=== PATIENT | male | born 1955 | race Two or more races ===

== ENCOUNTER → 2020-06-10 10:43 | Outpatient (BNVA) | payer MEDICARE, MEDICAID, SELFPAY | PROVIDERS: PCP Internal Medicine; Visit Provider Physician Assistant | DX: Z13.89 Encounter for screening for other disorder (principal) | CPT/HCPCS: Q3014 ==

== ENCOUNTER 2022-08-16 13:13 | Outpatient (REF) | payer MEDICARE, SELFPAY ==
--- NOTE | ~2022-08-16 | US_ITS ---
EXAMINATION: ANKLE-BRACHIAL INDICES ARTERIAL DUPLEX BILATERAL LEGS CLINICAL INFORMATION: Cramps and claudication. COMPARISON: None TECHNIQUE: Ankle-brachial indices were obtained. Duplex Doppler of the bilateral lower extremity arterial systems was performed. FINDINGS: RIGHT: Ankle-brachial index: 0.69 Common femoral: PSV 170 cm/s. Biphasic waveform. Deep femoral: PSV 228 cm/s. Biphasic waveform. Proximal superficial femoral: PSV 84 cm/s. Monophasic waveform. Mid superficial femoral: PSV 12 cm/s. Monophasic waveform. Distal superficial femoral: PSV 39 cm/s. Monophasic waveform. Popliteal: PSV 55 cm/s. Monophasic waveform. Posterior tibial: PSV 25 cm/s. Monophasic waveform. Peroneal: PSV 22 cm/s. Monophasic waveform. LEFT: Ankle-brachial index: 0.55 Common femoral: PSV 163 cm/s. Triphasic waveform. Deep femoral: PSV 124 cm/s. Triphasic waveform. Proximal superficial femoral: PSV 103 cm/s. Triphasic waveform. Mid superficial femoral: PSV 69 cm/s. Monophasic waveform. Distal superficial femoral: PSV 62 cm/s. Monophasic waveform. Popliteal: PSV 32 cm/s. Monophasic waveform. Posterior tibial: PSV 18 cm/s. Monophasic waveform. Peroneal: PSV 14 cm/s. Monophasic waveform. US/US LARON complete IMPRESSION: Right lower extremity: Moderate peripheral arterial disease by ankle brachial index. Diffuse femoropopliteal disease. Monophasic waveforms in the SFA and below. Left lower extremity: Moderate peripheral arterial disease by ankle brachial index. Diffuse femoropopliteal disease. Severe focal stenosis popliteal artery. Monophasic waveforms in the mid SFA and below.
--- NOTE | ~2022-08-16 | US_ITS ---
EXAMINATION: ANKLE-BRACHIAL INDICES ARTERIAL DUPLEX BILATERAL LEGS CLINICAL INFORMATION: Cramps and claudication. COMPARISON: None TECHNIQUE: Ankle-brachial indices were obtained. Duplex Doppler of the bilateral lower extremity arterial systems was performed. FINDINGS: RIGHT: Ankle-brachial index: 0.69 Common femoral: PSV 170 cm/s. Biphasic waveform. Deep femoral: PSV 228 cm/s. Biphasic waveform. Proximal superficial femoral: PSV 84 cm/s. Monophasic waveform. Mid superficial femoral: PSV 12 cm/s. Monophasic waveform. Distal superficial femoral: PSV 39 cm/s. Monophasic waveform. Popliteal: PSV 55 cm/s. Monophasic waveform. Posterior tibial: PSV 25 cm/s. Monophasic waveform. Peroneal: PSV 22 cm/s. Monophasic waveform. LEFT: Ankle-brachial index: 0.55 Common femoral: PSV 163 cm/s. Triphasic waveform. Deep femoral: PSV 124 cm/s. Triphasic waveform. Proximal superficial femoral: PSV 103 cm/s. Triphasic waveform. Mid superficial femoral: PSV 69 cm/s. Monophasic waveform. Distal superficial femoral: PSV 62 cm/s. Monophasic waveform. Popliteal: PSV 32 cm/s. Monophasic waveform. Posterior tibial: PSV 18 cm/s. Monophasic waveform. Peroneal: PSV 14 cm/s. Monophasic waveform. US/US arterial duplex LE BI IMPRESSION: Right lower extremity: Moderate peripheral arterial disease by ankle brachial index. Diffuse femoropopliteal disease. Monophasic waveforms in the SFA and below. Left lower extremity: Moderate peripheral arterial disease by ankle brachial index. Diffuse femoropopliteal disease. Severe focal stenosis popliteal artery. Monophasic waveforms in the mid SFA and below.
== END 2022-08-16 13:14 | disposition home or self-care (01) ==
LOC: HO.US 13:13
PROVIDERS: PCP Family Medicine; Visit Provider Family Medicine
DX: I70.212 Atherosclerosis of native arteries of extremities with intermittent claudication, left leg (principal); R25.2 Cramp and spasm
CPT/HCPCS: 93923; 93925

== ENCOUNTER → 2022-12-01 10:18 | Outpatient (BNVA) | payer MEDICARE, SELFPAY | PROVIDERS: PCP Family Medicine; Visit Provider Surgery Vascular Surgery | DX: I73.9 Peripheral vascular disease, unspecified (principal) | CPT/HCPCS: 99212 ==

== ENCOUNTER 2022-12-07 07:23 | Day surgery (SDC) | payer OTHER, SELFPAY ==
[2022-12-07] VITALS (8 sets, daily range): BP systolic 133–163; BP diastolic 80–88; PULSE 80–85; RESP 16–17; TEMP 36.8–37.1; O2SAT 90–95; BMI 24.6
--- NOTE | ~2022-12-07 | IR_ITS ---
EXAMINATION: IR ULTRASOUND GUIDANCE VENOUS ACCESS CLINICAL INFORMATION: Peripheral vascular disease. COMPARISON: None. TECHNIQUE: Fluoroscopic guidance was provided to Dr. Pino for arterial vascular procedure. Ultrasound guidance was also performed. Ultrasound was used to document vein patency and for needle entry. See Dr. Pino's note for detailed findings. FINDINGS: Fluoroscopy Time: 16.4 minutes. DAP: 7411 cGy-cm2. Total Sedation Time: 61 minutes. IR/IR us guide venous access IMPRESSION: Fluoroscopy guidance for arterial vascular procedure.
--- NOTE | ~2022-12-07 | IR_ITS ---
EXAMINATION: IR ULTRASOUND GUIDANCE VENOUS ACCESS CLINICAL INFORMATION: Peripheral vascular disease. COMPARISON: None. TECHNIQUE: Fluoroscopic guidance was provided to Dr. Pino for arterial vascular procedure. Ultrasound guidance was also performed. Ultrasound was used to document vein patency and for needle entry. See Dr. Pino's note for detailed findings. FINDINGS: Fluoroscopy Time: 16.4 minutes. DAP: 7411 cGy-cm2. Total Sedation Time: 61 minutes. IR/IR renal social worker fem pop w arthrectomy IMPRESSION: Fluoroscopy guidance for arterial vascular procedure.
[2022-12-07 07:38] LABS: MANUAL DIFF FLAG NO
[2022-12-07 07:43] LABS: Basophils Absolute Auto 0.1 X10*3/uL (0.0-0.2); Basophils Percent Auto 0.5 % (0-2); Eosinophils Absolute Auto 0.9 X10*3/uL (0.0-0.4); Eosinophils Percent Auto 8.3 % (0-4); Hematocrit 50.2 % (42.0-52.0); Hemoglobin 15.6 g/dl (14.0-18.0); Imm Gran Abs Auto 0.05 X10*3/uL (0.00-0.03); Imm Gran Pct Auto 0.5 % (0.0-0.4); Lymphocytes Absolute Auto 1.9 X10*3/uL (1.2-4.9); Lymphocytes Percent Auto 17.3 % (20-40); Mean Corpuscular HGB Conc 31.1 g/dl (31.0-36.0); Mean Corpuscular Hemoglobin 29.8 pg (27.0-33.0); Mean Platelet Volume 8.3 fL (9.4-12.4); Monocytes Percent Auto 9.4 % (2-11); Platelet Count 272 X10*3/uL (160-400); Red Blood Count 5.23 X10*6/uL (4.60-5.80); Red Cell Distribution Width 14.2 % (11.0-16.0)
[2022-12-07 07:55] LABS: Blood Urea Nitrogen 17 mg/dL (9-16); Creatinine Clr Calc Pharmacy 47.5; Estimated Glomerular Filt Rate > 60
--- NOTE | 2022-12-07 11:03 | P.OP_ITS ---
Operative Note Operative Note Date of Service: 12/07/22 Narrative: Angiogram report from [facility] Preoperative diagnosis: Atherosclerosis of left lower extremity with activity limiting claudication Postoperative diagnosis: Same Procedure: 1. Ultrasound-guided right common femoral access 2. Aortogram with bilateral lower extremity runoff 3. Left SFA atherectomy and plasty Surgeon:Abhishek Pino M.D., FACS, RPVI Moisture Conditioner Operator:None Anesthesia: Local with moderate conscious sedation. Total intraservice moderate sedation time was 61 minutes. I monitored the patient's level of consciousness and physiologic status continuously throughout the procedure. Specimens:none Drains:none Estimated blood loss: Less than 10 ml Implant: Medtronic Impact DCB 5 x 120 Indications: 67-year-old gentleman with known SFA disease on ultrasound. He now presents for endovascular intervention The patient has signed the informed consent after reviewing risks, complications, benefits, and alternatives previously discussed with the patient. The patient was given the opportunity to ask any additional questions or voice any concerns. All questions were answered to the patient's satisfaction. Procedure in detail: Patient was brought to the angiography suite prior to whi ch a time-out was called for patient identification and site verification. Bilateral groins were prepped and draped in the standard surgical fashion. Under ultrasound guidance right common femoral was punctured with micro puncture needle and wire. Subsequently a precision 4 Greenlandic sheath was then placed. Bentson wire was advanced to the level of the aorta. 4 Greenlandic Flush catheter was brought up and parked at the level of the renal arteries. Aortogram was then undertaken. Catheter was brought down to the level of the iliac bifurcation. Iliacs were subsequently imaged. Catheter was then brought in up and over to the left side SFA. Runoff study was then undertaken. It was recognized that he had a total SFA occlusion. We were able to traverse this. We then administered of 4000 units of systemic heparin. After 5 minutes of circulation time up and over 6 Greenlandic sheath was then placed. We were able to traverse this area with a 035 glidewire Advantage in confirmed true lumen with a now be cross catheter instilled with contrast. We then brought in a 6 Greenlandic spider wire. We performed a Hawk 1 unidirectional atherectomy of the left distal SFA. Multiple unidirectional passes were undertaken. We obtained a decent result. There was still some residual stenosis. Once this was all accomplished we then plasty this area with a 5 x 100 regular balloon. Subsequent to this we brought in a 5 x 120 drug coated balloon. This was brought into position in under 3 minutes and insufflated for a total of 3 minutes in duration. Completion angiogram demonstrated good result. Catheter was brought back to the ipsilateral side which was the right side. Right lower extremity runoff study was then undertaken. Once this was complete StarClose closure device was then placed. Adequate hemostasis was achieved. Exofin was used as a sterile dressing. At the end the case sponge instrument counts were correct. Patient tolerated the procedure well. Returned to recovery with sta ble vitals. Interpretation of films: 1. Ultrasound demonstrates appropriate femoral puncture. Image of which was saved. 2. Aortogram demonstrates appropriate caliber aorta. Minimal disease. Approp riate take-off of the renals. 3. Iliac images demonstrate small caliber vessels with mild to moderate disease. No flow-limiting stenosis. 4. Left Leg Common femoral artery: No significant disease Profundus Femoris: No significant disease Superficial femoral artery: Total occlusion distal SFA at [facility] Popliteal artery (p1,p2,p3): Reconstitutes via collaterals Anterior tibial artery: Direct flow all the way down to the foot Peroneal artery: Reconstitutes by collaterals and has diminutive flow all the way to the ankle Posterior tibial artery: Reconstitutes via collaterals and flow all the way down to the ankle it is a dominant vessel Dorsalis pedis/plantar arch: Present but incomplete 5. Right Leg Common femoral artery: No significant disease Profundus Femoris: No significant disease Superficial femoral artery: Total occlusion distal SFA at proximal 1/3 Popliteal artery (p1,p2,p3): No significant disease Anterior tibial artery: Direct flow all the way down to the foot Peroneal artery: Direct flow but diminutive Posterior tibial artery: No significant disease Dorsalis pedis/plantar arch: Present but incomplete Conclusion: 1. Successful left atherectomy and plasty. Will need endovascular intervention on the right side 2. Anticoagulation status: Aspirin and Plavix for 6 months This note is constructed using voice recognition software. While every effort has been made to ensure accuracy, religion department chair errors may have been included. Thank you for allowing me to participate in the care of your patient. Yours sincerely, Abhishek Pino MD, FACS, R.P.V.I.
[2022-12-07] MEDS: Clopidogrel Bisulfate 300 MG TABLET PO (11:20)
[2022-12-07] MEDS: Albuterol Sulfate 90 MCG 8 GM INHALER 2 PUFF INHALE (12:35)
== END 2022-12-07 14:20 | disposition home or self-care (01) ==
PROVIDERS: PCP Family Medicine; Visit Provider Surgery Vascular Surgery
DX: I70.212 Atherosclerosis of native arteries of extremities with intermittent claudication, left leg (principal); F17.210 Nicotine dependence, cigarettes, uncomplicated; I10 Essential (primary) hypertension; K21.9 Gastro-esophageal reflux disease without esophagitis; E78.5 Hyperlipidemia, unspecified
CPT/HCPCS: 36415; 37225; 76937; 82565; 84520; 85025; C1714; C1725; C1760; C1769; C1884; C1887; J1643; J2250; J3010; Q9967

== ENCOUNTER → 2022-12-09 13:18 | Outpatient (REF) | payer OTHER, SELFPAY ==
--- NOTE | 2022-12-09 13:21 | CA_ITS ---
Transthoracic Echocardiogram Patient (Last, First, Middle): Yosef Soria, Gender: Male Date of : 1955 Age: 67 Procedure Date: 12/09/2022 Procedure Type: Transthoracic Echocardiogram Location: OP Height: 154.94 cm Weight: 58.97 kg BSA: 1.57 m2 Heart Rate: 82 bpm BP: 110 / 65 mmHg Display Carver: ANGEL Referring MD: Kayla Friend MD Videotape Sales Representative: Mendez Melvin MD Symptoms: PVD, HTN, GILBERT Study Quality: Adequate ECG Rhythm: Sinus Conclusions: - 1. Normal LV systolic function with impaired relaxation filling pattern 2. Normal cardiac valvular Doppler 3. Mildly dilated ascending aorta at 3.9 cm 4. No gross pericardial effusion Findings Left Ventricle Normal left ventricular size, thickness, and systolic function. The visually estimated ejection fraction is between 55-60%. Spectral Doppler is indicative of an impaired relaxation filling pattern. E/E prime ratio is between 8 and 15 consistent with indeterminate filling pressures. Right Ventricle The right ventricle was not well visualized. Normal right ventricular cavity size. There is normal right ventricular systolic function. Atria The left atrium is normal in size. Interatrial shunt cannot be excluded. The right atrium was not well visualized. Aortic Valve The aortic valve was not well visualized. There is no aortic valve stenosis. There is no aortic valve regurgitation. Mitral Valve Likely normal mitral valve structure and function. There is trace mitral valve regurgitation. There is no mitral valve stenosis. Pulmonic Valve The pulmonic valve was not well visualized. Tricuspid Valve The tricuspid valve was not well visualized. Tricuspid regurgitation envelope is inadequate for calculation of right ventricular systolic pressure. Normal right atrial pressure. Great Vessels The pulmonary artery was not well visualized. There is mild dilatation of the ascending aorta measuring 3.90 cm. Venous The inferior vena cava is normal in size and collapses greater than 50% with inspiration. Pericardium/Pleural There is no evidence of pericardial effusion. Prior Study Comparison No prior study available for comparison. Measurements 2D Linear Measurements IVSd: 0.80 0.6-0.9/0.6-1.0 cm LVIDd: 4.19 3.9-5.3/4.2-5.9 cm LVIDd Index: 2.67 2.4-3.2/2.2-3.1 cm/m2 LVIDs: 3.22 2.0-3.6 cm LVPWd: 0.92 0.7-1.1 cm LA Diam: 2.60 2.7-3.8/3.0-4.0 cm LAIDs Index: 1.66 1.5-2.3 cm/m2 LV Mass: 138.40 67-162/88-224 g LV Mass Index: 88.15 43-95/49-115 g/m2 LVOT Diam: 2.00 3.0+(-)1.3 cm 2D Systolic Function EF 4C: 58.90 >55% EF 2C: 57.10 >55% EF BiP: 57.30 >55% Mitral Valve MV Pk E: 0.62 MV PK A: 0.72 MV Decel Time: 217.00 E/A: 0.90 E'Lateral: 6.64 E'Medial: 9.25 E/E' Med: 6.70 E/E' Lat: 9.40 PHT: 63.00 MVA PHT: 3.49 Decel Holt: 2.87 Aortic Valve AoV Pk Emil: 1.28 AoV Mn Emil: 0.85 AoV VTI: 0.22 AoV Pk Grad: 7.00 Aov Mn Grad: 3.00 CARLOS Cont.VTI: 2.44 LVOT LVOT Pk Emil: 0.98 LVOT Mn Emli: 0.64 LVOT VTI: 0.17 LVOT Pk Grad: 4.00 LVOT Mn Grad: 2.00 LVOT Diam: 2.00 LVOT Area: 3.14 Diastolic Function MV Pk E: 0.62 MV Pk A: 0.72 E/A: 0.90 E'Medial: 9.25 E/E' Med: 6.70 E' Laterial: 6.64 E/E' Lat: 9.40 Right Ventricle TAPSE (mm): 18.20 TVS' Emil: 11.90 Tricuspid Valve RA Press: 3.00 Great Vessels Aorta Sinus of Valsalva: 3.50 2.0-3.5 cm Ao Asc: 3.90 2.1-3.4 cm Pulmonary Valve PV Pk Emil: 0.83 Peak PV Grad: 3.00 Updated in Other Vendor System with Status of Final Mendez Melvin MD electronically signed on 12/10/2022 1:39:22 PM with status of Final
== END ==
LOC: HO.CARD 13:18
PROVIDERS: Visit Provider Family Medicine
DX: R06.00 Dyspnea, unspecified (principal)
CPT/HCPCS: 93306

== ENCOUNTER → 2022-12-29 09:47 | Outpatient (BNVA) | payer OTHER, SELFPAY | PROVIDERS: PCP Family Medicine; Visit Provider Surgery Vascular Surgery | DX: I73.9 Peripheral vascular disease, unspecified (principal) | CPT/HCPCS: 99212 ==

== ENCOUNTER 2023-03-27 11:00 | Outpatient (REF) | payer OTHER, SELFPAY ==
--- NOTE | ~2023-03-27 | US_ITS ---
EXAMINATION: NONINVASIVE ASSESSMENT OF THE ARTERIES OF BOTH LOWER EXTREMITIES WITH PVR EXAM AND BILATERAL LOWER EXTREMITY DUPLEX Ratna Fonseca MD CLINICAL INFORMATION: Peripheral vascular disease TECHNIQUE: Ankle pulse volume recordings, ankle pressure measurements and ankle brachial indices were obtained of the lower extremity arterial system bilaterally in addition to duplex Doppler techniques with wave form analysis and measurement of velocities in the common femoral, profunda femoral, superficial femoral, popliteal and tibial arteries. The study was performed only at rest. COMPARISON: Noninvasive arterial ultrasound on 08/16/2022 FINDINGS: a) AT REST: RIGHT LE. The right ankle-brachial index is: 0.70 * >0.97-1.25 = normal - no significant arterial disease * 0.75-0.96 = mild peripheral arterial disease * 0.5-0.74 = moderate peripheral arterial disease * <0.50 = severe peripheral arterial disease 2. Right ankle pressure: abnormal. 3. Right ankle PVR waveform: abnormal. 4. Right direct duplex Doppler findings: Common femoral artery: 147 cm/s, Multiphasic Profunda femoris artery: 167 cm/s, Multiphasic Superficial femoral artery (proximal): 46 cm/s, monophasic Superficial femoral artery (mid): 30 cm/s, monophasic Superficial femoral artery (distal): 57 cm/s, monophasic Proximal Popliteal artery: 56 cm/s, monophasic Mid posterior tibial artery: 27 cm/s, monophasic LEFT LE. The left ankle-brachial index is: 0.54 * >0.97-1.25 = normal - no significant arterial disease * 0.75-0.96 = mild peripheral arterial disease * 0.5-0.74 = moderate peripheral arterial disease * <0.50 = severe peripheral arterial disease 2. Left ankle pressure: abnormal. 3. Left ankle PVR waveform: abnormal. 4. Left direct duplex Doppler findings: Common femoral artery: 75 cm/s, monophasic Profunda femoris artery: 34 cm/s, monophasic Superficial femoral artery (proximal): 54 cm/s, monophasic Superficial femoral artery (mid): 50 cm/s, monophasic Superficial femoral artery (distal): 21 cm/s, monophasic Proximal Popliteal artery: 30 cm/s, monophasic Mid posterior tibial artery: 14 cm/s, monophasic US/US arterial duplex LE BI IMPRESSION: RIGHT LEG: Moderate peripheral arterial disease. LEFT LEG: Evidence of moderate peripheral arterial disease with monophasic flow throughout the left lower extremity.
--- NOTE | ~2023-03-27 | US_ITS ---
EXAMINATION: NONINVASIVE ASSESSMENT OF THE ARTERIES OF BOTH LOWER EXTREMITIES WITH PVR EXAM AND BILATERAL LOWER EXTREMITY DUPLEX Ratna Fonseca MD CLINICAL INFORMATION: Peripheral vascular disease TECHNIQUE: Ankle pulse volume recordings, ankle pressure measurements and ankle brachial indices were obtained of the lower extremity arterial system bilaterally in addition to duplex Doppler techniques with wave form analysis and measurement of velocities in the common femoral, profunda femoral, superficial femoral, popliteal and tibial arteries. The study was performed only at rest. COMPARISON: Noninvasive arterial ultrasound on 08/16/2022 FINDINGS: a) AT REST: RIGHT LE. The right ankle-brachial index is: 0.70 * >0.97-1.25 = normal - no significant arterial disease * 0.75-0.96 = mild peripheral arterial disease * 0.5-0.74 = moderate peripheral arterial disease * <0.50 = severe peripheral arterial disease 2. Right ankle pressure: abnormal. 3. Right ankle PVR waveform: abnormal. 4. Right direct duplex Doppler findings: Common femoral artery: 147 cm/s, Multiphasic Profunda femoris artery: 167 cm/s, Multiphasic Superficial femoral artery (proximal): 46 cm/s, monophasic Superficial femoral artery (mid): 30 cm/s, monophasic Superficial femoral artery (distal): 57 cm/s, monophasic Proximal Popliteal artery: 56 cm/s, monophasic Mid posterior tibial artery: 27 cm/s, monophasic LEFT LE. The left ankle-brachial index is: 0.54 * >0.97-1.25 = normal - no significant arterial disease * 0.75-0.96 = mild peripheral arterial disease * 0.5-0.74 = moderate peripheral arterial disease * <0.50 = severe peripheral arterial disease 2. Left ankle pressure: abnormal. 3. Left ankle PVR waveform: abnormal. 4. Left direct duplex Doppler findings: Common femoral artery: 75 cm/s, monophasic Profunda femoris artery: 34 cm/s, monophasic Superficial femoral artery (proximal): 54 cm/s, monophasic Superficial femoral artery (mid): 50 cm/s, monophasic Superficial femoral artery (distal): 21 cm/s, monophasic Proximal Popliteal artery: 30 cm/s, monophasic Mid posterior tibial artery: 14 cm/s, monophasic US/US LARON complete IMPRESSION: RIGHT LEG: Moderate peripheral arterial disease. LEFT LEG: Evidence of moderate peripheral arterial disease with monophasic flow throughout the left lower extremity.
== END 2023-03-27 11:01 | disposition home or self-care (01) ==
LOC: HO.US 11:00
PROVIDERS: PCP Family Medicine; Visit Provider Surgery Vascular Surgery
DX: I73.9 Peripheral vascular disease, unspecified (principal)
CPT/HCPCS: 93923; 93925

== ENCOUNTER 2023-04-05 09:52 | Outpatient (AMB) | payer OTHER, SELFPAY ==
--- NOTE | 2023-04-05 09:53 | MHC.OFFVIS ---
Intake Vital Signs 04/05/23 09:54 Height 5 ft 1 in Weight 132 lb 4.438 oz BMI 25.0 BP 128/70 Blood Pressure Location Lt brachial Position Sitting Pulse 74 Intake Visit Reasons: NPV/Peripheral vascular disease/M. Friend Intake Note: NPV w/ EKG Cable Swager Required: Yes Cable Swager Language: Food Science Technician Name: Rao [id number] Accompanied by: Self / Same As Patient Allergies No Known Allergies Allergy (Verified 04/05/23 09:58) Medication List - Last Reconciled 04/05/23 by French Monge MD albuterol sulfate 90 mcg/actuation 0 mcg inhalation amlodipine 10 mg PO DAILY aspirin 81 mg PO QAM atorvastatin 80 mg PO DAILY carvedilol 25 mg PO clopidogrel (Plavix) 75 mg PO DAILY fluticasone propionate 220 mcg/actuation (Flovent HFA) 0 mcg inhalation loratadine 10 mg PO QAM magnesium oxide 400 mg PO QAM omeprazole 40 mg PO DAILY prednisone 50 mg PO DAILY valsartan-hydrochlorothiazide 320-25 mg 1 tab PO QAM zolpidem 10 mg PO BEDTIME PRN HPI HPI Comments History of Present Illness Details Yosef is here for consultation regarding shortness of breath. Multiple cardiovascular risk factors including hypertension, dyslipidemia, smoking. He also has lower extremity vascular disease and underwent left SFA arthrotomy/angioplasty by vascular surgery in the past. He states that whenever he is walking he can get short of breath. No clear anginal-type chest pains. No history of any coronary artery disease or myocardial infarction or cardiomyopathy. [facility] Medical History Acid reflux Dyslipidemia HTN (hypertension) Surgical History H/O wrist surgery Family History Father No problems noted. Mother No problems noted. Social History Alcohol intake: former Patient Tobacco Use Status: Current everyday Tobacco user Cigarettes Per Day: 5 Current occupational status: unemployed Review of Systems Const All systems reviewed & are unremarkable except as noted in HPI and below Reports as per HPI and Reports no additional complaints Eyes Reports as per HPI and Denies no additional complaints ENT Denies no additional complaints and Reports as per HPI Card Reports as per HPI, Reports no additional complaints, Denies acrocyanosis, Denies chest pain, Denies leg edema, Denies lightheadedness, Denies palpitations and Reports dyspnea Resp Reports as per HPI, Denies no additional complaints and Reports dyspnea GI Reports as per HPI and Denies no additional complaints Reports no additional complaints and Reports as per HPI Musc Reports no additional complaints and Reports as per HPI Skin/Breast Reports system reviewed and no additional complaints, except as documented Neuro Reports no additional complaints and Reports as per HPI Psych Reports no additional complaints and Reports as per HPI Endo Reports no additional complaints, Reports as per HPI and Denies palpitations Andre/Lymph Reports no additional complaints and Reports as per HPI Aller/Immun Reports no additional complaints and Reports as per HPI Physical Exam Vital Signs: Last Vital Signs Pulse 74 04/05/23 09:54 BP 128/70 04/05/23 09:54 BMI result Body Mass Index 25.0 Const General: comfortable and no acute distress Orientation/consciousness: patient oriented x3 HEENT Other: Unremarkable Head: Yes normal to inspection Neck Neck: Yes normal visual inspection Chest Chest palpation & inspection: normal inspection of the chest Resp Auscultation: clear to auscultation bilaterally Cardio Palpation: normal PMI Heart sounds: S1 normal heart sound present, S2 normal heart sound present, no gallops, no murmurs and no rubs GI Palpation (GI): Soft to palpation Back/Spine/Pelvis Other: unremarkable Skin General skin exam: no rashes or lesions noted Neuro General: patient oriented x3 Extrem General: Yes normal to inspection Psych Mental Status: mental status grossly normal Office Procedures EKG Details: EKG with sinus rhythm at 74/Min; no significant ST-T changes and otherwise unremarkable. [place] [id number], Complete Assessment & Plan Assessment & Plan (1) Shortness of breath: Code(s): R06.02 - Shortness of breath (2) PAD (peripheral artery disease): Comment: 12/07/2022-left SFA atherectomy and plasty Code(s): I73.9 - Peripheral vascular disease, unspecified (3) HTN (hypertension): Code(s): I10 - Essential (primary) hypertension (4) Dyslipidemia: Code(s): E78.5 - Hyperlipidemia, unspecified (5) Smoker: Code(s): F17.200 - Nicotine dependence, unspecified, uncomplicated Plan Baseline EKG unremarkable. In the echocardiogram, LVEF 55-60% with mild diastolic dysfunction. No significant valvular issues. Borderline ascending aortic size at 3.9 cm. Overall, multiple vascular risk factors and established peripheral vascular disease with shortness of breath. This could be either from smoking or underlying coronary disease. We will proceed with pharmacological stress perfusion imaging study for further evaluation. If this is unremarkable, then will need pulmonary evaluation. Follow-up after the above. Discussed with son who came for appointment. drapery rod assembler was used. Orders: Orders CA lexiscan stress w rosmery Today I20.9 - Angina pectoris, unspecified, R06.02 - Shortness of breath NM cardiolite stress test Today R06.02 - Shortness of breath Coding Level of Care Code New Pt Level 4 (42375) Diagnoses Shortness of breath R06.02 PAD (peripheral artery disease) I73.9 HTN (hypertension) I10 Dyslipidemia E78.5 Smoker F17.200 CPT Codes EKG - CPT: 47227-[id number], Complete ([id number])
[2023-04-05 09:54] VITALS: BP 128/70; PULSE 74; BMI 25.0
== END 2023-04-05 12:52 | disposition home or self-care (01) ==
PROVIDERS: PCP Family Medicine; Visit Provider Internal Medicine
DX: R06.02 Shortness of breath (principal); I73.9 Peripheral vascular disease, unspecified; I10 Essential (primary) hypertension; E78.5 Hyperlipidemia, unspecified; F17.200 Nicotine dependence, unspecified, uncomplicated
CPT/HCPCS: 93010; 99204

== ENCOUNTER → 2023-04-05 09:52 | Outpatient (BNVA) | payer OTHER, SELFPAY | PROVIDERS: PCP Family Medicine; Visit Provider Internal Medicine | DX: I73.9 Peripheral vascular disease, unspecified (principal); I10 Essential (primary) hypertension; R06.02 Shortness of breath; E78.5 Hyperlipidemia, unspecified; F17.210 Nicotine dependence, cigarettes, uncomplicated | CPT/HCPCS: 93005 ==

== ENCOUNTER 2023-05-04 09:24 | Outpatient (AMB) | payer OTHER, SELFPAY ==
--- NOTE | 2023-05-04 09:49 | MHC.OFFVIS ---
Intake Intake Visit Reasons: duplex arterial US FU Intake Note: pt here for fu arterial duplex on 03/27/23 pt states his legs feel worst and he is having lots of pain thats radiating up his leg and into hid buttocks on the left side. 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 He has had prior left lower extremity endovascular intervention. He still reports that he is having difficulty in can barely walk about 100 ft. He complains that it is more hip and thigh pain. He continues to smoke about a half a pack per day. He now presents for routine surveillance follow-up with noninvasive arterial testing. REPLACED BY [facility] Medical History Dyslipidemia Acid reflux HTN (hypertension) Surgical History H/O wrist surgery Family History Father No problems noted. Mother No problems noted. Social History Alcohol intake: former Patient Tobacco Use Status: Current everyday Tobacco user Cigarettes Per Day: 5 Current occupational status: unemployed Review of Systems Const All systems reviewed & are unremarkable except as noted in HPI and below Reports no additional complaints ENT Reports Normal hearing present Card Denies chest pain, Denies chest pain at rest, Denies chest pain with activity and Denies pedal edema Resp Denies cough GI Denies abdominal pain Musc Denies abnormal gait, Denies muscle cramps and Denies radiating pain into limb Skin/Breast Denies skin ulcer and Denies wounds Neuro Reports Normal hearing present and Denies abnormal gait Psych Reports no additional complaints Physical Exam Const General: cooperative, healthy appearing and comfortable Orientation/consciousness: oriented to person, oriented to place and oriented to time HEENT Head: Yes normal to inspection Neck Neck: Yes normal visual inspection Carotids: no bruits Chest Chest palpation & inspection: normal inspection of the chest Resp Effort & Inspection: normal respiratory effort and able to speak in complete sentences Auscultation: clear to auscultation bilaterally, no crackles, no rales, no rhonchi and no wheezes Cardio Other: Bilateral DP signals Rate: regular rate Rhythm: regular rhythm Heart sounds: S1 normal heart sound present and S2 normal heart sound present Bruits: no carotid bruits Peripheral pulses: Peripheral pulses 2+ throughout GI Inspection: Yes normal to inspection Skin Wounds: no wounds Hair: normal Neuro General: oriented to person, oriented to place and oriented to time Cranial nerves: Yes CN's II-XII intact bilaterally and Yes Normal hearing present Cognition (Neuro): normal cognition Motor exam (neuro): 5/5 motor strength present throughout Extrem Other: venous exam: No significant superficial varicosities or spider telangiectasias, minimal edema General: No clubbing, No cyanosis and No edema Psych Appearance: grossly normal Mental Status: mental status grossly normal Speech and movement: Normal speech and movement present Results Reviewed Results Reviewed: Noninvasive arterial testing dated 03/27/2023 demonstrates LARON on the right of 0.7 and on the left of 0.54 with monophasic flow all the way down. Written report and images were reviewed. Assessment & Plan Assessment & Plan (1) PAD (peripheral artery disease): Comment: 12/07/2022-left SFA atherectomy and plasty Code(s): I73.9 - Peripheral vascular disease, unspecified Plan: Unclear why he has persistent pain. He does describe claudication type symptoms. I have taken the liberty of ordering CT angiogram to better elucidate where the stenosis is. He will follow up with us after testing. Thank you for allowing us to assist in his care. If there are any questions or concerns please do not hesitate to contact us. Orders: Orders CT angio abd aorta runoff 1 Week I73.9 - Peripheral vascular disease, unspecified Blood Urea Nitrogen Today I73.9 - Peripheral vascular disease, unspecified Creatinine Today I73.9 - Peripheral vascular disease, unspecified Coding Level of Care Code Est Pt Level 4 (81672) Diagnoses PAD (peripheral artery disease) I73.9
== END 2023-05-04 10:16 | disposition home or self-care (01) ==
PROVIDERS: PCP Family Medicine; Visit Provider Surgery Vascular Surgery
DX: I73.9 Peripheral vascular disease, unspecified (principal)
CPT/HCPCS: 99213

== ENCOUNTER → 2023-05-04 09:24 | Outpatient (BNVA) | payer OTHER, SELFPAY | PROVIDERS: PCP Family Medicine; Visit Provider Surgery Vascular Surgery | DX: I73.9 Peripheral vascular disease, unspecified (principal) | CPT/HCPCS: 99212 ==

== ENCOUNTER 2023-07-28 11:40 | Outpatient (REF) | payer OTHER, SELFPAY ==
[2023-07-28 12:38] LABS: Blood Urea Nitrogen 17 mg/dL (9-16); Estimated Glomerular Filt Rate > 60
== END 2023-07-28 11:41 | disposition home or self-care (01) ==
LOC: HO.LAB 11:40
PROVIDERS: PCP Family Medicine; Visit Provider Surgery Vascular Surgery
DX: I73.9 Peripheral vascular disease, unspecified (principal)
CPT/HCPCS: 36415; 82565; 84520

== ENCOUNTER 2023-08-21 09:20 | Outpatient (REF) | payer OTHER, SELFPAY ==
--- NOTE | ~2023-08-21 | CT_ITS ---
STUDY PERFORMED: CTA ABDOMEN, PELVIS AND LOWER EXTREMITY RUNOFF WITH CONTRAST HISTORY: Reason for Exam I73.9 - Peripheral vascular disease, unspecified DESCRIPTION: Routine abdominal aorta and lower extremity runoff CTA protocol with contrast was performed. 100 mL of Omnipaque 350 was administered. 3D POSTPROCESSING: Multiple 3-D angiographic images were processed from the initial data set by the [facility] under concurrent physician supervision. DOSE LOWERING TECHNIQUES: This CT examination was performed using dose optimization techniques as appropriate, variously including the following: - Automated exposure control - Adjustment of mA and/or kV according to patient size (this includes techniques or standardized protocols for targeted exams where dose is matched to indication/reason for exam; i.e. extremities or head) - Use of iterative reconstruction technique DLP: 508 mGycm. COMPARISON: Lower extremity duplex March 27, 2023 FINDINGS: VASCULAR: ABDOMINAL AORTA: Normal in caliber. Extensive fibrofatty and calcific plaque, most pronounced in the infrarenal abdominal aorta RIGHT LOWER EXTREMITY: - Common Iliac Artery: Patent with coarse and fibrofatty plaque - Internal Iliac Artery: Patent - External Iliac Artery: Fibrofatty plaque causing mild stenosis proximally - Common Femoral Artery: Fibrofatty plaque and calcific plaque causing mild stenosis distally - Profunda Femoral Artery: patent - Superficial Femoral Artery: Short segment high-grade stenosis at the origin. 3.2 cm occlusion in the mid SFA. Extensive fibrofatty and calcific plaque throughout. - Popliteal Artery: patent - Anterior Tibial Artery: Focal stenosis at the origin, but otherwise patent -Tibioperoneal trunk: patent - Posterior Tibial Artery: patent - Peroneal Artery: patent LEFT LOWER EXTREMITY: - Common Iliac Artery: Coarse calcific plaque causing mild stenoses - Internal Iliac Artery: patent - External Iliac Artery: Occlusion of the mid to distal external iliac artery - Common Femoral Artery: patent - Profunda Femoral Artery: patent - Superficial Femoral Artery: Extensive fibrofatty plaque throughout causing multifocal mild stenoses - Popliteal Artery: Patent with high-grade stenosis at the level of the joint space - Anterior Tibial Artery: High-grade stenosis at the origin, but otherwise patent -Tibioperoneal trunk: Moderate to severe stenosis - Posterior Tibial Artery: patent - Peroneal Artery: patent CELIOMESENTERIC ARTERIES: The celiac artery, SMA, and SHANKAR are patent RENAL ARTERIES: patent single bilateral renal arteries NONVASCULAR: Lung Bases: The visualized lung bases are unremarkable. Liver and Biliary Tree: The liver is normal in size, shape, and attenuation. No focal hepatic lesion or biliary ductal dilatation is present. Gallbladder: The gallbladder is unremarkable with no evidence of radiopaque gallstones, gallbladder wall thickening, or obvious pericholecystic inflammatory changes. Pancreas: Unremarkable. Spleen: Unremarkable. Adrenal Glands: Unremarkable. Kidneys and Ureters: The kidneys are normal in size, shape, and attenuation. No hydronephrosis, hydroureter, or calculi seen. No perinephric stranding. Bladder: Unremarkable. Gastrointestinal Tract: The large and small bowel are normal in caliber. Mild colonic diverticulosis. Appendix extends into a right-sided inguinal hernia Abdominal Wall: Bilateral inguinal hernias Lymph Nodes: Normal. Pelvic Viscera: Prostatomegaly Osseous Structures: Unremarkable. CT/CT angio abd aorta runoff IMPRESSION: Vascular: Right lower extremity: Inflow: Fibrofatty plaque causes mild stenosis in the proximal external iliac artery Femoral-popliteal: There is a 3.2 cm occlusion in the mid SFA Runoff: Focal stenosis at the origin of the anterior tibial artery. Otherwise patent three-vessel runoff Left lower extremity: Inflow: Occlusion of the mid to distal external iliac artery Femoral-popliteal: Multifocal mild stenoses throughout the SFA, and high-grade stenosis in the popliteal artery at the knee joint level. Runoff: High-grade stenosis at the origin of the anterior tibial artery and moderate to severe stenosis of the tibioperoneal trunk. Nonvascular: Bilateral inguinal hernias, containing the appendix on the right. Prostatomegaly.
[2023-08-21] MEDS: iohexoL 350 MG/ML 100 ML INFUS..BTL IV (10:20)
== END 2023-08-21 09:21 | disposition home or self-care (01) ==
LOC: HO.CT 09:20
PROVIDERS: PCP Family Medicine; Visit Provider Surgery Vascular Surgery
DX: I73.9 Peripheral vascular disease, unspecified (principal)
CPT/HCPCS: 75635; Q9967

== ENCOUNTER 2023-09-26 09:34 | Outpatient (AMB) | payer OTHER, SELFPAY ==
--- NOTE | 2023-09-26 09:37 | MHC.OFFVIS ---
Intake Intake Visit Reasons: F/U CTA w/ runoff 08/21/23 Intake Note: Patient presents for follow up CTA w/runoff on 08/21/23. Patient states he feels fine and has no complaints. Allergies No Known Allergies Allergy (Verified 09/26/23 09:39) HPI F/U CTA w/ runoff 08/21/23 HPI Details Pleasant 68-year-old gentleman presents with son regarding lower extremity pain and discomfort. He has difficulty ambulating more than 100 ft. He has started aspirin. According to the son he does not do very much aside from being in the apartment going to the store. He does have occasional pain. Reports that it is left more so than right. He now presents for follow-up with CT angiogram. [facility] Medical History Dyslipidemia Acid reflux HTN (hypertension) Surgical History H/O wrist surgery Family History Father No problems noted. Mother No problems noted. Social History Alcohol intake: former Patient Tobacco Use Status: Current everyday Tobacco user Cigarettes Per Day: 5 Current occupational status: unemployed Review of Systems Const All systems reviewed & are unremarkable except as noted in HPI and below Reports no additional complaints ENT Reports Normal hearing present Card Denies chest pain, Denies chest pain at rest, Denies chest pain with activity and Denies pedal edema Resp Denies cough GI Denies abdominal pain Musc Denies abnormal gait, Denies muscle cramps and Denies radiating pain into limb Skin/Breast Denies skin ulcer and Denies wounds Neuro Reports Normal hearing present and Denies abnormal gait Psych Reports no additional complaints Physical Exam Const General: cooperative, healthy appearing and comfortable Orientation/consciousness: oriented to person, oriented to place and oriented to time HEENT Head: Yes normal to inspection Neck Neck: Yes normal visual inspection Carotids: no bruits Chest Chest palpation & inspection: normal inspection of the chest Resp Effort & Inspection: normal respiratory effort and able to speak in complete sentences Auscultation: clear to auscultation bilaterally, no crackles, no rales, no rhonchi and no wheezes Cardio Other: Bilateral DP signals Rate: regular rate Rhythm: regular rhythm Heart sounds: S1 normal heart sound present and S2 normal heart sound present Bruits: no carotid bruits GI Inspection: Yes normal to inspection Skin Wounds: no wounds Hair: normal Neuro General: oriented to person, oriented to place and oriented to time Cranial nerves: Yes CN's II-XII intact bilaterally and Yes Normal hearing present Cognition (Neuro): normal cognition Motor exam (neuro): 5/5 motor strength present throughout Extrem Other: venous exam: No significant superficial varicosities or spider telangiectasias, minimal edema General: No clubbing, No cyanosis and No edema Psych Appearance: grossly normal Mental Status: mental status grossly normal Speech and movement: Normal speech and movement present Results Reviewed Results Reviewed: CT angiogram dated 08/21/2023 demonstrates significant aortoiliac disease with occlusion of left external iliac and stenosis throughout the right external iliac along with bilateral SFA disease Assessment & Plan Assessment & Plan (1) PAD (peripheral artery disease): Comment: 12/07/2022-left SFA atherectomy and plasty Code(s): I73.9 - Peripheral vascular disease, unspecified Plan: In short patient has significant peripheral vascular disease. He may need significant surgery. At the current time he appears to be doing relatively stable with all this. Would manage this conservatively. He would like to think about whether he would move forward with surgery. He is on an aspirin. I will add Plavix to his regimen as well. He will follow up with us in approximately 3 months time for surveillance leg check. At that time we can have a better discussion as to what are potential intervention options are. Thank you for allowing us to assist in his care. If there are any questions or concerns please do not hesitate to contact us. Medications: New clopidogrel (Plavix) 75 mg PO DAILY 90 tabs 1RF Coding Level of Care Code Est Pt Level 4 (08508) Diagnoses PAD (peripheral artery disease) I73.9
== END 2023-09-26 10:06 | disposition home or self-care (01) ==
PROVIDERS: PCP Family Medicine; Visit Provider Surgery Vascular Surgery
DX: I73.9 Peripheral vascular disease, unspecified (principal)
CPT/HCPCS: 99214

== ENCOUNTER → 2023-09-26 09:34 | Outpatient (BNVA) | payer OTHER, SELFPAY | PROVIDERS: PCP Family Medicine; Visit Provider Surgery Vascular Surgery | DX: I73.9 Peripheral vascular disease, unspecified (principal) | CPT/HCPCS: 99212 ==

== ENCOUNTER 2024-01-10 11:48 | Outpatient (AMB) | payer OTHER, SELFPAY ==
--- NOTE | 2024-01-10 11:52 | A.OFFVIS_ITS ---
Intake Visit Reasons: 3 month follow up plavix/leg pain Intake Note: Patient presents for 3 month follow up. States he has bilateral leg pain that starts at his feet and runs up to his thighs. He said the pain is worse than before. He uses a cane to ambulate. Allergies No Known Allergies Allergy (Verified 01/10/24 11:53) HPI HPI 3 month follow up plavix/leg pain: Details: 68-year-old gentleman presents for follow-up regarding peripheral vascular disease. He has difficulty ambulating more than 100 ft. Had been started on aspirin and Plavix. He reports no significant improvement in reports that the left leg continues to get worse. Quite concerned about it. Of note he is a nondiabetic and continues to smoke about a half a pack per day. [facility] Medical History Dyslipidemia Acid reflux HTN (hypertension) Surgical History H/O wrist surgery Family History Father No problems noted. Mother No problems noted. Social History Alcohol intake: former Patient Tobacco Use Status: Current everyday Tobacco user Cigarettes Per Day: 5 Current occupational status: unemployed Review of Systems Const All systems reviewed & are unremarkable except as noted in HPI and below Reports no additional complaints ENT Reports Normal hearing present Card Denies chest pain, Denies chest pain at rest, Denies chest pain with activity and Denies pedal edema Resp Denies cough GI Denies abdominal pain Musc Denies abnormal gait, Denies muscle cramps and Denies radiating pain into limb Skin/Breast Denies skin ulcer and Denies wounds Neuro Reports Normal hearing present and Denies abnormal gait Psych Reports no additional complaints Physical Exam Const General: cooperative, healthy appearing and comfortable Orientation/consciousness: oriented to person, oriented to place and oriented to time HEENT Head: Yes normal to inspection Neck Neck: Yes normal visual inspection Carotids: no bruits Chest Chest palpation & inspection: normal inspection of the chest Resp Effort & Inspection: normal respiratory effort and able to speak in complete sentences Auscultation: clear to auscultation bilaterally, no crackles, no rales, no rhonchi and no wheezes Cardio Other: Bilateral DP signals Rate: regular rate Rhythm: regular rhythm Heart sounds: S1 normal heart sound present and S2 normal heart sound present Bruits: no carotid bruits Peripheral pulses: Peripheral pulses 2+ throughout GI Inspection: Yes normal to inspection Skin Wounds: no wounds Hair: normal Neuro General: oriented to person, oriented to place and oriented to time Cranial nerves: Yes CN's II-XII intact bilaterally and Yes Normal hearing present Cognition (Neuro): normal cognition Motor exam (neuro): 5/5 motor strength present throughout Extrem Other: venous exam: No significant superficial varicosities or spider telangiectasias, minimal edema General: No clubbing, No cyanosis and No edema Psych Appearance: grossly normal Mental Status: mental status grossly normal Speech and movement: Normal speech and movement present Results Reviewed Results Reviewed: CT angiogram dated 08/21/2023 demonstrates left external iliac occlusion along with SFA disease. Written report and images were reviewed. Assessment & Plan Assessment & Plan (1) PAD (peripheral artery disease): Comment: 12/07/2022-left SFA atherectomy and plasty Code(s): I73.9 - Peripheral vascular disease, unspecified Category: Medical Plan: Patient notes leg pain when walking distances. I have discussed the pathophysiology of peripheral vascular disease with the patient. I have also discussed risk factor modification. I have reviewed the patient's arterial testing which reveals on CT scan left external iliac occlusion and SFA disease. the patient would benefit from a left leg endovascular peripheral angiogram with possible angioplasty, stent, and/or atherectomy. This has been discussed in detail with the patient along with risks, benefits, and complications. This includes but is not limited to bleeding, infection, heart attack, need for emergent surgical repair, limb ischemia, blood vessel damage, bleeding, puncture, kidney injury, bruising, allergic reaction, and skin reaction. The patient demonstrates a clear understanding. We will schedule for the next appropriate time. Thank you for allowing us to assist in this patient's care. Coding Level of Care Code Est Pt Level 4 (07507) Diagnoses PAD (peripheral artery disease) I73.9
== END 2024-01-10 12:18 | disposition home or self-care (01) ==
PROVIDERS: PCP Family Medicine; Visit Provider Surgery Vascular Surgery
DX: I73.9 Peripheral vascular disease, unspecified (principal)
CPT/HCPCS: 99214

== ENCOUNTER → 2024-01-10 11:48 | Outpatient (BNVA) | payer OTHER, SELFPAY | PROVIDERS: PCP Family Medicine; Visit Provider Surgery Vascular Surgery | DX: I73.9 Peripheral vascular disease, unspecified (principal); Z79.02 Long term (current) use of antithrombotics/antiplatelets | CPT/HCPCS: 99212 ==

== ENCOUNTER 2024-01-24 05:44 | Day surgery (SDC) | payer OTHER, SELFPAY ==
[2024-01-24] VITALS (8 sets, daily range): BP systolic 129–154; BP diastolic 64–96; PULSE 74–83; RESP 16–18; TEMP 36.3–36.9; O2SAT 94–98; BMI 25.5
[2024-01-24 06:37] LABS: MANUAL DIFF FLAG NO
[2024-01-24 06:39] LABS: Basophils Absolute Auto 0.1 X10*3/uL (0.0-0.2); Basophils Percent Auto 0.6 % (0-2); Eosinophils Absolute Auto 0.3 X10*3/uL (0.0-0.4); Eosinophils Percent Auto 2.9 % (0-4); Hematocrit 44.2 % (42.0-52.0); Hemoglobin 14.9 g/dl (14.0-18.0); Imm Gran Abs Auto 0.06 X10*3/uL (0.00-0.03); Imm Gran Pct Auto 0.6 % (0.0-0.4); Lymphocytes Absolute Auto 1.9 X10*3/uL (1.2-4.9); Lymphocytes Percent Auto 18.4 % (20-40); Mean Corpuscular HGB Conc 33.7 g/dl (31.0-36.0); Mean Corpuscular Hemoglobin 30.5 pg (27.0-33.0); Mean Corpuscular Volume 90.6 fL (80.0-98.0); Mean Platelet Volume 8.4 fL (9.4-12.4); Monocytes Absolute Auto 1.1 X10*3/uL (0.1-1.2); Monocytes Percent Auto 10.6 % (2-11); Neutrophils Absolute Auto 6.8 x10*3/uL (2.0-8.3); Neutrophils Percent Auto 66.9 % (45-73); Platelet Count 281 X10*3/uL (160-400); Red Blood Count 4.88 X10*6/uL (4.60-5.80); Red Cell Distribution Width 13.3 % (11.0-16.0); White Blood Count 10.1 X10*3/uL (4.8-10.8)
[2024-01-24] MEDS: 0.9 % Sodium Chloride 1,000 ML 100 ML IVCONT (06:44)
[2024-01-24 07:01] LABS: Blood Urea Nitrogen 23 mg/dL (9-16); Creatinine Clr Calc Pharmacy 47.7; Estimated Glomerular Filt Rate > 60
--- NOTE | 2024-01-24 09:57 | P.OP_ITS ---
Operative Note Operative Note Date of Service: 01/24/24 Narrative: Angiogram report from [facility] Preoperative diagnosis: Atherosclerosis of left lower extremity with activity limiting claudication Postoperative diagnosis: Same Procedure: 1. Ultrasound-guided right common femoral access 2. Aortogram with left lower extremity runoff 3. Left external iliac plasty and stent 4. Left popliteal plasty Surgeon:Abhishek Pino M.D., FACS, RPVI Ceo [place]:None Anesthesia: Local with moderate conscious sedation. Total intraservice moderate sedation time was 88 minutes. I monitored the patient's level of consciousness and physiologic status continuously throughout the procedure. Specimens:none Drains:none Estimated blood loss: Less than 10 ml Implant: Medtronic Impact DCB 5 x 60; 6 x 60; Medtronic visi Pro 6 x 27, 6 x 37 Indications: 68-year-old gentleman well known to me for prior endovascular intervention of left lower extremity nearly 2 years prior. On surveillance follow-up noted to have decreased ABIs in concern of the external iliac and popliteal. He now presents for endovascular intervention The patient has signed the informed consent after reviewing risks, complications, benefits, and alternatives previously discussed with the patient. The patient was given the opportunity to ask any additional questions or voice any concerns. All questions were answered to the patient's satisfaction. Procedure in detail: Patient was brought to the angiography suite prior to which a time-out was called for patient identification and site verification. Bilateral groins were prepped and draped in the standard surgical fashion. Under ultrasound guidance right common femoral was punctured with micro puncture needle and wire. Subsequently a precision 5 [place] sheath was then placed. Bentson wire was advanced to the level of the aorta. 5 [place] Flush catheter was brought up and parked at the level of the renal arteries. Aortogram was then undertaken. Catheter was brought down to the level of the iliac bifurcation. Iliacs were subsequently imaged. Catheter was then brought in up and over to the left side SFA. Runoff study was then undertaken. It was recognized that he had an external iliac occlusion and left popliteal high-grade stenosis. At this time 5000 units of systemic heparin was administered up and over 5 [place] sheath was subsequently placed. We used a [place] wire Advantage to traverse the external iliac. We were subsequently able to and once passed we then advanced the wire into the SFA. We then exchanged for an up and over 7 [place] sheath. We 1st plasty this entire area with a 6 x 60 regular balloon. We then placed a Medtronic visi pro balloon expandable stent. This was placed more distally in the external iliac 1st with a 6 x 37 subsequently followed more proximally with a 6 x 27. Once this was all accomplished completion angiogram demonstrated good result. This was post plasty did with the Medtronic Impact DCB 6 x 60. This was a drug coated balloon which was brought into position in under 3 minutes and insufflated for a total of 3 minutes in duration. Once this was accomplished we then advanced the wire in through the SFA down into the popliteal. This did demonstrate high-grade greater than 50% stenosis of this entire popliteal region. Multiple orthogonal views were undertaken. With an 014 wire we were able to advanced into the anterior tibial. We plasty this area with a 4 x 60 balloon. We subsequently followed this popliteal high-grade stenosis with a 5 x 60 Medtronic Impact DCB. Once again this was brought into position in under 3 minutes and insufflated for 3 minutes in duration. Completion angiogram demonstrated good result catheter wire sheath was brought back to the ipsilateral side. Up and over 7 [place] sheath was exchanged out for short 7 [place] sheath. A CELT closure device was then placed. Adequate hemostasis was achieved. Indermil was used as sterile dressing. Patient was brought back to the recovery with stable vitals. Interpretation of films: 1. Ultrasound demonstrates appropriate femoral access site. Vessel was patent with minimal stenosis. There was posterior calcification Needle entry was visualized. Image of ultrasound was saved. 2. Aortogram demonstrates appropriate caliber aorta. Minimal disease. Appropriate take-off of the renals. 3. Iliac images demonstrate right side mild to moderate disease left side mild to moderate disease up to the external iliac total occlusion with reconstitution at the common femoral. 4. Left Leg Common femoral artery: No significant disease Profundus Femoris: No significant disease Superficial femoral artery: Mild disease throughout. Prior atherectomy and plasty site appeared to be patent. Popliteal artery (p1,p2,p3): High-grade stenosis greater than 50%. Anterior tibial artery: Dominant runoff Peroneal artery: Occlusion in the proximal 3rd Posterior tibial artery: Occluded Dorsalis pedis/plantar arch: Incomplete Conclusion: 1. Successful plasty and stent of left external iliac artery; successful plasty of popliteal artery 2. Anticoagulation status: 6 months of aspirin and Plavix This note is constructed using voice recognition software. While every effort has been made to ensure accuracy, early childhood teacher assistant errors may have been included. Thank you for allowing me to participate in the care of your patient. Yours sincerely, Abhishek Pino MD, FACS, R.P.V.I.
[2024-01-24] MEDS: Clopidogrel Bisulfate 300 MG TABLET PO (11:10)
== END 2024-01-24 11:43 | disposition home or self-care (01) ==
PROVIDERS: PCP Family Medicine; Visit Provider Surgery Vascular Surgery
DX: I70.212 Atherosclerosis of native arteries of extremities with intermittent claudication, left leg (principal); M79.662 Pain in left lower leg; M79.652 Pain in left thigh; R26.2 Difficulty in walking, not elsewhere classified; I10 Essential (primary) hypertension; E78.5 Hyperlipidemia, unspecified; Z99.89 Dependence on other enabling machines and devices; Z79.82 Long term (current) use of aspirin; Z79.02 Long term (current) use of antithrombotics/antiplatelets; F17.210 Nicotine dependence, cigarettes, uncomplicated; Z56.0 Unemployment, unspecified
CPT/HCPCS: 36415; 37221; 37224; 76937; 82565; 84520; 85025; 99152; 99153; C1725; C1760; C1769; C1876; C1887; C1894; C2623; J1644; J2250; J2310; J3010; Q9967

== ENCOUNTER → 2024-01-24 05:44 | Outpatient (BNV) | payer OTHER, SELFPAY | PROVIDERS: PCP Family Medicine; Visit Provider Surgery Vascular Surgery | DX: I70.212 Atherosclerosis of native arteries of extremities with intermittent claudication, left leg (principal) | CPT/HCPCS: 37221; 37224; 75625; 75710; 76937; 99152 ==

== ENCOUNTER 2024-02-15 09:23 | Outpatient (AMB) | payer OTHER, SELFPAY ==
--- NOTE | 2024-02-15 09:31 | A.OFFVIS_ITS ---
Intake Visit Reasons: 2 week follow up left leg angio Intake Note: Patient presents for 2 week follow up left leg angio. He states his left leg feels better. Hoping to have Dr Pino do the same on his right leg as he is experiencing pain throughtout the entire leg. Hurts more when walking. Allergies No Known Allergies Allergy (Verified 02/15/24 09:34) HPI HPI 2 week follow up left leg angio: Details: Very pleasant 68-year-old gentleman presents for follow-up status post endovascular intervention of the left lower extremity. Reports that the left leg is doing significantly better. He is able to walk a block or 2 with no significant difficulties. His biggest complaint now is his right lower extremity. He now presents for routine follow-up. Of note his previous LARON on 03/27/2023 prior to the procedure was an LARON on the right of 0.7 and on the left of 0.54. [facility], [facility] Medical History Dyslipidemia Acid reflux HTN (hypertension) Surgical History H/O wrist surgery Family History Father No problems noted. Mother No problems noted. Social History Alcohol intake: former Patient Tobacco Use Status: Current everyday Tobacco user Cigarettes Per Day: 5 Current occupational status: unemployed Review of Systems Const All systems reviewed & are unremarkable except as noted in HPI and below Reports no additional complaints ENT Reports Normal hearing present Card Denies chest pain, Denies chest pain at rest, Denies chest pain with activity and Denies pedal edema Resp Denies cough GI Denies abdominal pain Musc Denies abnormal gait, Denies muscle cramps and Denies radiating pain into limb Skin/Breast Denies skin ulcer and Denies wounds Neuro Reports Normal hearing present and Denies abnormal gait Psych Reports no additional complaints Physical Exam Const General: cooperative, healthy appearing and comfortable Orientation/consciousness: oriented to person, oriented to place and oriented to time HEENT Head: Yes normal to inspection Neck Neck: Yes normal visual inspection Carotids: no bruits Chest Chest palpation & inspection: normal inspection of the chest Resp Effort & Inspection: normal respiratory effort and able to speak in complete sentences Auscultation: clear to auscultation bilaterally, no crackles, no rales, no rhonchi and no wheezes Cardio Other: Bilateral DP signal Rate: regular rate Rhythm: regular rhythm Heart sounds: S1 normal heart sound present and S2 normal heart sound present Bruits: no carotid bruits GI Inspection: Yes normal to inspection Skin Wounds: no wounds Hair: normal Neuro General: oriented to person, oriented to place and oriented to time Cranial nerves: Yes CN's II-XII intact bilaterally and Yes Normal hearing present Cognition (Neuro): normal cognition Motor exam (neuro): 5/5 motor strength present throughout Extrem Other: venous exam: No significant superficial varicosities or spider telangiectasias, minimal edema General: No clubbing, No cyanosis and No edema Psych Appearance: grossly normal Mental Status: mental status grossly normal Speech and movement: Normal speech and movement present Assessment & Plan Assessment & Plan (1) PAD (peripheral artery disease): Comment: 12/07/2022-left SFA atherectomy and plasty 01/24/2024 left external iliac plasty with stent, left popliteal plasty Code(s): I73.9 - Peripheral vascular disease, unspecified Category: Medical Plan: In short patient has stable claudication. I did review the pathophysiology of peripheral vascular disease with the patient. In addition we did discuss routine conservative measures including a healthy diet and the importance of exercise and ambulation. We did discuss risk factor modification. The patient will continue to to follow-up with surveillance follow-up in approximately 3 months. Thank you for allowing us to participate in this patient's care. If there are any questions or concerns please do not hesitate to contact us. Please note a longitudinal relationship has been created with the patient and we have been following and surveillance this chronic condition. Orders: Orders US arterial duplex LE BI 3 Months I73.9 - Peripheral vascular disease, unspecified Coding Level of Care Code Est Pt Level 4 (56348) Complex EM visit Add On G2211 Diagnoses PAD (peripheral artery disease) I73.9
== END 2024-02-15 09:48 | disposition home or self-care (01) ==
PROVIDERS: PCP Family Medicine; Visit Provider Surgery Vascular Surgery
DX: I73.9 Peripheral vascular disease, unspecified (principal)
CPT/HCPCS: 99214; G2211

== ENCOUNTER → 2024-02-15 09:23 | Outpatient (BNVA) | payer OTHER, SELFPAY | PROVIDERS: PCP Family Medicine; Visit Provider Surgery Vascular Surgery | DX: I73.9 Peripheral vascular disease, unspecified (principal) | CPT/HCPCS: 99212 ==

== ENCOUNTER 2024-02-22 09:07 | Outpatient (REF) | payer OTHER, SELFPAY ==
[2024-02-22 11:54] LABS: Alanine Aminotransferase 15 U/L (0-40); Albumin Level 4.1 g/dL (3.5-5.0); Alkaline Phosphatase 95 U/L (39-117); Anion Gap 11 (12-20); Aspartate Amino Transferase 15 U/L (5-37); Bilirubin Total 0.4 mg/dL (0.0-1.0); Blood Urea Nitrogen 26 mg/dL (9-16); Calcium 9.7 mg/dL (8.4-10.2); Carbon Dioxide 30 mmol/L (22-29); Chloride 100 mmol/L (96-108); Cholesterol 232 mg/dL (<200); Estimated Glomerular Filt Rate 53; Glucose Random 112 mg/dL (60-115); HDL Cholesterol 31 mg/dL (>40); LDL Cholesterol Calculated 157 mg/dL (<100); Potassium 3.4 mmol/L (3.3-5.1); Sodium 138 mmol/L (135-145); Total Protein 7.4 g/dL (6.5-8.0); Triglycerides 222 mg/dL (<150)
[2024-02-22 11:57] LABS: TSH reflex Free T4 1.92 uIU/mL (0.32-4.0)
[2024-02-22 12:02] LABS: Creatinine Urine 106.57 mg/dL; Microalbum/Creatinine Ratio Ur 5.6 ug/mg cr (<30)
[2024-02-22 12:09] LABS: ~HepC Num1 0.11 S/CO (0.00-0.79); ~Hepatitis C Antibody Nonreactive (Nonreactive)
== END 2024-02-22 09:08 | disposition home or self-care (01) ==
LOC: HO.HHCL 09:07
PROVIDERS: Visit Provider Family Medicine
DX: I10 Essential (primary) hypertension (principal); Z13.30 Encounter for screening examination for mental health and behavioral disorders, unspecified
CPT/HCPCS: 36415; 80053; 80061; 82043; 82570; 84443; 86803

== ENCOUNTER 2024-05-20 09:22 | Outpatient (REF) | payer OTHER, SELFPAY ==
--- NOTE | ~2024-05-20 | US_ITS ---
EXAMINATION: US RETROPERITONEAL LIMITED (AORTA) CLINICAL INFORMATION: Peripheral vascular disease. COMPARISON: None available. TECHNIQUE: Huizar-scale, color Doppler and spectral Doppler evaluation of the abdominal aorta. FINDINGS: The aorta is normal. The measurements of the aorta in maximum AP and transverse dimensions respectively are as follows: Proximal: 2.7 cm. Mid: 1.8 cm. Distal: 1.4 cm. No aneurysm found. Right common iliac 97 cm/s. Left common iliac 150 cm/s. US/US abdominal aortic aneurysm IMPRESSION: Abdominal aorta is normal in size. No aneurysm found. Electronically signed by: Nasrin Gregorio MD 06/18/2024 06:11 AM [facility]
--- NOTE | ~2024-05-20 | US_ITS ---
EXAMINATION: Noninvasive assessment of the bilateral lower extremities with ARTERIAL DUPLEX, ANKLE BRACHIAL INDICES (ABIs), and PULSE VOLUME RECORDINGS (PVRs). CLINICAL INFORMATION: Peripheral vascular disease TECHNIQUE: Duplex Doppler techniques with waveform analysis and measurement of velocities in the bilateral common femoral, profunda femoris, superficial femoral, popliteal and tibial arteries were performed. Additionally, ankle pulse volume recordings, ankle pressure measurements and ankle brachial indices were obtained of the lower extremity arterial system bilaterally. The study was performed only at rest. COMPARISON: Arterial duplex ultrasound of the bilateral lower extremities dated 03/27/2023 FINDINGS: DIRECT DUPLEX DOPPLER FINDINGS: RIGHT LEG: Common femoral artery: Occluded Profunda femoris artery: 26 cm/s, phasicity: Monophasic Superficial femoral artery (proximal): 22 cm/s, phasicity: Monophasic Superficial femoral artery (mid): 19 cm/s, phasicity: Monophasic Short segment of occlusion from the right proximal superficial femoral artery to the mid superficial femoral artery with reconstitution of flow via a collateral vessel. Superficial femoral artery (distal): 25 cm/s, phasicity: Monophasic Popliteal artery: 18 cm/s, phasicity: Monophasic Posterior tibial artery: 11 cm/s, phasicity: Monophasic Peroneal artery: 9 cm/s, phasicity: Monophasic Anterior tibial artery: 13 cm/s, phasicity: Monophasic Dorsalis pedis artery: 10 cm/s, phasicity:Monophasic LEFT LEG: Common femoral artery: 114 cm/s, phasicity: Biphasic Profunda femoris artery: 131 cm/s, phasicity: Biphasic Superficial femoral artery (proximal): 99 cm/s, phasicity: Biphasic Superficial femoral artery (mid): 219 cm/s, phasicity: Biphasic Superficial femoral artery (distal): 55 cm/s, phasicity: Biphasic Popliteal artery: 71 cm/s, phasicity: Biphasic Posterior tibial artery: 23 cm/s, phasicity: Monophasic Peroneal artery: 9 cm/s, phasicity: Monophasic with reversal of flow Anterior tibial artery: 49 cm/s, phasicity: Monophasic Dorsalis pedis artery: 59 cm/s, phasicity: Biphasic Left external iliac artery stent [place] artery proximal to stent: 150 cm/s, phasicity: Biphasic Proximal stent: 97 cm/s, phasicity: Biphasic Mid stent: 72 cm/s, phasicity: Biphasic Distal stent: 93 cm/s, phasicity: Biphasic [place] artery distal to stent: 94 cm/s, phasicity: Biphasic BRACHIAL PRESSURES: Right: 127 Left: 150 ANKLE PRESSURES: Right: PT 76, DP could not be obtained Left: PT 99, DP 129 ANKLE-BRACHIAL INDEX: Right: 0.51 Left: 0.86 ANKLE PVR WAVEFORMS: Right: Abnormal Left: Abnormal US/US arterial duplex BI w/ LARON IMPRESSION: RIGHT LE. Occluded right common femoral artery. 2. Short segment of occlusion from the right proximal superficial femoral artery to the mid superficial femoral artery with reconstitution of flow via a collateral vessel. 3. Severe peripheral arterial disease of the right lower extremity with markedly decreased velocities and monophasic waveforms throughout. LEFT LE. Moderate peripheral arterial disease of the left lower extremity with reversal of flow in the peroneal artery and monophasic waveforms in the posterior tibial and anterior tibial arteries. 2. Elevated velocity in the mid superficial femoral artery suggestive of a moderate stenosis. 3. Patent left external iliac artery stent with no hemodynamically significant stenosis by velocity criteria. LARON Reference: - >1.4 = calcified vessels - 0.9 - 1.4 = normal - no significant arterial disease - 0.7 - 0.89 = mild peripheral arterial disease - 0.51 - 0.69 = moderate peripheral arterial disease - d 0.50 = severe peripheral arterial disease - < .30 = critical arterial disease Electronically signed by: Lana Holguin MD 06/21/2024 06:12 PM [facility] [place] Workstation: [id number]
== END 2024-05-20 09:23 | disposition home or self-care (01) ==
LOC: HO.US 09:22
PROVIDERS: PCP Family Medicine; Visit Provider Surgery Vascular Surgery
DX: I73.9 Peripheral vascular disease, unspecified (principal)
CPT/HCPCS: 76706; 93922; 93925

== ENCOUNTER 2024-07-16 09:58 | Outpatient (AMB) | payer OTHER, SELFPAY ==
--- NOTE | 2024-07-16 10:17 | A.OFFVIS_ITS ---
Intake Visit Reasons: Follow Up 05/20 Arterial US Intake Note: follow up Arterial US 05/20/24 w/ x of Left Angiogram 01/24/24 & 12/07/22. Pt states he still has pain on the Right LE, pt can walk about 5 mins before he gets Right LE cramping. Maintenance Groundman Required: Yes Maintenance Groundman Language: [employer]: Maintenance Groundman Present Maintenance Groundman Name: ELECTRIC ENGINE MECHANIC Darlin Information Interpreted: clinical only Accompanied by: ELECTRIC ENGINE MECHANIC Allergies No Known Allergies Allergy (Verified 07/16/24 10:27) HPI HPI Follow Up 05/20 Arterial US: Details: Very pleasant 69-year-old gentleman presents for routine surveillance follow-up regarding peripheral vascular disease. He has undergone left lower extremity endovascular intervention back in January of 2024. He reports that his leg appears to be doing significantly better. He now presents for routine follow-up with noninvasive testing. He does report significant pain and discomfort of his right lower extremity and can not ambulate significant distances. [facility] Medical History Dyslipidemia Acid reflux HTN (hypertension) Surgical History H/O wrist surgery Family History Father No problems noted. Mother No problems noted. Social History Alcohol intake: former Patient Tobacco Use Status: Current everyday Tobacco user Cigarettes Per Day: 5 Current occupational status: unemployed Review of Systems Const All systems reviewed & are unremarkable except as noted in HPI and below Reports no additional complaints ENT Reports Normal hearing present Card Denies chest pain, Denies chest pain at rest, Denies chest pain with activity and Denies pedal edema Resp Denies cough GI Denies abdominal pain Musc Denies abnormal gait, Denies muscle cramps and Denies radiating pain into limb Skin/Breast Denies skin ulcer and Denies wounds Neuro Reports Normal hearing present and Denies abnormal gait Psych Reports no additional complaints Physical Exam Const General: cooperative, healthy appearing and comfortable Orientation/consciousness: oriented to person, oriented to place and oriented to time HEENT Head: Yes normal to inspection Neck Neck: Yes normal visual inspection Carotids: no bruits Chest Chest palpation & inspection: normal inspection of the chest Resp Effort & Inspection: normal respiratory effort and able to speak in complete sentences Auscultation: clear to auscultation bilaterally, no crackles, no rales, no rhonchi and no wheezes Cardio Other: Bilateral DP signals Rate: regular rate Rhythm: regular rhythm Heart sounds: S1 normal heart sound present and S2 normal heart sound present Bruits: no carotid bruits GI Inspection: Yes normal to inspection Skin Wounds: no wounds Hair: normal Neuro General: oriented to person, oriented to place and oriented to time Cranial nerves: Yes CN's II-XII intact bilaterally and Yes Normal hearing present Cognition (Neuro): normal cognition Motor exam (neuro): 5/5 motor strength present throughout Extrem Other: venous exam: No significant superficial varicosities or spider te langiectasias, minimal edema General: No clubbing, No cyanosis and No edema Psych Appearance: grossly normal Mental Status: mental status grossly normal Speech and movement: Normal speech and movement present Results Reviewed Results Reviewed: Noninvasive arterial testing dated 05/20/2024 demonstrates LARON on the right of 0.51 and on the left of 0.86 right is concerning for SFA occlusion. Assessment & Plan Assessment & Plan (1) PAD (peripheral artery disease): Comment: 12/07/2022-left SFA atherectomy and plasty 01/24/2024 left external iliac plasty with stent, left popliteal plasty Code(s): I73.9 - Peripheral vascular disease, unspecified Category: Medical Plan: Patient notes leg pain when walking distances. I have discussed the pathoph ysiology of peripheral vascular disease with the patient. I have also discussed risk factor modification. I have reviewed the patient's arterial testing which reveals right LARON of .51 with concern of SFA occlusion. the patient would benefit from a right leg endovascular peripheral angiogram with possible angioplasty, stent, and/or atherectomy. This has been discussed in detail with the patient along with risks, benefits, and complications. This includes but is not limited to bleeding, infection, heart attack, need for emergent surgical repair, limb ischemia, blood vessel damage, bleeding, puncture, kidney injury, bruising, allergic reaction, and skin reaction. The patient demonstrates a clear understanding. We will schedule for the next appropriate time. Thank you for allowing us to assist in this patient's care. Coding Level of Care Code Est Pt Level 4 (70160) Complex EM visit Add On G2557 Diagnoses PAD (peripheral artery disease) I73.9
--- OUTSIDE RECORDS SUMMARY | 2024-07-16 11:17 | XMS_ITS | Clinical Summary ---
Author Organization [facility] ity Address [address] [place] [address] Care Team Providers Care Mechanical Engineering Manager Name Role Phone Unavailable Primary Care Provider Unavailabl e Social History Tobacco Use Types Packs/Day Years Used Date Smoking Tobacco: Never Assessed Sex and Gender Information Value Date Recorded Sex Assigned at Not on file Gender Identity Not on file Sexual Orientation Not on file Plan of Treatment Health Maintenance Due Date Last Done Comments DTaP,Tdap,and Td Vaccines (1 - Tdap) 1973 Zoster Vaccines (1 of 2) 2004 Pneumococcal Vaccine: 65+ Ye ars (1 of 1 - PCV) 2019 COVID-19 Vaccine ( - 2023-2 5 season) 2024 Influenza Vaccine (#1) 2024 RSV Immunization Patients 60 + Years Old (1 - 1-dose 75+ series) 2029 HIB Vaccines Aged Out No longer eligi ble based on patient's age to complete this topic HPV Vaccines Aged Out No longer eligi ble based on patient's age to complete this topic Hepatitis A Vaccines Aged Out No long er eligible based on patient's age to complete this topic Hepatitis B Vaccines Aged Out No long er eligible based on patient's age to complete this topic IPV Vaccines Aged Out No longer eligi ble based on patient's age to complete this topic MMR Vaccines Aged Out No longer eligi ble based on patient's age to complete this topic Meningococcal ACWY Vaccine Aged Out N o longer eligible based on patient's age to complete this topic RSV Immunization Patients Un coni 20 months Aged Out No longer eligible b ased on patient's age to complete this topic Varicella Vaccines Aged Out No longer eligible based on patient's age to complete this topic
--- OUTSIDE RECORDS SUMMARY | 2024-07-16 11:17 | XMS_ITS | Encounter Summary ---
Author Organization [facility] Address [address] [place] [address] [address] [place] [address] Care Team Providers Care Rock Climbing Instructor Name Role Phone Kayla Friend MD Primary Care Provider [phone] Encounter Details Date Type Department Care Team ([facility] st Contact Info) Description 08/12/2022 Telephone [facility] P[facility] [address] [place] [address] Kayla Friend MD [address] [place] [address] Social History Tobacco Use Types Packs/Day Years Used Date Smoking Tobacco: Every Day Cigarettes Passive Smoke Exposure: Never Smokeless Tobacco: Never Alcohol Use Standard Drinks/Week Comments Never 0 (1 standard drink = 0.6 oz pur e alcohol) Depression Answer Date Recorded Patient Health Questionnaire-9 Score 5 07/18/2022 Depression Answer Date Recorded Patient Health Questionnaire-2 Score 2 07/18/2022 Sex and Gender Information Value Date Recorded Sex Assigned at Male 04/25/2022 10:36 AM EDT Legal Sex Male 10:36 AM EDT Gender Identity Male 04/25/2022 10:36 AM EDT Sexual Orientation Straight 04/24/2023 2: 59 PM EDT COVID-19 Exposure Response Date Recorded In the last 10 days, have yo u been in contact with someone who was confirmed or suspected to have Coronavirus/COVID-19? No / Unsure 08/05/2022 8:23 AM EST documented as of this encounter Plan of Treatment Not on file documented as of this encounter Visit Diagnoses Not on filedocumented in this encounter Additional Health Concerns Assessment Noted Time PHQ-9 Depression Total Score: 5 07/18/19 23 2:10 PM EST documented as of this encounter Care Teams Rock Climbing Instructor Relationship Specialty Start Date End Date Kayla Friend MD [address] [place] [address] PCP - General Family Medicine 04/30/20 Abhishek Pino MD Surgeon Vascular Surgery 05/30/24 documented as of this encounter
--- OUTSIDE RECORDS SUMMARY | 2024-07-16 11:17 | XMS_ITS | Clinical Summary ---
Author Organization [employer] Address [address] [place] [address] Care Team Providers Care Sales Applications Engineer Name Role Phone Kayla Friend MD Primary Care Provider [phone] Allergies No known active allergies Medications acetaminophen (Tylenol 8 Hour) 650 MG ER tablet Take 1 tablet by mouth every 8 (eight) hours. 2 Active albuterol 108 (90 Base) MCG/ACT inhaler INHALE 2 PUFFS BY MOUTH EVERY 4 TO 6 HOURS NEEDED 8.5 g 11 3 Active atorvastatin (Lipitor) 80 MG tablet Take 1 tablet (80 mg) by mouth at bedtime. 90 tablet 1 3 Active aspirin 81 MG chewable tablet Chew 1 tablet (81 mg) in the morning. 90 tablet 1 3 Active magnesium 200 MG tablet Take 2 tablets (400 mg) by mouth in the morning. 180 tablet 1 3 Active clopidogrel (Plavix) 75 MG tablet Take 75 mg by mouth in the morning. 3 Active varenicline (Chantix) 1 MG tablet Take 1 mg by mouth 2 times daily. 3 Active nicotine polacrilex (Nicorette) 2 MG gum CHEW 1 PIECE OF GUM EVERY 2 HOURS NEEDED FOR SMOKING CESSATION 3 Active nicotine (Nicoderm, Step 1) 21 MG/24HR patch APPLY ONE PATCH EVERY DAY 3 Active carvedilol (Coreg) 25 MG tabletIndication s:Essential hypertension Take 1 tablet (25 mg) by mouth with breakfast and with evening meal. 180 tablet 1 3 Active Multiple Vitamins-Mineral s (PreserVision AREDS 2) capsule Take 1 capsule by mouth 2 times daily. 60 capsule 11 3 Active amLODIPine (Norvasc) 10 MG tabletIndication s:Essential hypertension TAKE 1 TABLET BY MOUTH EVERY MORNING 180 tablet 1 4 Active loratadine (Claritin) 10 MG tablet TAKE 1 TABLET BY MOUTH EVERY MORNING 180 tablet 1 4 Active albuterol (2.5 MG/3ML) 0.083% nebulizer solutionIndicati ons:Asthma, unspecified asthma severity, unspecified whether complicated, unspecified whether persistent TAKE 3ML BY NEBULIZATION EVERY 4 HOURS NEEDED FOR WHEEZING 180 mL 1 4 Active fluticasone furoate (Arnuity Ellipta) 100 MCG/ACT inhaler Inhale 1 puff Once per day. Rinse mouth with water after use to reduce aftertaste and incidence of candidiasis. Do not swallow. 1 each 4 025 Active montelukast (Singulair) 10 MG tablet Take 1 tablet (10 mg) by mouth at bedtime. 90 tablet 1 4 Active Stiolto Respimat 2.5-2.5 MCG/ACT aerosol solution inhaler Inhale 2 Inhalation. Once per day. 4 g 4 Active olopatadine (Pataday) 0.2 % ophthalmic solution Administer 1 drop into affected eye(s) Once per day. 2.5 mL 2 4 Active fluticasone furoate (Arnuity Ellipta) 100 MCG/ACT inhaler Inhale 1 puff Once per day. Rinse mouth with water after use to reduce aftertaste and incidence of candidiasis. Do not swallow. 1 each 4 025 Active eszopiclone (Lunesta) 2 MG tablet Take 1 tablet (2 mg) by mouth at bedtime. Take immediately before bedtime 28 tablet 1 4 Active Blood Pressure kitIndications:E ssential hypertension 1 Units Once per day. 1 kit 4 Active valsartan-hydroC HLOROthiazide (Diovan-HCT) 320-25 MG tabletIndication s:Essential hypertension Take 1 tablet by mouth in the morning. 90 tablet 1 4 Active omeprazole (PriLOSEC) [address] capsule Take 1 capsule (20 mg) by mouth before breakfast. Do not crush or chew. 180 capsule 1 4 Active Active Problems Problem Noted Date Diagnosed Date Dry eyes, bilateral 03/08/2024 Assessment & Plan (03/08/2024 4:53 PM EDT): Prescribing Pataday for Sx. Advised to follow up with [facility] Judge for further treatment. Relevant Medications Olopatadine (Pataday) 0.2% ophthalmic solution Chronic obstructive pulmonar y disease with acute exacerbation 02/02/2024 Assessment & Plan (03/08/2024 4:51 PM EDT): Discussed medications and refills as needed. Relevant Medications Fluticasone furoate (Arnuity Ellipta) 100 mcg/act inhaler Assessment & Plan (02/03/2024 12:37 AM EDT): Relevant orders: Fluticasone furoate (Arnuity Ellipta) 100 MCG/ACT inhaler PredniSONE (Deltasone) 20 MG tablet Stiolto Respimat 2.5-2.5 MCG/ACT aerosol solution inhaler Doxycycline (Vibramycin) 100 MG capsule Montelukast (Singulair) 10 MG tablet If pts SOB doesn't improve with relevant orders, pt will be referred to controlled atmospheric furnace brazer. Pt was advised to diminish smoking. F/u 03/08 Arthritis of knee 05/15/2023 Assessment & Plan (05/15/2023 10:11 AM EST): Recommended supportive care. Consider PT. Dyslipidemia 12/23/2022 Acid reflux 12/23/2022 Blurry vision, bilateral 12/23/2022 Dyspnea 11/25/2022 Overview (12/23/2022): EF 55-60%, HFpEF (12/09/22). Assessment & Plan (12/23/2022 2:09 PM EDT): No signs of volume overload, consider diuretics, SGLT-2 or other. Refer to cards Assessment & Plan (11/25/2022 4:08 PM EDT): Patient with continued dyspnea. Will refer to pulmonology and send for chest xray. Cramps of left lower extremity 10/28/2022 Assessment & Plan (10/28/2022 2:45 PM EDT): Will start on Vitamin B12. Essential hypertension 07/18/2022 Assessment & Plan (05/30/2024 10:49 AM EST): BP is controlled, continue on current medications. Discussed refills as needed. Ordering a BP home kit. Advised to get Zoster at earliest convenience. Assessment & Plan (03/08/2024 4:52 PM EDT): BP is controlled, continue on medications. Assessment & Plan (04/21/2023 3:41 PM EDT): Uncontrolled: patient presented visit with a mild elevated blood pressure with readings of 140/78 mmHg. Advised to moderate with prescribed medications. Recommended to keep monitoring at home. Assessment & Plan (11/25/2022 4:07 PM EDT): Uncontrolled. Will send amlodipine 10 mg, coreg 25 mg, and hydrochlorothiazide 320-25 mg. Will follow up in 6 weeks to re evaluate BP. Assessment & Plan (10/28/2022 2:49 PM EDT): Refill meds. BP slightly elevated 136/79 mmHg. Assessment & Plan (08/30/2022 2:32 PM EST): BP 120/70 mmHg Controlled. Continue current regimen, f/u in 4 mo Assessment & Plan (07/18/2022 3:51 PM EST): Uncontrolled, reports compliance with meds but is asking for refills unclear if he is taking or not, will send current regimen and f/u in 2-3 weeks. Target < 140/90 mmHg. History of alcohol abuse 07/18/2022 Hypercholesterolemia 07/18/2022 Cigarette smoker 07/18/2022 Peripheral vascular disease 07/18/2022 Overview (12/23/2022): Left SFA on 12/07/[address] flores On ASA and plavix for 6 mo Pending right sided intervention Assessment & Plan (07/18/2022 3:52 PM EST): Sounds like claudication, will send compression stockings and will send for US duplex/ FELISA, r/o PAD. Given night cramps will rx vit B12, magnesium. F/u in 3 months. Cont statin. Avoid cig use. Primary insomnia 07/18/2022 Assessment & Plan (05/30/2024 10:47 AM EST): DC Ambien and begin Lunesta. Relevant Medication Eszopiclone (Lunesta) 2 MG tablet Assessment & Plan (03/08/2024 4:49 PM EDT): Discussed medications and refills as needed. Assessment & Plan (10/28/2022 2:42 PM EDT): Will refill Ambien. Assessment & Plan (07/18/2022 3:51 PM EST): Reports had worked well for him in the past, declined referral to therapy. His oldest son last year. Tinea pedis of right foot 07/18/2022 Assessment & Plan (07/18/2022 3:53 PM EST): Interdigit maceration c/w tinea pedis, will tx with terbinafine for 4-6 weeks. F/u prn. Resolved Problems Problem Noted Date Diagnosed Date Resolved Date Chronic diastolic heart failure 12/23/2022 12/23/2022 Overview (12/23/2022): EF 55-60%, HFpEF (12/09/22). Assessment & Plan (12/23/2022 2:05 PM EDT): No signs of volume overload, consider diuretics, SGLT-2 or other. Asthma 10/28/2022 02/02/2024 Assessment & Plan (11/25/2022 4:07 PM EDT): Patient with continued symptoms will resend albuterol. Assessment & Plan (10/28/2022 2:45 PM EDT): Patient with episodes of shortness of breath and tightness upon auscultation. Will start on Flovent. Prednisone, and albuterol and follow up. Encounters Date Type Department Care Team Description 05/30/2024 10:30 AM EST Telemedicine [facility] [address] [place] [address] Kayla Friend MD Essential hypertension (Primary Dx); Primary insomnia; Chronic obstructive pulmonary disease with acute exacerbation (CMS/HCC); Peripheral vascular disease (CMS/HCC); Cigarette smoker 05/30/2024 Travel 05/20/2024 Orders Only [facility] External Provider, [facility] from Last 3 Months Immunizations Name Administration Dates Next Due Pfizer Covid-19 Vaccine 12+ 12/24/2021,0 12/15/2020,12/15/2020,2020,11/24/2020 Pfizer Covid-19 Vaccine 12+ delfino-sucrose (Huizar Cap) 12/24/2021 Tdap 02/02/2024 Zoster, Recombinant 02/03/2024 Social History Tobacco Use Types Packs/Day Years Used Date Smoking Tobacco: Every Day Cigarettes Passive Smoke Exposure: Never Smokeless Tobacco: Never Tobacco Cessation:Ready to Q uit: Not Asked; Counseling Given: Not Answered Alcohol Use Standard Drinks/Week Comments Never 0 (1 standard drink = 0.6 oz pur e alcohol) Depression Answer Date Recorded Patient Health Questionnaire-9 Score 2 05/30/2024 Patient Health Questionnaire-9 Score 2 05/30/2024 Last PHQ-9: Questionnaire Data Not on file 1 07/31/2023 Housing Stability Answer Date Recorded What is your housing situation today? I have aldair zepeda 04/18/[address] you li ve. Do you have problems with any of the following? None of the above 04/18/2023 Food Insecurity Answer Date Recorded Within the past 12 months, y ou worried that your food would run out before you got money to buy more: Never True 04/18/2023 Within the past 12 months,th e food you bought just didn't last and you didn't have enough money to get more: Never True Transportation Answer Date Recorded In the past 12 months, has l ack of transportation kept you from medical appts, meetings, work or from getting things needed for daily living? No 04/18/2023 Utilities Answer Date Recorded In the past 12 months, has t he electric, gas, oil or water company threatened to shut off services in your home? No 04/18/2023 Depression Answer Date Recorded Patient Health Questionnaire-2 Score 1 05/30/2024 Sex and Gender Information Value Date Recorded Sex Assigned at Male 04/25/2022 10:36 AM EDT Legal Sex Male 10:36 AM EDT Gender Identity Male 04/25/2022 10:36 AM EDT Sexual Orientation Straight 04/24/2023 2: 59 PM EDT Last Filed Vital Signs Vital Sign Reading Time Taken Comments Blood Pressure 134/76 05/30/2024 9:43 AM EST Pulse 86 05/30/2024 9:43 AM EST Temperature 36.8 ??C (98.2 ??F) 03/08/2024 1:36 PM ED T Respiratory Rate 20 03/08/2024 1:36 PM EDT Oxygen Saturation 98% 03/08/2024 1:36 PM EDT Inhaled Oxygen Concentration - - Weight 61.4 kg (135 lb 6.4 oz) 03/08/2024 1:36 P M EDT Height 154.9 cm (5' 1 ) 03/08/2024 1:36 PM EDT Body Mass Index 25.58 03/08/2024 1:36 PM EDT Plan of Treatment Health Maintenance Due Date Last Done Comments CT Colonography 1955 Colonoscopy 1955 Colorectal Cancer Screening 1955 FIT DNA/Cologuard 1955 FIT 1955 FOBT 1955 Sigmoidoscopy 1955 Alcohol/Substance Use Screening 1966 Hepatitis A Vaccines (1 of 2 - Risk 2-dose series) 1973 SDOH Screening 08/05/2023 08/05/2022 Zoster Vaccines (2 of 2) 03/30/2024 02/03/2024 Influenza Vaccine (#1) 2024 Postp oned from 02/25/2024 (Patient Refused) COVID-19 Vaccine ( season) 2025 12/24/2021, 12/24/2021, 12/15/2020, Additional history exists Postponed from 02/25/2024 (Patient Refused) Pneumococcal Vaccine: 65+ Years (1 of 2 - PCV) 03/08/2025 Postponed from 1960 (Patient Refused) RSV Patients and Patients Aged 60 years or older (1 - Risk 60-74 years 1-dose series) 03/08/2025 Postponed from 2014 (Patient Refused) Depression Screening 05/30/2025 05/30/2024, 05/30/20 Tobacco Screening 05/30/2025 05/30/2024 Lipid Panel 02/21/2029 02/22/2024, 06/27, 09/15/2020, Additional history exists DTaP/Tdap/Td Vaccines (2 - Td or Tdap) 02/01/2034 02/02/2024 Hepatitis C Screening Completed 02/22/2024 HIB Vaccines Aged Out No longer eligi [...] patient's age to complete this topic Meningococcal Vaccine Aged Out No tio kodak eligible based on patient's age to complete this topic RSV under 20 months Aged Out No longe r eligible based on patient's age to complete this topic Rotavirus Vaccines Aged Out No longer eligible based on patient's age to complete this topic Procedures Procedure Name Priority Date/Time Associated Diagnosis Comments VASC US LOWER EXTREMITY ARTERIAL DUPLEX BILATERAL WITH FELISA Routine 05/20/2024 10:00 AM EST US ABDOMINAL AORTIC ANEURYSM Routine 05/20/2024 10:00 AM EST HEPATITIS C AB W/REFL TO HCV RNA, QN, PCR Routine 02/22/2024 9:11 AM EDT Encounter for behavioral health screening LIPID PANEL, STANDARD Routine 02/22/2024 9:11 AM EDT Essential hypertension from Last 3 Months or Most Recently Relevant to Health Maintenance Results * US ABDOMINAL AORTIC ANEURYSM (05/20/2024 10:00 AM EST) Anatomical Region Laterality Modality Abdomen Ultrasound 05/20/2024 10:0 0 AM EST Narrative 06/18/2024 6:14 AM EST ? [facility] ?[address] ?[place] [address] ? Ultrasound Report ? Signed ? Patient: Yosef Soria ?MR#: M ?? [id number] ? : 1955 ?Acct:[id number] ? Age/Sex: 69 / M ?ADM Date: 05/20/24 ? Loc: HO.US ? Attending Dr: Abhishek Flores MD ? Ordering Physician: Abhishek Flores MD ?? Date of Service: 05/20/24 ?? Procedure(s): US abdominal aortic aneurysm ?? Accession Number(s): [id number] ? cc: Abhishek Flores MD; Kayla Friend MD ? EXAMINATION: ?? US RETROPERITONEAL LIMITED (AORTA) ? CLINICAL INFORMATION: ?? Peripheral vascular disease. ? COMPARISON: ?? None available. ? TECHNIQUE: ?? Huizar-scale, color Doppler and spectral Doppler evaluation of the ?? abdominal aorta. ? FINDINGS: ?? The aorta is normal. The measurements of the aorta in maximum AP and ?? transverse dimensions respectively are as follows: ? Proximal: 2.7 cm. ?? Mid: 1.8 cm. ?? Distal: 1.4 cm. ? No aneurysm found. ? Right common iliac 97 cm/s. ? Left common iliac 150 cm/s. ? US/US abdominal aortic aneurysm ?? IMPRESSION: ? Abdominal aorta is normal in size. No aneurysm found. ? Electronically signed by: ??Nasrin Gregorio MD ??06/18/2024 06:11 AM EST ?? RP ? Dictated By: ?Nasrin Gregorio MD ? Signed By: ?<Electronically signed by Nasrin Gregorio MD in OV> ?06/18/2411 ? DD/ 1000 ? TD/TT: 05/20/24 1110 ? Grooving Lathe Tender: HS ? Procedure Note Donotivonneinterpreter, Image - 06/18/[address] [address] Ultrasound Report Signed Patient: Julien Soria#: M [id number] : 1955cct:[id number] Age/Sex: 69 / MADM Date: 05/20/24 Loc: HO.US Attending Dr: Abhishek Flores MD Ordering Physician: Abhishek Flores MD Date of Service: 05/20/24 Procedure(s): US abdominal aortic aneurysm Accession Number(s): [id number] cc: Abhishek Flores MD; Kayla Friend MD EXAMINATION: US RETROPERITONEAL LIMITED (AORTA) CLINICAL INFORMATION: Peripheral vascular disease. COMPARISON: None available. TECHNIQUE: Huizar-scale, color Doppler and spectral Doppler evaluation of the abdominal aorta. FINDINGS: The aorta is normal. The measurements of the aorta in maximum AP and transverse dimensions respectively are as follows: Proximal: 2.7 cm. Mid: 1.8 cm. Distal: 1.4 cm. No aneurysm found. Right common iliac 97 cm/s. Left common iliac 150 cm/s. US/US abdominal aortic aneurysm IMPRESSION: Abdominal aorta is normal in size. No aneurysm found. Electronically signed by: Nasrin Gregorio MD 06/18/2024 06:11 AM EST Dictated By: Nasrin Gregorio MD Signed By: <Electronically signed by Nasrin Gregorio MD in OV> 06/18/24 0611 DD/ 1000 TD/TT: 05/20/24 1110 Grooving Lathe Tender: HS us [facility] External Provider IMG US PROCEDURES Edited Result - Final * VASC US Lower Extremity Arterial Duplex Bilateral With Felisa (05/20/2024 10:00 AM EST) 05/20/2024 10:0 0 AM EST Narrative [facility] IMAGING - 06/21/2024 6:15 PM EST ? [facility] ?[address] ?[place] [address] ? Ultrasound Report ? Signed ? Patient: Yosef Soria ?MR#: M ?? [id number] ? : 1955 ?Acct:[id number] ? Age/Sex: 69 / M ?ADM Date: 05/20/24 ? Loc: HO.US ? Attending Dr: Abhishek Flores MD ? Ordering Physician: Abhishek Flores MD ?? Date of Service: 05/20/24 ?? Procedure(s): US arterial duplex BI w/ FELISA ?? Accession Number(s): [id number] ? cc: Abhishek Flores MD; Kayla Friend MD ? EXAMINATION: ?? Noninvasive assessment of the bilateral lower extremities with ARTERIAL ?? DUPLEX, ANKLE BRACHIAL INDICES (ABIs), and PULSE VOLUME RECORDINGS ?? (PVRs). ? CLINICAL INFORMATION: ?? Peripheral vascular disease ? TECHNIQUE: ?? Duplex Doppler techniques with waveform analysis and measurement of ?? velocities in the bilateral common femoral, profunda femoris, ?? superficial femoral, popliteal and tibial arteries were performed. ? Additionally, ankle pulse volume recordings, ankle pressure ?? measurements and ankle brachial indices were obtained of the lower ?? extremity arterial system bilaterally. The study was performed only at ?? rest. ? COMPARISON: Arterial duplex ultrasound of the bilateral lower ?? extremities dated 03/27/2023 ? FINDINGS: ? DIRECT DUPLEX DOPPLER FINDINGS: ? RIGHT LEG: ?? Common femoral artery: Occluded ?? Profunda femoris artery: 26 cm/s, phasicity: Monophasic ?? Superficial femoral artery (proximal): 22 cm/s, phasicity: Monophasic ?? Superficial femoral artery (mid): 19 cm/s, phasicity: Monophasic ?? Short segment of occlusion from the right proximal superficial femoral ?? artery to the mid superficial femoral artery with reconstitution of ?? flow via a collateral vessel. ?? Superficial femoral artery (distal): 25 cm/s, phasicity: Monophasic ?? Popliteal artery: 18 cm/s, phasicity: Monophasic ?? Posterior tibial artery: 11 cm/s, phasicity: Monophasic ?? Peroneal artery: 9 cm/s, phasicity: Monophasic ?? Anterior tibial artery: 13 cm/s, phasicity: Monophasic ?? Dorsalis pedis artery: 10 cm/s, phasicity:Monophasic ? LEFT LEG: ?? Common femoral artery: 114 cm/s, phasicity: Biphasic ?? Profunda femoris artery: 131 cm/s, phasicity: Biphasic ?? Superficial femoral artery (proximal): 99 cm/s, phasicity: Biphasic ?? Superficial femoral artery (mid): 219 cm/s, phasicity: Biphasic ?? Superficial femoral artery (distal): 55 cm/s, phasicity: Biphasic ?? Popliteal artery: 71 cm/s, phasicity: Biphasic ?? Posterior tibial artery: 23 cm/s, phasicity: Monophasic ?? Peroneal artery: 9 cm/s, phasicity: Monophasic with reversal of flow ?? Anterior tibial artery: 49 cm/s, phasicity: Monophasic ?? Dorsalis pedis artery: 59 cm/s, phasicity: Biphasic ? Left external iliac artery stent ?? [place] artery proximal to stent: 150 cm/s, phasicity: Biphasic ?? Proximal stent: 97 cm/s, phasicity: Biphasic ?? Mid stent: 72 cm/s, phasicity: Biphasic ?? Distal stent: 93 cm/s, phasicity: Biphasic ?? [place] artery distal to stent: 94 cm/s, phasicity: Biphasic ? BRACHIAL PRESSURES: ? Right: 127 ? Left: 150 ? ANKLE PRESSURES: ? Right: PT 76, DP could not be obtained ?? Left: PT 99, DP 129 ? ANKLE-BRACHIAL INDEX: ? Right: 0.51 ? Left: 0.86 ? ANKLE PVR WAVEFORMS: ? Right: Abnormal ?? Left: Abnormal ? US/US arterial duplex BI w/ FELISA ?? IMPRESSION: ?? RIGHT LEG: ?? 1. ??Occluded right common femoral artery. ?? 2. ??Short segment of occlusion from the right proximal superficial ?? femoral artery to the mid superficial femoral artery with ?? reconstitution of flow via a collateral vessel. ?? 3. ??Severe peripheral arterial disease of the right lower extremity ?? with markedly decreased velocities and monophasic waveforms throughout. ? LEFT LEG: ?? 1. ??Moderate peripheral arterial disease of the left lower extremity ?? with reversal of flow in the peroneal artery and monophasic waveforms ?? in the posterior tibial and anterior tibial arteries. ?? 2. ??Elevated velocity in the mid superficial femoral artery suggestive ?? of a moderate stenosis. ?? 3. ??Patent left external iliac artery stent with no hemodynamically ?? significant stenosis by velocity criteria. ? FELISA Reference: ?? - >1.4 = calcified vessels ?? - 0.9 - 1.4 = normal - no significant arterial disease ?? - 0.7 - 0.89 = mild peripheral arterial disease ?? - 0.51 - 0.69 = moderate peripheral arterial disease ?? - d 0.50 = severe peripheral arterial disease ?? - < .30 = critical arterial disease ? Electronically signed by: ??Lana Holguin MD ??06/21/2024 06:12 PM EST ? Dictated By: ?Porsha Holguin ? Signed By: ?<Electronically signed by Porsha ??Chelsie in OV> ? 06/21/24 1812 ? DD/ 1000 ? TD/TT: 05/20/24 1110 ? Grooving Lathe Tender: ? Procedure Note Edi Fontaine - 06/21/[address] [address] Ultrasound Report Signed Patient: Yosef Soria#: M [id number] : 4Acct:[id number] Age/Sex: 69 / MADM Date: 05/20/24 Loc: HO.US Attending Dr: Abhishek Flores MD Ordering Physician: Abhishek Flores MD Date of Service: 05/20/24 Procedure(s): US arterial duplex BI w/ FELISA Accession Number(s): [id number] cc: Abhishek Flores MD; Kayla Friend MD EXAMINATION: Noninvasive assessment of the bilateral lower extremities with ARTERIAL DUPLEX, ANKLE BRACHIAL INDICES (ABIs), and PULSE VOLUME RECORDINGS (PVRs). CLINICAL INFORMATION: Peripheral vascular disease TECHNIQUE: Duplex Doppler techniques with waveform analysis and measurement of velocities in the bilateral common femoral, profunda femoris, superficial femoral, popliteal and tibial arteries were performed. Additionally, ankle pulse volume recordings, ankle pressure measurements and ankle brachial indices were obtained of the lower extremity arterial system bilaterally. The study was performed only at rest. COMPARISON: Arterial duplex ultrasound of the bilateral lower extremities dated 03/27/2023 FINDINGS: DIRECT DUPLEX DOPPLER FINDINGS: RIGHT LEG: Common femoral artery: Occluded Profunda femoris artery: 26 cm/s, phasicity: Monophasic Superficial femoral artery (proximal): 22 cm/s, phasicity: Monophasic Superficial femoral artery (mid): 19 cm/s, phasicity: Monophasic Short segment of occlusion from the right proximal superficial femoral artery to the mid superficial femoral artery with reconstitution of flow via a collateral vessel. Superficial femoral artery (distal): 25 cm/s, phasicity: Monophasic Popliteal artery: 18 cm/s, phasicity: Monophasic Posterior tibial artery: 11 cm/s, phasicity: Monophasic Peroneal artery: 9 cm/s, phasicity: Monophasic Anterior tibial artery: 13 cm/s, phasicity: Monophasic Dorsalis pedis artery: 10 cm/s, phasicity:Monophasic LEFT LEG: Common femoral artery: 114 cm/s, phasicity: Biphasic Profunda femoris artery: 131 cm/s, phasicity: Biphasic Superficial femoral artery (proximal): 99 cm/s, phasicity: Biphasic Superficial femoral artery (mid): 219 cm/s, phasicity: Biphasic Superficial femoral artery (distal): 55 cm/s, phasicity: Biphasic Popliteal artery: 71 cm/s, phasicity: Biphasic Posterior tibial artery: 23 cm/s, phasicity: Monophasic Peroneal artery: 9 cm/s, phasicity: Monophasic with reversal of flow Anterior tibial artery: 49 cm/s, phasicity: Monophasic Dorsalis pedis artery: 59 cm/s, phasicity: Biphasic Left external iliac artery stent [place] artery proximal to stent: 150 cm/s, phasicity: Biphasic Proximal stent: 97 cm/s, phasicity: Biphasic Mid stent: 72 cm/s, phasicity: Biphasic Distal stent: 93 cm/s, phasicity: Biphasic [place] artery distal to stent: 94 cm/s, phasicity: Biphasic BRACHIAL PRESSURES: Right: 127 Left: 150 ANKLE PRESSURES: Right: PT 76, DP could not be obtained Left: PT 99, DP 129 ANKLE-BRACHIAL INDEX: Right: 0.51 Left: 0.86 ANKLE PVR WAVEFORMS: Right: Abnormal Left: Abnormal US/US arterial duplex BI w/ FELISA IMPRESSION: RIGHT LE. Occluded right common femoral artery. 2. Short segment of occlusion from the right proximal superficial femoral artery to the mid superficial femoral artery with reconstitution of flow via a collateral vessel. 3. Severe peripheral arterial disease of the right lower extremity with markedly decreased velocities and monophasic waveforms throughout. LEFT LE. Moderate peripheral arterial disease of the left lower extremity with reversal of flow in the peroneal artery and monophasic waveforms in the posterior tibial and anterior tibial arteries. 2. Elevated velocity in the mid superficial femoral artery suggestive of a moderate stenosis. 3. Patent left external iliac artery stent with no hemodynamically significant stenosis by velocity criteria. FELISA Reference: - >1.4 = calcified vessels - 0.9 - 1.4 = normal - no significant arterial disease - 0.7 - 0.89 = mild peripheral arterial disease - 0.51 - 0.69 = moderate peripheral arterial disease - d 0.50 = severe peripheral arterial disease - < .30 = critical arterial disease Electronically signed by: Lana Holguin MD 06/21/2024 06:12 PM [facility] [place] Dictated By: Porsha Holguin Signed By: <Electronically signed by Porsha Holguin in OV> 06/21/24 1812 DD/ 1000 TD/TT: 05/20/24 1110 Grooving Lathe Tender: us [facility] External Provider CV VASC ULAR PROCEDURES Final Result [facility] [address] [place] [address] [phone] * Hepatitis C Antibody with Reflex to HCV, RNA, Quantitative, Real-Time PCR (02/22/2024 9:11 AM EDT) Hepatitis C Antibody Nonreactive Nonreactive [facility] Comment:Antibodies to HCV no t detected; does not exclude early acuteHCV infection. Blood Venous blood specimen / Unknown 02/22/2024 9:11 AM EDT 02/22/2024 11:11 AM EDT us Kayla Friend MD LAB BLOOD ORDERABLES Final Re sult Performing Organization Address [facility] Co de Phone Number [facility] [address] [place] [phone] * (ABNORMAL) Lipid Panel, Standard (02/22/2024 9:11 AM EDT) Triglycerides 222(H) <150 mg/dL [facility] Comment:Desirable Triglyceri de: less than 150 mg/dLBorderline High Triglyceride 150-199 mg/dLHigh Triglyceride: 200-499 mg/dLVery High Triglyceride: greater than or equal to 5OO mg/dL Cholesterol 232(H) <200 mg/dL [facility] Comment:Desirable Cholestero l: less than 200 mg/dLBorderline High Cholesterol: 200-239 mg/dLHigh Cholesterol: greater than 239 mg/dL LDL Cholesterol Calculated 157(H) <100 mg/dL [facility] Comment:Desirable LDL: less than 100 mg/dLNear Optimal/Above Optimal LDL: 110- 129 mg/dLBorderline High LDL: 130-159 mg/dLHigh LDL: 160-189 mg/dLVery High LDL: greater than or equal to 190 mg/dL HDL Cholesterol 31(L) >40 mg/dL [facility] Comment:Desirable HDL: great er than 40 mg/dL Note: This HDL assay may give artificially low results in patients with liver disease. Blood Venous blood specimen / Unknown 02/22/2024 9:11 AM EDT 02/22/2024 11:11 AM EDT us Kayla Friend MD LAB BLOOD ORDERABLES Final Re sult Performing Organization Address City/[facility]/ZIP Co de Phone Number [facility] [address] [place] [phone] [phone] from Last 3 Months or Most Recently Relevant to Health Maintenance [place] [address] [address] - [employer] Care Teams Sales Applications Engineer Relationship Specialty Start Date End Date Kayla Friend MD [address] [place] [phone] PCP - General Family Medicine 04/30/20 Abhishek Flores MD Surgeon Vascular Surgery 05/30/24
--- OUTSIDE RECORDS SUMMARY | 2024-07-16 11:17 | XMS_ITS | Encounter Summary ---
Author Organization [employer] Address [address] [facility] 7t [place] [address] Care Team Providers Care Neurophysiology Tech Name Role Phone Kayla Friend MD Primary Care Provider [phone] Encounter Details Date Type Department Care Team (Late st Contact Info) Description 05/20/2024 Orders Only [facility] External Provider, [facility] Social History Tobacco Use Types Packs/Day Years [...] is your housing situation today? I have aldairmichelle zepeda 04/18/[address] you [...] t he electric, gas, oil or water [place] threatened to shut off services in your home? No 04/18/2023 Depression Answer Date Recorded Patient Health Questionnaire-2 Score 1 05/30/2024 Sex and Gender Information Value Date Recorded Sex Assigned at Male 04/25/2022 10:36 AM EDT Legal Sex Male 10:36 AM EDT Gender Identity Male 04/25/2022 10:36 AM EDT Sexual Orientation Straight 04/24/2023 2: 59 PM EDT documented as of this encounter Plan of Treatment Not on file documented as of this encounter Procedures Procedure Name Priority Date/Time Associated Diagnosis Comments US ABDOMINAL AORTIC ANEURYSM Routine 05/20/2024 10:00 AM EST VASC US LOWER EXTREMITY ARTERIAL DUPLEX BILATERAL WITH FELISA Routine 05/20/2024 10:00 AM EST documented in this encounter Results * VASC US Lower Extremity Arterial Duplex Bilateral With Felisa (05/20/2024 10:00 AM EST) 05/20/2024 10:0 0 AM EST Narrative [facility] - 06/21/2024 6:15 PM EST ? [facility] ?[address] ?[place] [address] ? Ultrasound Report ? Signed ? Patient: PritchardYosef Aparicio ?MR#: M ?? [id number] ? : 1955 ?Acct:[id number] ? Age/Sex: 69 / M ?ADM Date: 05/20/24 ? Loc: HO.US ? Attending Dr: Abhishek Pino MD ? Ordering Physician: Abhishek Pino MD ?? Date of Service: 05/20/24 ?? Procedure(s): US arterial duplex BI w/ FELISA ?? Accession Number(s): [id number] ? cc: Abhishek Pino MD; Kayla Friend MD ? EXAMINATION: ?? [...] ? Left external iliac artery stent ?? [place] artery proximal to stent: 150 cm/s, phasicity: Biphasic ?? Proximal stent: 97 cm/s, phasicity: Biphasic ?? Mid stent: 72 cm/s, phasicity: Biphasic ?? Distal stent: 93 cm/s, phasicity: Biphasic ?? [place] artery distal to stent: 94 cm/s, phasicity: [...] ??Lana Holguin MD ??06/21/2024 06:12 PM EST ?? RP ? Dictated By: ?Porsha Holguin ? Signed By: ?<Electronically signed by Porsha ??Chelsie in OV> ? 06/21/24 1812 ? DD/ 1000 ? TD/TT: 05/20/24 1110 ? Lump Room Supervisor: ? Procedure Note Donotuseinterpreter, Image - 06/21/[address] [address] Ultrasound Report Signed Patient: Julien Soria#: M [id number] : 1955cct:[id number] Age/Sex: 69 / MADM Date: 05/20/24 Loc: HO.US Attending Dr: Abhishek Pino MD Ordering Physician: Abhishek Pino MD Date of Service: 05/20/24 Procedure(s): US arterial duplex BI w/ FELISA Accession Number(s): [id number] cc: Abhishek Pino MD; Kayla Friend MD EXAMINATION: Noninvasive assessment [...] phasicity: Biphasic Left external iliac artery stent [place] artery proximal to stent: 150 cm/s, phasicity: Biphasic Proximal stent: 97 cm/s, phasicity: Biphasic Mid stent: 72 cm/s, phasicity: Biphasic Distal stent: 93 cm/s, phasicity: Biphasic [place] artery distal to stent: 94 cm/s, phasicity: [...] by: Lana Holguin MD 06/21/2024 06:12 PM EST RP Dictated By: Porsha Holguin Signed By: <Electronically signed by Porsha Holguin in OV> 06/21/24 1812 DD/ 1000 TD/TT: 05/20/24 1110 Lump Room Supervisor: [facility] External Provider CV VASC ULAR PROCEDURES Final Result Performing Organization Address [facility]/State/ZIP Co de Phone Number [facility] [address] [place] [address] * US ABDOMINAL AORTIC ANEURYSM (05/20/2024 10:00 AM EST) Anatomical Region Laterality Modality Abdomen Ultrasound 05/20/2024 10:0 0 AM EST Narrative 06/18/2024 6:14 AM EST ? [facility] ?[address] ?[place] [address] ? Ultrasound Report ? Signed ? Patient: Pritchard Yosef Darden ?MR#: M ?? [id number] ? : 1955 ?Acct:[id number] ? Age/Sex: 69 / M ?ADM Date: 05/20/24 ? Loc: HO.US ? Attending Dr: Abhishek Pino MD ? Ordering Physician: Abhishek Pino MD ?? Date of Service: 05/20/24 ?? Procedure(s): US abdominal aortic aneurysm ?? Accession Number(s): [id number] ? cc: Abhishek Pino MD; Kayla Friend MD ? EXAMINATION: ?? [...] signed by Nasrin Gregorio MD in OV> ?06/18/24 0611 ? DD/ 1000 ? TD/TT: 05/20/24 1110 ? Lump Room Supervisor: HS ? Procedure Note Donotivonneinterpreter, Image - 06/18/[address] [address] Ultrasound Report Signed Patient: Julien Soria#: M [id number] : 4Acct:[id number] Age/Sex: 69 / MADM Date: 05/20/24 Loc: HO.US Attending Dr: Abhishek Pino MD Ordering Physician: Abhishek Pino MD Date of Service: 05/20/24 Procedure(s): US abdominal aortic aneurysm Accession Number(s): [id number] cc: Abhishek Pino MD; Kayla Friend MD EXAMINATION: US RETROPERITONEAL [...] 06/18/24 0611 DD/ 1000 TD/TT: 05/20/24 1110 Lump Room Supervisor: HS [facility] External Provider IMG PROCEDURES Edited Result - Final documented in this encounter Visit Diagnoses Not on filedocumented in this encounter Additional Health Concerns Assessment Noted Time PHQ-9 Depression Total Score: 9 03/08/20 24 1:48 PM EDT documented as of this encounter Care Teams Neurophysiology Tech Relationship Specialty Start Date End Date Kayla Friend MD [address] [place] [address] PCP - General Family Medicine 04/30/20 Abhishek Pino MD Surgeon Vascular Surgery 05/30/24 documented as of this encounter
--- OUTSIDE RECORDS SUMMARY | 2024-07-16 11:17 | XMS_ITS | Encounter Summary ---
Author Organization [employer] Address [address] [place] [address] 7t [place] [address] Care Team Providers Care Wood Patternmaker Name Role Phone Kayla Friend MD Primary Care Provider [phone] Encounter Details Date Type Department Care Team ([facility] st Contact Info) Description 02/10/2023 Telephone [facility] [address] [place] [address] Kayla Friend MD [address] [place] [address] Social History Tobacco Use Types Packs/Day Years [...] PM EDT documented as of this encounter Miscellaneous Notes * Telephone Encounter - Charlotte Marmolejo - 02/10/2023 3:17 PM EDT Tc from katelyn with [facility] pulmonology requesting last three OV notes and any breathing test to be faxed to [phone] Any questions, please contact katelyn at [phone] documented in this encounter Plan of Treatment Not on file documented as of this encounter Visit Diagnoses Not on filedocumented in this encounter Additional Health Concerns Assessment Noted Time PHQ-9 Depression Total Score: 5 07/18/19 23 2:10 PM EST documented as of this encounter Care Teams Wood Patternmaker Relationship Specialty Start Date End Date Kayla Friend MD [address] [place] [address] PCP - General Family Medicine 04/30/20 Abhishek Pino MD Surgeon Vascular Surgery 05/30/24 documented as of this encounter
== END 2024-07-16 10:50 | disposition home or self-care (01) ==
PROVIDERS: PCP Family Medicine; Visit Provider Surgery Vascular Surgery
DX: I73.9 Peripheral vascular disease, unspecified (principal)
CPT/HCPCS: 99214; G2211

== ENCOUNTER → 2024-07-16 09:58 | Outpatient (BNVA) | payer OTHER, SELFPAY | PROVIDERS: PCP Family Medicine; Visit Provider Surgery Vascular Surgery | DX: I73.9 Peripheral vascular disease, unspecified (principal); F17.210 Nicotine dependence, cigarettes, uncomplicated | CPT/HCPCS: 99212 ==

== ENCOUNTER 2024-07-24 05:44 | Day surgery (SDC) | payer OTHER, SELFPAY ==
[2024-07-24] VITALS (17 sets, daily range): BP systolic 130–147; BP diastolic 65–77; PULSE 65–83; RESP 12–29; TEMP 36.3–36.9; O2SAT 93–96; BMI 23.6
--- OUTSIDE RECORDS SUMMARY | 2024-07-24 05:46 | XMS_ITS | Clinical Summary ---
Author Organization [employer] Address [address] [facility] 7t [place] [address] Care Team Providers Care Golf Cart Mechanic Name Role Phone Kayla Friend MD Primary Care Provider [phone] Allergies No known active allergies Medications acetaminophen [...] for Sx. Advised to follow up with [facility] for further treatment. Relevant Medications Olopatadine (Pataday) [...] relevant orders, pt will be referred to load tallier. Pt was advised to diminish smoking. F/u [...] Team Description 05/30/2024 10:30 AM EST Telemedicine [facility] [address] [place] [address] Kayla Friend MD Essential hypertension (Primary Dx); Primary insomnia; Chronic obstructive pulmonary disease with acute exacerbation (CMS/HCC); Peripheral vascular disease (CMS/HCC); Cigarette smoker 05/30/2024 Travel 05/20/2024 Orders Only [facility] External Provider, [facility] from Last 3 Months Immunizations Name Administration [...] Postponed from 02/25/2024 (Patient Refused) Pneumococcal Vaccine: 50+ Years (1 of 2 - PCV) 03/08/2025 [...] EST Narrative 06/18/2024 6:14 AM EST ? [facility] ?[address] ?[place] [address] ? Ultrasound Report ? Signed ? Patient: Yosef Soria ?MR#: M ?? [id number] ? : 1955 ?Acct:[id number] ? Age/Sex: 69 / M ?ADM Date: 05/20/24 ? Loc: HO.US ? Attending Dr: Abhishek Flores MD ? Ordering Physician: Abhishek Flores MD ?? Date of Service: 05/20/24 ?? Procedure(s): US abdominal aortic aneurysm ?? Accession Number(s): [id number] ? cc: Abhishek Flores MD; Kayla Friend [...] DD/ 1000 ? TD/TT: 05/20/24 1110 ? Rd Lab Technician: HS ? Procedure Note Donotivonneinterpreter, Image - 06/18/[address] [address] Ultrasound Report Signed Patient: Julien Soria#: M [id number] : 1955cct:[id number] Age/Sex: 69 / MADM Date: 05/20/24 Loc: HO.US Attending Dr: Abhishek Flores MD Ordering Physician: Abhishek Flores MD Date of Service: 05/20/24 Procedure(s): US abdominal aortic aneurysm Accession Number(s): [id number] cc: Abhishek Flores MD; Kayla Friend MD [...] 06/18/24 0611 DD/ 1000 TD/TT: 05/20/[address] Lab Technician: HS us [facility] External Provider IMG US PROCEDURES Edited Result - Final * VASC US Lower Extremity Arterial Duplex Bilateral With Felisa (05/20/2024 10:00 AM EST) 05/20/2024 10:0 0 AM EST Narrative [facility] - 06/21/2024 6:15 PM EST ? [facility] ?[address] ?[place] [address] ? Ultrasound Report ? Signed ? Patient: Yosef Soria ?MR#: M ?? [id number] ? : 1955 ?Acct:[id number] ? Age/Sex: 69 / M ?ADM Date: 05/20/24 ? Loc: HO.US ? Attending Dr: Abhishek Flores MD ? Ordering Physician: Abhishek Flores MD ?? Date of Service: 05/20/24 ?? Procedure(s): US arterial duplex BI w/ FELISA ?? Accession Number(s): [id number] ? cc: Abhishek Flores MD; Kayla Friend [...] ? Left external iliac artery stent ?? [place] artery proximal to stent: 150 cm/s, phasicity: Biphasic ?? Proximal stent: 97 cm/s, phasicity: Biphasic ?? Mid stent: 72 cm/s, phasicity: Biphasic ?? Distal stent: 93 cm/s, phasicity: Biphasic ?? [place] artery distal to stent: 94 cm/s, phasicity: Biphasic ? BRACHIAL PRESSURES: ? Right: 127 ? Left: 150 ? ANKLE PRESSURES: ? Right: PT 76, DP could not be obtained ?? Left: PT 99, DP 129 ? ANKLE-BRACHIAL INDEX: ? Right: 0.51 ? Left: 0.86 ? ANKLE PVR WAVEFORMS: ? Right: Abnormal ?? Left: Abnormal ? US/US arterial duplex BI w/ FLEISA ?? IMPRESSION: ?? RIGHT LEG: ?? 1. [...] DD/ 1000 ? TD/TT: 05/20/24 1110 ? Rd Lab Technician: ? Procedure Note Edi Fontaine - 06/21/[address] [address] Ultrasound Report Signed Patient: Yosef Soria#: M [id number] : 4Acct:[id number] Age/Sex: 69 / MADM Date: 05/20/24 Loc: HO.US Attending Dr: Abhishek Flores MD Ordering Physician: Abhishek Flores MD Date of Service: 05/20/24 Procedure(s): US arterial duplex BI w/ FELISA Accession Number(s): [id number] cc: Abhishek Flores MD; Kayla Friend MD [...] phasicity: Biphasic Left external iliac artery stent [place] artery proximal to stent: 150 cm/s, phasicity: Biphasic Proximal stent: 97 cm/s, phasicity: Biphasic Mid stent: 72 cm/s, phasicity: Biphasic Distal stent: 93 cm/s, phasicity: Biphasic [place] artery distal to stent: 94 cm/s, phasicity: [...] by: Lana Holguin MD 06/21/2024 06:12 PM [facility] Dictated By: Porsha Holguin Signed By: <Electronically signed by Porsha Holguin in OV> 06/21/24 1812 DD/ 1000 TD/TT: 05/20/[address] Lab Technician: us [facility] External Provider CV VASC ULAR PROCEDURES Final Result [facility] [address] [place] [address] [phone] * Hepatitis C Antibody with Reflex to HCV, RNA, Quantitative, Real-Time PCR (02/22/2024 9:11 AM EDT) Hepatitis C Antibody Nonreactive Nonreactive [facility] Comment:Antibodies to HCV no t detected; does not exclude early acuteHCV infection. Blood Venous blood specimen / Unknown 02/22/2024 9:11 AM EDT 02/22/2024 11:11 AM EDT us Kayla Friend MD LAB BLOOD ORDERABLES Final Re sult Performing Organization Address [facility] Co de Phone Number [facility] [address] [place] [phone] * (ABNORMAL) Lipid Panel, Standard (02/22/2024 9:11 AM EDT) Triglycerides 222(H) <150 mg/dL [facility] Comment:Desirable Triglyceri de: less than 150 mg/dLBorderline High Triglyceride 150-199 mg/dLHigh Triglyceride: 200-499 mg/dLVery High Triglyceride: greater than or equal to 5OO mg/dL Cholesterol 232(H) <200 mg/dL [facility] Comment:Desirable Cholestero l: less than 200 mg/dLBorderline High Cholesterol: 200-239 mg/dLHigh Cholesterol: greater than 239 mg/dL LDL Cholesterol Calculated 157(H) <100 mg/dL [facility] Comment:Desirable LDL: less than 100 mg/dLNear Optimal/Above Optimal LDL: 110- 129 mg/dLBorderline High LDL: 130-159 mg/dLHigh LDL: 160-189 mg/dLVery High LDL: greater than or equal to 190 mg/dL HDL Cholesterol 31(L) >40 mg/dL [facility] Comment:Desirable HDL: great er than 40 mg/dL Note: This HDL assay may give artificially low results in patients with liver disease. Blood Venous blood specimen / Unknown 02/22/2024 9:11 AM EDT 02/22/2024 11:11 AM EDT us Kayla Friend MD LAB BLOOD ORDERABLES Final Re sult Performing Organization Address City/[facility]/ZIP Co de Phone Number [facility] [address] [place] [address] [phone] from Last 3 Months or Most Recently Relevant to Health Maintenance [place] [address] [place] [address] - S[place] Care Teams Golf Cart Mechanic Relationship Specialty Start Date End Date Kayla Friend MD [address] [place] [phone] PCP - General Family Medicine 04/30/20 Abhishek Flores MD Surgeon Vascular Surgery 05/30/24
--- OUTSIDE RECORDS SUMMARY | 2024-07-24 05:46 | XMS_ITS | Clinical Summary ---
Author Organization [employer] [facility] ity Address [address] [place] [address] Care Team Providers Care Leasing Sales Consultant Name Role Phone Unavailable Primary Care Provider [...]
--- OUTSIDE RECORDS SUMMARY | 2024-07-24 05:46 | XMS_ITS | Encounter Summary ---
Author Organization [employer] Address [address] [place] [address] 7[address] [place] [address] Care Team Providers Care Decal Applier Name Role Phone Kayla Frined MD Primary Care Provider [phone] Encounter Details Date Type Department Care Team ([facility] st Contact Info) Description 02/10/2023 Telephone [facility] [address] [place] [address] Kayla Friend MD [address] [place] [address] Social History Tobacco Use Types Packs/Day Years [...] 3:17 PM EDT Tc from katelyn with [facility] pulmonology requesting last three OV notes and any breathing test to be faxed to [phone] Any questions, please contact katelyn at [phone] documented in this encounter Plan of Treatment Not on file documented as of this encounter Visit Diagnoses Not on filedocumented in this encounter Additional Health Concerns Assessment Noted Time PHQ-9 Depression Total Score: 5 07/18/19 23 2:10 PM EST documented as of this encounter Care Teams Decal Applier Relationship Specialty Start Date End Date Kayla Friend MD [address] [place] [address] PCP - General Family Medicine 04/30/20 Abhishek Pino MD Surgeon Vascular Surgery 05/30/24 documented as of this encounter
[2024-07-24] MEDS: 0.9 % Sodium Chloride 1,000 ML 100 ML IVCONT (06:45)
[2024-07-24 06:48] LABS: MANUAL DIFF FLAG NO
[2024-07-24 06:52] LABS: Basophils Absolute Auto 0.1 X10*3/uL (0.0-0.2); Eosinophils Absolute Auto 0.4 X10*3/uL (0.0-0.4); Eosinophils Percent Auto 4.9 % (0-4); Hematocrit 42.7 % (42.0-52.0); Hemoglobin 14.9 g/dl (14.0-18.0); Imm Gran Abs Auto 0.03 X10*3/uL (0.00-0.03); Imm Gran Pct Auto 0.4 % (0.0-0.4); Lymphocytes Absolute Auto 1.7 X10*3/uL (1.2-4.9); Lymphocytes Percent Auto 20.9 % (20-40); Mean Corpuscular HGB Conc 34.9 g/dl (31.0-36.0); Mean Corpuscular Hemoglobin 31.2 pg (27.0-33.0); Mean Corpuscular Volume 89.3 fL (80.0-98.0); Mean Platelet Volume 8.8 fL (9.4-12.4); Monocytes Absolute Auto 0.6 X10*3/uL (0.1-1.2); Monocytes Percent Auto 7.6 % (2-11); Neutrophils Absolute Auto 5.3 x10*3/uL (2.0-8.3); Neutrophils Percent Auto 65.2 % (45-73); Platelet Count 282 X10*3/uL (160-400); Red Blood Count 4.78 X10*6/uL (4.60-5.80); Red Cell Distribution Width 13.3 % (11.0-16.0); White Blood Count 8.1 X10*3/uL (4.8-10.8)
[2024-07-24 07:09] LABS: Blood Urea Nitrogen 16 mg/dL (9-16); Creatinine Clr Calc Pharmacy 44.9; Estimated Glomerular Filt Rate > 60
[2024-07-24] MEDS: fentaNYL citrate/PF 100 MCG/2 ML VIAL 25 MCG IVPUSH (08:05)
[2024-07-24] MEDS: Midazolam HCl 2 MG/2 ML VIAL 0.5 MG IVPUSH (08:05)
--- NOTE | 2024-07-24 08:48 | W.PM.OPN ---
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 Ultrasound-guided left common femoral access 2. Aortogram with right lower extremity runoff Surgeon:Abhishek Pino M.D., FACS, RPVI Machine Operator General:None Anesthesia: Local with moderate conscious sedation. Total intraservice moderate sedation time was 32 minutes. I monitored the patient's level of consciousness and physiologic status continuously throughout the procedure. Specimens:none Drains:none Estimated blood loss: Less than 10 ml Implant: None Indications: 69-year-old gentleman with history of peripheral vascular disease presents for endovascular intervention. The patient has signed the informed consent after reviewing risks, complications, benefits, and alternatives previously discussed with the patient. The patient was given the opportunity to ask any additional questions or voice any concerns. All questions were answered to the patient's satisfaction. Procedure in detail: Patient was brought to the angiography suite prior to which a time-out was called for patient identification and site verification. Bilateral groins were prepped and draped in the standard surgical fashion. Under ultrasound guidance left common femoral was punctured with micro puncture needle and wire. Subsequently a precision 4 [place] sheath was then placed. [employer] wire was advanced to the level of the aorta. 4 [place] Flush catheter was brought up and parked at the level of the renal arteries. Aortogram was then undertaken. Catheter was brought down to the level of the iliac bifurcation. Iliacs were subsequently imaged. Catheter was then brought in up and over to the right side common femoral. Runoff study was then undertaken. There was an occlusion noted in the external iliac we could not traverse this or pass further than that. Imaging was taken from the common femoral and all the way down. Interpretation of films: 1. Ultrasound demonstrates appropriate femoral access site. Vessel was patent with minimal stenosis. Needle entry was visualized. Image of ultrasound was saved. 2. Aortogram demonstrates appropriate caliber aorta. Minimal disease. Appropriate take-off of the renals. 3. Iliac images demonstrate left side patent with prior stent patent. Right side patent common iliac prominent hypogastric as the main feeding collateral external iliac and common femoral total occlusion. 4. Right Leg Common femoral artery: Total occlusion Profundus Femoris: No significant disease Superficial femoral artery: Proximal 3rd total occlusion feeds via collaterals appears to be a stenosis at [place]'s canal but does flow through and eventually back fills via collaterals. Popliteal artery (p1,p2,p3): No significant disease Anterior tibial artery: Present but difficult to view Peroneal artery: Unable to visualize but does appear to be present Posterior tibial artery: Unable to visualize but does appear to be present Dorsalis pedis/plantar arch: Incomplete we were not able to reflux contrast all the way down to the foot Conclusion: 1. Successful diagnostic angiogram. Patient will require fem-fem crossover left to right. 2. Anticoagulation status: No change This note is constructed using voice recognition software. While every effort has been made to ensure accuracy, vamp presser errors may have been included. Thank you for allowing me to participate in the care of your patient. Yours sincerely, Abhishek Pino MD, FACS, R.P.V.I.
== END 2024-07-24 11:11 | disposition home or self-care (01) ==
PROVIDERS: PCP Family Medicine; Visit Provider Surgery Vascular Surgery
DX: I70.211 Atherosclerosis of native arteries of extremities with intermittent claudication, right leg (principal); M79.661 Pain in right lower leg; R26.2 Difficulty in walking, not elsewhere classified; I10 Essential (primary) hypertension; E78.5 Hyperlipidemia, unspecified; Z98.890 Other specified postprocedural states; F17.210 Nicotine dependence, cigarettes, uncomplicated; Z56.0 Unemployment, unspecified
CPT/HCPCS: 36246; 36415; 75630; 76937; 82565; 84520; 85025; 99152; 99153; C1760; C1769; C1887; C1894; J1644; J2250; J2310; J3010; Q9967

== ENCOUNTER 2024-07-30 09:20 | Outpatient (AMB) | payer OTHER, SELFPAY ==
--- NOTE | 2024-07-30 09:24 | A.OFFVIS_ITS ---
Intake Visit Reasons: 1 week follow up s/p R leg angio 07/24/24 Intake Note: Patient presents for follow up right leg angio performed on 07/24/24. Patient states he has very little pain in his incision. Accompanied by: THREAD WEAVER Allergies No Known Allergies Allergy (Verified 07/30/24 09:26) HPI HPI 1 week follow up s/p R leg angio 07/24/24: Details: Very pleasant 69-year-old gentleman presents for follow-up status post peripheral intervention. He would undergone diagnostic angiogram on 07/24/2024. He reports that he continues to have significant right lower extremity pain. His prior left lower extremity stents appeared to be patent. He now presents for routine postprocedure follow-up. Able to climb a flight of stairs with no shortness of breath. [facility] Medical History PAD (peripheral artery disease) Asthma Smoker Dyslipidemia Acid reflux HTN (hypertension) Surgical History H/O wrist surgery Family History Father No problems noted. Mother No problems noted. Social History Alcohol intake: former Patient Tobacco Use Status: Current everyday Tobacco user Cigarettes Per Day: 5 Current occupational status: unemployed Review of Systems Const All systems reviewed & are unremarkable except as noted in HPI and below Reports no additional complaints ENT Reports Normal hearing present Card Denies chest pain, Denies chest pain at rest, Denies chest pain with activity and Denies pedal edema Resp Denies cough GI Denies abdominal pain Musc Denies abnormal gait, Denies muscle cramps and Denies radiating pain into limb Skin/Breast Denies skin ulcer and Denies wounds Neuro Reports Normal hearing present and Denies abnormal gait Psych Reports no additional complaints Physical Exam Const General: cooperative, healthy appearing and comfortable Orientation/consciousness: oriented to person, oriented to place and oriented to time HEENT Head: Yes normal to inspection Neck Neck: Yes normal visual inspection Carotids: no bruits Chest Chest palpation & inspection: normal inspection of the chest Resp Effort & Inspection: normal respiratory effort and able to speak in complete sentences Auscultation: clear to auscultation bilaterally, no crackles, no rales, no rhonchi and no wheezes Cardio Other: Bilateral DP signals Rate: regular rate Rhythm: regular rhythm Heart sounds: S1 normal heart sound present and S2 normal heart sound present Bruits: no carotid bruits Peripheral pulses: Peripheral pulses 2+ throughout GI Inspection: Yes normal to inspection Skin Wounds: no wounds Hair: normal Neuro General: oriented to person, oriented to place and oriented to time Cranial nerves: Yes CN's II-XII intact bilaterally and Yes Normal hearing present Cognition (Neuro): normal cognition Motor exam (neuro): 5/5 motor strength present throughout Extrem Other: venous exam: No significant superficial varicosities or spider telangiectasias, minimal edema General: No clubbing, No cyanosis and No edema Psych Appearance: grossly normal Mental Status: mental status grossly normal Speech and movement: Normal speech and movement present Results Reviewed Results Reviewed: Angiogram from 07/24/2024 was reviewed. Right external iliac and common femoral occlusion. Assessment & Plan Assessment & Plan (1) PAD (peripheral artery disease): Comment: 12/07/2022-left SFA atherectomy and plasty 01/24/2024 left external iliac plasty with stent, left popliteal plasty Code(s): I73.9 - Peripheral vascular disease, unspecified Category: Medical Plan: In short patient has severe activity limiting claudication of the right lower extremity. He will require femoral to femoral bypass. Risks benefits complicat ions of the procedure including but not limited to bleeding infection limb loss and were discussed in detail with the patient. Agreed and would like to move forward. Daughter was at bedside and was allowed to ask questions as well. He will require cardiac risk stratification prior to surgery. Thank you for allowing us to assist in his care. If there are any questions or concerns please do not hesitate to contact us. Coding Level of Care Code Est Pt Level 4 (96629) Complex EM visit Add On G2211 Diagnoses PAD (peripheral artery disease) I73.9
--- OUTSIDE RECORDS SUMMARY | 2024-07-30 09:51 | XMS_ITS | Encounter Summary ---
Author Organization [employer] Address [address] [place] [address] Care Team Providers Care Fluoroscope Operator Name Role Phone Kayla Friend MD Primary Care Provider [phone] Encounter Details Date Type Department Care Team (Late st Contact Info) Description 07/24/2024 Orders Only GENERIC EXTERNAL DATA DEPARTMENT Provider, Generic External Data Social History Tobacco Use Types Packs/Day Years [...] Procedure Name Priority Date/Time Associated Diagnosis Comments CREATININE, SERUM Routine 07/24/2024 6:2 6 AM EST CBC WITH AUTO DIFFERENTIAL Routine 07/24/2024 6:26 AM EST UREA NITROGEN (BUN) Routine 07/24/2024 6 :26 AM EST documented in this encounter Results * Creatinine, Serum (07/24/2024 6:26 AM EST) Creatinine, Serum 1.13 0.5 - 1.4 mg/dL [facility] Creatinine Clr Calc Pharmacy 44.9 [facility] Comment:eGFR (calculated fro m the MDRD study equation) and eCrCl(calculated from the Cockcroft-Gault equation) are based ondifferent parameters and may not yield comparable results.If eCrCl result is absurd, please check patient'sheight/weight. Estimated Glomerular Filt Rate >60 [facility] Comment:Chronic Kidney Disea se: Estimated GFR < 60 mL/min/1.08i4Vkkggy Kidney Disease: Estimated GFR < 15 mL/min/1.73m2 07/24/2024 6:26 AM EST 07/24/2024 6:46 AM EST us Generic External Data Provider LAB BLOOD ORDERAB LES Final Result [facility] [address] [place] [phone] * BUN (Blood Urea Nitrogen) (07/24/2024 6:26 AM EST) Urea Nitrogen (BUN) 16 9 - 16 mg/dL [facility] 07/24/2024 6:26 AM EST 07/24/2024 6:46 AM EST us Generic External Data Provider LAB BLOOD ORDERAB LES Final Result Performing Organization Address City/State/[facility] Co de Phone Number [facility] [address] [place] [phone] * (ABNORMAL) CBC auto differential (07/24/2024 6:26 AM EST) White Blood Count 8.1 4.8 - 10.8 X10*3/uL [facility] Red Blood Count 4.78 4.60 - 5.80 X10*6/uL [facility] Hemoglobin 14.9 14.0 - 18.0 g/dl [facility] Hematocrit 42.7 42.0 - 52.0 % [facility] Mean Corpuscular Volume 89.3 80.0 - 98.0 fL [facility] Mean Corpuscular Hemoglobin 31.2 27.0 - 33.0 pg [facility] Mean Corpuscular HGB Conc 34.9 31.0 - 36.0 g/dl [facility] Red Cell Distribution Width 13.3 11.0 - 16.0 % [facility] Platelet Count 282 160 - 400 X10*3/uL [facility] Mean Platelet Volume 8.8(L) 9.4 - 12.4 fL [facility] Neutrophils Percent Auto 65.2 45 - 73 % [facility] Imm Gran Pct Auto 0.4 0.0 - 0.4 % [facility] Lymphocytes Percent Auto 20.9 20 - 40 % [facility] Monocytes Percent Auto 7.6 2 - 11 % [facility] Eosinophils Percent Auto 4.9(H) 0 - 4 % [facility] Basophils Percent Auto 1.0 0 - 2 % [facility] NRBC Pct Auto 0.0 0.0 - 0.2 /100WBC [facility] Neutrophils Absolute Auto 5.3 2.0 - 8.3 x10*3/uL [facility] Imm Gran Abs Auto 0.03 0.00 - 0.03 X10*3/uL [facility] Lymphocytes Absolute Auto 1.7 1.2 - 4.9 X10*3/uL [facility] Monocytes Absolute Auto 0.6 0.1 - 1.2 X10*3/uL [facility] Eosinophils Absolute Auto 0.4 0.0 - 0.4 X10*3/uL [facility] Basophils Absolute Auto 0.1 0.0 - 0.2 X10*3/uL [facility] NRBC Abs Auto 0.000 0.0 - 0.012 X10*3/uL [facility] 07/24/2024 6:26 AM EST 07/24/2024 6:46 AM EST us Generic External Data Provider LAB BLOOD ORDERAB LES Final Result Performing Organization Address City/State/[facility] Co de Phone Number [facility] [address] [place] [phone] documented in this encounter Visit Diagnoses Not on filedocumented in this encounter Additional Health Concerns Assessment Noted Time PHQ-9 Depression Total Score: 2 05/30/20 24 9:43 AM EST documented as of this encounter Care Teams Fluoroscope Operator Relationship Specialty Start Date End Date Kayla Friend MD [address] [place] [phone] PCP - General Family Medicine 04/30/20 Abhishek Pino MD Surgeon Vascular Surgery 05/30/24 documented as of this encounter
--- OUTSIDE RECORDS SUMMARY | 2024-07-30 09:51 | XMS_ITS | Encounter Summary ---
Author Organization [employer] Address [address] [place] [address] [address] [place] [address] Care Team Providers Care Outpatient Facility Physical Therapist Name Role Phone Kayla Friend MD Primary Care Provider [phone] Encounter Details Date Type Department Care Team ([facility] st Contact Info) Description 08/12/2022 Telephone [facility] CH[facility] MED & PEDS [address] [place] [address] Kayla Friend MD [address] [place] [address] Social History Tobacco Use Types Packs/Day Years [...] documented as of this encounter Care Teams Outpatient Facility Physical Therapist Relationship Specialty Start Date End Date Kayla Friend MD [address] [place] [address] PCP - General Family Medicine 04/30/20 Abhishek Pino MD Surgeon Vascular Surgery 05/30/24 documented as of this encounter
--- OUTSIDE RECORDS SUMMARY | 2024-07-30 09:51 | XMS_ITS | Clinical Summary ---
Author Organization [employer] [facility] ity Address [address] [place] [address] Care Team Providers Care Compress Trucker Name Role Phone Unavailable Primary Care Provider [...]
--- OUTSIDE RECORDS SUMMARY | 2024-07-30 09:51 | XMS_ITS | Clinical Summary ---
Author Organization [employer] Address [address] [address] [place] [address] Care Team Providers Care Lost Charge Card Clerk Name Role Phone Kayla Friend MD Primary Care Provider [phone] Allergies No known active allergies Medications acetaminophen [...] for Sx. Advised to follow up with [facility] for further treatment. Relevant Medications Olopatadine (Pataday) [...] relevant orders, pt will be referred to reference and instruction librarian. Pt was advised to diminish smoking. F/u [...] Encounters Date Type Department Care Team Description 07/24/2024 Orders Only GENERIC EXTERNAL DATA DEPARTMENT Provider, Generic External Data 05/30/2024 10:30 AM EST Telemedicine [facility] MED & PEDS [address] [place] [address] Kayla Friend MD Essential hypertension (Primary Dx); Primary insomnia; Chronic obstructive pulmonary disease with acute exacerbation (CMS/HCC); Peripheral vascular disease (CMS/HCC); Cigarette smoker 05/30/2024 Travel 05/20/2024 Orders Only [facility] External Provider, [facility] from Last 3 Months Immunizations [...] of 2 - PCV) 03/08/2025 Postponed from 1973 (Patient Refused) RSV Patients and Patients Aged 60 years or older (1 - Risk 60-74 years 1-dose series) 03/08/2025 Postponed from 2014 (Patient Refused) Depression Screening 05/30/2025 05/30/2024, 05/30/20 24 Tobacco Screening 05/30/2025 05/30/2024 Lipid Panel 02/21/2029 [...] SERUM Routine 07/24/2024 6:2 6 AM EST UREA NITROGEN (BUN) Routine 07/24/2024 6 :26 AM EST CBC WITH AUTO DIFFERENTIAL Routine 07/24/2024 6:26 AM EST VASC US LOWER EXTREMITY ARTERIAL [...] Recently Relevant to Health Maintenance Results * Creatinine, Serum (07/24/2024 6:26 AM EST) Creatinine, Serum 1.13 0.5 - 1.4 mg/dL [facility] Creatinine Clr Calc Pharmacy 44.9 [facility] Comment:eGFR (calculated fro m the MDRD study equation) and eCrCl(calculated from the Cockcroft-Gault equation) are based ondifferent parameters and may not yield comparable results.If eCrCl result is absurd, please check patient'sheight/weight. Estimated Glomerular Filt Rate >60 [facility] Comment:Chronic Kidney Disea se: Estimated GFR < 60 mL/min/1.56l8Siwttk Kidney Disease: Estimated GFR < 15 mL/min/1.73m2 07/24/2024 6:26 AM EST 07/24/2024 6:46 AM EST us Generic External Data Provider LAB BLOOD ORDERAB LES Final Result [facility] [address] [place] [phone] * (ABNORMAL) CBC auto differential (07/24/2024 6:26 AM EST) White Blood Count 8.1 4.8 - 10.8 X10*3/uL [facility] Red Blood Count 4.78 4.60 - 5.80 X10*6/uL [facility] Hemoglobin 14.9 14.0 - 18.0 g/dl [facility] Hematocrit 42.7 42.0 - 52.0 % [facility] Mean Corpuscular Volume 89.3 80.0 - 98.0 fL [facility] Mean Corpuscular Hemoglobin 31.2 27.0 - 33.0 pg [facility] Mean Corpuscular HGB Conc 34.9 31.0 - 36.0 g/dl [facility] Red Cell Distribution Width 13.3 11.0 - 16.0 % [facility] Platelet Count 282 160 - 400 X10*3/uL [facility] Mean Platelet Volume 8.8(L) 9.4 - 12.4 fL [facility] Neutrophils Percent Auto 65.2 45 - 73 % [facility] Imm Gran Pct Auto 0.4 0.0 - 0.4 % [facility] Lymphocytes Percent Auto 20.9 20 - 40 % [facility] Monocytes Percent Auto 7.6 2 - 11 % [facility] Eosinophils Percent Auto 4.9(H) 0 - 4 % [facility] Basophils Percent Auto 1.0 0 - 2 % [facility] NRBC Pct Auto 0.0 0.0 - 0.2 /100WBC [facility] Neutrophils Absolute Auto 5.3 2.0 - 8.3 x10*3/uL [facility] Imm Gran Abs Auto 0.03 0.00 - 0.03 X10*3/uL [facility] Lymphocytes Absolute Auto 1.7 1.2 - 4.9 X10*3/uL [facility] Monocytes Absolute Auto 0.6 0.1 - 1.2 X10*3/uL [facility] Eosinophils Absolute Auto 0.4 0.0 - 0.4 X10*3/uL [facility] Basophils Absolute Auto 0.1 0.0 - 0.2 X10*3/uL [facility] NRBC Abs Auto 0.000 0.0 - 0.012 X10*3/uL [facility] 07/24/2024 6:26 AM EST 07/24/2024 6:46 AM EST Generic External Data Provider LAB BLOOD ORDERAB LES Final Result Performing Organization Address [facility] [place] [facility] de Phone Number [facility] [address] [place] [phone] * BUN (Blood Urea Nitrogen) (07/24/2024 6:26 AM EST) Urea Nitrogen (BUN) 16 9 - 16 mg/dL [facility] 07/24/2024 6:26 AM EST 07/24/2024 6:46 AM EST Generic External Data Provider LAB BLOOD ORDERAB LES Final Result Performing Organization Address [facility] de Phone Number [facility] [address] [place] [phone] * US ABDOMINAL AORTIC ANEURYSM (05/20/2024 10:00 AM EST) Anatomical Region Laterality Modality Abdomen Ultrasound 05/20/2024 10:0 0 AM EST Narrative 06/18/2024 6:14 AM EST ? [facility] ?[address] ?[place] [address] ? Ultrasound Report ? Signed ? Patient: Yosef Soria ?MR#: M ?? [id number] ? : 1955 ?Acct:[id number] ? Age/Sex: 69 / M ?ADM Date: 11/25/24 ? Loc: HO.US ? Attending Dr: Abhishek Flores MD ? Ordering Physician: Abhishek Flores MD ?? Date of Service: 05/20/24 ?? Procedure(s): US abdominal aortic aneurysm ?? Accession Number(s): [id number] ? cc: Abhishek Flores MD; Kayla Friend [...] ??Nasrin Gregorio MD ??06/18/2024 06:11 AM EST ? Dictated By: ?Nasrin Gregorio MD ? Signed By: ?<Electronically signed by Nasrin Gregorio MD in OV> ?06/18/24 0611 ? DD/ 1000 ? TD/TT: 05/20/24 1110 ? Building Construction Inspector: HS ? Procedure Note Zhen, Edi - 06/18/2024 [place] [address] Ultrasound Report Signed Patient: Julien Soria#: M [id number] : 1955cct:[id number] Age/Sex: 69 / MADM Date: 05/20/24 Loc: HO.US Attending Dr: Abhishek Flores MD Ordering Physician: Abhishek Flores MD Date of Service: 05/20/24 Procedure(s): US abdominal aortic aneurysm Accession Number(s): [id number] cc: Abhishek Flores MD; Kayla Friend MD [...] 06/18/24 0611 DD/ 1000 TD/TT: 05/20/24 1110 Building Construction Inspector: SARA us [facility] External Provider IMG US PROCEDURES Edited Result - Final * VASC US Lower Extremity Arterial Duplex Bilateral With Felisa (05/20/2024 10:00 AM EST) 05/20/2024 10:0 0 AM EST Narrative [facility] - 06/21/2024 6:15 PM EST ? [facility] ?[address] ?[place] [address] ? Ultrasound Report ? Signed ? Patient: PritchardYosef Aparicio ?MR#: M ?? [id number] ? : 1955 ?Acct:[id number] ? Age/Sex: 69 / M ?ADM Date: 05/20/24 ? Loc: HO.US ? Attending Dr: Abhishek Flores MD ? Ordering Physician: Abhishek Flores MD ?? Date of Service: 05/20/24 ?? Procedure(s): US arterial duplex BI w/ FELISA ?? Accession Number(s): [id number] ? cc: Abhishek Flores MD; Kayla Friend [...] ? Left external iliac artery stent ?? [place] artery proximal to stent: 150 cm/s, phasicity: Biphasic ?? Proximal stent: 97 cm/s, phasicity: Biphasic ?? Mid stent: 72 cm/s, phasicity: Biphasic ?? Distal stent: 93 cm/s, phasicity: Biphasic ?? [place] artery distal to stent: 94 cm/s, phasicity: [...] DD/ 1000 ? TD/TT: 05/20/24 1110 ? Building Construction Inspector: ? Procedure Note Donotuseinterpreter, Image - 06/21/[address] [address] Ultrasound Report Signed Patient: Julien Soria#: M [id number] : 1955cct:[id number] Age/Sex: 69 / MADM Date: 05/20/24 Loc: HO.US Attending Dr: Abhishek Flores MD Ordering Physician: Abhishek Flores MD Date of Service: 05/20/24 Procedure(s): US arterial duplex BI w/ FELISA Accession Number(s): [id number] cc: Abhishek Flores MD; Kayla Friend MD [...] phasicity: Biphasic Left external iliac artery stent [place] artery proximal to stent: 150 cm/s, phasicity: Biphasic Proximal stent: 97 cm/s, phasicity: Biphasic Mid stent: 72 cm/s, phasicity: Biphasic Distal stent: 93 cm/s, phasicity: Biphasic [place] artery distal to stent: 94 cm/s, phasicity: [...] by: Lana Holguin MD 06/21/2024 06:12 PM [facility] Dictated By: Porsha Holguin Signed By: <Electronically signed by Porsha Holguin in OV> 06/21/24 1812 DD/ 1000 TD/TT: 05/20/24 1110 Building Construction Inspector: [facility] External Provider CV VASC ULAR PROCEDURES Final Result Performing Organization Address City/[facility]/ZIP Co de Phone Number [facility] [address] [place] [address] * Hepatitis C Antibody with Reflex to HCV, RNA, Quantitative, Real-Time PCR (02/22/2024 9:11 AM EDT) Pathologist [facility] Hepatitis C Antibody Nonreactive Nonreactive [facility] Comment:Antibodies to HCV no t detected; does not exclude early acuteHCV infection. Blood Venous blood specimen / Unknown 02/22/2024 9:11 AM EDT 02/22/2024 11:11 AM EDT Kayla Friend MD LAB BLOOD ORDERABLES Final Re sult Performing Organization Address City/[facility] Co de Phone Number [facility] [address] [place] [phone] * (ABNORMAL) Lipid Panel, Standard (02/22/2024 9:11 AM EDT) Triglycerides 222(H) <150 mg/dL [facility] Comment:Desirable Triglyceri de: less than 150 mg/dLBorderline High Triglyceride 150-199 mg/dLHigh Triglyceride: 200-499 mg/dLVery High Triglyceride: greater than or equal to 5OO mg/dL Cholesterol 232(H) <200 mg/dL [facility] Comment:Desirable Cholestero l: less than 200 mg/dLBorderline High Cholesterol: 200-239 mg/dLHigh Cholesterol: greater than 239 mg/dL LDL Cholesterol Calculated 157(H) <100 mg/dL [facility] Comment:Desirable LDL: less than 100 mg/dLNear Optimal/Above Optimal LDL: 110- 129 mg/dLBorderline High LDL: 130-159 mg/dLHigh LDL: 160-189 mg/dLVery High LDL: greater than or equal to 190 mg/dL HDL Cholesterol 31(L) >40 mg/dL [facility] Comment:Desirable HDL: great er than 40 mg/dL Note: This HDL assay may give artificially low results in patients with liver disease. Blood Venous blood specimen / Unknown 02/22/2024 9:11 AM EDT 02/22/2024 11:11 AM EDT us Kayla Friend MD LAB BLOOD ORDERABLES Final Re sult [facility] [address] [place] [address] [phone] from Last 3 Months or Most Recently Relevant to Health Maintenance Insurance - [employer] Care Teams Lost Charge Card Clerk Relationship Specialty Start Date End Date Kayla Friend MD [address] [place] [phone] PCP - General Family Medicine 04/30/20 Abhishek Flores MD Surgeon Vascular Surgery 05/30/24
--- OUTSIDE RECORDS SUMMARY | 2024-07-30 09:51 | XMS_ITS | Encounter Summary ---
Author Organization [employer] Address [address] [place] [address] [address] [place] [address] Care Team Providers Care Freight Solicitor Name Role Phone Kayla Friend MD Primary Care Provider [phone] Encounter Details Date Type Department Care Team ([facility] st Contact Info) Description 02/10/2023 Telephone [facility] CH[facility] MED & PEDS [address] [place] [address] Kayla Friend MD [address] [place] [address] Social History Tobacco Use Types Packs/Day Years [...] 3:17 PM EDT Tc from katelyn with [facility] pulmonology requesting last three OV notes and any breathing test to be faxed to [phone] Any questions, please contact katelyn at [phone] documented in this encounter Plan of Treatment Not on file documented as of this encounter Visit Diagnoses Not on filedocumented in this encounter Additional Health Concerns Assessment Noted Time PHQ-9 Depression Total Score: 5 07/18/19 23 2:10 PM EST documented as of this encounter Care Teams Freight Solicitor Relationship Specialty Start Date End Date Kayla Friend MD [address] [place] [address] PCP - General Family Medicine 04/30/20 Abhishek Pino MD Surgeon Vascular Surgery 05/30/24 documented as of this encounter
== END 2024-07-30 09:43 | disposition home or self-care (01) ==
PROVIDERS: PCP Family Medicine; Visit Provider Surgery Vascular Surgery
DX: I73.9 Peripheral vascular disease, unspecified (principal)
CPT/HCPCS: 99214; G2211

== ENCOUNTER → 2024-07-30 09:20 | Outpatient (BNVA) | payer OTHER, SELFPAY | PROVIDERS: PCP Family Medicine; Visit Provider Surgery Vascular Surgery | DX: I73.9 Peripheral vascular disease, unspecified (principal) | CPT/HCPCS: 99212 ==

== ENCOUNTER 2024-08-15 12:31 | Outpatient (AMB) | payer OTHER, SELFPAY ==
--- NOTE | 2024-08-15 13:03 | A.OFFVIS_ITS ---
Vital Signs 08/15/24 13:04 Height 5 ft 1 in Weight 125 lb 10.616 oz BMI 23.7 BP 128/60 Blood Pressure Location Lt brachial Position Sitting Pulse 83 Pulse Source Monitor Intake Visit Reasons: Preop/ Dr Pino/Femoral to Femoral Bypass Graft Formulator Compounder Required: Yes Formulator Compounder Services: Formulator Compounder Offered & Declined Accompanied by: Family/Other Allergies No Known Allergies Allergy (Verified 07/30/24 09:26) Medication List - Last Reconciled 08/15/24 by Filipe Mercer NP albuterol sulfate 90 mcg/actuation 0 mcg inhalation amlodipine 10 mg PO DAILY atorvastatin 80 mg PO DAILY carvedilol 25 mg PO fluticasone propionate 220 mcg/actuation (Flovent HFA) 0 mcg inhalation omeprazole 40 mg PO DAILY valsartan-hydrochlorothiazide 320-25 mg 1 tab PO QAM zolpidem 10 mg PO BEDTIME PRN HPI Comments Details: This is a 69-year-old male patient presenting for a preop cardiovascular visit. Patient has medical history of hypertension, dyslipidemia, peripheral arterial disease in his a current smoker. His VAD is significant and is status post left SFA arthrectomy, angioplasty with left external iliac plasty and stent, and left popliteal plasty. Patient was previously seen in this office for shortness of breath, at which time a stress test was ordered, but he did not follow-through did due to resolution of symptoms. The patient follows with Dr. Pino for his vascular concerns and reports severe activity limiting claudication in his right lower extremity. He is planned for a whoeazd-so-pmpwtkx bypass graft on September 23. The patient is accompanied by his SHIP RUNNER who serves as an key account manager throughout the visit. Patient is currently denying any symptoms of exertional chest pain, shortness of breath, palpitations, dizziness, fatigue, orthopnea, PND, leg edema, presyncope, or syncope. [facility] Medical History PAD (peripheral artery disease) Asthma Smoker Dyslipidemia Acid reflux HTN (hypertension) Surgical History H/O wrist surgery Family History Father No problems noted. Mother No problems noted. Social History Alcohol intake: former Patient Tobacco Use Status: Current everyday Tobacco user Cigarettes Per Day: 5 Current occupational status: unemployed Review of Systems Const Denies weakness ENT Denies dizziness Card Denies chest pain, Denies chest pain with activity, Denies syncope, Denies rapid heart rate, Denies pedal edema, Denies edema, Denies leg edema, Denies lightheadedness, Denies palpitations, Denies dyspnea, Denies dyspnea on exertion and Denies orthopnea Resp Denies cough, Denies dyspnea and Denies dyspnea on exertion GI Denies hematochezia and Denies change in stool character Musc Denies abnormal gait, Denies muscle cramps, Denies muscle weakness, Denies numbness, Denies radiating pain into limb and Denies tingling Neuro Denies abnormal gait, Denies dizziness, Denies syncope, Denies numbness, Denies tingling and Denies weakness Endo Denies palpitations Physical Exam Vital Signs: Last Vital Signs Pulse 83 08/15/24 13:04 BP 128/60 08/15/24 13:04 BMI result Body Mass Index 23.7 Const General: cooperative, healthy appearing, comfortable and no acute distress Orientation/consciousness: patient oriented x3 HEENT Head: Yes normal to inspection Neck Neck: Yes normal visual inspection, Yes trachea midline and Yes supple Chest Chest palpation & inspection: normal inspection of the chest Resp Effort & Inspection: normal respiratory effort Auscultation: clear to auscultation bilaterally, no crackles, no rales, no rhonchi and no wheezes Cardio Jugular venous distension: no JVD Palpation: normal PMI Rate: regular rate Rhythm: regular rhythm Heart sounds: S1 normal heart sound present, S2 normal heart sound present, no click, no gallops, no murmurs and no rubs Peripheral pulses: Peripheral pulses 2+ throughout GI Inspection: Yes normal to inspection Palpation (GI): Soft to palpation Auscultation: normal bowel sounds Skin General skin exam: no rashes or lesions noted Neuro General: patient oriented x3 Extrem General: Yes normal to inspection, No no pedal edema and No calf tenderness Psych Appearance: grossly normal Mental Status: mental status grossly normal Speech and movement: Normal speech and movement present Office Procedures EKG Details: EKG today shows normal sinus rhythm, rate 83 beats per minute, nonspecific ST- T wave changes, [place], [place] [address]-[id number], Complete Assessment & Plan Assessment & Plan (1) Preop cardiovascular exam: Code(s): Z01.810 - Encounter for preprocedural cardiovascular examination Category: Medical Plan: Patient will need a cardiac workup with an echocardiogram and a myocardial perfusion study with Lexiscan. Patient unable to walk due to claudication in hi s leg. (2) Dyslipidemia: Code(s): E78.5 - Hyperlipidemia, unspecified Category: Medical Plan: Last LDL 157 (02/16). Patient has been on the high-dose statin therapy for a while now. We will add Zetia to this regimen for now. We will repeat labs in 3 months and patient may need PCSK9 inhibitor if his LDL continues to be elevated. Goal for him less than 70. (3) PAD (peripheral artery disease): Comment: 12/07/2022-left SFA atherectomy and plasty 01/24/2024 left external iliac plasty with stent, left popliteal plasty Code(s): I73.9 - Peripheral vascular disease, unspecified Category: Medical Plan: Planned nwbcyfu-ld-ljfuhma bypass graft with Dr. Pino on September 23. (4) HTN (hypertension): Code(s): I10 - Essential (primary) hypertension Category: Medical Plan: Blood pressure today is well-controlled. Continue amlodipine, carvedilol, and Diovan. Blood pressure goal less than 130/84. (5) Smoker: Code(s): F17.200 - Nicotine dependence, unspecified, uncomplicated Category: Social Hx Plan: Emphasized cardiovascular risk of smoking. Patient states he has come down to 5 cigarettes a day. Discussed smoking cessation thoroughly, patient states not ready yet but we will try. Advised heart healthy diet, regular exercise, smoking cessation, and compliance with medical regimen. Addendum in regards to preop we will be made to this note after the completion of the tests ordered. Follow-up in 3 months in the office. In the interim, patient will call us with any questions. This note was generated using voice recognition software. While every effort has been made to ensure accuracy and proper spring assembler, there may be occasional errors that could affect the content or meaning of the described symptoms. Orders: Orders CA echo transthoracic complete Today Z01.810 - Encounter for preprocedural cardiovascular examination NM cardiolite stress test Today Z01.810 - Encounter for preprocedural cardiovascular examination CA lexiscan stress w rosmery Today Z01.810 - Encounter for preprocedural cardiovascular examination AMB EKG-In Office Today Z01.810 - Encounter for preprocedural cardiovascular examination Lipid Panel 3 Months E78.5 - Hyperlipidemia, unspecified Medications: New ezetimibe 10 mg PO DAILY 90 tabs 3RF Coding Level of Care Code Est Pt Level 4 (03060) Diagnoses Preop cardiovascular exam Z01.810 Dyslipidemia E78.5 PAD (peripheral artery disease) I73.9 HTN (hypertension) I10 Smoker F17.200 CPT Codes EKG - CPT: 52487-[id number], Complete ([id number]) Time Spent (min) 32 Comment Time spent in reviewing the chart, test results, assessment, counseling and documentation.
[2024-08-15 13:04] VITALS: BP 128/60; PULSE 83; BMI 23.7
--- OUTSIDE RECORDS SUMMARY | 2024-08-15 13:26 | XMS_ITS | Encounter Summary ---
Author Organization [employer] Address [address] [place] [address] Care Team Providers Care Sales Superintendent Name Role Phone Kayla Friend MD Primary Care Provider [phone] Encounter Details Date Type Department Care Team [...] Creatinine, Serum 1.13 0.5 - 1.4 mg/dL [facility] Creatinine Clr Calc Pharmacy 44.9 [facility] Comment:eGFR (calculated fro m the MDRD study equation) and eCrCl(calculated from the Cockcroft-Gault equation) are based ondifferent parameters and may not yield comparable results.If eCrCl result is absurd, please check patient'sheight/weight. Estimated Glomerular Filt Rate >60 [facility] Comment:Chronic Kidney Disea se: Estimated GFR < 60 mL/min/1.38m0Jleypv Kidney Disease: Estimated GFR < 15 mL/min/1.73m2 07/24/2024 6:26 AM EST 07/24/2024 6:46 AM EST us Generic External Data Provider LAB BLOOD ORDERAB LES Final Result [facility] [address] [place] [phone] * BUN (Blood Urea Nitrogen) (07/24/2024 6:26 AM EST) Urea Nitrogen (BUN) 16 9 - 16 mg/dL [facility] 07/24/2024 6:26 AM EST 07/24/2024 6:46 AM EST us Generic External Data Provider LAB BLOOD ORDERAB LES Final Result Performing Organization Address City/State/[facility] Co de Phone Number [facility] [address] [place] [phone] * (ABNORMAL) CBC auto differential (07/24/2024 6:26 AM EST) White Blood Count 8.1 4.8 - 10.8 X10*3/uL [facility] Red Blood Count 4.78 4.60 - 5.80 X10*6/uL [facility] Hemoglobin 14.9 14.0 - 18.0 g/dl [facility] Hematocrit 42.7 42.0 - 52.0 % [facility] Mean Corpuscular Volume 89.3 80.0 - 98.0 fL [facility] Mean Corpuscular Hemoglobin 31.2 27.0 - 33.0 pg [facility] Mean Corpuscular HGB Conc 34.9 31.0 - 36.0 g/dl [facility] Red Cell Distribution Width 13.3 11.0 - 16.0 % [facility] Platelet Count 282 160 - 400 X10*3/uL [facility] Mean Platelet Volume 8.8(L) 9.4 - 12.4 fL [facility] Neutrophils Percent Auto 65.2 45 - 73 % [facility] Imm Gran Pct Auto 0.4 0.0 - 0.4 % [facility] Lymphocytes Percent Auto 20.9 20 - 40 % [facility] Monocytes Percent Auto 7.6 2 - 11 % [facility] Eosinophils Percent Auto 4.9(H) 0 - 4 % [facility] Basophils Percent Auto 1.0 0 - 2 % [facility] NRBC Pct Auto 0.0 0.0 - 0.2 /100WBC [facility] Neutrophils Absolute Auto 5.3 2.0 - 8.3 x10*3/uL [facility] Imm Gran Abs Auto 0.03 0.00 - 0.03 X10*3/uL [facility] Lymphocytes Absolute Auto 1.7 1.2 - 4.9 X10*3/uL [facility] Monocytes Absolute Auto 0.6 0.1 - 1.2 X10*3/uL [facility] Eosinophils Absolute Auto 0.4 0.0 - 0.4 X10*3/uL [facility] Basophils Absolute Auto 0.1 0.0 - 0.2 X10*3/uL [facility] NRBC Abs Auto 0.000 0.0 - 0.012 X10*3/uL [facility] 07/24/2024 6:26 AM EST 07/24/2024 6:46 AM EST us Generic External Data Provider LAB BLOOD ORDERAB LES Final Result Performing Organization Address City/State/[facility] Co de Phone Number [facility] [address] [place] [phone] documented in this encounter Visit Diagnoses Not on filedocumented in this encounter Additional Health Concerns Assessment Noted Time PHQ-9 Depression Total Score: 2 05/30/20 24 9:43 AM EST documented as of this encounter Care Teams Sales Superintendent Relationship Specialty Start Date End Date Kayla Friend MD [address] [place] [phone] PCP - General Family Medicine 04/30/20 Abhishek Pino MD Surgeon Vascular Surgery 05/30/24 documented as of this encounter
--- OUTSIDE RECORDS SUMMARY | 2024-08-15 13:26 | XMS_ITS | Encounter Summary ---
Author Organization [employer] Address [address] [place] [address] [address] [place] [address] Care Team Providers Care Music Journalist Name Role Phone Kayla Friend MD Primary Care Provider [phone] Encounter Details Date Type Department Care Team ([facility] st Contact Info) Description 02/10/[address] [facility] [address] [place] [address] Kayla Friend MD [address] [place] [address] Social History Tobacco Use Types Packs/Day Years [...] 3:17 PM EDT Tc from katelyn with [facility] pulmonology requesting last three OV notes and any breathing test to be faxed to [phone] Any questions, please contact katelyn at [phone] documented in this encounter Plan of Treatment Not on file documented as of this encounter Visit Diagnoses Not on filedocumented in this encounter Additional Health Concerns Assessment Noted Time PHQ-9 Depression Total Score: 5 07/18/19 23 2:10 PM EST documented as of this encounter Care Teams Music Journalist Relationship Specialty Start Date End Date Kayla Friend MD [address] [place] [phone] PCP - General Family Medicine 04/30/20 Abhishek Pino MD Surgeon Vascular Surgery 05/30/24 documented as of this encounter
--- OUTSIDE RECORDS SUMMARY | 2024-08-15 13:26 | XMS_ITS | Clinical Summary ---
Author Organization [employer] Address [address] [facility] [address] [place] [address] Care Team Providers Care Ship Surveyor Name Role Phone Kayla Friend MD Primary Care Provider [phone] Allergies No known active allergies Medications acetaminophen (Tylenol 8 Hour) 650 MG ER tablet Take 1 tablet by mouth every 8 (eight) hours. 03/09/20 22 Active albuterol 108 (90 Base) MCG/ACT inhaler INHALE 2 PUFFS BY MOUTH EVERY 4 TO 6 HOURS NEEDED 8.5 g 11 11/15/19 23 Active atorvastatin (Lipitor) 80 MG tablet Take 1 tablet (80 mg) by mouth at bedtime. 90 tablet 1 11/26/19 23 Active aspirin 81 MG chewable tablet Chew 1 tablet (81 mg) in the morning. 90 tablet 1 11/26/19 23 Active magnesium 200 MG tablet Take 2 tablets (400 mg) by mouth in the morning. 180 tablet 1 11/26/19 23 Active clopidogrel (Plavix) 75 MG tablet Take 75 mg by mouth in the morning. 12/08/19 23 Active varenicline (Chantix) 1 MG tablet Take 1 mg by mouth 2 times daily. 02/29/20 23 Active nicotine polacrilex (Nicorette) 2 MG gum CHEW 1 PIECE OF GUM EVERY 2 HOURS NEEDED FOR SMOKING CESSATION 02/25/20 23 Active nicotine (Nicoderm, Step 1) 21 MG/24HR patch APPLY ONE PATCH EVERY DAY 02/25/20 23 Active carvedilol (Coreg) 25 MG tabletIndicatio ns:Essential hypertension Take 1 tablet (25 mg) by mouth with breakfast and with evening meal. 180 tablet 1 04/21/20 23 Active Multiple Vitamins-Minera ls (PreserVision AREDS 2) capsule Take 1 capsule by mouth 2 times daily. 60 capsule 11 05/12/20 23 Active loratadine (Claritin) 10 MG tablet TAKE 1 TABLET BY MOUTH EVERY MORNING 180 tablet 1 06/30/19 24 Active albuterol (2.5 MG/3ML) 0.083% nebulizer solutionIndicat ions:Asthma, unspecified asthma severity, unspecified whether complicated, unspecified whether persistent TAKE 3ML BY NEBULIZATION EVERY 4 HOURS NEEDED FOR WHEEZING 180 mL 1 12/27/19 24 Active fluticasone furoate (Arnuity Ellipta) 100 MCG/ACT inhaler Inhale 1 puff Once per day. Rinse mouth with water after use to reduce aftertaste and incidence of candidiasis. Do not swallow. 1 each 02/02/20 24 2024 Active montelukast (Singulair) 10 MG tablet Take 1 tablet (10 mg) by mouth at bedtime. 90 tablet 1 02/02/20 24 Active Stiolto Respimat 2.5-2.5 MCG/ACT aerosol solution inhaler Inhale 2 Inhalation. Once per day. 4 g 02/02/20 24 Active olopatadine (Pataday) 0.2 % ophthalmic solution Administer 1 drop into affected eye(s) Once per day. 2.5 mL 2 03/08/20 24 Active fluticasone furoate (Arnuity Ellipta) 100 MCG/ACT inhaler Inhale 1 puff Once per day. Rinse mouth with water after use to reduce aftertaste and incidence of candidiasis. Do not swallow. 1 each 03/08/20 24 2024 Active eszopiclone (Lunesta) 2 MG tablet Take 1 tablet (2 mg) by mouth at bedtime. Take immediately before bedtime 28 tablet 1 05/30/20 24 Active Blood Pressure kitIndications: Essential hypertension 1 Units Once per day. 1 kit 05/30/20 24 Active valsartan-hydro CHLOROthiazide (Diovan-HCT) 320-25 MG tabletIndicatio ns:Essential hypertension Take 1 tablet by mouth in the morning. 90 tablet 1 05/30/20 24 Active omeprazole (PriLOSEC) [address] capsule Take 1 capsule (20 mg) by mouth before breakfast. Do not crush or chew. 180 capsule 1 05/30/20 24 Active amLODIPine (Norvasc) 10 MG tabletIndicatio ns:Essential hypertension TAKE 1 TABLET BY MOUTH EVERY DAY 180 tablet 1 08/06/19 25 Active amLODIPine (Norvasc) 10 MG tabletIndicatio ns:Essential hypertension TAKE 1 TABLET BY MOUTH EVERY MORNING 180 tablet 1 06/30/19 24 2024 Discontinued Active Problems Problem Noted Date Diagnosed Date Dry eyes, bilateral 03/08/2024 Assessment & Plan (03/08/2024 4:53 PM EDT): Prescribing Pataday for Sx. Advised to follow up with Machining And Assembly Supervisor for further treatment. Relevant Medications Olopatadine (Pataday) [...] relevant orders, pt will be referred to technician biological health. Pt was advised to diminish smoking. F/u [...] Encounters Date Type Department Care Team Description 08/05/2024 Refill [facility] [address] [place] [address] Kayla Friend MD Essential hypertension 07/24/2024 Orders Only GENERIC EXTERNAL DATA DEPARTMENT Provider, Generic External Data 05/30/2024 10:30 AM EST Telemedicine [facility] [address] [place] [address] Kayla Friend MD Essential hypertension (Primary Dx); Primary insomnia; Chronic obstructive pulmonary disease with acute exacerbation (CMS/HCC); Peripheral vascular disease ([facility]/HCC); Cigarette smoker 05/30/2024 Travel 05/20/2024 Orders Only [facility] External Provider, [facility] from Last 3 Months Immunizations Name [...] Creatinine, Serum 1.13 0.5 - 1.4 mg/dL [facility] Creatinine Clr Calc Pharmacy 44.9 [facility] Comment:eGFR (calculated fro m the MDRD study equation) and eCrCl(calculated from the Cockcroft-Gault equation) are based ondifferent parameters and may not yield comparable results.If eCrCl result is absurd, please check patient'sheight/weight. Estimated Glomerular Filt Rate >60 [facility] Comment:Chronic Kidney Disea se: Estimated GFR < 60 mL/min/1.91l4Miwpsb Kidney Disease: Estimated GFR < 15 mL/min/1.73m2 07/24/2024 6:26 AM EST 07/24/2024 6:46 AM EST us Generic External Data Provider LAB BLOOD ORDERAB LES Final Result [facility] [address] [place] [phone] * (ABNORMAL) CBC auto differential (07/24/2024 6:26 AM EST) White Blood Count 8.1 4.8 - 10.8 X10*3/uL [facility] Red Blood Count 4.78 4.60 - 5.80 X10*6/uL [facility] Hemoglobin 14.9 14.0 - 18.0 g/dl [facility] Hematocrit 42.7 42.0 - 52.0 % [facility] Mean Corpuscular Volume 89.3 80.0 - 98.0 fL [facility] Mean Corpuscular Hemoglobin 31.2 27.0 - 33.0 pg [facility] Mean Corpuscular HGB Conc 34.9 31.0 - 36.0 g/dl [facility] Red Cell Distribution Width 13.3 11.0 - 16.0 % [facility] Platelet Count 282 160 - 400 X10*3/uL [facility] Mean Platelet Volume 8.8(L) 9.4 - 12.4 fL [facility] Neutrophils Percent Auto 65.2 45 - 73 % [facility] Imm Gran Pct Auto 0.4 0.0 - 0.4 % [facility] Lymphocytes Percent Auto 20.9 20 - 40 % [facility] Monocytes Percent Auto 7.6 2 - 11 % [facility] Eosinophils Percent Auto 4.9(H) 0 - 4 % [facility] Basophils Percent Auto 1.0 0 - 2 % [facility] NRBC Pct Auto 0.0 0.0 - 0.2 /100WBC [facility] Neutrophils Absolute Auto 5.3 2.0 - 8.3 x10*3/uL [facility] Imm Gran Abs Auto 0.03 0.00 - 0.03 X10*3/uL [facility] Lymphocytes Absolute Auto 1.7 1.2 - 4.9 X10*3/uL [facility] Monocytes Absolute Auto 0.6 0.1 - 1.2 X10*3/uL [facility] Eosinophils Absolute Auto 0.4 0.0 - 0.4 X10*3/uL [facility] Basophils Absolute Auto 0.1 0.0 - 0.2 X10*3/uL [facility] NRBC Abs Auto 0.000 0.0 - 0.012 X10*3/uL [facility] 07/24/2024 6:26 AM EST 07/24/2024 6:46 AM EST Generic External Data Provider LAB BLOOD ORDERAB LES Final Result Performing Organization Address [facility] Co de Phone Number [facility] [address] [place] [phone] * BUN (Blood Urea Nitrogen) (07/24/2024 6:26 AM EST) Urea Nitrogen (BUN) 16 9 - 16 mg/dL [facility] 07/24/2024 6:26 AM EST 07/24/2024 6:46 AM EST Generic External Data Provider LAB BLOOD ORDERAB LES Final Result Performing Organization Address [facility] de Phone Number [facility] [address] [place] [phone] * US ABDOMINAL AORTIC ANEURYSM (05/20/2024 10:00 AM EST) Anatomical Region Laterality Modality Abdomen Ultrasound 05/20/2024 10:0 0 AM EST Narrative 06/18/2024 6:14 AM EST ? [facility] ?[address] ?[place] [address] ? Ultrasound Report ? Signed ? Patient: Pritchard Adelso,Yosef ?MR#: M ?? [id number] ? : 1955 ?Acct:[id number] ? Age/Sex: 69 / M ?ADM Date: 11/25/24 ? Loc: HO.US ? Attending Dr: Abhishek Flores MD ? Ordering Physician: Abhishek Flores MD ?? Date of Service: 05/20/24 ?? Procedure(s): US abdominal aortic aneurysm ?? Accession Number(s): [id number] ? cc: Abhishek Flores MD; Kayla Friend [...] DD/ 1000 ? TD/TT: 05/20/24 1110 ? Roll Forming Machine Operator: HS ? Procedure Note Zhen, Image - 06/18/[address] [address] Ultrasound Report Signed Patient: Yosef Soria#: M [id number] : 4Acct:[id number] Age/Sex: 69 / MADM Date: 05/20/24 Loc: HO.US Attending Dr: Abhishek Flores MD Ordering Physician: Abhishek Flores MD Date of Service: 05/20/24 Procedure(s): US abdominal aortic aneurysm Accession Number(s): [id number] cc: Abhishek Flores MD; Kayla Friend MD [...] 06/18/24 0611 DD/ 1000 TD/TT: 05/20/24 1110 Roll Forming Machine Operator: HS us [facility] External Provider IMG US PROCEDURES Edited Result - Final * VASC US Lower Extremity Arterial Duplex Bilateral With Felisa (05/20/2024 10:00 AM EST) 05/20/2024 10:0 0 AM EST Narrative [facility] - 06/21/2024 6:15 PM EST ? [facility] ?[address] ?[place] [address] ? Ultrasound Report ? Signed ? Patient: Yosef Soria ?MR#: M ?? [id number] ? : 1955 ?Acct:[id number] ? Age/Sex: 69 / M ?ADM Date: 11/25/24 ? Loc: HO.US ? Attending Dr: Abhishek Flores MD ? Ordering Physician: Abhishek Flores MD ?? Date of Service: 05/20/24 ?? Procedure(s): US arterial duplex BI w/ FELISA ?? Accession Number(s): [id number] ? cc: Abhishek Flores MD; Kayla Friend [...] ? Left external iliac artery stent ?? [place] artery proximal to stent: 150 cm/s, phasicity: Biphasic ?? Proximal stent: 97 cm/s, phasicity: Biphasic ?? Mid stent: 72 cm/s, phasicity: Biphasic ?? Distal stent: 93 cm/s, phasicity: Biphasic ?? [place] artery distal to stent: 94 cm/s, phasicity: [...] signed by Porsha ??Chelsie in OV> ? 06/21/ 1812 ? DD/ 1000 ? TD/TT: 05/20/24 1110 ? Roll Forming Machine Operator: ? Procedure Note Donotuseinterpreter, Image - 06/21/[address] [address] Ultrasound Report Signed Patient: Julien Soria#: M [id number] : 1955cct:[id number] Age/Sex: 69 / MADM Date: 05/20/24 Loc: .US Attending Dr: Abhishek Flores MD Ordering Physician: Abhishek Flores MD Date of Service: 05/20/24 Procedure(s): US arterial duplex BI w/ FELISA Accession Number(s): [id number] cc: Abhishek Flores MD; Kayla Friend MD [...] phasicity: Biphasic Left external iliac artery stent [place] artery proximal to stent: 150 cm/s, phasicity: Biphasic Proximal stent: 97 cm/s, phasicity: Biphasic Mid stent: 72 cm/s, phasicity: Biphasic Distal stent: 93 cm/s, phasicity: Biphasic [place] artery distal to stent: 94 cm/s, phasicity: [...] 06/21/24 1812 DD/ 1000 TD/TT: 05/20/24 1110 Roll Forming Machine Operator: [facility] External Provider CV VASC ULAR PROCEDURES Final Result Performing Organization Address [facility]/ZIP Co de Phone Number [facility] [address] [place] [address] * Hepatitis C Antibody with Reflex to HCV, RNA, Quantitative, Real-Time PCR (02/22/2024 9:11 AM EDT) Hepatitis C Antibody Nonreactive Nonreactive [facility] Comment:Antibodies to HCV no t detected; does not exclude early acuteHCV infection. Blood Venous blood specimen / Unknown 02/22/2024 9:11 AM EDT 02/22/2024 11:11 AM EDT Kayla Friend MD LAB BLOOD ORDERABLES Final Re sult Performing Organization Address City/[facility]/ZIP Co de Phone Number [facility] [address] [place] [phone] * (ABNORMAL) Lipid Panel, Standard (02/22/2024 9:11 AM EDT) Triglycerides 222(H) <150 mg/dL [facility] Comment:Desirable Triglyceri de: less than 150 mg/dLBorderline High Triglyceride 150-199 mg/dLHigh Triglyceride: 200-499 mg/dLVery High Triglyceride: greater than or equal to 5OO mg/dL Cholesterol 232(H) <200 mg/dL [facility] Comment:Desirable Cholestero l: less than 200 mg/dLBorderline High Cholesterol: 200-239 mg/dLHigh Cholesterol: greater than 239 mg/dL LDL Cholesterol Calculated 157(H) <100 mg/dL [facility] Comment:Desirable LDL: less than 100 mg/dLNear Optimal/Above Optimal LDL: 110- 129 mg/dLBorderline High LDL: 130-159 mg/dLHigh LDL: 160-189 mg/dLVery High LDL: greater than or equal to 190 mg/dL HDL Cholesterol 31(L) >40 mg/dL [facility] Comment:Desirable HDL: great er than 40 mg/dL Note: This HDL assay may give artificially low results in patients with liver disease. Blood Venous blood specimen / Unknown 02/22/2024 9:11 AM EDT 02/22/2024 11:11 AM EDT us Kayla Friend MD LAB BLOOD ORDERABLES Final Re sult [facility] [address] [place] [phone] from Last 3 Months or Most Recently Relevant to Health Maintenance Insurance - [employer] Care Teams Ship Surveyor Relationship Specialty Start Date End Date Kayla Friend MD [address] [place] [phone] PCP - General Family Medicine 04/30/20 Abhishek Flores MD Surgeon Vascular Surgery 05/30/24
--- OUTSIDE RECORDS SUMMARY | 2024-08-15 13:26 | XMS_ITS | Encounter Summary ---
Author Organization [employer] Address [address] [place] [address] [address]t [place] [address] Care Team Providers Care Support Associate Name Role Phone Kayla Friend MD Primary Care Provider [phone] Encounter Details Date Type Department Care Team ([facility] st Contact Info) Description 08/12/2022 Telephone [facility] [address] [place] [address] Kayla Friend MD [address] [place] [address] Social History Tobacco Use Types Packs/Day Years [...] documented as of this encounter Care Teams Support Associate Relationship Specialty Start Date End Date Kayla Friend MD [address] [place] [address] PCP - General Family Medicine 04/30/20 Abhishek Pino MD Surgeon Vascular Surgery 05/30/24 documented as of this encounter
--- OUTSIDE RECORDS SUMMARY | 2024-08-15 13:26 | XMS_ITS | Encounter Summary ---
Author Organization [employer] Address [address] [place] [address] [address] [place] [address] Care Team Providers Care Tobacco Stemmer Name Role Phone Kayla Friend MD Primary Care Provider [phone] Reason for Visit * Reason Comments Med Refill Encounter Details Date Type Department Care Team ([facility] st Contact Info) Description 08/05/2024 Refill [facility] [address] [place] [address] Kayla Friend MD [address] [place] [address] Essential hypertension Social History Tobacco Use Types Packs/Day Years [...] documented as of this encounter Visit Diagnoses Diagnosis Essential hypertension Unspecified essential hypertension documented in this encounter Additional Health Concerns Assessment Noted Time PHQ-9 Depression Total Score: 2 05/30/20 9:43 AM EST documented as of this encounter Care Teams Tobacco Stemmer Relationship Specialty Start Date End Date Kayla Friend MD [address] [place] [address] PCP - General Family Medicine 04/30/20 Abhishek Pino MD Surgeon Vascular Surgery 05/30/24 documented as of this encounter
--- OUTSIDE RECORDS SUMMARY | 2024-08-15 13:27 | XMS_ITS | Clinical Summary ---
Author Organization [employer] [facility] ity Address [address] [place] [address] Care Team Providers Care Outpatient Scheduler Name Role Phone Unavailable Primary Care Provider Unavailabl e Social History Tobacco Use Types Packs/Day Years Used Date Smoking Tobacco: Never Assessed Sex and Gender Information Value Date Recorded Sex Assigned at Not on file Legal Sex Male 12:52 AM EST Gender Identity Not on file Sexual Orientation Not on file Plan of Treatment Health Maintenance Due Date Last Done Comments DTaP,Tdap,and Td Vaccines (1 - Tdap) 1973 Pneumococcal Vaccine: 50+ Ye ars (1 of 1 - PCV) 2004 Zoster Vaccines (1 of 2) 2004 COVID-19 Vaccine ( - 2023-2 5 season) [...] patient's age to complete this topic Meningococcal B Vacine Aged Out No lo nger eligible based on patient's age to complete this topic RSV Immunization Patients Un coni 20 months Aged Out No longer eligible b ased on patient's age to complete this topic Varicella Vaccines Aged Out No longer eligible based on patient's age to complete this topic
== END 2024-08-15 13:35 | disposition home or self-care (01) ==
PROVIDERS: PCP Family Medicine
DX: Z01.810 Encounter for preprocedural cardiovascular examination (principal); E78.5 Hyperlipidemia, unspecified; I73.9 Peripheral vascular disease, unspecified; I10 Essential (primary) hypertension; F17.200 Nicotine dependence, unspecified, uncomplicated
CPT/HCPCS: 93010; 99214

== ENCOUNTER → 2024-08-15 12:31 | Outpatient (BNVA) | payer OTHER, SELFPAY | PROVIDERS: PCP Family Medicine | DX: Z01.810 Encounter for preprocedural cardiovascular examination (principal); I73.9 Peripheral vascular disease, unspecified; I10 Essential (primary) hypertension; E78.5 Hyperlipidemia, unspecified; F17.210 Nicotine dependence, cigarettes, uncomplicated | CPT/HCPCS: 93005; 99212 ==

== ENCOUNTER → 2024-08-26 08:43 | Outpatient (REF) | payer OTHER, SELFPAY ==
--- NOTE | 2024-08-26 08:45 | CA_ITS ---
Acquisition Time: 2024-08-26 09:16:19 Total Exercise Time: 00:02:00 Test Indications: Screening for CAD,Pre-Op Evaluation Medications: ALBUTEROL AMLODIPINE ATORVASTATIN CARVEDILOL FLOVENT OMEPRAZOLE VALSATAN/HCTZ Protocol: LEXISCAN Max HR: 114 BPM 76% of Pred: 150 BPM Max BP: 128/68 mmHG Max Work Load: 1.0 METS Pharmacological stress test with Lexiscan while pt marches in his chair, with reports of SOB, no chest discomfort, with isolated PVCs, with normotensive response to injection. Nondiagnostic EKG for ischemia. In recovery, pt treated with IVP Aminophylline 75 mg to reverse Lexiscan after which pt feeling back to baseline. Nuclear images pending. Test reviewed iw Dr. Melvin. Referred By: Filipe Mercer Electronically Signed By: Filipe Mercer
--- OUTSIDE RECORDS SUMMARY | 2024-08-26 09:15 | XMS_ITS | Encounter Summary ---
Author Organization [employer] Address [address] [place] [address] [address] [place] [address] Care Team Providers Care Door Core Assembler Name Role Phone Kayla Friend MD Primary Care Provider [phone] Encounter Details Date Type Department Care Team ([facility] st Contact Info) Description 08/12/2022 Telephone [facility] [address] [place] [address] Kayla Friend MD [address] [place] [address] Social History Tobacco Use Types Packs/Day Years [...] documented as of this encounter Care Teams Door Core Assembler Relationship Specialty Start Date End Date Kayla Friend MD [address] [place] [address] PCP - General Family Medicine 04/30/20 Abhishek Pino MD Surgeon Vascular Surgery 05/30/24 documented as of this encounter
--- OUTSIDE RECORDS SUMMARY | 2024-08-26 09:15 | XMS_ITS | Encounter Summary ---
Author Organization [employer] Address [address] [place] [address] [address] [place] [address] Care Team Providers Care Gate Operator Name Role Phone Kayla Friend MD Primary Care Provider [phone] Reason for Visit * Reason Comments Med Refill Encounter Details Date Type Department Care Team ([facility] st Contact Info) Description 08/05/2024 Refill [facility] [address] [place] [address] Kayla Friend MD [address] [place] [address] Essential hypertension Social History Tobacco Use Types [...] documented as of this encounter Care Teams Gate Operator Relationship Specialty Start Date End Date Kayla Friend MD [address] [place] [address] PCP - General Family Medicine 04/30/20 Abhishek Pino MD Surgeon Vascular Surgery 05/30/24 documented as of this encounter
--- OUTSIDE RECORDS SUMMARY | 2024-08-26 09:16 | XMS_ITS | Clinical Summary ---
Author Organization [employer] [facility] it[facility] Address [address] [place] [address] Care Team Providers Care Truck Spotter Name Role Phone Unavailable Primary Care Provider [...]
--- OUTSIDE RECORDS SUMMARY | 2024-08-26 09:16 | XMS_ITS | Clinical Summary ---
Author Organization [employer] Address [address] [place] [address] Care Team Providers Care Senior Controls Engineer Name Role Phone Kayla Friend MD Primary Care Provider [phone] Allergies No known active allergies Medications acetaminophen [...] for Sx. Advised to follow up with Chemical Unit Operator for further treatment. Relevant Medications Olopatadine (Pataday) [...] relevant orders, pt will be referred to extension service advisor. Pt was advised to diminish smoking. F/u [...] stockings and will send for US duplex/ LARON, r/o PAD. Given night cramps will rx [...] Type Department Care Team Description 08/05/2024 Refill [facility] [address] [place] [address] Kayla Friend MD Essential hypertension 07/24/2024 Orders Only GENERIC EXTERNAL DATA DEPARTMENT Provider, Generic External Data 05/30/2024 10:30 AM EST Telemedicine [facility] [address] [place] [address] Kayla Friend MD Essential hypertension (Primary Dx); Primary insomnia; Chronic obstructive pulmonary disease with acute exacerbation (CMS/HCC); Peripheral vascular disease ([facility]/HCC); Cigarette smoker 05/30/2024 Travel from Last 3 Months Immunizations Name Administration [...] oned from 02/25/2024 (Patient Refused) COVID-19 Vaccine (2023- season) 2025 12/24/2021, 12/24/2021, 12/15/2020, Additional history [...] AUTO DIFFERENTIAL Routine 07/24/2024 6:26 AM EST HEPATITIS C AB W/REFL TO HCV RNA, QN, PCR Routine 02/22/2024 9:11 AM EDT Encounter for behavioral health screening LIPID PANEL, STANDARD Routine 02/22/2024 9:11 AM EDT Essential hypertension from Last 3 Months or Most Recently Relevant to Health Maintenance Results * Creatinine, Serum (07/24/2024 6:26 AM EST) Creatinine, Serum 1.13 0.5 - 1.4 mg/dL [facility] Creatinine Clr Calc Pharmacy 44.9 [facility] Comment:eGFR (calculated fro m the MDRD study equation) and eCrCl(calculated from the Cockcroft-Gault equation) are based ondifferent parameters and may not yield comparable results.If eCrCl result is absurd, please check patient'sheight/weight. Estimated Glomerular Filt Rate >60 [facility] Comment:Chronic Kidney Disea se: Estimated GFR < 60 mL/min/[id number] Kidney Disease: Estimated GFR < 15 mL/min/1.73m2 07/24/2024 6:26 AM EST 07/24/2024 6:46 AM EST us Generic External Data Provider LAB BLOOD ORDERAB LES Final Result [facility] [address] [place] [phone] * (ABNORMAL) CBC auto differential (07/24/2024 6:26 AM EST) White Blood Count 8.1 4.8 - 10.8 X10*3/uL [facility] Red Blood Count 4.78 4.60 - 5.80 X10*6/uL [facility] Hemoglobin 14.9 14.0 - 18.0 g/dl [facility] Hematocrit 42.7 42.0 - 52.0 % [facility] Mean Corpuscular Volume 89.3 80.0 - 98.0 fL [facility] Mean Corpuscular Hemoglobin 31.2 27.0 - 33.0 pg [facility] Mean Corpuscular HGB Conc 34.9 31.0 - 36.0 g/dl [facility] Red Cell Distribution Width 13.3 11.0 - 16.0 % [facility] Platelet Count 282 160 - 400 X10*3/uL [facility] Mean Platelet Volume 8.8(L) 9.4 - 12.4 fL [facility] Neutrophils Percent Auto 65.2 45 - 73 % [facility] Imm Gran Pct Auto 0.4 0.0 - 0.4 % [facility] Lymphocytes Percent Auto 20.9 20 - 40 % [facility] Monocytes Percent Auto 7.6 2 - 11 % [facility] Eosinophils Percent Auto 4.9(H) 0 - 4 % [facility] Basophils Percent Auto 1.0 0 - 2 % [facility] NRBC Pct Auto 0.0 0.0 - 0.2 /100WBC [facility] Neutrophils Absolute Auto 5.3 2.0 - 8.3 x10*3/uL [facility] Imm Gran Abs Auto 0.03 0.00 - 0.03 X10*3/uL [facility] Lymphocytes Absolute Auto 1.7 1.2 - 4.9 X10*3/uL [facility] Monocytes Absolute Auto 0.6 0.1 - 1.2 X10*3/uL [facility] Eosinophils Absolute Auto 0.4 0.0 - 0.4 X10*3/uL [facility] Basophils Absolute Auto 0.1 0.0 - 0.2 X10*3/uL [facility] NRBC Abs Auto 0.000 0.0 - 0.012 X10*3/uL [facility] 07/24/2024 6:26 AM EST 07/24/2024 6:46 AM EST us Generic External Data Provider LAB BLOOD ORDERAB LES Final Result Performing Organization Address City/[facility] Co de Phone Number [facility] [address] [place] [phone] * BUN (Blood Urea Nitrogen) (07/24/2024 6:26 AM EST) Urea Nitrogen (BUN) 16 9 - 16 mg/dL [facility] 07/24/2024 6:26 AM EST 07/24/2024 6:46 AM EST us Generic External Data Provider LAB BLOOD ORDERAB LES Final Result Performing Organization Address [facility] de Phone Number [facility] [address] [place] [address] [phone] * Hepatitis C Antibody with Reflex to HCV, RNA, Quantitative, Real-Time PCR (02/22/2024 9:11 AM EDT) Hepatitis C Antibody Nonreactive Nonreactive [facility] Comment:Antibodies to HCV no t detected; does not exclude early acuteHCV infection. Blood Venous blood specimen / Unknown 02/22/2024 9:11 AM EDT 02/22/2024 11:11 AM EDT us Kayla Friend MD LAB BLOOD ORDERABLES Final Re sult Performing Organization Address [facility] Co de Phone Number [facility] [address] [place] [address] [phone] * (ABNORMAL) Lipid Panel, Standard (02/22/2024 9:11 AM EDT) Triglycerides 222(H) <150 mg/dL [facility] Comment:Desirable Triglyceri de: less than 150 mg/dLBorderline High Triglyceride 150-199 mg/dLHigh Triglyceride: 200-499 mg/dLVery High Triglyceride: greater than or equal to 5OO mg/dL Cholesterol 232(H) <200 mg/dL [facility] Comment:Desirable Cholestero l: less than 200 mg/dLBorderline High Cholesterol: 200-239 mg/dLHigh Cholesterol: greater than 239 mg/dL LDL Cholesterol Calculated 157(H) <100 mg/dL [facility] Comment:Desirable LDL: less than 100 mg/dLNear Optimal/Above Optimal LDL: 110- 129 mg/dLBorderline High LDL: 130-159 mg/dLHigh LDL: 160-189 mg/dLVery High LDL: greater than or equal to 190 mg/dL HDL Cholesterol 31(L) >40 mg/dL [facility] Comment:Desirable HDL: great er than 40 mg/dL Note: This HDL assay may give artificially low results in patients with liver disease. Blood Venous blood specimen / Unknown 02/22/2024 9:11 AM EDT 02/22/2024 11:11 AM EDT us Kayla Friend MD LAB BLOOD ORDERABLES Final Re sult [facility] [address] [place] [phone] [phone] from Last 3 Months or Most Recently Relevant to Health Maintenance Insurance - [employer] Care Teams Senior Controls Engineer Relationship Specialty Start Date End Date Kayla Friend MD [address] [place] [phone] PCP - General Family Medicine 04/30/20 Abhishek Flores MD Surgeon Vascular Surgery 05/30/24
--- OUTSIDE RECORDS SUMMARY | 2024-08-26 09:16 | XMS_ITS | Encounter Summary ---
Author Organization [employer] Address [address] [place] [address] [address] [place] [address] Care Team Providers Care Underground Bolting Machine Operator Name Role Phone aKyla Friend MD Primary Care Provider Encounter Details Date Type Department Care Team ([facility] st Contact Info) Description 02/10/2023 Telephone [facility] [address] [place] [address] Kayla Friend MD [address] [place] [address] Social History Tobacco Use Types Packs/Day Years [...] 3:17 PM EDT Tc from katelyn with [facility] pulmonology requesting last three OV notes and any breathing test to be faxed to [phone] Any questions, please contact katelyn at [phone] documented in this encounter Plan of Treatment Not on file documented as of this encounter Visit Diagnoses Not on filedocumented in this encounter Additional Health Concerns Assessment Noted Time PHQ-9 Depression Total Score: 5 07/18/19 23 2:10 PM EST documented as of this encounter Care Teams Underground Bolting Machine Operator Relationship Specialty Start Date End Date Kayla Friend MD [address] [place] [address] PCP - General Family Medicine 04/30/20 Abhishek Pion MD Surgeon Vascular Surgery 05/30/24 documented as of this encounter
== END ==
LOC: HO.CARD 08:43
PROVIDERS: PCP Family Medicine
DX: Z01.810 Encounter for preprocedural cardiovascular examination (principal)
CPT/HCPCS: 78452; 93017; A9500; J0280; J2785

== ENCOUNTER → 2024-08-26 08:45 | Outpatient (BNV) | payer OTHER, SELFPAY | PROVIDERS: PCP Family Medicine | DX: I49.3 Ventricular premature depolarization (principal) | CPT/HCPCS: 78452; 93016; 93018 ==

== ENCOUNTER → 2024-09-06 12:57 | Outpatient (REF) | payer OTHER, SELFPAY ==
--- NOTE | 2024-09-06 13:00 | CA_ITS ---
Transthoracic Echocardiogram Patient (Last, First, Middle): Yosef Soria, Gender: Male Date of : 1955 Age: 69 Procedure Date: 09/06/2024 Procedure Type: Transthoracic Echocardiogram Location: OP Height: 154.94 cm Weight: 56.7 kg BSA: 1.55 m2 Heart Rate: bpm BP: 130 / 60 mmHg Property And Equipment Clerk: TO Referring MD: Filipe Mercer CUSTOMER SUCCESS DIRECTOR Symptoms: Z01.810 - Encounter for preprocedural cardiovascular examination Study Quality: Adequate ECG Rhythm: Sinus Conclusions: - The left ventricular systolic function is low normal. The calculated ejection fraction is 54% by biplane method. - No obvious valvular pathology seen on this study. Findings Left Ventricle Normal left ventricular cavity size. There is normal left ventricular wall thickness. The left ventricular systolic function is low normal. The calculated ejection fraction is 54% by biplane method. There is no evidence of regional wall motion abnormalities. Diastolic function is normal for age. Right Ventricle Normal right ventricular cavity size and systolic function. Atria Both atria are normal in size. Aortic Valve There is a normal trileaflet aortic valve. There is no aortic valve stenosis. There is no aortic valve regurgitation. Mitral Valve The mitral valve appears normal. There is no mitral valve regurgitation. There is no mitral valve stenosis. Pulmonic Valve The pulmonic valve is likely normal. Tricuspid Valve There is trace tricuspid valve regurgitation. There is no evidence of pulmonary hypertension. Great Vessels The asc aorta is normal in size. Venous The inferior vena cava is normal in size and collapses greater than 50% with inspiration. Pericardium/Pleural There is no evidence of pericardial effusion. Prior Study Comparison No significant change compared to prior study dated: 12/09/2022. Recommendations, Care & Conclusions No obvious valvular pathology seen on this study. Measurements 2D Linear Measurements IVSd: 0.96 0.6-0.9/0.6-1.0 cm LVIDd: 4.20 3.9-5.3/4.2-5.9 cm LVIDd Index: 2.71 2.4-3.2/2.2-3.1 cm/m2 LVIDs: 2.85 2.0-3.6 cm LVPWd: 0.98 0.7-1.1 cm LA Diam: 2.50 2.7-3.8/3.0-4.0 cm LAIDs Index: 1.61 1.5-2.3 cm/m2 LV Mass: 164.15 67-162/88-224 g LV Mass Index: 105.91 43-95/49-115 g/m2 LVOT Diam: 2.30 3.0+(-)1.3 cm 2D Systolic Function EF 4C: 54.20 >55% EF 2C: 55.00 >55% EF BiP: 54.10 >55% Mitral Valve MV Pk E: 0.66 MV PK A: 0.62 MV Decel Time: 178.00 E/A: 1.10 E'Lateral: 7.18 E'Medial: 6.42 E/E' Med: 10.20 E/E' Lat: 9.10 PHT: 52.00 MVA PHT: 4.23 Decel Kingman: 3.68 Aortic Valve AoV Pk Emil: 1.25 AoV Mn Emil: 0.72 AoV VTI: 0.22 AoV Pk Grad: 6.00 Aov Mn Grad: 2.00 CARLOS Cont.VTI: 2.80 LVOT LVOT Pk Emil: 0.73 LVOT Mn Emil: 0.49 LVOT VTI: 0.15 LVOT Pk Grad: 2.00 LVOT Mn Grad: 1.00 LVOT Diam: 2.30 LVOT Area: 4.15 Diastolic Function MV Pk E: 0.66 MV Pk A: 0.62 E/A: 1.10 E'Medial: 6.42 E/E' Med: 10.20 E' Laterial: 7.18 E/E' Lat: 9.10 Right Ventricle TAPSE (mm): 21.50 TVS' Emil: 12.70 Tricuspid Valve TR Pk Emil: 2.08 TR Pk Grad: 17.00 RA Press: 3.00 RVSP: 20.00 Great Vessels Aorta Sinus of Valsalva: 3.43 2.0-3.[address] Ridge: 2.52 1.7-3.4 cm Ao Asc: 3.70 2.1-3.4 cm Updated in Other Vendor System with Status of Final French Monge MD electronically signed on 09/07/2024 12:50:29 PM with status of Final
--- OUTSIDE RECORDS SUMMARY | 2024-09-06 14:29 | XMS_ITS | Encounter Summary ---
Author Organization [employer] Address [address] [place] [address] 7[address] [place] [address] Care Team Providers Care Line Erector Name Role Phone Kayla Friend MD Primary Care Provider [phone] Encounter Details Date Type Department Care Team ([facility] st Contact Info) Description 08/12/[address] [facility] P[facility] [address] [place] [address] Kayla Friend MD [address] [place] [address] Social History Tobacco Use Types Packs/Day Years [...] documented as of this encounter Care Teams Line Erector Relationship Specialty Start Date End Date Kayla Friend MD [address] [place] [address] PCP - General Family Medicine 04/30/20 Abhishek Pino MD Surgeon Vascular Surgery 05/30/24 documented as of this encounter
--- OUTSIDE RECORDS SUMMARY | 2024-09-06 14:29 | XMS_ITS | Encounter Summary ---
Author Organization [employer] Address [address] [facility] [address] [place] [address] Care Team Providers Care Telegraphic Typewriter Mechanic Name Role Phone Kayla Friend MD Primary Care Provider [phone] Encounter Details Date Type Department Care Team (Late st Contact Info) Description 08/26/2024 Orders Only [facility] External Provider, [facility] Social History Tobacco Use Types Packs/Day Years [...] t he electric, gas, oil or water [employer] threatened to shut off services in your [...] Procedure Name Priority Date/Time Associated Diagnosis Comments STRESS TEST WITH MYOCARDIAL PERFUSION Routine 08/26/2024 9:15 AM EST documented in this encounter Results * Stress test with myocardial perfusion (08/26/2024 9:15 AM EST) 08/26/2024 9:15 AM EST Narrative [facility] - 08/29/2024 6:05 PM EST ? [facility] ?[address] ?[place] [address] ?Nuclear Medicine Report ? Signed ? Patient: Yosef Soria ?MR#: M ?? [id number] ? : 1955 ?Acct:[id number] ? Age/Sex: 69 / M ?ADM Date: 08/26/24 ? Loc: HO.CARD ? Attending Dr: Filipe Mercer NP ? Ordering Physician: Filipe Mercer NP ?? Date of Service: 08/26/24 ?? Procedure(s): NM cardiolite stress test ?? Accession Number(s): [id number] ? cc: Filipe Mercer NP; Kayla Friend MD ? Lexiscan Myocardial perfusion study ? Indication: ?? Preoperative cardiovascular stratification ? Technique: ? The patient was brought in for a Lexiscan perfusion study on August 26 ?? 2024 and was injected 0.4 mg of Lexiscan intravenously. Within a minute ?? of this injection 25 mCi of sestamibi was given intravenously. Images ?? were obtained using the SPECT gamma camera interlaced with the gating ?? device. Images were obtained in supine position. ? Resting perfusion study was performed on August 29, 2024. Patient was ?? administered 25 mCi of sestamibi intravenously at rest. Images were ?? then obtained in supine position. ? Images obtained with and without CT attenuation. Total DLP 74 mGy-cm ? Images were processed with the software and compared side to side in ?? short axis, horizontal long axis and vertical long axis views. ? Findings: ? Both stress and rest perfusion studies are suboptimal due to intense ?? subdiaphragmatic uptake in the liver as well as the stomach interfering ?? with the inferior wall uptake ? The stress perfusion study showed ??nonattenuated images show overall ?? normal uptake ordered images in all segments of the myocardium except ?? for small area of basal inferior wall as well as basal inferoseptal ?? wall which is obscured by subdiaphragmatic uptake. Attenuated corrected ?? images are also suboptimal with mildly reduced uptake in the apex of ?? the LV myocardium and difficulty in evaluating the inferior wall. ?? Remainder of the LV myocardium is normally perfused.. The gated study ?? shows normal LV systolic function with calculated LVEF of 68%. LV ?? cavity is normal in size. The gated study shows normal systolic ??wall ?? thickening and contraction of segments. ?? Resting study shows no significant change in perfusion pattern compared ?? to stress perfusion study. Gating at rest reveals normal systolic wall ?? motion with ejection fraction at 66%. ? The findings are consistent with no clear reversible defect suggestive ?? of ischemia. Likely normal myocardial perfusion,. ? NM/NM cardiolite stress test ?? Impression: ? 1. ??Myocardial perfusion imaging study shows normal myocardial perfusion ?? 2. ??Gated LVEF is 68% ?? 3. Transient ischemic dilatation not present ? Nondiagnostic changes on EKG. ? Electronically signed by: ??Mendez Melvin MD ??08/29/2024 06:02 PM EST RP ? Dictated By: ?Ngozi,Mendez MD ? Signed By: ?<Electronically signed by Mendez Melvin, MD in OV> ?08/29/24 1802 ? DD/ 0915 ? TD/TT: 08/29/24 1430 ? Assistant Scientist: ? Procedure Note Zhen, Image - 08/29/[address] [id number] Nuclear Medicine Report Signed Patient: Julien Soria#: M [id number] : 4Acct:[id number] Age/Sex: 69 / MADM Date: 08/26/24 Loc: [facility] Attending Dr: Filipe Mercer NP Ordering Physician: Filipe Mercer NP Date of Service: 08/26/24 Procedure(s): NM cardiolite stress test Accession Number(s): [id number] cc: Filipe Mercer NP; Kayla Friend MD Lexiscan Myocardial perfusion study Indication: Preoperative cardiovascular stratification Technique: The patient was brought in for a Lexiscan perfusion study on August 26, 2024 and was injected 0.4 mg of Lexiscan intravenously. Within a minute of this injection 25 mCi of sestamibi was given intravenously. Images were obtained using the SPECT gamma camera interlaced with the gating device. Images were obtained in supine position. Resting perfusion study was performed on August 29, 2024. Patient was administered 25 mCi of sestamibi intravenously at rest. Images were then obtained in supine position. Images obtained with and without CT attenuation. Total DLP 74 mGy-cm Images were processed with the software and compared side to side in short axis, horizontal long axis and vertical long axis views. Findings: Both stress and rest perfusion studies are suboptimal due to intense subdiaphragmatic uptake in the liver as well as the stomach interfering with the inferior wall uptake The stress perfusion study showed nonattenuated images show overall normal uptake ordered images in all segments of the myocardium except for small area of basal inferior wall as well as basal inferoseptal wall which is obscured by subdiaphragmatic uptake. Attenuated corrected images are also suboptimal with mildly reduced uptake in the apex of the LV myocardium and difficulty in evaluating the inferior wall. Remainder of the LV myocardium is normally perfused.. The gated study shows normal LV systolic function with calculated LVEF of 68%. LV cavity is normal in size. The gated study shows normal systolic wall thickening and contraction of segments. Resting study shows no significant change in perfusion pattern compared to stress perfusion study. Gating at rest reveals normal systolic wall motion with ejection fraction at 66%. The findings are consistent with no clear reversible defect suggestive of ischemia. Likely normal myocardial perfusion,. NM/NM cardiolite stress test Impression: 1. Myocardial perfusion imaging study shows normal myocardial perfusion 2. Gated LVEF is 68% 3. Transient ischemic dilatation not present Nondiagnostic changes on EKG. Electronically signed by: Mendez Melvin MD 08/29/2024 06:02 PM EST RP Dictated By: Mendez Melvin MD Signed By: <Electronically signed by Mendez Melvin MD in OV> 08/29/24 1802 DD/ 0915 TD/TT: 08/29/24 1430 Assistant Scientist: [facility] External Provider CV STRE SS PROCEDURES Final Result [facility] [address] [place] [phone] documented in this encounter Visit Diagnoses Not on filedocumented in this encounter Additional Health Concerns Assessment Noted Time PHQ-9 Depression Total Score: 2 05/30/20 24 9:43 AM EST documented as of this encounter Care Teams Telegraphic Typewriter Mechanic Relationship Specialty Start Date End Date Kayla Friend MD [address] [place] [address] PCP - General Family Medicine 04/30/20 Abhishek Pino MD Surgeon Vascular Surgery 05/30/24 documented as of this encounter
--- OUTSIDE RECORDS SUMMARY | 2024-09-06 14:30 | XMS_ITS | Encounter Summary ---
Author Organization [employer] Address [address] [place] [address] [address] [place] [address] Care Team Providers Care Director Cpg Name Role Phone Kayla Friend MD Primary Care Provider [phone] Encounter Details Date Type Department Care Team ([facility] st Contact Info) Description 02/10/2023 Telephone [facility] MED & PEDS [address] [place] [address] Kayla Friend MD [address] [place] [address] Social History Tobacco Use Types Packs/Day Years [...] 3:17 PM EDT Tc from katelyn with [facility] pulmonology requesting last three OV notes and any breathing test to be faxed to [phone] Any questions, please contact katelyn at [phone] documented in this encounter Plan of Treatment Not on file documented as of this encounter Visit Diagnoses Not on filedocumented in this encounter Additional Health Concerns Assessment Noted Time PHQ-9 Depression Total Score: 5 07/18/19 23 2:10 PM EST documented as of this encounter Care Teams Director Cpg Relationship Specialty Start Date End Date Kayla Friend MD [address] [place] [address] PCP - General Family Medicine 04/30/20 Abhishek Pino MD Surgeon Vascular Surgery 05/30/24 documented as of this encounter
--- OUTSIDE RECORDS SUMMARY | 2024-09-06 14:30 | XMS_ITS | Clinical Summary ---
Author Organization [facility] it[facility] Address [address] [place] [address] Care Team Providers Care Uncrater Name Role Phone Unavailable Primary Care Provider [...]
--- OUTSIDE RECORDS SUMMARY | 2024-09-06 14:30 | XMS_ITS | Clinical Summary ---
Author Organization [facility] Address [address] [facility] [address] [place] [address] Care Team Providers Care Casing Soaker Name Role Phone Kayla Friend MD Primary Care Provider [phone] Allergies No known active allergies Medications acetaminophen [...] times daily. 60 capsule 11 3 Active loratadine (Claritin) 10 MG tablet TAKE [...] 2 Inhalation. Once per day. 4 g 11 4 Active olopatadine (Pataday) 0.2 % ophthalmic [...] or chew. 180 capsule 1 4 Active amLODIPine (Norvasc) 10 MG tabletIndication s:Essential hypertension TAKE 1 TABLET BY MOUTH EVERY DAY 180 tablet 1 5 Active Active Problems Problem Noted Date Diagnosed Date Dry eyes, bilateral 03/08/2024 Assessment & Plan (03/08/2024 4:53 PM EDT): Prescribing Pataday for Sx. Advised to follow up with Tuber Machine Operator for further treatment. Relevant Medications Olopatadine [...] relevant orders, pt will be referred to supervisor paint. Pt was advised to diminish smoking. F/u [...] Encounters Date Type Department Care Team Description 08/26/2024 Orders Only [facility] External Provider, [facility] 08/05/2024 Refill [facility] [address] [place] [address] Kayla Friend MD Essential hypertension 07/24/2024 Orders Only GENERIC EXTERNAL DATA DEPARTMENT Provider, Generic External Data from Last 3 Months Immunizations Name Administration [...] 1955 Sigmoidoscopy 1954 Alcohol/Substance Use Screening 1966 SDOH Screening 08/05/2023 08/05/2022 Zoster Vaccines (2 of 2) 03/30/2024 02/03/2024 Influenza Vaccine (#1) 2024 Postp oned from 02/25/2024 (Patient Refused) COVID-19 Vaccine ( - season) 2025 12/24/2021, 12/24/2021, 12/15/2020, Additional history [...] MYOCARDIAL PERFUSION Routine 08/26/2024 9:15 AM EST CREATININE, SERUM Routine 07/24/2024 6:2 6 AM [...] Recently Relevant to Health Maintenance Results * Stress test with myocardial perfusion (08/26/2024 9:15 AM EST) 08/26/2024 9:15 AM EST Narrative [facility] - 08/29/2024 6:05 PM EST ? [facility] ?[address] ?[place] [address] ?Nuclear Medicine Report ? Signed ? Patient: Pritchard PerezYosef ?MR#: M ?? [id number] ? : 1955 ?Acct:[id number] ? Age/Sex: 69 / M ?ADM Date: 08/26/24 ? Loc: HO.CARD ? Attending Dr: Filipe Mercer NP ? Ordering Physician: Filipe Mercer NP ?? Date of Service: 08/26/24 ?? Procedure(s): NM cardiolite stress test ?? Accession Number(s): [id number] ? cc: Filipe Mercer NP; Kayla Friend MD ? Lexiscan Myocardial perfusion study ? Indication: ?? Preoperative cardiovascular stratification ? Technique: ? The patient was brought in for a Lexiscan perfusion study on August 26, ?? 2024 and was injected 0.4 mg [...] 06:02 PM EST RP ? Dictated By: ?Mendez Melvin MD ? Signed By: ?<Electronically signed by Mendez Melvin MD in OV> ?08/29/24 1802 ? DD/ 0915 ? TD/TT: 08/29/24 1430 ? Corporate Consultant: ? Procedure Note Zhen, Edi - 08/29/[address] [place] [address] Nuclear Medicine Report Signed Patient: Julien Soria#: M [id number] : 4Acct:[id number] Age/Sex: 69 / MADM Date: 08/26/24 [facility] Dr: Filipe Mercer NP Ordering Physician: Filipe Mercer NP Date of Service: 08/26/24 Procedure(s): DE cardiolite stress test Accession Number(s): [id number] cc: Filipe Mercer NP; Kayla Friend MD [...] 08/29/24 1802 DD/ 0915 TD/TT: 08/29/24 1430 Corporate Consultant: [facility] External Provider CV STRE SS PROCEDURES Final Result Performing Organization Address [facility] Co de Phone Number [facility] [address] [place] [phone] * Creatinine, Serum (07/24/2024 6:26 AM EST) Creatinine, Serum 1.13 0.5 - 1.4 mg/dL [facility] Creatinine Clr Calc Pharmacy 44.9 [facility] Comment:eGFR (calculated fro m the MDRD study equation) and eCrCl(calculated from the Cockcroft-Gault equation) are based ondifferent parameters and may not yield comparable results.If eCrCl result is absurd, please check patient'sheight/weight. Estimated Glomerular Filt Rate >60 [facility] Comment:Chronic Kidney Disea se: Estimated GFR < 60 mL/min/[id number] Kidney Disease: Estimated GFR < 15 mL/min/1.73m2 07/24/2024 6:26 AM EST 07/24/2024 6:46 AM EST Generic External Data Provider LAB BLOOD ORDERAB LES Final Result Performing Organization Address [facility] Co de Phone Number [facility] [address] [place] [phone] * (ABNORMAL) CBC auto differential (07/24/2024 6:26 AM EST) White Blood Count 8.1 4.8 - 10.8 X10*3/uL [facility] Red Blood Count 4.78 4.60 - 5.80 X10*6/uL [facility] Hemoglobin 14.9 14.0 - 18.0 g/dl [facility] Hematocrit 42.7 42.0 - 52.0 % [facility] Mean Corpuscular Volume 89.3 80.0 - 98.0 fL [facility] Mean Corpuscular Hemoglobin 31.2 27.0 - 33.0 pg [facility] Mean Corpuscular HGB Conc 34.9 31.0 - 36.0 g/dl [facility] Red Cell Distribution Width 13.3 11.0 - 16.0 % [facility] Platelet Count 282 160 - 400 X10*3/uL [facility] Mean Platelet Volume 8.8(L) 9.4 - 12.4 fL [facility] Neutrophils Percent Auto 65.2 45 - 73 % [facility] Imm Gran Pct Auto 0.4 0.0 - 0.4 % [facility] Lymphocytes Percent Auto 20.9 20 - 40 % [facility] Monocytes Percent Auto 7.6 2 - 11 % [facility] Eosinophils Percent Auto 4.9(H) 0 - 4 % [facility] Basophils Percent Auto 1.0 0 - 2 % [facility] NRBC Pct Auto 0.0 0.0 - 0.2 /100WBC [facility] Neutrophils Absolute Auto 5.3 2.0 - 8.3 x10*3/uL [facility] Imm Gran Abs Auto 0.03 0.00 - 0.03 X10*3/uL [facility] Lymphocytes Absolute Auto 1.7 1.2 - 4.9 X10*3/uL [facility] Monocytes Absolute Auto 0.6 0.1 - 1.2 X10*3/uL [facility] Eosinophils Absolute Auto 0.4 0.0 - 0.4 X10*3/uL [facility] Basophils Absolute Auto 0.1 0.0 - 0.2 X10*3/uL [facility] NRBC Abs Auto 0.000 0.0 - 0.012 X10*3/uL [facility] 07/24/2024 6:26 AM EST 07/24/2024 6:46 AM EST us Generic External Data Provider LAB BLOOD ORDERAB LES Final Result Performing Organization Address [facility] Co de Phone Number [facility] [address] [place] [phone] * BUN (Blood Urea Nitrogen) (07/24/2024 6:26 AM EST) Urea Nitrogen (BUN) 16 9 - 16 mg/dL [facility] 07/24/2024 6:26 AM EST 07/24/2024 6:46 AM EST us Generic External Data Provider LAB BLOOD ORDERAB LES Final Result Performing Organization Address [facility] Phone Number [facility] [address] [place] [phone] * Hepatitis C Antibody with Reflex to HCV, RNA, Quantitative, Real-Time PCR (02/22/2024 9:11 AM EDT) Pathologist [facility] Hepatitis C Antibody Nonreactive Nonreactive [facility] Comment:Antibodies to HCV no t detected; does not exclude early acuteHCV infection. Blood Venous blood specimen / Unknown 02/22/2024 9:11 AM EDT 02/22/2024 11:11 AM EDT us Kayla Friend MD LAB BLOOD ORDERABLES Final Re sult Performing Organization Address [facility] Co de Phone Number [facility] [address] [place] [phone] * (ABNORMAL) Lipid Panel, Standard (02/22/2024 9:11 AM EDT) Triglycerides 222(H) <150 mg/dL [facility] Comment:Desirable Triglyceri de: less than 150 mg/dLBorderline High Triglyceride 150-199 mg/dLHigh Triglyceride: 200-499 mg/dLVery High Triglyceride: greater than or equal to 5OO mg/dL Cholesterol 232(H) <200 mg/dL [facility] Comment:Desirable Cholestero l: less than 200 mg/dLBorderline High Cholesterol: 200-239 mg/dLHigh Cholesterol: greater than 239 mg/dL LDL Cholesterol Calculated 157(H) <100 mg/dL [facility] Comment:Desirable LDL: less than 100 mg/dLNear Optimal/Above Optimal LDL: 110- 129 mg/dLBorderline High LDL: 130-159 mg/dLHigh LDL: 160-189 mg/dLVery High LDL: greater than or equal to 190 mg/dL HDL Cholesterol 31(L) >40 mg/dL [facility] Comment:Desirable HDL: great er than 40 mg/dL Note: This HDL assay may give artificially low results in patients with liver disease. Blood Venous blood specimen / Unknown 02/22/2024 9:11 AM EDT 02/22/2024 11:11 AM EDT us Kayla Friend MD LAB BLOOD ORDERABLES Final Re sult [facility] [address] [place] [phone] from Last 3 Months or Most Recently Relevant to Health Maintenance Insurance - [employer] Care Teams Casing Soaker Relationship Specialty Start Date End Date Kayla Friend MD [address] [place] [phone] PCP - General Family Medicine 04/30/20 Abhishek Flores MD Surgeon Vascular Surgery 05/30/24
== END ==
LOC: HO.CARD 12:57
PROVIDERS: PCP Family Medicine
DX: Z01.810 Encounter for preprocedural cardiovascular examination (principal)
CPT/HCPCS: 93306

== ENCOUNTER → 2024-09-06 13:00 | Outpatient (BNV) | payer OTHER, SELFPAY | PROVIDERS: PCP Family Medicine; Visit Provider Internal Medicine | DX: Z01.810 Encounter for preprocedural cardiovascular examination (principal) | CPT/HCPCS: 93306 ==

== ENCOUNTER 2024-09-23 09:59 | Inpatient (IN) | payer OTHER, SELFPAY ==
[2024-09-13 12:09] VITALS: BP 129/66; PULSE 89; RESP 20; O2SAT 96; BMI 24.4
--- NOTE | 2024-09-13 12:28 | P.CONAN_ITS ---
Documented by User: Edith Lr NP 09/20/24 13:28 HPI - Anesthesia Eval Consult details Narrative: 69yo M for Femoral Femoral Bypass Graft, 09/23/24 Cardiac optimized. Preop testing by [facility] Cardiology No recent illness No CP/SOB - limited by LE pain - able to walk short distances without symptoms ppi controls GERD Asthma/Smoker: Requires albuterol ~ 1 x monthly, instructed to use daily 3-5 days preop [facility] Active Problems Active Problems: All Active Problems Preop cardiovascular exam (Acute) Smoker (Acute) Shortness of breath (Acute) PAD (peripheral artery disease) (Acute) Dyslipidemia (Acute) Acid reflux (Acute) HTN (hypertension) (Acute) Past Medical History Medical History (Updated 09/23/24 @ 08:42 by Kirti Martinez MD) Depression PAD (peripheral artery disease) Asthma Smoker Dyslipidemia Acid reflux HTN (hypertension) Family History Family History Father No problems noted. Mother No problems noted. 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) Alcohol intake: former Patient Tobacco Use Status: Current everyday Tobacco user Tobacco use type: Cigarette Cigarettes Per Day: 5 Years Smoked: 56 Current occupational status: unemployed Meds Allergies Allergy/AdvReac Type Severity Reaction Status Date / Time No Known Allergies Allergy Verified 09/23/24 06:21 Home Medications ?Medication ?Instructions ?Recorded ?Confirmed ?Last Taken ?Type amlodipine 10 mg tablet 10 mg PO DAILY 06/10/20 09/12/24 09/23/24 05:30 History albuterol sulfate 90 mcg/actuation 2 puff inhalation Q4H PRN 12/01/22 09/12/24 Unknown History aerosol inhaler Shortness Of Breath Or Wheezing atorvastatin 80 mg tablet 80 mg PO DAILY 12/01/22 09/12/24 Unknown History carvedilol 25 mg tablet 25 mg PO BID 12/01/22 09/13/24 09/23/24 05:30 History valsartan 320 1 tab PO QAM 12/01/22 09/12/24 Unknown History mg-hydrochlorothiazide 25 mg tablet zolpidem 10 mg tablet 10 mg PO BEDTIME PRN Insomnia 12/01/22 09/12/24 Unknown History tiotropium 2.5 mcg-olodaterol 2.5 1 inh inhalation QAM 09/13/24 09/13/24 Unknown History mcg/actuation mist for inhalation (Stiolto Respimat) Exam Height,Weight and Vital Signs: Height 5 ft 1 in Weight 58.5 kg Last Vital Signs Pulse 89 09/13/24 12:09 Resp 20 09/13/24 12:09 BP 129/66 09/13/24 12:09 Pulse Ox 96 09/13/24 12:09 O2 Del Method Room Air 09/13/24 12:09 Pertinent Lab Results Pertinent Lab Results: Lab Results 09/13/24 09/13/24 Range/Units 12:57 13:04 WBC 7.3 (4.8-10.8) X10*3/uL RBC 4.73 (4.60-5.80) X10*6/uL Hgb 15.2 (14.0-18.0) g/dl Hct 43.5 (42.0-52.0) % MCV 92.0 (80.0-98.0) fL MCH 32.1 (27.0-33.0) pg MCHC 34.9 (31.0-36.0) g/dl RDW 14.3 (11.0-16.0) % Plt Count 274 (160-400) X10*3/uL MPV 8.7 L (9.4-12.4) fL Absolute Nucleated RBC 0.000 (0.0-0.012) X10*3/uL Nucleated RBC % (auto) 0.0 (0.0-0.2) /100WBC PT 11.2 (10.9-12.4) SEC INR 1.0 (0.9-1.1) APTT 35.9 (26.0-36.8) SEC Sodium 139 (135-145) mmol/L Potassium 3.7 (3.3-5.1) mmol/L Chloride 103 (96-108) mmol/L Carbon Dioxide 28 (22-29) mmol/L Anion Gap 12 (12-20) BUN 28 H (9-16) mg/dL Creatinine 1.40 (0.5-1.4) mg/dL Estim Creat Clear Calc 36.3 Estimated GFR 50 Random Glucose 100 (60-115) mg/dL Calcium 9.3 (8.4-10.2) mg/dL Blood Type O Negative Antibody Screen NEGATIVE Narrative Narrative: EKG 07/2024 NSR @ 83 ECHO 08/2024 Conclusions: - The left ventricular systolic function is low normal. The calculated ejection fraction is 54% by biplane method. - No obvious valvular pathology seen on this study. NM cardiolite stress test 08/2024 Impression: 1. Myocardial perfusion imaging study shows normal myocardial perfusion 2. Gated LVEF is 68% 3. Transient ischemic dilatation not present Nondiagnostic changes on EKG. Airway Mallampati Class: II TM Dist: >3cm Neck ROM: Full Denture: Upper Partial: Lower Heart: RRR Lungs: Dim throughout Assessment and Plan Assessment Anesthesia Assessment: Anesthesia Plan Discussed, Smoking Cess. Discussed and PAT Visit Final Anesthetic Review Family History of Problems with Anesthesia: No History of Problems with Anesthesia: No Documented by User: Kirti Martinez MD 09/23/24 08:51 [facility] Active Problems Active Problems: All Active Problems Preop cardiovascular exam (Acute) Smoker (Acute) Shortness of breath (Acute) PAD (peripheral artery disease) (Acute) Dyslipidemia (Acute) Acid reflux (Acute) HTN (hypertension) (Acute) Asthma. Uses inhaler every morning. Did not use today Past Medical History Medical History (Updated 09/23/24 @ 08:42 by Kirti Martinez MD) Depression PAD (peripheral artery disease) Asthma Smoker Dyslipidemia Acid reflux HTN (hypertension) Family History Family History Father No problems noted. Mother No problems noted. 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) Alcohol intake: former Patient Tobacco Use Status: Current everyday Tobacco user Tobacco use type: Cigarette Cigarettes Per Day: 5 Years Smoked: 56 Current occupational status: unemployed Meds Allergies Allergy/AdvReac Type Severity Reaction Status Date / Time No Known Allergies Allergy Verified 09/23/24 06:21 Home Medications ?Medication ?Instructions ?Recorded ?Confirmed ?Last Taken ?Type amlodipine 10 mg tablet 10 mg PO DAILY 06/10/20 09/12/24 09/23/24 05:30 History albuterol sulfate 90 mcg/actuation 2 puff inhalation Q4H PRN 12/01/22 09/12/24 Unknown History aerosol inhaler Shortness Of Breath Or Wheezing atorvastatin 80 mg tablet 80 mg PO DAILY 12/01/22 09/12/24 Unknown History carvedilol 25 mg tablet 25 mg PO BID 12/01/22 09/13/24 09/23/24 05:30 History valsartan 320 1 tab PO QAM 12/01/22 09/12/24 Unknown History mg-hydrochlorothiazide 25 mg tablet zolpidem 10 mg tablet 10 mg PO BEDTIME PRN Insomnia 12/01/22 09/12/24 Unknown History tiotropium 2.5 mcg-olodaterol 2.5 1 inh inhalation QAM 09/13/24 09/13/24 Unknown History mcg/actuation mist for inhalation (Stiolto Respimat) Exam Height,Weight and Vital Signs: Height 5 ft 1 in Weight 58.5 kg Last Vital Signs Pulse 89 09/13/24 12:09 Resp 20 09/13/24 12:09 BP 129/66 09/13/24 12:09 Pulse Ox 96 09/13/24 12:09 O2 Del Method Room Air 09/13/24 12:09 Vital Signs Temp Pulse Resp BP Pulse Ox O2 Del Method 09/23/24 06:22 98.5 F 81 16 110/66 96 Room Air Pertinent Lab Results Pertinent Lab Results: Lab Results 09/13/24 09/13/24 Range/Units 12:57 13:04 WBC 7.3 (4.8-10.8) X10*3/uL RBC 4.73 (4.60-5.80) X10*6/uL Hgb 15.2 (14.0-18.0) g/dl Hct 43.5 (42.0-52.0) % MCV 92.0 (80.0-98.0) fL MCH 32.1 (27.0-33.0) pg MCHC 34.9 (31.0-36.0) g/dl RDW 14.3 (11.0-16.0) % Plt Count 274 (160-400) X10*3/uL MPV 8.7 L (9.4-12.4) fL Absolute Nucleated RBC 0.000 (0.0-0.012) X10*3/uL Nucleated RBC % (auto) 0.0 (0.0-0.2) /100WBC PT 11.2 (10.9-12.4) SEC INR 1.0 (0.9-1.1) APTT 35.9 (26.0-36.8) SEC Sodium 139 (135-145) mmol/L Potassium 3.7 (3.3-5.1) mmol/L Chloride 103 (96-108) mmol/L Carbon Dioxide 28 (22-29) mmol/L Anion Gap 12 (12-20) BUN 28 H (9-16) mg/dL Creatinine 1.40 (0.5-1.4) mg/dL Estim Creat Clear Calc 36.3 Estimated GFR 50 Random Glucose 100 (60-115) mg/dL Calcium 9.3 (8.4-10.2) mg/dL Blood Type O Negative Antibody Screen NEGATIVE Lab Results 09/13/24 09/13/24 09/23/24 Range/Units 12:57 13:04 06:48 WBC 7.3 7.5 (4.8-10.8) X10*3/uL RBC 4.73 4.81 (4.60-5.80) X10*6/uL Hgb 15.2 15.4 (14.0-18.0) g/dl Hct 43.5 44.3 (42.0-52.0) % MCV 92.0 92.1 (80.0-98.0) fL MCH 32.1 32.0 (27.0-33.0) pg MCHC 34.9 34.8 (31.0-36.0) g/dl RDW 14.3 13.7 (11.0-16.0) % Plt Count 274 268 (160-400) X10*3/uL MPV 8.7 L 8.3 L (9.4-12.4) fL Absolute Nucleated RBC 0.000 0.000 (0.0-0.012) X10*3/uL Nucleated RBC % (auto) 0.0 0.0 (0.0-0.2) /100WBC PT 11.2 12.2 (10.9-12.4) SEC INR 1.0 1.0 (0.9-1.1) APTT 35.9 34.6 (26.0-36.8) SEC Sodium 139 140 (135-145) mmol/L Potassium 3.7 3.7 (3.3-5.1) mmol/L Chloride 103 106 (96-108) mmol/L Carbon Dioxide 28 24 (22-29) mmol/L Anion Gap 12 14 (12-20) BUN 28 H 27 H (9-16) mg/dL Creatinine 1.40 1.42 H (0.5-1.4) mg/dL Estim Creat Clear Calc 36.3 35.8 Estimated GFR 50 49 Random Glucose 100 97 (60-115) mg/dL Calcium 9.3 8.9 (8.4-10.2) mg/dL Blood Type O Negative O Negative Antibody Screen NEGATIVE NEGATIVE Airway Mallampati Class: II TM Dist: >3cm Neck ROM: Full Denture: Upper Partial: Lower Loose/Missing/Broken Teeth: Yes (1 tooth bottom front) Heart: RRR Lungs: CTAB. Diminished Assessment and Plan Assessment Anesthesia Assessment: Anesthesia Plan Discussed, Smoking Cess. Discussed, PAT Visit and Chart Reviewed Final Anesthetic Review Family History of Problems with Anesthesia: No History of Problems with Anesthesia: No NPO: Yes ASA Class: III Final Preanesthetic Review: No Changes in Pt Med Stat, Meds/Allgs Chart Reviewed, Consent Obtained/Reviewed and Anes Risks/Benef Reviewed Patient Risk: Intermediate Procedure Risk: Intermediate Assessment/Block/Sedation in SS: Assess/Block/Sedation-SS Anesthetic Plan Anesthetic Plan: GA Disposition: Standard PACU and Inp. Admit - ICU
[2024-09-13 13:14] LABS: Hematocrit 43.5 % (42.0-52.0); Hemoglobin 15.2 g/dl (14.0-18.0); Mean Corpuscular HGB Conc 34.9 g/dl (31.0-36.0); Mean Corpuscular Hemoglobin 32.1 pg (27.0-33.0); Mean Platelet Volume 8.7 fL (9.4-12.4); Platelet Count 274 X10*3/uL (160-400); Red Blood Count 4.73 X10*6/uL (4.60-5.80); Red Cell Distribution Width 14.3 % (11.0-16.0); White Blood Count 7.3 X10*3/uL (4.8-10.8)
[2024-09-13 13:22] LABS: Prothrombin Time 11.2 SEC (10.9-12.4)
[2024-09-13 13:25] LABS: Partial Thromboplastin Time 35.9 SEC (26.0-36.8)
[2024-09-13 14:16] LABS: Anion Gap 12 (12-20); Blood Urea Nitrogen 28 mg/dL (9-16); Calcium 9.3 mg/dL (8.4-10.2); Carbon Dioxide 28 mmol/L (22-29); Chloride 103 mmol/L (96-108); Creatinine Clr Calc Pharmacy 36.3; Estimated Glomerular Filt Rate 50; Glucose Random 100 mg/dL (60-115); Potassium 3.7 mmol/L (3.3-5.1); Sodium 139 mmol/L (135-145)
[2024-09-23] VITALS (27 sets, daily range): BP systolic 78–159; BP diastolic 40–68; PULSE 59–97; RESP 12–19; TEMP 36.6–36.9; O2SAT 92–98
[2024-09-23 06:53] LABS: Hematocrit 44.3 % (42.0-52.0); Hemoglobin 15.4 g/dl (14.0-18.0); Mean Corpuscular HGB Conc 34.8 g/dl (31.0-36.0); Mean Corpuscular Volume 92.1 fL (80.0-98.0); Mean Platelet Volume 8.3 fL (9.4-12.4); Platelet Count 268 X10*3/uL (160-400); Red Blood Count 4.81 X10*6/uL (4.60-5.80); Red Cell Distribution Width 13.7 % (11.0-16.0); White Blood Count 7.5 X10*3/uL (4.8-10.8)
[2024-09-23] MEDS: Lactated Ringers 1,000 ML 100 ML IVCONT ×2 (06:58→15:10)
[2024-09-23 07:09] LABS: Prothrombin Time 12.2 SEC (10.9-12.4)
[2024-09-23 07:11] LABS: Anion Gap 14 (12-20); Blood Urea Nitrogen 27 mg/dL (9-16); Calcium 8.9 mg/dL (8.4-10.2); Carbon Dioxide 24 mmol/L (22-29); Chloride 106 mmol/L (96-108); Creatinine Clr Calc Pharmacy 35.8; Estimated Glomerular Filt Rate 49; Glucose Random 97 mg/dL (60-115); Potassium 3.7 mmol/L (3.3-5.1); Sodium 140 mmol/L (135-145)
[2024-09-23 07:12] LABS: Partial Thromboplastin Time 34.6 SEC (26.0-36.8)
--- NOTE | 2024-09-23 07:39 | MHC.SHP ---
Pre-Procedural Eval Section A - 24 Hr Update-Section A only Date of Service: 09/23/24 The patient is an INPATIENT: No Changes since office visit: Yes Patient answered all questions The patient has been examined within 24 hours of the surgical procedure. The History & Physical has been completed within 30 days and I have reviewed it.: Yes Section B - Complete if H&P > 30 days Chief Complaint: Peripheral vascular disease, unspecified Allergies: Allergies Allergy/AdvReac Type Severity Reaction Status Date / Time No Known Allergies Allergy Verified 09/23/24 06:21 Plan I have reviewed the history and physical and performed a pertinent physical examination on my patient. No changes have occurred unless specified. Time Spent With Patient Time: Total time managing care of this patient today ____ minutes.
[2024-09-23] MEDS: ceFAZolin Sodium/Dextrose,Iso 2 GM/50 ML PIGGYBACK IV ×2 (07:58→15:34)
--- OUTSIDE RECORDS SUMMARY | 2024-09-23 11:09 | XMS_ITS | Clinical Summary ---
Author Organization [facility] ity Address [address] [place] [address] Care Team Providers Care Commercial Coordinator Name Role Phone Unavailable Primary Care Provider [...]
--- OUTSIDE RECORDS SUMMARY | 2024-09-23 11:09 | XMS_ITS | Clinical Summary ---
Author Organization [employer] Address [address] [facility] [address] [place] [address] Care Team Providers Care Mapping Analyst Name Role Phone Kayla Friend MD Primary Care Provider [phone] Allergies No known active allergies Medications acetaminophen [...] by mouth 2 times daily. 60 capsule 05/12/20 23 Active loratadine (Claritin) 10 MG [...] swallow. 1 each 02/02/20 24 2024 Active Stiolto Respimat 2.5-2.5 MCG/ACT aerosol solution [...] DAY 180 tablet 1 08/06/19 25 Active montelukast (Singulair) 10 MG tablet TAKE 1 TABLET(10 MG) BY MOUTH AT BEDTIME 90 tablet 1 09/11/19 25 Active montelukast (Singulair) 10 MG tablet Take 1 tablet (10 mg) by mouth at bedtime. 90 tablet 1 02/02/20 24 2024 Discontinued Active Problems Problem Noted Date Diagnosed Date Dry eyes, bilateral 03/08/2024 Assessment & Plan (03/08/2024 4:53 PM EDT): Prescribing Pataday for Sx. Advised to follow up with [employer] for further treatment. Relevant Medications Olopatadine (Pataday) [...] relevant orders, pt will be referred to child adolescent psychiatrist. Pt was advised to diminish smoking. F/u [...] Encounters Date Type Department Care Team Description 09/10/2024 Refill [facility] [address] [place] [address] Kayla Friend MD 08/26/2024 Orders Only [facility] External Provider, [facility] 08/05/2024 Refill [facility] [address] [place] [address] Kayla Friend MD Essential hypertension 07/24/2024 Orders [...] AM EST) 08/26/2024 9:15 AM EST Narrative [facility] - 08/29/2024 6:05 PM EST ? [facility] ?[address] ?[place] [address] ?Nuclear Medicine Report ? Signed ? Patient: Yosef Soria ?MR#: M ?? [id number] ? : 1955 ?Acct:[id number] ? Age/Sex: 69 / M ?ADM Date: 08/26/24 ? Loc: HO.CARD ? Attending Dr: Filipe Mercer FRANCHISE BROKER ? Ordering Physician: Filipe Mercer NP ?? Date of Service: 08/26/24 ?? Procedure(s): NM cardiolite stress test ?? Accession Number(s): [id number] ? cc: Filipe Mercer NP; Kayla Friend [...] DD/ 0915 ? TD/TT: 08/29/24 1430 ? Seam Finisher: ? Procedure Note Donotuseinterpreter, Image - 08/29/2024 [place] [id number] Nuclear Medicine Report Signed Patient: Julien Soria#: M [id number] : 4Acct:[id number] Age/Sex: 69 / MADM Date: 08/26/24 Loc: [facility] Attending Dr: Filipe Mercer NP Ordering Physician: Filipe Mercer NP Date of Service: 08/26/24 Procedure(s): NM cardiolite stress test Accession Number(s): [id number] cc: Filipe Mercer NP; Kayla Friend MD [...] 08/29/24 1802 DD/ 0915 TD/TT: 08/29/24 1430 Seam Finisher: [facility] External Provider CV STRE SS PROCEDURES Final Result [facility] [address] [place] [phone] * Creatinine, Serum (07/24/2024 6:26 AM EST) Creatinine, Serum 1.13 0.5 - 1.4 mg/dL [facility] Creatinine Clr Calc Pharmacy 44.9 [facility] Comment:eGFR (calculated fro m the MDRD study equation) and eCrCl(calculated from the Cockcroft-Gault equation) are based ondifferent parameters and may not yield comparable results.If eCrCl result is absurd, please check patient'sheight/weight. Estimated Glomerular Filt Rate >60 [facility] Comment:Chronic Kidney Disea se: Estimated GFR < 60 mL/min/1.89m6Lumrsr Kidney Disease: Estimated GFR < 15 mL/min/1.73m2 07/24/2024 6:26 AM EST 07/24/2024 6:46 AM EST Generic External Data Provider LAB BLOOD ORDERAB LES Final Result [facility] [address], [place] [phone] * (ABNORMAL) CBC auto differential (07/24/2024 6:26 AM EST) White Blood Count 8.1 4.8 - 10.8 X10*3/uL [facility] Red Blood Count 4.78 4.60 - 5.80 X10*6/uL [facility] Hemoglobin 14.9 14.0 - 18.0 g/dl [facility] Hematocrit 42.7 42.0 - 52.0 % [facility] Mean Corpuscular Volume 89.3 80.0 - 98.0 fL [facility] Mean Corpuscular Hemoglobin 31.2 27.0 - 33.0 pg [facility] Mean Corpuscular HGB Conc 34.9 31.0 - 36.0 g/dl [facility] Red Cell Distribution Width 13.3 11.0 - 16.0 % [facility] Platelet Count 282 160 - 400 X10*3/uL [facility] Mean Platelet Volume 8.8(L) 9.4 - 12.4 fL [facility] Neutrophils Percent Auto 65.2 45 - 73 % [facility] Imm Gran Pct Auto 0.4 0.0 - 0.4 % [facility] Lymphocytes Percent Auto 20.9 20 - 40 % [facility] Monocytes Percent Auto 7.6 2 - 11 % [facility] Eosinophils Percent Auto 4.9(H) 0 - 4 % [facility] Basophils Percent Auto 1.0 0 - 2 % [facility] NRBC Pct Auto 0.0 0.0 - 0.2 /100WBC [facility] Neutrophils Absolute Auto 5.3 2.0 - 8.3 x10*3/uL [facility] Imm Gran Abs Auto 0.03 0.00 - 0.03 X10*3/uL [facility] Lymphocytes Absolute Auto 1.7 1.2 - 4.9 X10*3/uL [facility] Monocytes Absolute Auto 0.6 0.1 - 1.2 X10*3/uL [facility] Eosinophils Absolute Auto 0.4 0.0 - 0.4 X10*3/uL [facility] Basophils Absolute Auto 0.1 0.0 - 0.2 X10*3/uL [facility] NRBC Abs Auto 0.000 0.0 - 0.012 X10*3/uL [facility] 07/24/2024 6:26 AM EST 07/24/2024 6:46 AM EST us Generic External Data Provider LAB BLOOD ORDERAB LES Final Result Performing Organization Address [facility] Phone Number [facility] [address] [place] [phone] * BUN (Blood Urea Nitrogen) (07/24/2024 6:26 AM EST) Urea Nitrogen (BUN) 16 9 - 16 mg/dL [facility] 07/24/2024 6:26 AM EST 07/24/2024 6:46 AM EST [employer] External Data Provider LAB BLOOD ORDERAB LES Final Result Performing Organization Address [facility] Phone Number [facility] [address] [place] [phone] * Hepatitis C Antibody with Reflex to HCV, RNA, Quantitative, Real-Time PCR (02/22/2024 9:11 AM EDT) Hepatitis C Antibody Nonreactive Nonreactive [facility] Comment:Antibodies to HCV no t detected; does not exclude early acuteHCV infection. Blood Venous blood specimen / Unknown 02/22/2024 9:11 AM EDT 02/22/2024 11:11 AM EDT us Kayla Friend MD LAB BLOOD ORDERABLES Final Re sult Performing Organization Address [facility]/ZIP Co de Phone Number [facility] [address] [place] [address] [phone] * (ABNORMAL) Lipid Panel, Standard (02/22/2024 9:11 AM EDT) Triglycerides 222(H) <150 mg/dL [facility] Comment:Desirable Triglyceri de: less than 150 mg/dLBorderline High Triglyceride 150-199 mg/dLHigh Triglyceride: 200-499 mg/dLVery High Triglyceride: greater than or equal to 5OO mg/dL Cholesterol 232(H) <200 mg/dL [facility] Comment:Desirable Cholestero l: less than 200 mg/dLBorderline High Cholesterol: 200-239 mg/dLHigh Cholesterol: greater than 239 mg/dL LDL Cholesterol Calculated 157(H) <100 mg/dL [facility] Comment:Desirable LDL: less than 100 mg/dLNear Optimal/Above Optimal LDL: 110- 129 mg/dLBorderline High LDL: 130-159 mg/dLHigh LDL: 160-189 mg/dLVery High LDL: greater than or equal to 190 mg/dL HDL Cholesterol 31(L) >40 mg/dL [facility] Comment:Desirable HDL: great er than 40 mg/dL Note: This HDL assay may give artificially low results in patients with liver disease. Blood Venous blood specimen / Unknown 02/22/2024 9:11 AM EDT 02/22/2024 11:11 AM EDT us Kayla Friend MD LAB BLOOD ORDERABLES Final Re sult [facility] [address] [place] [address] [phone] from Last 3 Months or Most Recently Relevant to Health Maintenance Insurance - [employer] Care Teams Mapping Analyst Relationship Specialty Start Date End Date Kayla Friend MD [address] [place] [phone] PCP - General Family Medicine 04/30/20 Abhishek Flores MD Surgeon Vascular Surgery 05/30/24
--- OUTSIDE RECORDS SUMMARY | 2024-09-23 11:09 | XMS_ITS | Encounter Summary ---
Author Organization [employer] Address [address] [place] [address] [address] [place] [address] Care Team Providers Care Meterman Name Role Phone Kayla Friend MD Primary Care Provider [phone] Encounter Details Date Type Department Care Team ([facility] st Contact Info) Description 02/10/2023 Telephone [facility] [address] [place] [address] Kayla Friend MD [address] [place] [address] Social History Tobacco Use Types Packs/Day Years [...] 3:17 PM EDT Tc from katelyn with [facility] pulmonology requesting last three OV notes and any breathing test to be faxed to [phone] Any questions, please contact katelyn at [phone] documented in this encounter Plan of Treatment Not on file documented as of this encounter Visit Diagnoses Not on filedocumented in this encounter Additional Health Concerns Assessment Noted Time PHQ-9 Depression Total Score: 5 07/18/19 23 2:10 PM EST documented as of this encounter Care Teams Meterman Relationship Specialty Start Date End Date Kayla Friend MD [address] [place] [address] PCP - General Family Medicine 04/30/20 Abhishek Pino MD Surgeon Vascular Surgery 05/30/24 documented as of this encounter
--- OUTSIDE RECORDS SUMMARY | 2024-09-23 11:09 | XMS_ITS | Encounter Summary ---
Author Organization [employer] Address [address] [place] [address] [address] [place] [address] Care Team Providers Care Pocket Grinder Operator Name Role Phone Kayla Friend MD Primary Care Provider [phone] Encounter Details Date Type Department Care Team ([facility] st Contact Info) Description 08/12/2022 Telephone [facility] [address] [place] [address] Kayla Friend MD [address] [place] [address] Social History Tobacco Use Types Packs/Day Years [...] documented as of this encounter Care Teams Pocket Grinder Operator Relationship Specialty Start Date End Date Kayla Friend MD [address] [place] [address] PCP - General Family Medicine 04/30/20 Abhishek Pino MD Surgeon Vascular Surgery 05/30/24 documented as of this encounter
--- NOTE | 2024-09-23 11:24 | P.OP_ITS ---
Operative Note Operative Note Date of Service: 09/23/24 Narrative: Operative note by [facility] Preoperative diagnosis: Atherosclerotic disease with prior nonhealing right lower extremity ulcer Postoperative diagnosis: Same Procedure:1. Femoral to femoral bypass (left to right) 2. Right femoral endarterectomy 3. Left femoral endarterectomy Surgeon:Abhishek Pino M.D. Photo Offset Printer: Maci Bhatt Anesthesia: General Specimens: 1 Drains: None Estimated blood loss: 400 mL Implant: Paradis Propaten 6 x 50 Indications: Very pleasant 69-year-old gentleman prior history of severe atherosclerotic disease and nonhealing ulcers on the right lower extremity now presents for bypass. The patient has signed the informed consent after reviewing risks, complications, benefits, and alternatives previously discussed with the patient. The patient was given the opportunity to ask any additional questions or voice any concerns. All questions were answered to the patient's satisfaction. Procedure in detail: Patient was brought to the operating room prior to which a time-out was called for patient identification site verification. Bilateral groins were prepped and draped in the standard surgical fashion. Longitudinal incision was carried out over the right groin 1st. We were able to dissect down easily identify the common femoral artery. We traced this down to the profundus and SFA. This was encircled with silastic loops. In a similar fashion we did the left groin as well and created a longitudinal incision and got down to the common femoral SFA and profundus femoris and this was encircled with silastic loops. Once this was accomplished using an aortic clamp we created a extra anatomic tunnel going above the inguinal ligament through the subcu in past a umbilical tape through this region. At this time 5000 units of systemic heparin was administered. We then turned our attention to the left groin we clamped the common femoral profundus and SFA. Arteriotomy was created. It was significant atherosclerotic plaque. Local endarterectomy had to be performed going down into the profundus femoris. Once this was cleared we then trimmed a Paradis Propaten 6 x 50 graft. Smaller caliber graft was chosen due to the extremely s mall caliber vessels. Once this was accomplished in trimmed appropriately we used a Paradis CV 5 suture. This was sutured in a circumferential manner all the way around. And was flushed through the graft. Once this was all accomplished we then had to place several interrupted 6 0 Prolene sutures to obtain adequate hemostasis. We then placed snow and a pack and then we brought the graft across the tunnel it through into the right groin. Once again the graft was trimmed to the appropriate size. Once this was accomplished we then in a similar fashion created an arteriotomy. There was significant atherosclerotic plaque that had to be removed from this. Using [place] elevator and fine pickups we removed the plaque and we obtained good backflow from the profundus and SFA. Once this was accomplished the graft was trimmed to the appropriate size. We circumferentially anastomosed with a CV 5 Paradis suture. Once we were able to completely go around we flushed prior to closure. We then closed several interrupted 6 0 Prolene sutures had to be placed in order to achieve hemostasis. Once this was all accomplished we used Vistaseal sealant in both groins. We reapproximated the deep layer using 2-0 Polysorb superficial layer with 3-0 poly Sorb and finally skin with skin clips. Sterile dressings were applied. At the end the case sponge instrument counts were correct. Patient tolerated the procedure well. Returned to recovery with stable vitals. This note is constructed using voice recognition software. While every effort has been made to ensure accuracy, stitching machine setter errors may have been included. Thank you for allowing me to participate in the care of your patient. Yours sincerely, Abhishek Pino MD, FACS, R.P.V.I.
[2024-09-23 11:43] LABS: Hematocrit 36.6 % (42.0-52.0); Hemoglobin 12.6 g/dl (14.0-18.0); Mean Corpuscular HGB Conc 34.4 g/dl (31.0-36.0); Mean Corpuscular Hemoglobin 32.3 pg (27.0-33.0); Mean Corpuscular Volume 93.8 fL (80.0-98.0); Platelet Count 252 X10*3/uL (160-400); Red Cell Distribution Width 14.1 % (11.0-16.0); White Blood Count 12.9 X10*3/uL (4.8-10.8)
--- NOTE | 2024-09-23 14:53 | PHA.MEDREC ---
Pharmacy Consult ? Medication Reconciliation Pharmacy has completed the medication reconciliation. Spoke with patient at bedside with auto claim representative. He seemed unsure of taking atorvastatin or carvedilol, but stated he takes montelukast and clopidogrel. Confirmed with Dr Pino that he should be on clopidogrel and is no longer on carvedilol. Dr Pino also wanted him to be on aspirin 81mg daily, this was added to list.
--- NOTE | 2024-09-23 15:13 | P.HPCC_ITS ---
History of Present Illness Date of Service: 09/23/24 Chief Complaint: Status post elective fem-fem bypass 69-year-old gentleman with underlying history of peripheral artery disease, COPD, hypertension now postoperative day 0 after an elective fem-fem bypass, monitored in the intensive care unit. Review of Systems 2 Constitutional: Constitutional: Denies daytime sleepiness, Denies excessive sweating, Denies fatigue, Denies fever(s), Denies lethargy, Denies malaise, Denies night sweats, Denies snoring and Denies weight loss Eyes: Eyes: Denies blurry vision and Denies itchy eyes ENT: Denies nasal congestion, Denies post nasal drip, Denies sinus pain, Denies sinus pressure and Denies other ( Thrush) Cardiovascular: Cardiovascular: Denies chest pain, Denies pedal edema, Denies dyspnea, Denies orthopnea and Denies paroxysmal nocturnal dyspnea Respiratory: Respiratory: Denies cough, Denies hemoptysis, Denies excessive phlegm production, Denies dyspnea, Denies snoring and Denies wheezing Gastrointestinal: Gastrointestinal: Denies abdominal pain and Denies heartburn Musculoskeletal: Musculoskeletal: Denies myalgias, Denies arthralgias and Denies joint swelling Integumentary/Breasts: Skin/Breast: Denies rash Neurologic: Denies memory loss and Denies seizure-like activity Psychiatric: Psychiatric: Denies abnormal sleep pattern, Denies anxiety and Denies memory loss Endocrine: Endocrine: Denies excessive sweating, Denies fatigue and Denies heat intolerance Hematologic/Lymphatic: Hematologic/Lymphatic: Denies easy bruising Allergic/Immunologic: Allergic/Immunologic: Denies itchy eyes, Denies seasonal rhinorrhea and Denies wheezing PMFSH Past Medical History Medical History (Updated 09/23/24 @ 08:42 by Kirti Martinez MD) Depression PAD (peripheral artery disease) Asthma Smoker Dyslipidemia Acid reflux HTN (hypertension) Family History Family History Father No problems noted. Mother No problems noted. 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 If so, by whom?: No Spiritual Healthcare Practices: none Tenriism Healthcare Practices: none Cultural Healthcare Practices: none Are you DNR?: No Advance Directives: No (friend Kayla is primary contact) Advance Directives Information Provided: No Advance Directives on File: No Recently lost weight without trying: No Eating poorly because of decreased appetite: No Nutrition Risks: No Nutritional Risk Poor oral hygiene: No (lower partial/full upper) Current occupational status: unemployed Meds Allergies Allergy/AdvReac Type Severity Reaction Status Date / Time No Known Allergies Allergy Verified 09/23/24 06:21 Active Medications: Current Medications Acetaminophen (Acetaminophen 325 Mg Tablet) 650 mg PO Q6H PRN PRN Reason: Pain, Mild 1-3,fever,headache Albuterol Sulfate (Albuterol Sulfate (0.083%) 2.5 Mg/3 Ml Vial.Neb) 2.5 mg INHALE ONCE PRN PRN Reason: Shortness of Breath/Wheezing Albuterol Sulfate (Albuterol Sulfate 90 Mcg 8 Gm Inhaler) 2 puff INHALE Q4H PRN PRN Reason: Shortness Of Breath Or Wheezing Amlodipine Besylate (Amlodipine Besylate 10 Mg Tablet) 10 mg PO DAILY [facility]; Protocol Atorvastatin Calcium (Atorvastatin Calcium 80 Mg Tablet) 80 mg PO DAILY [facility] Calcium Carbonate (Calcium Carbonate 750 Mg Tab.Chew) 750 mg PO Q4H PRN PRN Reason: Heartburn Ezetimibe (Ezetimibe 10 Mg Tablet) 10 mg PO DAILY [facility] Hydrochlorothiazide (Hydrochlorothiazide 25 Mg Tablet) 25 mg PO DAILY [facility] Lactated Ringer's (Lr) 1,000 mls @ 100 mls/hr IVCONT .Q10H [facility] Last Admin: 09/23/24 15:10 Dose: 100 mls/hr Magnesium Hydroxide (Milk Of Magnesia 30 Ml Oral.Susp) 30 ml PO DAILY PRN PRN Reason: Constipation Melatonin (Melatonin 3 Mg Tablet) 6 mg PO BEDTIME PRN PRN Reason: Insomnia Morphine Sulfate (Morphine Sulfate 2 Mg/Ml Cartridge) 2 mg IVPUSH Q4H PRN; Protocol PRN Reason: Pain, Severe (Pain Scale 7-10) Naloxone HCl (Naloxone Hcl 0.4 Mg/Ml Vial) 0.04 mg IVPUSH Q5M PRN PRN Reason: Excessive sedation or RR < 8 Non-Formulary Medication (Tiotropium-Olodaterol [Stiolto Respimat]) 1 inhalation INHALE QAM [facility] Omeprazole (Omeprazole 40 Mg Capsule.Dr) 40 mg PO DAILY [facility] Oxycodone HCl (Oxycodone Hcl Immed Release 5 Mg Tablet) 5 mg PO Q4H PRN PRN Reason: Pain, Moderate(Pain Scale 4-6) Sodium Chloride (0.9 % Sodium Chloride Flush 3 Ml Syringe) 3 ml IVFLUSH QSHIFT [facility] Valsartan (Valsartan 320 Mg Tablet) 320 mg PO DAILY [facility] Zolpidem Tartrate (Zolpidem Tartrate 5 Mg Tablet) 10 mg PO BEDTIME PRN PRN Reason: Insomnia Home Medications ?Medication ?Instructions ?Recorded ?Confirmed ?Last Taken ?Type amlodipine 10 mg tablet 10 mg PO DAILY 06/10/20 09/12/24 09/23/24 05:30 History albuterol sulfate 90 mcg/actuation 2 puff inhalation Q4H PRN 12/01/22 09/12/24 Unknown History aerosol inhaler Shortness Of Breath Or Wheezing atorvastatin 80 mg tablet 80 mg PO DAILY 12/01/22 09/12/24 Unknown History valsartan 320 1 tab PO QAM 12/01/22 09/12/24 Unknown History mg-hydrochlorothiazide 25 mg tablet zolpidem 10 mg tablet 10 mg PO BEDTIME PRN Insomnia 12/01/22 09/12/24 Unknown History tiotropium 2.5 mcg-olodaterol 2.5 1 inh inhalation QAM 09/13/24 09/13/24 Unknown History mcg/actuation mist for inhalation (Stiolto Respimat) aspirin 81 mg capsule 81 mg PO DAILY 09/23/24 09/23/24 Unknown History clopidogrel 75 mg tablet 75 mg PO DAILY 09/23/24 09/23/2425 History montelukast 10 mg tablet 10 mg PO DAILY 09/23/24 09/23/24 09/22/24 History Physical Exam 2 Vital Signs: Vital Signs: Last Vital Signs Temp 98 F 09/23/24 13:00 Pulse 81 09/23/24 13:30 Resp 16 09/23/24 13:30 BP 112/51 L 09/23/24 13:30 Pulse Ox 98 09/23/24 13:30 O2 Del Method Nasal Cannula wit h Capnography 09/23/24 13:30 O2 Flow Rate 1 09/23/24 13:30 BMI result Body Mass Index 24.4 Const: General: no acute distress and alert Nutritional Appearance: not obese Orientation/consciousness: Other orientation findings ( oriented) HEENT: Head: Yes atraumatic Eyes: General: appearance normal, both eyes and all related structures S clerae: sclerae normal EOM: EOMs intact bilaterally Neck: Neck: Yes supple Lymphatic: no lymphadenopathy noted Resp: Effort & Inspection: normal respiratory effort and no use of accessory muscles Auscultation: clear to auscultation bilaterally Cardio: Rate: regular rate Rhythm: regular rhythm Heart sounds: no gallops, no murmurs and no rubs GI: Palpation (GI): Soft to palpation and nontender Auscultation: normal bowel sounds Skin: General skin exam: other ( warm) Extrem: Other: Bilateral femoral access sites without hematoma General: No clubbing, No cyanosis and No edema Results Labs 09/23/24 11:38 09/23/24 06:48 Labs: Laboratory Results - last 24 hr 09/23/24 09/23/24 06:48 11:38 MCV 92.1 93.8 MCH 32.0 32.3 MCHC 34.8 34.4 RDW 13.7 14.1 Plt Count 268 252 MPV 8.3 L 8.0 L Absolute Nucleated RBC 0.000 0.000 Nucleated RBC % (auto) 0.0 0.0 PT 12.2 INR 1.0 APTT 34.6 Anion Gap 14 Estim Creat Clear Calc 35.8 Estimated GFR 49 Random Glucose 97 Calcium 8.9 Blood Type O Negative Antibody Screen NEGATIVE Assessment and Plan (1) PAD (peripheral artery disease): Status: Acute Plan Assessment: 69-year-old gentleman with underlying peripheral artery disease now postoperative day 0 after an elective fem-fem bypass Plan: Neuro: No acute issues. Cardiac: Peripheral artery disease, now postoperative day 0 after an elective fem-fem bypass. Vascular surgery service care appreciated. Underlying history of hypertension, continue amlodipine. Pulmonary: No acute issues. Underlying history of COPD, continue nebulized bronchodilators p.r.n. and Stiolto. Renal: No acute issues. Endo: No acute issues. GI: No acute issues. ID: No acute issues Heme/Onc: No acute issues. Psych: No acute issues. Miscellaneous: No acute issues. Prophylaxis: Per vascular surgery Diet: Regular
[2024-09-23] MEDS: 0.9 % Sodium Chloride Flush 3 ML SYRINGE IVFLUSH ×2 (15:34→23:05)
--- NOTE | 2024-09-23 18:37 | PC.NURSE ---
PACU post op transfer - patient a&ox3, no complaints of pain. Bilateral fem surgical sites C/D/I. Positive bilateral pedal pulses w/ doppler - sites marked. Patient ate 100% dinner. VSS. Care ongoing.
[2024-09-23] MEDS: oxyCODONE HCl Immed Release 5 MG TABLET PO (21:10)
[2024-09-23] MEDS: Zolpidem Tartrate 5 MG TABLET 10 MG PO (23:01)
[2024-09-24] VITALS (16 sets, daily range): BP systolic 89–141; BP diastolic 32–64; PULSE 85–99; RESP 12–20; TEMP 36.6–37.2; O2SAT 89–96
[2024-09-24] MEDS: Lactated Ringers 1,000 ML 100 ML IVCONT (00:08)
[2024-09-24 05:47] LABS: MANUAL DIFF FLAG NO
[2024-09-24 05:50] LABS: Basophils Percent Auto 0.3 % (0-2); Eosinophils Absolute Auto 0.1 X10*3/uL (0.0-0.4); Hematocrit 31.9 % (42.0-52.0); Hemoglobin 10.8 g/dl (14.0-18.0); Imm Gran Abs Auto 0.04 X10*3/uL (0.00-0.03); Imm Gran Pct Auto 0.4 % (0.0-0.4); Lymphocytes Absolute Auto 1.7 X10*3/uL (1.2-4.9); Mean Corpuscular HGB Conc 33.9 g/dl (31.0-36.0); Mean Corpuscular Hemoglobin 31.5 pg (27.0-33.0); Mean Platelet Volume 8.7 fL (9.4-12.4); Neutrophils Absolute Auto 6.4 x10*3/uL (2.0-8.3); Neutrophils Percent Auto 69.3 % (45-73); Platelet Count 218 X10*3/uL (160-400); Red Blood Count 3.43 X10*6/uL (4.60-5.80); White Blood Count 9.3 X10*3/uL (4.8-10.8)
[2024-09-24 06:08] LABS: Albumin Level 3.1 g/dL (3.5-5.0); Anion Gap 11 (12-20); Blood Urea Nitrogen 23 mg/dL (9-16); Calcium 8.2 mg/dL (8.4-10.2); Carbon Dioxide 24 mmol/L (22-29); Chloride 108 mmol/L (96-108); Creatinine Clr Calc Pharmacy 47.5; Estimated Glomerular Filt Rate > 60; Glucose Random 93 mg/dL (60-115); Magnesium 1.3 mg/dL (1.6-2.6); Phosphorus 2.5 mg/dL (2.7-4.5); Potassium 4.1 mmol/L (3.3-5.1); Sodium 139 mmol/L (135-145)
[2024-09-24] MEDS: Magnesium Sulfate/H2O 2 GM/50 ML PIGGYBACK IV (06:22)
[2024-09-24] MEDS: Atorvastatin Calcium 80 MG TABLET PO (08:10)
[2024-09-24] MEDS: Valsartan 320 MG TABLET PO (08:10)
[2024-09-24] MEDS: amLODIPine Besylate 10 MG TABLET PO (08:11)
[2024-09-24] MEDS: hydroCHLOROthiazide 25 MG TABLET PO (08:11)
[2024-09-24] MEDS: Omeprazole 40 MG CAPSULE.DR PO (08:11)
[2024-09-24] MEDS: Ezetimibe 10 MG TABLET PO (08:11)
--- NOTE | 2024-09-24 09:48 | HO.POSTANES ---
Post Anesthesia Evaluation Post Anesthesia Evaluation Date of Service: 09/24/24 Vital Signs: Vital Signs Temp Pulse Resp BP Pulse Ox O2 Del Method O2 Flow Rate 09/24/24 08:11 115/53 L 09/24/24 08:11 115/53 L 09/24/24 08:10 115/53 L 09/24/24 08:00 98.7 F 88 15 103/59 L 95 Nasal Cannula 1 09/24/24 07:00 86 12 109/55 L 93 Nasal Cannula 1 09/24/24 06:00 88 12 103/55 L 92 Nasal Cannula 1 09/24/24 05:00 86 16 107/47 L 94 Nasal Cannula 1 09/24/24 04:00 98.0 F 85 15 109/53 L 94 Nasal Cannula 1 09/24/24 03:00 92 14 106/60 96 Nasal Cannula 1 09/24/24 02:00 89 13 99/53 L 96 Nasal Cannula 1 09/24/24 01:00 92 18 103/46 L 94 Nasal Cannula 1 09/24/24 00:00 98.4 F 94 18 89/32 L 95 Nasal Cannula 1 09/23/24 23:00 97 14 118/68 95 Nasal Cannula 1 09/23/24 22:00 89 14 104/40 L 93 Nasal Cannula 1 Anesthesia: General Endotracheal-GETA Mental Status: Awake Pain Control: Satisfactory Nausea/Vomiting: None Hydration: Adequate Anesthesia-Related Issues: No Anes. Related Issues
--- NOTE | 2024-09-24 09:51 | PM.CCPN ---
Subjective Subjective Date of Service: 09/24/24 Interval History: 69-year-old gentleman with underlying history of peripheral artery disease, COPD, hypertension now postoperative day 1 after an elective fem-fem bypass, monitored in the intensive care unit, recovering well. No events overnight. Critical Care Time (minutes): 0 Physical Exam Vital Signs: Vital Signs: Last Vital Signs Temp 98.7 F 09/24/24 08:00 Pulse 88 09/24/24 08:00 Resp 15 09/24/24 08:00 BP 115/53 L 09/24/24 08:11 Pulse Ox 95 09/24/24 08:00 O2 Del Method Nasal Cannula 09/24/24 08:00 O2 Flow Rate 1 09/24/24 08:00 BMI result Body Mass Index 24.4 Const: General: no acute distress, alert and awake Eyes: Sclerae: sclerae normal EOM: EOMs intact bilaterally Neck: Neck: Yes no lymphadenopathy, Yes trachea midline and Yes supple Resp: Effort & Inspection: normal respiratory effort and no respiratory distress Auscultation: clear to auscultation bilaterally Cardio: Rate: regular rate Rhythm: regular rhythm Heart sounds: no gallops, no murmurs and no rubs GI: Palpation (GI): Soft to palpation and Other GI palpation findings present ( Nontender) Auscultation: normal bowel sounds Extrem: General: No clubbing, No cyanosis and Yes other (Bilateral femoral access sites without hematoma) Objective Data Labs 09/24/24 05:22 09/24/24 05:22 Labs: Laboratory Results - last 24 hr 09/23/24 09/24/24 11:38 05:22 WBC 12.9 H 9.3 RBC 3.90 L 3.43 L Hgb 12.6 L 10.8 L Hct 36.6 L 31.9 L MCV 93.8 93.0 MCH 32.3 31.5 MCHC 34.4 33.9 RDW 14.1 14.0 Plt Count 252 218 MPV 8.0 L 8.7 L Immature Gran % (Auto) 0.4 Neut % (Auto) 69.3 Lymph % (Auto) 18.0 L [place] % (Auto) 11.0 Eos % (Auto) 1.0 Baso % (Auto) 0.3 Lymph # (Auto) 1.7 [place] # (Auto) 1.0 Eos # (Auto) 0.1 Baso # (Auto) 0.0 Abs Immat Gran (auto) 0.04 H Absolute Neuts (auto) 6.4 Absolute Nucleated RBC 0.000 0.000 Nucleated RBC % (auto) 0.0 0.0 Sodium 139 Potassium 4.1 Chloride 108 Carbon Dioxide 24 Anion Gap 11 L BUN 23 H Creatinine 1.07 Estim Creat Clear Calc 47.5 Estimated GFR > 60 Random Glucose 93 Calcium 8.2 L D Phosphorus 2.5 L Magnesium 1.3 L* Albumin 3.1 L Progress Note: A&P Assessment and plan (1) PAD (peripheral artery disease): Status: Acute Plan Assessment: 69-year-old gentleman with underlying peripheral artery disease now postoperative day 1 after an elective fem-fem bypass Plan: Neuro: No acute issues. Cardiac: Peripheral artery disease, now postoperative day 1 after an elective fem-fem bypass. Vascular surgery service care appreciated. Underlying history of hypertension, continue amlodipine. Pulmonary: No acute issues. Underlying history of COPD, continue nebulized bronchodilators p.r.n. and Stiolto. Renal: No acute issues. Endo: No acute issues. GI: No acute issues. ID: No acute issues Heme/Onc: No acute issues. Psych: No acute issues. Miscellaneous: No acute issues. Prophylaxis: Per vascular surgery Diet: Regular Quality Stroke Does the patient have a stroke diagnosis?: No VTE Prior VTE?: No VTE Risk Level:: Medical - moderate - high VTE Device Contraindication: Treatment Not Indicated VTE Drug Contraindication: N/A - Med Ordered
[2024-09-24] MEDS: Heparin Sodium,Porcine 5,000 UNIT/ML VIAL 5000 UNIT SUBCUT ×2 (09:59→18:44)
[2024-09-24] MEDS: oxyCODONE HCl Immed Release 5 MG TABLET PO (10:34)
--- NOTE | 2024-09-24 11:58 | MHC.CM.PN ---
CM met with Patient at bedside, with the assist of a [facility] Radiator Tester and addressed IMM with him(original was given to Patient and a copy has been placed on the chart). Patient lives alone in a house and he uses a cane to assist with mobility. Patient has 5 hours/week of COMPANY LABORER services and he is interested in a VNA (Patient does not have a preference as to which VNA is used);CM has initiated and will follow for dc planning. PCP is Dr. Kayla Friend and Daughter will transport to home at time of dc.
--- NOTE | 2024-09-24 13:39 | HO.VASCPN ---
Subjective Subjective Date of Service: 09/24/24 Interval history: Yosef is doing well today. He remains in bed. He states the pain is minimal and he states his leg feels a little better. He states he is eating and drinking well and slept well last night. He states he would like to go home. He has no new concerns this morning. Physical Exam Vital Signs: Vital Signs: Last Vital Signs Temp 97.8 F 09/24/24 11:04 Pulse 97 09/24/24 11:04 Resp 20 09/24/24 11:04 BP 141/64 H 09/24/24 11:04 Pulse Ox 92 09/24/24 11:32 O2 Del Method Room Air 09/24/24 11:32 O2 Flow Rate 1 09/24/24 11:32 BMI result Body Mass Index 24.4 Const: General: comfortable and no acute distress Orientation/consciousness: patient oriented x3 HEENT: Ears: hearing grossly normal bilaterally Resp: Effort & Inspection: normal respiratory effort and able to speak in complete sentences Auscultation: clear to auscultation bilaterally Cardio: Rate: regular rate Rhythm: regular rhythm Heart sounds: S1 normal heart sound present and S2 normal heart sound present Bruits: no abdominal aortic bruits, no carotid bruits, no femoral bruits and no renal bruits GI: Other: Bilateral incision sites: Allevyn dressing in place, not taken down this morning. No bleeding or discharge noted on the bandage. Not painful to palpation. Palpation (GI): No Abdominal aortic bruit present Neuro: General: patient oriented x3 Cranial nerves: Yes CN's II-XII intact bilaterally Progress Note: A&P Assessment and plan (1) S/P femoral-femoral bypass surgery: Status: Acute Assessment and Plan: Yosef is post op day 1 s/p fem-fem bypass surgery. He remains in ICU this morning on bedrest. He continues with the [place]. His H/H decreased and was found to have hypomagnesia this morning. We will have him continue bedrest for another day. He will be moved upstairs when a bed opens up. We will have the [place] removed and IVF discontinued. We have started him on Heparin tid. We will also have PT/OT evaluate him tomorrow. We will check and change the bandages tomorrow. The pt would like to go home as soon as possible. He states he has STUDENT DEVELOPMENT DEAN services 2/week. I discussed with him that we keep patients at least 2 nights and we will re-evaluate this in the morning. We will continue to monitor. If there are any questions or concerns, please do not hesitate to reach out. Time Spent With Patient Time: Total time managing care of this patient today ____ minutes. Procedures Date of Service Date of Service: 09/24/24 Quality Stroke Does the patient have a stroke diagnosis?: No VTE Prior VTE?: No VTE Risk Level:: Medical - moderate - high VTE Device Contraindication: Treatment Not Indicated VTE Drug Contraindication: N/A - Med Ordered
[2024-09-24] MEDS: Morphine Sulfate 2 MG/ML CARTRIDGE IVPUSH (16:13)
[2024-09-24] MEDS: 0.9 % Sodium Chloride Flush 3 ML SYRINGE IVFLUSH ×2 (16:16→21:20)
[2024-09-24] MEDS: Zolpidem Tartrate 5 MG TABLET 10 MG PO (21:18)
[2024-09-24] MEDS: Acetaminophen 325 MG TABLET 650 MG PO (23:30)
[2024-09-25] VITALS: BP 144/66; PULSE 112; RESP 18; TEMP 37.9; O2SAT 90
[2024-09-25] MEDS: Heparin Sodium,Porcine 5,000 UNIT/ML VIAL 5000 UNIT SUBCUT ×2 (02:58→09:22)
[2024-09-25 03:46] VITALS: BP 139/68; PULSE 101; RESP 18; TEMP 36.7; O2SAT 92
[2024-09-25 07:15] VITALS: BP 127/67; PULSE 98; RESP 16; TEMP 36.6; O2SAT 94
[2024-09-25 07:39] LABS: MANUAL DIFF FLAG NO
[2024-09-25 07:53] LABS: Basophils Absolute Auto 0.1 X10*3/uL (0.0-0.2); Basophils Percent Auto 0.6 % (0-2); Eosinophils Absolute Auto 0.1 X10*3/uL (0.0-0.4); Eosinophils Percent Auto 0.8 % (0-4); Hematocrit 33.8 % (42.0-52.0); Hemoglobin 11.8 g/dl (14.0-18.0); Imm Gran Abs Auto 0.03 X10*3/uL (0.00-0.03); Imm Gran Pct Auto 0.3 % (0.0-0.4); Lymphocytes Absolute Auto 1.5 X10*3/uL (1.2-4.9); Lymphocytes Percent Auto 14.1 % (20-40); Mean Corpuscular HGB Conc 34.9 g/dl (31.0-36.0); Mean Corpuscular Hemoglobin 32.1 pg (27.0-33.0); Mean Corpuscular Volume 91.8 fL (80.0-98.0); Monocytes Absolute Auto 1.3 X10*3/uL (0.1-1.2); Monocytes Percent Auto 11.8 % (2-11); Neutrophils Absolute Auto 7.9 x10*3/uL (2.0-8.3); Neutrophils Percent Auto 72.4 % (45-73); Platelet Count 238 X10*3/uL (160-400); Red Blood Count 3.68 X10*6/uL (4.60-5.80); Red Cell Distribution Width 13.5 % (11.0-16.0); White Blood Count 10.9 X10*3/uL (4.8-10.8)
[2024-09-25 08:02] LABS: Anion Gap 11 (12-20); Blood Urea Nitrogen 21 mg/dL (9-16); Calcium 8.8 mg/dL (8.4-10.2); Carbon Dioxide 28 mmol/L (22-29); Chloride 101 mmol/L (96-108); Creatinine Clr Calc Pharmacy 50.8; Estimated Glomerular Filt Rate > 60; Glucose Random 93 mg/dL (60-115); Magnesium 1.5 mg/dL (1.6-2.6); Phosphorus 2.3 mg/dL (2.7-4.5); Potassium 3.8 mmol/L (3.3-5.1); Sodium 136 mmol/L (135-145)
[2024-09-25 09:22] VITALS: BP 127/67
[2024-09-25] MEDS: Ezetimibe 10 MG TABLET PO (09:22)
[2024-09-25] MEDS: Valsartan 320 MG TABLET PO (09:22)
[2024-09-25] MEDS: Omeprazole 40 MG CAPSULE.DR PO (09:22)
[2024-09-25] MEDS: amLODIPine Besylate 10 MG TABLET PO (09:22)
[2024-09-25] MEDS: hydroCHLOROthiazide 25 MG TABLET PO (09:22)
[2024-09-25] MEDS: Atorvastatin Calcium 80 MG TABLET PO (09:22)
[2024-09-25] MEDS: 0.9 % Sodium Chloride Flush 3 ML SYRINGE IVFLUSH (09:23)
--- NOTE | 2024-09-25 10:37 | MHC.CM.PN ---
Patient is eager to go home but is not yet medically cleared (post op day 2); [facility] has accepted Patient and Patient is agreeable.CM will follow.
[2024-09-25 11:04] VITALS: BP 122/63; PULSE 98; RESP 16; TEMP 37.1; O2SAT 95
--- NOTE | 2024-09-25 11:53 | P.F2F_ITS ---
Service Date Service Date: 09/25/24 Encounter Date of encounter: 09/25/24 Reasons for Services Signs and symptoms assessed: Yosef is s/p femoral to femoral bypass, post op day 2. He will require VNA services at home for incision checks or wound care as needed. Reason for group home: wound care Reason for physical therapy: home safety and mobility Homebound: Leaving the home is medically contraindicated at this time without the asist of a device and/or another person due th the listed conditions above and below. Reason homebound: poor balance / fall risk Certification: Based on the above findings, I certify that this patient is confined to the home and needs intermittent group home care, physical therapy and/or speech therapy, or continues to need occupational therapy. The patient is under my care, and I have initiated the establishment of the plan of care. The patient will be followed by a physician who will periodically review the plan of care. Time Spent With Patient Time: Total time managing care of this patient today ____ minutes.
--- NOTE | 2024-09-25 12:52 | P.DS_ITS ---
DS: Providers Provider Date of Service: 09/25/24 Date of admission: 09/23/24 09:59 Date of discharge: 09/25/24 Primary care physician: Kayla Friend MD DS: Diagnosis Discharge Diagnosis (1) S/P femoral-femoral bypass surgery: Status: Acute DS: Summary Hospital Course Hospital Course: Yosef is post op day 2 s/p femoral-femoral bypass, performed on 09/23. He has been doing very well. His pain is well controlled. We will provide him with a few days worth of Percocet for pain. He is out of bed today and has been stable while walking. He does walk with a cane for assistance at home. He will have VNA services for incision/wound care. He states he already has UTILITY ENGINEER services 2 days a week. He also has family close by to assist, if needed. We discussed with him this morning about the importance of taking it easy but not being sedentary. We discussed to not lift anything over 5 pounds or do anything more than light physical activity. We removed the Allevyn dressings this morning and he will not need to apply any other dressing. We discussed to keep the area clean and dry and to not submerge in water (tub). He will follow up back in the office on 10/08 for a 2 week follow up. If there are any questions or concerns, please do not hesitate to reach out to us. Time Attestation Discharge Coordination Time (in mins): >45 Quality: Safe Use of Opioids Does Pt have an Active Cancer Diagnosis on the Problem List?: No Quality: Stroke Does the patient have a stroke diagnosis?: No Physical Exam Vital Signs: Vital Signs: Last Vital Signs Temp 98.8 F 09/25/24 11:04 Pulse 98 09/25/24 11:04 Resp 16 09/25/24 11:04 BP 122/63 09/25/24 11:04 Pulse Ox 95 09/25/24 11:04 O2 Del Method Room Air 09/25/24 11:04 O2 Flow Rate 1 09/25/24 07:15 BMI result Body Mass Index 24.4 GI: Other: Dressings taken down this morning. Sites are C/D/I. No bleeding, erythema, or dr cruz noted. [place] intact. DS: Data Data Completed and Pending Completed studies during hospitalization [Text1]: Pending at discharge 09/23/24 09:32 Surgical [PTH] Routine Labs on day of discharge: Laboratory Results - last 24 hr 09/25/24 07:36 WBC 10.9 H RBC 3.68 L Hgb 11.8 L Hct 33.8 L MCV 91.8 MCH 32.1 MCHC 34.9 RDW 13.5 Plt Count 238 MPV 9.0 L Immature Gran % (Auto) 0.3 Neut % (Auto) 72.4 Lymph % (Auto) 14.1 L [place] % (Auto) 11.8 H Eos % (Auto) 0.8 Baso % (Auto) 0.6 Lymph # (Auto) 1.5 [place] # (Auto) 1.3 H Eos # (Auto) 0.1 Baso # (Auto) 0.1 Abs Immat Gran (auto) 0.03 Absolute Neuts (auto) 7.9 Absolute Nucleated RBC 0.000 Nucleated RBC % (auto) 0.0 Sodium 136 Potassium 3.8 Chloride 101 Carbon Dioxide 28 Anion Gap 11 L BUN 21 H Creatinine 1.00 Estim Creat Clear Calc 50.8 Estimated GFR > 60 Random Glucose 93 Calcium 8.8 D Phosphorus 2.3 L Magnesium 1.5 L Discharge Plan Discharge Anticipated Discharge Date/Time: 09/25/24 11:54 Patient Disposition: Home Health Service Discharge Diagnosis: s/p femoral-femoral bypass surgery Referrals: [facility] [Outside] - 1 Week Kayla Friend MD [Primary Care Provider] - 1 Week Discharge Medications: New oxycodone-acetaminophen 5-325 mg tablet 1 tab PO TID PRN (Reason: pain) Qty: 14 0RF Rx Instructions: Partial Fill upon patient request. Continued omeprazole 40 mg capsule,delayed release(DR/EC) 40 mg PO DAILY Qty: 90 2RF Stiolto Respimat 2.5-2.5 mcg/actuation mist 1 inh INHALATION QAM clopidogrel 75 mg tablet 75 mg PO DAILY montelukast 10 mg Tablet 10 mg PO DAILY aspirin 81 mg Capsule 81 mg PO DAILY amlodipine 10 mg tablet 10 mg PO DAILY ezetimibe 10 mg tablet 10 mg PO DAILY Qty: 90 3RF albuterol sulfate 90 mcg/actuation HFA aerosol inhaler 2 puff inhalation Q4H PRN (Reason: Shortness Of Breath Or Wheezing) atorvastatin 80 mg tablet 80 mg PO DAILY valsartan-hydrochlorothiazide 320-25 mg tablet 1 tab PO QAM zolpidem 10 mg tablet 10 mg PO BEDTIME PRN (Reason: Insomnia) Discharge Orders: Discharge Order (Routine); Ordered 09/25/24 Ordered By: Maci Reyes Diet: Advance to usual diet Activity on Discharge: As tolerated Stand Alone Forms: Patient Portal Discharge page Print Language: Turkish Care Plan Goals: Recovery from fem-fem bypass. Light activity only for the next 2 weeks until follow up. Health Concerns: Preventing opening of incision sites. Plan of Treatment: Light physical activity only. Do not lift more than 5 pounds. Do not stay sedentary. Keep the incision areas clean and dry. Shower only, no immersing in tubs/hot tubs. Follow up in our office on 10/08/24. If there are any questions or concerns, please do not hesitate to reach out to us at [phone] Assessment: s/p femoral-femoral bypass
--- NOTE | 2024-09-25 12:59 | MHC.CM.PN ---
Patient has been medically cleared for dc to home today, with services. A referral was made to [facility], who has been made aware of today's dc. Last IMM was addressed yesterday.
== END 2024-09-25 15:09 | disposition home health service (06) | DRG 254 ==
LOC: HO.SSSA 09:59 → HO.ICU 13:15 → HO.IMC 09-24 10:21
PROVIDERS: Internal Medicine Pulmonary Disease; Nurse Practitioner; Admitting Provider Surgery Vascular Surgery; PCP Family Medicine; Visit Provider Surgery Vascular Surgery
PROC: 04CL0ZZ Extirpation of Matter from Left Femoral Artery, Open Approach (ICD-10-PCS; principal; 2024-09-23 07:30)
DX: I70.203 Unspecified atherosclerosis of native arteries of extremities, bilateral legs (principal); F17.210 Nicotine dependence, cigarettes, uncomplicated; Z71.6 Tobacco abuse counseling; Z79.82 Long term (current) use of aspirin; Z79.899 Other long term (current) drug therapy
CPT/HCPCS: 36415; 80048; 82040; 83735; 84100; 85025; 85027; 85610; 85730; 86850; 86900; 86901; 88304; 88311; C1768; C1889; C9250; J0131; J0690; J1100; J1171; J1644; J2003; J2250; J2270; J2371; J2405; J2704; J2795; J3010; J3475; J7120

== ENCOUNTER → 2024-09-23 09:59 | Outpatient (BNV) | payer OTHER, SELFPAY | PROVIDERS: Admitting Provider Surgery Vascular Surgery; PCP Family Medicine; Visit Provider Internal Medicine Pulmonary Disease | DX: I73.9 Peripheral vascular disease, unspecified (principal); Z95.820 Peripheral vascular angioplasty status with implants and grafts | CPT/HCPCS: 99223 ==

== ENCOUNTER → 2024-09-23 09:59 | Outpatient (BNV) | payer OTHER, SELFPAY | PROVIDERS: Admitting Provider Surgery Vascular Surgery; PCP Family Medicine; Visit Provider Surgery Vascular Surgery | DX: Z95.828 Presence of other vascular implants and grafts (principal) | CPT/HCPCS: 35372; 35661; 99024 ==

== ENCOUNTER 2024-09-26 11:43 | Inpatient (IN) | payer OTHER, SELFPAY ==
--- NOTE | ~2024-09-26 | XR_ITS ---
EXAMINATION: XR CHEST 1 VIEW HISTORY: cough, eval aspiration, crackles LLL COMPARISON: There are no prior studies for comparison. FINDINGS: A single AP portable view of the chest performed at 12:30 PM is submitted. The lungs are expanded and clear. There is no pleural effusion, pneumothorax, or pulmonary vascular congestion. The heart is normal in size. The aorta is calcified. The bones are intact. XR/XR chest 1V IMPRESSION: Clear lungs. Electronically signed by: Alhaji Gandhi MD 09/26/2024 12:55 PM EDT
[2024-09-26 11:48] VITALS: BP 86/59; PULSE 107; RESP 20; TEMP 36.3; O2SAT 97; BMI 22.7
--- NOTE | 2024-09-26 11:50 | ED_ITS ---
HPI - General Adult General Chief complaint: General Medical Stated complaint: Low BP, surgery 3 days ago Time Seen by Provider: 09/26/24 11:56 Source: patient, family and old records reviewed Mode of arrival: ambulatory Limitations: no limitations History of Present Illness ED Provider: AGNIESZKA WARNER narrative: 69 yo male with PMH of HTN, HLD, PAD, GERD, on plavix and aspirin post surgery which was done on 09/23/24 with Odette procedure:1. Femoral to femoral bypass (left to right) 2. Right femoral endarterectomy 3. Left femoral endarterectomy. No issues did well post op. DC home yesterday he started to feel out of it today and blah waves his hand in dismissive motion. Has been c/o only pain with cough at incision site but no fevers, no pain medications this AM, no vomiting, has been constipated but denies GI bleed symptoms. DC yesterday - VNA came today and found patient to be hypotensive. MD complaint: fatigue,weakness, hypotension Onset (ago): day(s) (this AM) Severity: moderate Relieving factors: none Exacerbating factors: none Associated symptoms: other (cough and pain at incision site) Treatments prior to arrival: none Related Data Home Medications ?Medication ?Instructions ?Recorded ?Confirmed amlodipine 10 mg tablet 10 mg PO DAILY 06/10/20 09/12/24 albuterol sulfate 90 mcg/actuation 2 puff inhalation Q4H PRN 12/01/22 09/12/24 aerosol inhaler Shortness Of Breath Or Wheezing atorvastatin 80 mg tablet 80 mg PO DAILY 12/01/22 09/12/24 valsartan 320 1 tab PO QAM 12/01/22 09/12/24 mg-hydrochlorothiazide 25 mg tablet zolpidem 10 mg tablet 10 mg PO BEDTIME PRN Insomnia 12/01/22 09/12/24 tiotropium 2.5 mcg-olodaterol 2.5 1 inh inhalation QAM 09/13/24 09/13/24 mcg/actuation mist for inhalation (Stiolto Respimat) aspirin 81 mg capsule 81 mg PO DAILY 09/23/24 09/23/24 clopidogrel 75 mg tablet 75 mg PO DAILY 09/23/24 09/23/24 montelukast 10 mg tablet 10 mg PO DAILY 09/23/24 09/23/24 Previous Rx's ?Medication ?Instructions ?Recorded omeprazole 40 mg capsule,delayed 40 mg PO DAILY #90 caps 06/25/20 release ezetimibe 10 mg tablet 10 mg PO DAILY #90 tabs 08/15/24 oxycodone-acetaminophen 5 mg-325 1 tab PO TID PRN pain #14 tabs 09/25/24 mg tablet Allergies Allergy/AdvReac Type Severity Reaction Status Date / Time No Known Allergies Allergy Verified 09/26/24 11:50 Review of Systems 2 Review of Systems: Constitutional : No Fever, No Chills, pos Fatigue ENT/Mouth : No sore throat, No Rhinorrhea Eyes: No Eye Pain, No Swelling, No Redness Cardiovascular : No Chest Pain, No SOB, No Dyspnea on Exertion Respiratory : pos Cough, No Sputum Gastrointestinal : No Nausea, No Vomiting, No Diarrhea, No abdominal Pain Genitourinary : No Dysuria, No Urinary Frequency, No Hematuria, Musculoskeletal : No joint pain, No Myalgias, No Joint Swelling Skin : No Skin Lesions, No rash Neuro : No Weakness, No Numbness, No Dizziness, no Headache Psych : No Anxiety/Panic, No Depression All other systems reviewed and are negative [facility] Past Medical History Medical History (Updated 09/26/24 @ 13:17 by Bertha Terry DO) Depression PAD (peripheral artery disease) Asthma Smoker Dyslipidemia Acid reflux HTN (hypertension) Surgical History (Updated 09/24/24 @ 13:44 by Maci Reyes PA-C) S/P aortogram History of esophagogastroduodenoscopy (EGD) H/O colonoscopy H/O wrist surgery Family History Family History Father No problems noted. Mother No problems noted. Social History Social History Household Members: None Housing: Other Housing Other:: Indep Living Are you a primary resident care aid to a significant other at home: No Do you presently have visiting nurse or other home services: Yes (TOE STAPLER) Alcohol intake: former Patient Tobacco Use Status: Current everyday Tobacco user Tobacco use type: Cigarette Cigarettes Per Day: 5 Years Smoked: 56 Second Hand Smoke Exposure: No Advance Directives: No Advance Directives Information Provided: Yes Do you have a plan to hurt others: No Plan service: No Current occupational status: unemployed Physical Exam ED Vital Signs: Vital Signs - 24 hr 09/26/24 11:48 09/26/24 13:06 Temperature 97.3 F Pulse Rate 107 H 93 Respiratory Rate 20 18 Blood Pressure 86/59 L 114/60 Pulse Oximetry 97 96 Oxygen Delivery Method Room Air Room Air BMI result Body Mass Index 22.7 Appearance: Alert. Oriented X3. No acute distress. Eyes: Pupils equal, round and reactive to light. ENT: Pharynx normal. Neck: Normal inspection. Neck supple. CVS: Normal heart rate and rhythm. Pulses normal. Respiratory: No respiratory distress. Breath sounds mild end exp wheeze, isolated crackles LLL Abdomen: Soft and nontender. fem incision in both sites are c/d/i no signs of infection, no hematoma, no extension of hematoma to groin or thigh Skin: Skin warm and dry. Normal skin color. Normal skin turgor. Extremities: No lower extremity edema. No calf ttp Neuro: Oriented X 3. No motor deficit. No sensory deficit. CN2-12 intact Course Course Course Narrative: This is a rapid medical exam performed by Diane Reddy NP: Additional HPI, ROS, PE not included below will be deferred to primary provider. 09/27/23 11:51 Patient is a 69-year-old male with history of severe atherosclerotic disease and nonhealing ulcers to right lower extremity, had femoral bypass and right femoral endarterectomy, left femoral endarterectomy with Dr. Pino on 09/23 presenting with complaint of low blood pressure and lightheadedness. Plan: ekg, labs, propellant charge loader notified and patient brought directly into main ed Medications Administered Generic Name Dose Route Start Last Admin Trade Name Freq PRN Reason Stop Dose Admin Lactated Ringer's 1,000 mls @ 80 mls/hr 09/26/24 13:30 09/26/24 13:34 Lr IVCONT 80 mls/hr .[id number] VAMSI Administration Discontinued Medications Generic Name Dose Route Start Last Admin Trade Name Freq PRN Reason Stop Dose Admin Lactated Ringer's 1,000 mls @ 999 mls/hr 09/26/24 11:56 09/26/24 12:17 Lr IV 09/26/24 12:56 999 mls/hr .Q1H1M ONE Administration Medical Decision Making Medical Decision Making MDM Narrative: 69 yo male with PMH of HTN, HLD, PAD, GERD, on plavix and aspirin post fem fem bypass with Odette which was done on 09/23/24 here now with c/o fatigue, hypotension. No infectious symptoms reported. No GI bleed symptoms reported. He is asymptomatic now. No new med changes, did not take narcotic pain medications. At this time hypotension could be related to anemia, dehydration, med changes, lyte abnormality. At this time no infection suspected. 12:39pm Differential Diagnosis Differential Diagnoses: The differential diagnosis associated with the presentation includes dehydration, MYLA, anemia, lower suspicion for infection hypotension and MYLA due to dehydration and not infection or severe sepsis Admission/Observation Consideration of admission/observation: Escalation of care including admission/observation considered admit for IVF Consult Healthcare Provider Management of the patient was discussed with: Hospitalist (will admit) and Director Of Search Engine Marketing (vascular aware state he did have some post operative hypotension) vascular aware Lab Data [facility] Lab Attestation statement: I reviewed the patient's lab results. 09/26/24 12:22 09/26/24 12:22 Labs: Lab Results 09/26/24 09/26/24 Range/Units 12:22 12:23 WBC 10.6 (4.8-10.8) X10*3/uL RBC 3.89 L (4.60-5.80) X10*6/uL Hgb 12.3 L (14.0-18.0) g/dl Hct 34.9 L (42.0-52.0) % MCV 89.7 (80.0-98.0) fL MCH 31.6 (27.0-33.0) pg MCHC 35.2 (31.0-36.0) g/dl RDW 13.4 (11.0-16.0) % Plt Count 267 (160-400) X10*3/uL MPV 9.0 L (9.4-12.4) fL Immature Gran % (Auto) 0.5 H (0.0-0.4) % Neut % (Auto) 72.3 (45-73) % Lymph % (Auto) 15.4 L (20-40) % [place] % (Auto) 9.4 (2-11) % Eos % (Auto) 2.0 (0-4) % Baso % (Auto) 0.4 (0-2) % Lymph # (Auto) 1.6 (1.2-4.9) X10*3/uL [place] # (Auto) 1.0 (0.1-1.2) X10*3/uL Eos # (Auto) 0.2 (0.0-0.4) X10*3/uL Baso # (Auto) 0.0 (0.0-0.2) X10*3/uL Abs Immat Gran (auto) 0.05 H (0.00-0.03) X10*3/uL Absolute Neuts (auto) 7.7 (2.0-8.3) x10*3/uL Absolute Nucleated RBC 0.000 (0.0-0.012) X10*3/uL Nucleated RBC % (auto) 0.0 (0.0-0.2) /100WBC PT 12.6 H (10.9-12.4) SEC INR 1.1 (0.9-1.1) Sodium 135 (135-145) mmol/L Potassium 3.5 (3.3-5.1) mmol/L Chloride 96 (96-108) mmol/L Carbon Dioxide 26 (22-29) mmol/L Anion Gap 17 (12-20) BUN 35 H (9-16) mg/dL Creatinine 1.99 H (0.5-1.4) mg/dL Estim Creat Clear Calc 25.5 Estimated GFR 33 Random Glucose 108 (60-115) mg/dL Calcium 9.2 (8.4-10.2) mg/dL Total Bilirubin 0.5 (0.0-1.0) mg/dL AST 18 (5-37) U/L ALT 11 (0-40) U/L Alkaline Phosphatase 84 (39-117) U/L Troponin I High Sens 2.8 (<3.5-35.0) ng/L Total Protein 7.2 (6.5-8.0) g/dL Albumin 3.9 (3.5-5.0) g/dL Blood Type O Negative Antibody Screen NEGATIVE Independent Interpretation I performed an independent interpretation of an: EKG and Plain X-Ray Interpretation: Rate: 98 Rhythm: NSR [place]: normal Normal P waves. Normal [place]. Normal QRS complex. ST T wave : no LA, flat t wave aVL qTC: 421 prior studies: no acute ischemia The study has been interpreted contemporaneously by me. . Radiology Impression Discussion of test interpretation with radiology: I have reviewed the radiologist's reading. Independent Historian Clinical information obtained from an independent historian. History obtained from or confirmed by: Other (daughter) External Record Review External record reviewed: Inpatient record and Outpatient record Discharge Plan Discharge Clinical Impression: MYLA (acute kidney injury) Patient Disposition: Admitted As Inpatient Print Language: Ugandan
--- NOTE | 2024-09-26 11:54 | ECG_ITS ---
Test Reason : HYPOTENSION Blood Pressure : */* mmHG Vent. Rate : 98 BPM Atrial Rate : 98 BPM P-R Int : 128 ms QRS Dur : 88 ms QT Int : 330 ms P-R-T Axes : 42 -2 61 degrees QTcB Int : 421 ms Normal sinus rhythm Normal ECG No previous ECGs available Referred By: Suzanne Reddy Electronically Signed By: KAMLA BERNAL
[2024-09-26] MEDS: Lactated Ringers 1,000 ML 999 ML IV (12:17)
[2024-09-26 12:40] LABS: MANUAL DIFF FLAG NO
[2024-09-26 12:42] LABS: Basophils Percent Auto 0.4 % (0-2); Eosinophils Absolute Auto 0.2 X10*3/uL (0.0-0.4); Hematocrit 34.9 % (42.0-52.0); Hemoglobin 12.3 g/dl (14.0-18.0); Imm Gran Abs Auto 0.05 X10*3/uL (0.00-0.03); Imm Gran Pct Auto 0.5 % (0.0-0.4); Lymphocytes Absolute Auto 1.6 X10*3/uL (1.2-4.9); Lymphocytes Percent Auto 15.4 % (20-40); Mean Corpuscular HGB Conc 35.2 g/dl (31.0-36.0); Mean Corpuscular Hemoglobin 31.6 pg (27.0-33.0); Mean Corpuscular Volume 89.7 fL (80.0-98.0); Monocytes Percent Auto 9.4 % (2-11); Neutrophils Absolute Auto 7.7 x10*3/uL (2.0-8.3); Neutrophils Percent Auto 72.3 % (45-73); Platelet Count 267 X10*3/uL (160-400); Red Blood Count 3.89 X10*6/uL (4.60-5.80); Red Cell Distribution Width 13.4 % (11.0-16.0); White Blood Count 10.6 X10*3/uL (4.8-10.8)
[2024-09-26 12:52] LABS: INTERNATIONAL NORM RATIO 1.1 (0.9-1.1); Prothrombin Time 12.6 SEC (10.9-12.4)
[2024-09-26 13:05] LABS: Troponin-I High Sensitivity 2.8 ng/L (<3.5-35.0)
[2024-09-26 13:06] VITALS: BP 114/60; PULSE 93; RESP 18; O2SAT 96
[2024-09-26 13:06] LABS: Alanine Aminotransferase 11 U/L (0-40); Albumin Level 3.9 g/dL (3.5-5.0); Anion Gap 17 (12-20); Aspartate Amino Transferase 18 U/L (5-37); Bilirubin Total 0.5 mg/dL (0.0-1.0); Blood Urea Nitrogen 35 mg/dL (9-16); Calcium 9.2 mg/dL (8.4-10.2); Carbon Dioxide 26 mmol/L (22-29); Chloride 96 mmol/L (96-108); Creatinine Clr Calc Pharmacy 25.5; Estimated Glomerular Filt Rate 33; Glucose Random 108 mg/dL (60-115); Potassium 3.5 mmol/L (3.3-5.1); Sodium 135 mmol/L (135-145); Total Protein 7.2 g/dL (6.5-8.0)
[2024-09-26 13:07] LABS: Alkaline Phosphatase 84 U/L (39-117)
[2024-09-26] MEDS: Lactated Ringers 1,000 ML 80 ML IVCONT (13:34)
[2024-09-26 13:38] LABS: Lactic Acid 1.5 mmol/L (0.5-2.0)
--- OUTSIDE RECORDS SUMMARY | 2024-09-26 13:38 | XMS_ITS | Encounter Summary ---
Author Organization [employer] Address [address] [facility] 7t [place] [address] Care Team Providers Care Dramatic Art Teacher Name Role Phone Kayla Friend MD Primary Care Provider [phone] Reason for Visit * Reason Onset Date Comments Call Back Request 09/26/2024 Encounter Details Date Type Department Care Team ([facility] st Contact Info) Description 09/26/2024 Telephone [facility] MEDICINE [address] [place] [address] Kayla Friend MD [address] [place] [address] Call Back Request Social History Tobacco Use Types Packs/Day Years [...] encounter Miscellaneous Notes * Telephone Encounter - Maci Llamas RN - 09/26/2024 1:16 PM EDT Returned call to MAYELA Tomas. Was asked to call back bc she was with a patient at this time. Will return call to Genove[facility] @ 2:30. * Telephone Encounter - Margaret Esquivel - 09/26/2024 11:27 AM EDT Tc from [facility] with [employer] [facility] requesting a call back to [facility] nurse regarding pt. [phone] (MAYELA Tomas) documented in this encounter Plan of Treatment Not on file documented as of this encounter Visit Diagnoses Not on filedocumented in this encounter Additional Health Concerns Assessment Noted Time PHQ-9 Depression Total Score: 2 05/30/20 24 9:43 AM EST documented as of this encounter Care Teams Dramatic Art Teacher Relationship Specialty Start Date End Date Kayla Friend MD [address] [place] [phone] PCP - General Family Medicine 04/30/20 Abhishek Pino MD Surgeon Vascular Surgery 05/30/24 documented as of this encounter
--- OUTSIDE RECORDS SUMMARY | 2024-09-26 13:38 | XMS_ITS | Encounter Summary ---
Author Organization [employer] Address [address] [facility] 7t [place] [address] Care Team Providers Care Security Threat Analyst Name Role Phone Kayla Friend MD Primary Care Provider [phone] Encounter Details Date Type Department Care Team ([facility] st Contact Info) Description 09/26/2024 Telephone [facility] MED & PEDS [address] [place] [address] Kayla Friend MD [address] [place] [address] Social History Tobacco Use Types Packs/Day Years [...] 10:36 AM EDT Sexual Orientation Straight 04/24/2023 2 :59 PM EDT documented as of this encounter Miscellaneous Notes * Telephone Encounter - Maci Llamas RN - 09/26/2024 10:35 AM EDT * Post-op day 3 (fem-fem bypass 09/23/24) Familia FIELD called office to report BP 90/60 manually and heart rate of 110. This RN instructed [facility] to send patient to ER for evaluation d/t being post-op day 3, hypotension, and tachycardia. Familia requested to do a med-rec while I have you on the phone. RN asked that Familia call EMS and we could dothe med rec later today. Familia stated it took too long to get a hold of nurses here at [facility], and will do that med rec now. This RN insisted that she call EMS and get patient to hospital immediately and to call back later in the day to complete med rec. RN gave Familia office number and told her to askfor nurses directly. Familia did not agree with this plan and disconnected the call. RN will call patient for a status check, and notify provider. documented in this encounter Plan of Treatment Not on file documented as of this encounter Visit Diagnoses Not on filedocumented in this encounter Additional Health Concerns Assessment Noted Time PHQ-9 Depression Total Score: 2 05/30/20 24 9:43 AM EST documented as of this encounter Care Teams Security Threat Analyst Relationship Specialty Start Date End Date Kayla Friend MD [address] [place] [address] PCP - General Family Medicine 04/30/20 Abhishek Pino MD Surgeon Vascular Surgery 05/30/24 documented as of this encounter
--- OUTSIDE RECORDS SUMMARY | 2024-09-26 13:38 | XMS_ITS | Clinical Summary ---
Author Organization [facility] Address [address] [place] [address] Care Team Providers Care Press Department Manager Name Role Phone Unavailable Primary Care [...] 2024 Influenza Vaccine (#1) 2024 RSV Immunization Adult Patie nts (1 - 1-dose 75+ series) 2029 HIB [...]
--- OUTSIDE RECORDS SUMMARY | 2024-09-26 13:38 | XMS_ITS | Encounter Summary ---
Author Organization [employer] Address [address] [place] [address] 7[address] [place] [address] Care Team Providers Care Picker Tender Helper Name Role Phone Kayla Friend MD Primary Care Provider [phone] Encounter Details Date Type Department Care Team ([facility] st Contact Info) Description 08/12/2022 Telephone [facility] MED & PEDS [address] [place] [address] Kayla Friend MD [address] [place] [address] Social History Tobacco Use Types Packs/Day Years [...] documented as of this encounter Care Teams Picker Tender Helper Relationship Specialty Start Date End Date Kayla Friend MD [address] [place] [address] PCP - General Family Medicine 04/30/20 Abhishek Pino MD Surgeon Vascular Surgery 05/30/24 documented as of this encounter
--- OUTSIDE RECORDS SUMMARY | 2024-09-26 13:38 | XMS_ITS | Encounter Summary ---
Author Organization [employer] Address [address] [facility] 7t [place] [address] Care Team Providers Care Hotel Maintenance Engineer Name Role Phone Kayla Friend MD Primary Care Provider [phone] Encounter Details Date Type Department Care Team (Late st Contact Info) Description 09/26/2024 Orders Only GENERIC EXTERNAL DATA DEPARTMENT Provider, [...] Procedure Name Priority Date/Time Associated Diagnosis Comments XR CHEST 1 VIEW Routine 09/26/2024 12:25 PM EDT TYPE AND SCREEN Routine 09/26/2024 12:23 PM EDT HIGH SENSITIVITY TROPONIN I Routine 09/26/2024 12:22 PM EDT CBC WITH AUTO DIFFERENTIAL Routine 09/26/2024 12:22 PM EDT PROTHROMBIN TIME-INR Routine 09/26/2024 12:22 PM EDT COMPREHENSIVE METABOLIC PANEL Routine 09/26/2024 12:22 PM EDT documented in this encounter Results * XR Chest 1 View (09/26/2024 12:25 PM EDT) Anatomical Region Laterality Modality Chest Radiographic Yoana ging 09/26/2024 12:2 5 PM EDT Narrative 09/26/2024 12:58 PM EDT ? [facility] ?[address] ?[place] [address] ?XRay Report ? Signed ? Patient: Macho Darden,Yosef ?MR#: M ?? [id number] ? : 1955 ?Acct:[id number] ? Age/Sex: 69 / M ?ADM Date: 04/03/25 ? Loc: HO.ED ? Attending Dr: ? Ordering Physician: Bertha Terry DO ?? Date of Service: 09/26/24 ?? Procedure(s): XR chest 1V ?? Accession Number(s): [id number] ? cc: Bertha Terry DO; Kayla Friend MD ? EXAMINATION: ??XR CHEST 1 VIEW ? HISTORY: cough, eval aspiration, crackles LLL ? COMPARISON: There are no prior studies for comparison. ? FINDINGS: ??A single AP portable view of the chest performed at 12:30 PM ?? is submitted. The lungs are expanded and clear. ??There is no pleural ?? effusion, pneumothorax, or pulmonary vascular congestion. ??The heart is ?? normal in size. The aorta is calcified. ??The bones are intact. ? XR/XR chest 1V ?? IMPRESSION: ?? Clear lungs. ? Electronically signed by: ??Alhaji Gandhi MD ??09/26/2024 12:55 PM EDT ? Dictated By: ?Alhaji Gandhi MD ? Signed By: ?<Electronically signed by Alhaji Gandhi MD in OV> ?09/26/24 1255 ? DD/ 1225 ? TD/TT: 09/26/24 1231 ? Terrazzo Layer Helper: ? Procedure Note Zhen, Image - 09/26/[address] [address] XRay Report Signed Patient: Julien Soria#: M [id number] : 4Acct:[id number] Age/Sex: 69 / MADM Date: 09/26/24 Loc: HO.ED Attending Dr: Ordering Physician: Bertha Terry DO Date of Service: 09/26/24 Procedure(s): XR chest 1V Accession Number(s): [id number] cc: Bertha Terry DO; Kayla Friend MD EXAMINATION: XR CHEST 1 VIEW HISTORY: cough, eval aspiration, crackles LLL COMPARISON: There are no prior studies for comparison. FINDINGS: A single AP portable view of the chest performed at 12:30 PM is submitted. The lungs are expanded and clear. There is no pleural effusion, pneumothorax, or pulmonary vascular congestion. The heart is normal in size. The aorta is calcified. The bones are intact. XR/XR chest 1V IMPRESSION: Clear lungs. Electronically signed by: Alhaji Gandhi MD 09/26/2024 12:55 PM EDT RP Dictated By: Alhaji Gandhi MD Signed By: <Electronically signed by Alhaji Gandhi MD in OV> 09/26/24 1255 DD/ 1225 TD/TT: 09/26/24 1231 Terrazzo Layer Helper: us [facility] External Provider IMG XR PROCEDURES Edited Result - Final * Type and screen (09/26/2024 12:23 PM EDT) Blood Type ON [facility] Antibody Screen NEGATIVE [facility] 09/26/2024 12:2 3 PM EDT 09/26/2024 12:41 PM EDT Generic External Data Provider LAB BLOOD BANK TE ST ORDERABLES Final Result [facility] [address] [place] [phone] * (ABNORMAL) Comprehensive Metabolic Panel (09/26/2024 12:22 PM EDT) Sodium 135 135 - 145 mmol/L [facility] Potassium 3.5 3.3 - 5.1 mmol/L [facility] Chloride 96 96 - 108 mmol/L [facility] Carbon Dioxide 26 22 - 29 mmol/L [facility] Anion Gap 17 12 - 20 [facility] Urea Nitrogen (BUN) 35(H) 9 - 16 mg/dL [facility] Creatinine, Serum 1.99(H) 0.5 - 1.4 mg/dL [facility] Creatinine Clr Calc Pharmacy 25.5 [facility] Comment:eGFR (calculated fro m the MDRD study equation) and eCrCl(calculated from the Cockcroft-Gault equation) are based ondifferent parameters and may not yield comparable results.If eCrCl result is absurd, please check patient'sheight/weight. Estimated Glomerular Filt Rate 33 [facility] Comment:Chronic Kidney Disea se: Estimated GFR < 60 mL/min/1.17v4Xogrya Kidney Disease: Estimated GFR < 15 mL/min/1.73m2 Glucose 108 60 - 115 mg/dL [facility] Calcium 9.2 8.4 - 10.2 mg/dL [facility] Bilirubin, Total 0.5 0.0 - 1.0 mg/dL [facility] Aspartate Amino Transferase 18 5 - 37 U/L [facility] Alanine Aminotransferase 11 0 - 40 U/L [facility] Total Protein 7.2 6.5 - 8.0 g/dL [facility] Albumin Level 3.9 3.5 - 5.0 g/dL [facility] Alkaline Phosphatase 84 39 - 117 U/L [facility] 09/26/2024 12:2 2 PM EDT 09/26/2024 12:39 PM EDT us Generic External Data Provider LAB BLOOD ORDERAB LES Final Result Performing Organization Address [facility]/ZIP Co de Phone Number [facility] [address] [place] [address] [phone] * High Sensitivity Troponin I (09/26/2024 12:22 PM EDT) TROPONIN I HIGH SENSITIVITY 2.8 <3.5 - 35.0 ng/L [facility] Comment:The Daley high sens itivity Troponin-I results should beused in conjunction with other diagnostic information suchas ECG, clinical observations and information, and patientsymptoms to aid in the diagnosis of CT. 09/26/2024 12:2 2 PM EDT 09/26/2024 12:39 PM EDT us Generic External Data Provider LAB BLOOD ORDERAB LES Final Result Performing Organization Address [facility]/ZIP Co de Phone Number [facility] [address] [place] [address] [phone] * (ABNORMAL) Prothrombin Time-INR (09/26/2024 12:22 PM EDT) [facility] Prothrombin Time 12.6(H) 10.9 - 12.4 SEC [facility] INTERNATIONAL NORM RATIO 1.1 0.9 - 1.1 [facility] Comment:INTERNATIONAL NORMAL IZED RATIO (INR) REFERENCE RANGES Reference RangeFor patients not on anticoagulant therapy: 0.9 - 1.1INR ranges for oral anticoagulanttherapy:For prevention and treatment of venous thrombosis and pulmonary embolism: 2.0 - 3.0For acute myocardial infarction with aspirin therapy: 2.0 - 3.0For acute myocardial infarction without aspirin therapy: 3.0 - 4.0For patients with mechanical prosthetic heart valves: 2.5 - 3.5 09/26/2024 12:2 2 PM EDT 09/26/2024 12:39 PM EDT us Generic External Data Provider LAB BLOOD ORDERAB LES Final Result Performing Organization Address City/State/[facility] Co de Phone Number [facility] [address] [place] [phone] * (ABNORMAL) CBC auto differential (09/26/2024 12:22 PM EDT) [facility] White Blood Count 10.6 4.8 - 10.8 X10*3/uL [facility] Red Blood Count 3.89(L) 4.60 - 5.80 X10*6/uL [facility] Hemoglobin 12.3(L) 14.0 - 18.0 g/dl [facility] Hematocrit 34.9(L) 42.0 - 52.0 % [facility] Mean Corpuscular Volume 89.7 80.0 - 98.0 fL [facility] Mean Corpuscular Hemoglobin 31.6 27.0 - 33.0 pg [facility] Mean Corpuscular HGB Conc 35.2 31.0 - 36.0 g/dl [facility] Red Cell Distribution Width 13.4 11.0 - 16.0 % [facility] Platelet Count 267 160 - 400 X10*3/uL [facility] Mean Platelet Volume 9.0(L) 9.4 - 12.4 fL [facility] Neutrophils Percent Auto 72.3 45 - 73 % [facility] Imm Gran Pct Auto 0.5(H) 0.0 - 0.4 % [facility] Lymphocytes Percent Auto 15.4(L) 20 - 40 % [facility] Monocytes Percent Auto 9.4 2 - 11 % [facility] Eosinophils Percent Auto 2.0 0 - 4 % [facility] Basophils Percent Auto 0.4 0 - 2 % [facility] NRBC Pct Auto 0.0 0.0 - 0.2 /100WBC [facility] Neutrophils Absolute Auto 7.7 2.0 - 8.3 x10*3/uL [facility] Imm Gran Abs Auto 0.05(H) 0.00 - 0.03 X10*3/uL [facility] Lymphocytes Absolute Auto 1.6 1.2 - 4.9 X10*3/uL [facility] Monocytes Absolute Auto 1.0 0.1 - 1.2 X10*3/uL [facility] Eosinophils Absolute Auto 0.2 0.0 - 0.4 X10*3/uL [facility] Basophils Absolute Auto 0.0 0.0 - 0.2 X10*3/uL [facility] NRBC Abs Auto 0.000 0.0 - 0.012 X10*3/uL [facility] 09/26/2024 12:2 2 PM EDT 09/26/2024 12:39 PM EDT us Generic External Data Provider LAB BLOOD ORDERAB LES Final Result [facility] [address] [place] [phone] [phone] documented in this encounter Visit Diagnoses Not on filedocumented in this encounter Additional Health Concerns Assessment Noted Time PHQ-9 Depression Total Score: 2 05/30/20 24 9:43 AM EST documented as of this encounter Care Teams Hotel Maintenance Engineer Relationship Specialty Start Date End Date Kayla Friend MD [address] [place] [address] PCP - General Family Medicine 04/30/20 Abhishek Pino MD Surgeon Vascular Surgery 05/30/24 documented as of this encounter
--- OUTSIDE RECORDS SUMMARY | 2024-09-26 13:38 | XMS_ITS | Clinical Summary ---
Author Organization [employer] Address [address] [facility] [address] [place] [address] Care Team Providers Care Casing Operator Name Role Phone Kayla Friend MD Primary Care Provider [phone] Allergies No known active allergies Medications acetaminophen [...] for Sx. Advised to follow up with [facility] for further treatment. Relevant Medications Olopatadine (Pataday) [...] relevant orders, pt will be referred to accountant budget. Pt was advised to diminish smoking. F/u [...] Encounters Date Type Department Care Team Description 09/26/2024 Orders Only GENERIC EXTERNAL DATA DEPARTMENT Provider, Generic External Data 09/26/2024 Telephone [facility] [address] [place] [address] Kayla Friend MD Call Back Request 09/26/2024 Telephone [facility] [address] [place] [address] Kayla Friend MD 09/10/2024 Refill [facility] [address] [place] [address] Kayla Friend MD 08/26/2024 Orders Only [facility] External Provider, [facility] 08/05/2024 Refill [facility] [address] [place] [address] Kayla Friend MD Essential hypertension 07/24/2024 Orders [...] AND SCREEN Routine 09/26/2024 12:23 PM EDT COMPREHENSIVE METABOLIC PANEL Routine 09/26/2024 12:22 PM EDT HIGH SENSITIVITY TROPONIN I Routine 09/26/2024 12:22 PM EDT PROTHROMBIN TIME-INR Routine 09/26/2024 12:22 PM EDT CBC WITH AUTO DIFFERENTIAL Routine 09/26/2024 12:22 PM EDT STRESS TEST WITH MYOCARDIAL PERFUSION Routine 08/26/2024 [...] Recently Relevant to Health Maintenance Results * XR Chest 1 View (09/26/2024 12:25 PM EDT) Anatomical Region Laterality Modality Chest Radiographic Yoana ging 09/26/2024 12:2 5 PM EDT Narrative 09/26/2024 12:58 PM EDT ? [facility] ?[address] ?[place], [place] [address] ?XRay Report ? Signed ? Patient: Yosef Soria ?MR#: M ?? [id number] ? : 1955 ?Acct:[id number] ? Age/Sex: 69 / M ?ADM Date: 09/26/24 ? Loc: HO.ED ? Attending Dr: ? Ordering Physician: Bertha Teryr DO ?? Date of Service: 09/26/24 ?? Procedure(s): XR chest 1V ?? Accession Number(s): [id number] ? cc: Bertha Terry DO; Kayla Friend [...] DD/ 1225 ? TD/TT: 09/26/24 1231 ? Specialty Department Supervisor: ? Procedure Note Edi Fontaine - 09/26/[address] [address] XRay Report Signed Patient: Julien Soria#: M [id number] : 4Acct:[id number] Age/Sex: 69 / MADM Date: 09/26/24 Loc: HO.ED Attending Dr: Ordering Physician: Bertha Terry DO Date of Service: 09/26/24 Procedure(s): XR chest 1V Accession Number(s): [id number] cc: Bertha Terry DO; Kayla Friend MD [...] 09/26/24 1255 DD/ 1225 TD/TT: 09/26/24 1231 Specialty Department Supervisor: [facility] External Provider IMG XR PROCEDURES Edited Result - Final * Type and screen (09/26/2024 12:23 PM EDT) Pathologist [facility] Blood Type ON [facility] Antibody Screen NEGATIVE [facility] 09/26/2024 12:2 3 PM EDT 09/26/2024 12:41 PM EDT Generic External Data Provider LAB BLOOD BANK TE ST ORDERABLES Final Result [facility] [address] [place] [phone] * High Sensitivity Troponin I (09/26/2024 12:22 PM EDT) TROPONIN I HIGH SENSITIVITY 2.8 <3.5 - 35.0 ng/L [facility] Comment:The [place]aley high sens itivity Troponin-I results should beused in conjunction with other diagnostic information suchas ECG, clinical observations and information, and patientsymptoms to aid in the diagnosis of AR. 09/26/2024 12:2 2 PM EDT 09/26/2024 12:39 PM EDT us Generic External Data Provider LAB BLOOD ORDERAB LES Final Result [facility] [address] [place] [phone] * (ABNORMAL) CBC auto differential (09/26/2024 12:22 PM EDT) Only the most recent of2 resultswithin the time period is included. White Blood Count 10.6 4.8 - 10.8 X10*3/uL [facility] Red Blood Count 3.89(L) 4.60 - 5.80 X10*6/uL [facility] Hemoglobin 12.3(L) 14.0 - 18.0 g/dl [facility] Hematocrit 34.9(L) 42.0 - 52.0 % [facility] Mean Corpuscular Volume 89.7 80.0 - 98.0 fL [facility] Mean Corpuscular Hemoglobin 31.6 27.0 - 33.0 pg [facility] Mean Corpuscular HGB Conc 35.2 31.0 - 36.0 g/dl [facility] Red Cell Distribution Width 13.4 11.0 - 16.0 % [facility] Platelet Count 267 160 - 400 X10*3/uL [facility] Mean Platelet Volume 9.0(L) 9.4 - 12.4 fL [facility] Neutrophils Percent Auto 72.3 45 - 73 % [facility] Imm Gran Pct Auto 0.5(H) 0.0 - 0.4 % [facility] Lymphocytes Percent Auto 15.4(L) 20 - 40 % [facility] Monocytes Percent Auto 9.4 2 - 11 % [facility] Eosinophils Percent Auto 2.0 0 - 4 % [facility] Basophils Percent Auto 0.4 0 - 2 % [facility] NRBC Pct Auto 0.0 0.0 - 0.2 /100WBC [facility] Neutrophils Absolute Auto 7.7 2.0 - 8.3 x10*3/uL [facility] Imm Gran Abs Auto 0.05(H) 0.00 - 0.03 X10*3/uL [facility] Lymphocytes Absolute Auto 1.6 1.2 - 4.9 X10*3/uL [facility] Monocytes Absolute Auto 1.0 0.1 - 1.2 X10*3/uL [facility] Eosinophils Absolute Auto 0.2 0.0 - 0.4 X10*3/uL [facility] Basophils Absolute Auto 0.0 0.0 - 0.2 X10*3/uL [facility] NRBC Abs Auto 0.000 0.0 - 0.012 X10*3/uL [facility] 09/26/2024 12:2 2 PM EDT 09/26/2024 12:39 PM EDT us Generic External Data Provider LAB BLOOD ORDERAB LES Final Result Performing Organization Address City/State/[facility] Co de Phone Number [facility] [address] [place] [phone] * (ABNORMAL) Prothrombin Time-INR (09/26/2024 12:22 PM EDT) Prothrombin Time 12.6(H) 10.9 - 12.4 SEC [facility] INTERNATIONAL NORM RATIO 1.1 0.9 - 1.1 [facility] Comment:INTERNATIONAL NORMAL IZED RATIO (INR) REFERENCE [...] Provider LAB BLOOD ORDERAB LES Final Result [facility] [address] [place] [phone] * (ABNORMAL) Comprehensive Metabolic Panel (09/26/2024 12:22 PM EDT) Sodium 135 135 - 145 mmol/L [facility] Potassium 3.5 3.3 - 5.1 mmol/L [facility] Chloride 96 96 - 108 mmol/L [facility] Carbon Dioxide 26 22 - 29 mmol/L [facility] Anion Gap 17 12 - 20 [facility] Urea Nitrogen (BUN) 35(H) 9 - 16 mg/dL [facility] Creatinine, Serum 1.99(H) 0.5 - 1.4 mg/dL [facility] Creatinine Clr Calc Pharmacy 25.5 [facility] Comment:eGFR (calculated fro m the MDRD study equation) and eCrCl(calculated from the Cockcroft-Gault equation) are based ondifferent parameters and may not yield comparable results.If eCrCl result is absurd, please check patient'sheight/weight. Estimated Glomerular Filt Rate 33 [facility] Comment:Chronic Kidney Disea se: Estimated GFR < 60 mL/min/1.24y1Eoljky Kidney Disease: Estimated GFR < 15 mL/min/1.73m2 Glucose 108 60 - 115 mg/dL [facility] Calcium 9.2 8.4 - 10.2 mg/dL [facility] Bilirubin, Total 0.5 0.0 - 1.0 mg/dL [facility] Aspartate Amino Transferase 18 5 - 37 U/L [facility] Alanine Aminotransferase 11 0 - 40 U/L [facility] Total Protein 7.2 6.5 - 8.0 g/dL [facility] Albumin Level 3.9 3.5 - 5.0 g/dL [facility] Alkaline Phosphatase 84 39 - 117 U/L [facility] 09/26/2024 12:2 2 PM EDT 09/26/2024 12:39 PM EDT us Generic External Data Provider LAB BLOOD ORDERAB LES Final Result [facility] [address] [facility] [place] [phone] * Stress test with myocardial perfusion (08/26/2024 9:15 AM EST) 08/26/2024 9:15 AM EST Narrative [facility] - 08/29/2024 6:05 PM EST ? [facility] ?[address] ?[place] [address] ?Nuclear Medicine Report ? Signed ? Patient: Yosef Soria ?MR#: M ?? [id number] ? : 1955 ?Acct:[id number] ? Age/Sex: 69 / M ?ADM Date: 08/26/24 ? Loc: HO.CARD ? Attending Dr: Filipe Mercer NP ? Ordering Physician: Filipe Mercer NP ?? Date of Service: 08/26/24 ?? Procedure(s): NM cardiolite stress test ?? Accession Number(s): [id number] ? cc: Filipe Mercer NP; Kayla Friend [...] DD/ 0915 ? TD/TT: 08/29/24 1430 ? Specialty Department Supervisor: ? Procedure Note Edi Fontaine - 08/29/2024 [id number] [place] [address] Nuclear Medicine Report Signed Patient: Julien Soria#: M [id number] : 4Acct:[id number] Age/Sex: 69 / MADM Date: 08/26/24 Loc: SherrieNICK Attending Dr: Filipe Mercer NP Ordering Physician: Filipe Mercer NP Date of Service: 08/26/24 Procedure(s): NM cardiolite stress test Accession Number(s): [id number] cc: Filipe Mercer NP; Kayla Friend MD [...] suggestive of ischemia. Likely normal myocardial perfusion,. NM/IL cardiolite stress test Impression: 1. Myocardial perfusion imaging study shows normal myocardial perfusion 2. Gated LVEF is 68% 3. Transient ischemic dilatation not present Nondiagnostic changes on EKG. Electronically signed by: Mendez Melvin MD 08/29/2024 06:02 PM EST Dictated By: Mendez Melvin MD Signed By: <Electronically signed by Mendez Melvin MD in OV> 08/29/24 1802 DD/ 0915 TD/TT: 08/29/24 1430 Specialty Department Supervisor: [facility] External Provider CV STRE SS PROCEDURES Final Result Performing Organization Address [facility] Co de Phone Number [facility] [address] [place], [place] [phone] * Creatinine, Serum (07/24/2024 6:26 AM EST) Creatinine, Serum 1.13 0.5 - 1.4 mg/dL [facility] Creatinine Clr Calc Pharmacy 44.9 [facility] Comment:eGFR (calculated fro m the MDRD study equation) and eCrCl(calculated from the Cockcroft-Gault equation) are based ondifferent parameters and may not yield comparable results.If eCrCl result is absurd, please check patient'sheight/weight. Estimated Glomerular Filt Rate >60 [facility] Comment:Chronic Kidney Disea se: Estimated GFR < 60 mL/min/1.67z4Vdikxh Kidney Disease: Estimated GFR < 15 mL/min/1.73m2 07/24/2024 6:26 AM EST 07/24/2024 6:46 AM EST Generic External Data Provider LAB BLOOD ORDERAB LES Final Result Performing Organization Address City/[facility]/ZIP Co de Phone Number [facility] [address] [place] [phone] * BUN (Blood Urea Nitrogen) (07/24/2024 6:26 AM EST) Urea Nitrogen (BUN) 16 9 - 16 mg/dL [facility] 07/24/2024 6:26 AM EST 07/24/2024 6:46 AM EST us Generic External Data Provider LAB BLOOD ORDERAB LES Final Result Performing Organization Address [facility]/ZIP Co de Phone Number [facility] [address] [place] [phone] * Hepatitis C Antibody with Reflex to HCV, RNA, Quantitative, Real-Time PCR (02/22/2024 9:11 AM EDT) Hepatitis C Antibody Nonreactive Nonreactive [facility] Comment:Antibodies to HCV no t detected; does not exclude early acuteHCV infection. Blood Venous blood specimen / Unknown 02/22/2024 9:11 AM EDT 02/22/2024 11:11 AM EDT us Kayla Friend MD LAB BLOOD ORDERABLES Final Re sult Performing Organization Address City/[facility] Co de Phone Number [facility] [address] [place] [phone] * (ABNORMAL) Lipid Panel, Standard (02/22/2024 9:11 AM EDT) Triglycerides 222(H) <150 mg/dL [facility] Comment:Desirable Triglyceri de: less than 150 mg/dLBorderline High Triglyceride 150-199 mg/dLHigh Triglyceride: 200-499 mg/dLVery High Triglyceride: greater than or equal to 5OO mg/dL Cholesterol 232(H) <200 mg/dL [facility] Comment:Desirable Cholestero l: less than 200 mg/dLBorderline High Cholesterol: 200-239 mg/dLHigh Cholesterol: greater than 239 mg/dL LDL Cholesterol Calculated 157(H) <100 mg/dL [facility] Comment:Desirable LDL: less than 100 mg/dLNear Optimal/Above Optimal LDL: 110- 129 mg/dLBorderline High LDL: 130-159 mg/dLHigh LDL: 160-189 mg/dLVery High LDL: greater than or equal to 190 mg/dL HDL Cholesterol 31(L) >40 mg/dL [facility] Comment:Desirable HDL: great er than 40 mg/dL Note: This HDL assay may give artificially low results in patients with liver disease. Blood Venous blood specimen / Unknown 02/22/2024 9:11 AM EDT 02/22/2024 11:11 AM EDT us Kayla Friend MD LAB BLOOD ORDERABLES Final Re sult [facility] [address] [place] [phone] from Last 3 Months or Most Recently Relevant to Health Maintenance Insurance - [employer] Care Teams Casing Operator Relationship Specialty Start Date End Date Kayla Friend MD [address] [place] [phone] PCP - General Family Medicine 04/30/20 Abhishek Flores MD Surgeon Vascular Surgery 05/30/24
--- OUTSIDE RECORDS SUMMARY | 2024-09-26 13:38 | XMS_ITS | Encounter Summary ---
Author Organization [employer] Address [address] [place] [address] [address] [place] [address] Care Team Providers Care Motor Vehicle Field Representative Name Role Phone Kayla Friend MD Primary Care Provider [phone] Encounter Details Date Type Department Care Team ([facility] st Contact Info) Description 02/10/2023 Telephone [facility] [address] [place] [address] Kayla Friend MD [address] [place] [address] Social History Tobacco Use Types Packs/Day Years [...] 3:17 PM EDT Tc from katelyn with [facility] pulmonology requesting last three OV notes and any breathing test to be faxed to [phone] Any questions, please contact katelyn at [phone] documented in this encounter Plan of Treatment Not on file documented as of this encounter Visit Diagnoses Not on filedocumented in this encounter Additional Health Concerns Assessment Noted Time PHQ-9 Depression Total Score: 5 07/18/19 23 2:10 PM EST documented as of this encounter Care Teams Motor Vehicle Field Representative Relationship Specialty Start Date End Date Kayla Friend MD [address] [place] [address] PCP - General Family Medicine 04/30/20 Abhishek Pino MD Surgeon Vascular Surgery 05/30/24 documented as of this encounter
[2024-09-26 13:45] LABS: Appearance Urine Clear; Color Urine Yellow; Glucose Urine UA Negative (Negative); Leukocyte Esterase Urine Negative (Negative); Nitrite Urine Negative (Negative); PH 5.5 (5.0-9.0); Urine Blood Negative (Negative); Urine Ketones Negative (Negative); Urine Protein Negative (Neg-Trace)
--- NOTE | 2024-09-26 14:09 | PM.IMHP ---
History of Present Illness Date of Service: 09/26/24 Attending physician on admission: Aislinn Grant Chief Complaint: Hypotension Pt is a 69-year-old male with a PMH significant for?peripheral artery disease, COPD, HTN, HLD, and GERD who presents to the ED for evaluation of low blood pressure and lightheadedness/dizziness. Pt recently underwent fem-fem bypass (left to right) on 09/23 and discharged home yesterday on 09/25/2024 with services. Visiting nurses this morning found pt with low BP at home and sent him to the ED for further evaluation. Pt reports he has been ambulating at home with a cane. Complains of bilateral pelvic pain at surgical sites. Denies nausea, vomiting, diarrhea. Has been eating and drinking normally. Chronic cough at baseline. No increased SOB. Denies chest pain/pressure, palpitations. No numbness or tingling in lower extremities. In the ED pt was initially tachycardic up to 107 and hypotensive at 86/59. Labs were significant for creatinine 1.99 (elevated from 1.00 yesterday), otherwise grossly unremarkable and around baseline for pt. No leukocytosis. Stable H&H. No significant electrolyte abnormalities. Lactic acid WNL. Hepatic function WNL. Troponin 2.8. UA negative for UTI. CXR showed clear lungs without acute process. EKG demonstrated normal sinus rhythm without evidence of significant ST elevations or depressions. Pt was treated with 1 L IVF and placed on maintenance fluids. Pt will be admitted to the hospital for treatment and further evaluation of MYLA. Review of Systems Review of Systems: Negative except for that which is stated in the HPI. [facility] Medical History Depression PAD (peripheral artery disease) Asthma Smoker Dyslipidemia Acid reflux HTN (hypertension) Family History Father No problems noted. Mother No problems noted. Surgical History S/P aortogram History of esophagogastroduodenoscopy (EGD) H/O colonoscopy H/O wrist surgery Social History Household Members: None Housing: Other Housing Other:: Indep Living Are you a primary manager wound care to a significant other at home: No Do you presently have visiting nurse or other home services: Yes ([employer]) Alcohol intake: former Patient Tobacco Use Status: Current everyday Tobacco user Tobacco use type: Cigarette Cigarettes Per Day: 5 Years Smoked: 56 Second Hand Smoke Exposure: No Advance Directives: No Advance Directives Information Provided: Yes Do you have a plan to hurt others: No Plan service: No Current occupational status: unemployed Meds Allergies Allergy/AdvReac Type Severity Reaction Status Date / Time No Known Allergies Allergy Verified 09/26/24 11:50 Active Medications: Current Medications Lactated Ringer's (Lr) 1,000 mls @ 80 mls/hr IVCONT .[id number] Last Admin: 09/26/24 13:34 Dose: 80 mls/hr Home Medications ?Medication ?Instructions ?Recorded ?Confirmed ?Last Taken ?Type amlodipine 10 mg tablet 10 mg PO DAILY 06/10/20 09/26/24 09/23/24 05:30 History albuterol sulfate 90 mcg/actuation 2 puff inhalation Q4H PRN 12/01/22 09/26/24 Unknown History aerosol inhaler Shortness Of Breath Or Wheezing atorvastatin 80 mg tablet 80 mg PO DAILY 12/01/22 09/26/24 Unknown History valsartan 320 1 tab PO DAILY 12/01/22 09/26/24 Unknown History mg-hydrochlorothiazide 25 mg tablet zolpidem 10 mg tablet 10 mg PO BEDTIME PRN Insomnia 12/01/22 09/26/24 Unknown History tiotropium 2.5 mcg-olodaterol 2.5 1 inh inhalation DAILY 09/13/24 09/26/24 Unknown History mcg/actuation mist for inhalation (Stiolto Respimat) aspirin 81 mg capsule 81 mg PO DAILY 09/23/24 09/26/24 Unknown History clopidogrel 75 mg tablet 75 mg PO DAILY 09/23/24 09/26/24 09/22/24 History montelukast 10 mg tablet 10 mg PO DAILY 09/23/24 09/26/24 09/22/24 History Physical Exam Vital Signs and Narrative: Vital Signs: Last Vital Signs Temp 97.3 F 09/26/24 11:48 Pulse 93 09/26/24 13:06 Resp 18 09/26/24 13:06 BP 114/60 09/26/24 13:06 Pulse Ox 96 09/26/24 13:06 O2 Del Method Room Air 09/26/24 13:06 BMI result Body Mass Index 22.7 General: AOx3, no acute distress Resp: CTA bilaterally CVS: S1, S2, RRR GI: NT, no distention. Appropriate tenderness at surgical sites. Skin: Warm, dry Neuro: Cranial nerves II-XII grossly intact bilaterally. Motor grossly intact bilaterally Extremities: No edema Psych: Appropriate affect Results Labs 09/26/24 12:22 09/26/24 12:22 Labs: Laboratory Results - last 24 hr 09/26/24 09/26/24 09/26/24 12:22 12:23 13:08 MCV 89.7 MCH 31.6 MCHC 35.2 RDW 13.4 Plt Count 267 MPV 9.0 L Immature Gran % (Auto) 0.5 H Neut % (Auto) 72.3 Lymph % (Auto) 15.4 L [place] % (Auto) 9.4 Eos % (Auto) 2.0 Baso % (Auto) 0.4 Lymph # (Auto) 1.6 [place] # (Auto) 1.0 Eos # (Auto) 0.2 Baso # (Auto) 0.0 Abs Immat Gran (auto) 0.05 H Absolute Neuts (auto) 7.7 Absolute Nucleated RBC 0.000 Nucleated RBC % (auto) 0.0 PT 12.6 H INR 1.1 Anion Gap 17 Estim Creat Clear Calc 25.5 Estimated GFR 33 Random Glucose 108 Lactic Acid 1.5 Calcium 9.2 Total Bilirubin 0.5 AST 18 ALT 11 Alkaline Phosphatase 84 Total Protein 7.2 Albumin 3.9 Urine Color Urine Appearance Urine pH Ur Specific [place] Urine Protein Urine Glucose (UA) Urine Ketones Urine Blood Urine Nitrite Ur Leukocyte Esterase Blood Type O Negative Antibody Screen NEGATIVE 09/26/24 13:35 MCV MCH MCHC RDW Plt Count MPV Immature Gran % (Auto) Neut % (Auto) Lymph % (Auto) [place] % (Auto) Eos % (Auto) Baso % (Auto) Lymph # (Auto) [place] # (Auto) Eos # (Auto) Baso # (Auto) Abs Immat Gran (auto) Absolute Neuts (auto) Absolute Nucleated RBC Nucleated RBC % (auto) PT INR Anion Gap Estim Creat Clear Calc Estimated GFR Random Glucose Lactic Acid Calcium Total Bilirubin AST ALT Alkaline Phosphatase Total Protein Albumin Urine Color Yellow Urine Appearance Clear Urine pH 5.5 Ur Specific [place] 1.010 Urine Protein Negative Urine Glucose (UA) Negative Urine Ketones Negative Urine Blood Negative Urine Nitrite Negative Ur Leukocyte Esterase Negative Blood Type Antibody Screen Imaging Radiologist's Impressions: Impressions Chest X-Ray 09/26/24 12:25 IMPRESSION: Clear lungs. Electronically signed by: Alhaji Gandhi MD 09/26/2024 12:55 PM EDT RP Assessment and Plan (1) MYLA (acute kidney injury): Status: Acute Plan Pt is a 69-year-old male with a PMH significant for?peripheral artery disease, COPD, HTN, HLD, and GERD who presents to the ED for evaluation of low blood pressure and lightheadedness/dizziness. Pt will be admitted to the hospital for treatment and further evaluation of MYLA. MYLA Patient's creatinine 1.99 at time of presentation, was 1.00 yesterday at time of discharge Pt did not receive contrast during fem-fem bypass on 07/26 Pre-renal: secondary to hypotension from reduced p.o. intake and diuretic/ARB use Pt received 1L bolus IVF and placed on maintenance fluids in the ED Hold losartan and hydrochlorothiazide Continue maintenance fluids Follow creatinine Hypotension Pt with dizziness and BP as low as 86/59 Hold antihypertensives due to soft BP Treat as above with fluids Monitor BP COPD Not in acute exacerbation Continue home inhalers PAD Continue aspirin, Plavix HLD Continue statin, ezetimibe GERD Continue PPI Insomnia Continue zolpidem Full Code Attending:?Dr. Grant DVT Prophylaxis: Lovenox Pt will require a hospitalization of at least two nights for treatment of?MYLA likely secondary to hypovolemia and hypotension that will require administration of IV fluids and close monitoring of labs and blood pressure. Quality Stroke Does the patient have a stroke diagnosis?: No VTE Prior VTE?: No VTE Risk Level:: Medical - moderate - high VTE Device Contraindication: Treatment Not Indicated VTE Drug Contraindication: N/A - Med Ordered
--- NOTE | 2024-09-26 14:13 | PHA.MEDREC ---
Pharmacy Consult ? Medication Reconciliation Pharmacy has completed the medication reconciliation. Pt was just discharged yesterday post-surgery. Used med rec from that encounter and discharge packet to confirm medications.
--- NOTE | 2024-09-26 15:40 | PC.NURSE ---
lovenox requested from pharmacy
[2024-09-26] MEDS: Enoxaparin Sodium 30 MG/0.3 ML SYRINGE SUBCUT (15:50)
[2024-09-26 15:51] VITALS: BP 120/67; PULSE 91; RESP 14; O2SAT 96
[2024-09-26 16:43] VITALS: BP 133/64; PULSE 89; RESP 16; TEMP 37.2; O2SAT 96
[2024-09-26 19:22] VITALS: BP 114/59; PULSE 83; RESP 18; TEMP 36.7; O2SAT 95
[2024-09-26] MEDS: Melatonin 3 MG TABLET 6 MG PO (20:30)
[2024-09-26] MEDS: Acetaminophen 325 MG TABLET 650 MG PO (20:30)
[2024-09-27 03:05] VITALS: BP 104/58; PULSE 78; RESP 18; TEMP 37.2; O2SAT 96
[2024-09-27] MEDS: Lactated Ringers 1,000 ML 80 ML IVCONT (03:52)
[2024-09-27 06:14] LABS: Anion Gap 11 (12-20); Blood Urea Nitrogen 29 mg/dL (9-16); Calcium 8.7 mg/dL (8.4-10.2); Carbon Dioxide 29 mmol/L (22-29); Chloride 102 mmol/L (96-108); Creatinine Clr Calc Pharmacy 37.1; Estimated Glomerular Filt Rate 51; Glucose Random 98 mg/dL (60-115); Sodium 138 mmol/L (135-145)
[2024-09-27 06:35] LABS: Hematocrit 30.8 % (42.0-52.0); Hemoglobin 10.6 g/dl (14.0-18.0); Mean Corpuscular HGB Conc 34.4 g/dl (31.0-36.0); Mean Corpuscular Hemoglobin 31.5 pg (27.0-33.0); Mean Corpuscular Volume 91.7 fL (80.0-98.0); Platelet Count 257 X10*3/uL (160-400); Red Blood Count 3.36 X10*6/uL (4.60-5.80); Red Cell Distribution Width 13.2 % (11.0-16.0); White Blood Count 7.2 X10*3/uL (4.8-10.8)
[2024-09-27] MEDS: oxyCODONE HCl Immed Release 5 MG TABLET 1 MG PO (07:50)
[2024-09-27] MEDS: Aspirin Enteric Coated 81 MG TABLET.DR PO (07:50)
[2024-09-27] MEDS: Clopidogrel Bisulfate 75 MG TABLET PO (07:51)
[2024-09-27] MEDS: Atorvastatin Calcium 80 MG TABLET PO (07:51)
[2024-09-27] MEDS: Montelukast Sodium 10 MG TABLET PO (07:51)
[2024-09-27] MEDS: Ezetimibe 10 MG TABLET PO (07:51)
[2024-09-27] MEDS: Pantoprazole Sodium 20 MG TABLET.DR PO (07:51)
[2024-09-27 07:54] VITALS: BP 127/62; PULSE 85; RESP 18; TEMP 36.8; O2SAT 96
[2024-09-27 09:14] VITALS: BP 127/62; PULSE 85; O2SAT 96
[2024-09-27 12:12] LABS: Anion Gap 10 (12-20); Blood Urea Nitrogen 26 mg/dL (9-16); Calcium 8.6 mg/dL (8.4-10.2); Carbon Dioxide 28 mmol/L (22-29); Chloride 103 mmol/L (96-108); Estimated Glomerular Filt Rate 59; Glucose Random 106 mg/dL (60-115); Potassium 3.8 mmol/L (3.3-5.1); Sodium 137 mmol/L (135-145)
[2024-09-27] MEDS: oxyCODONE HCl Immed Release 5 MG TABLET PO (12:31)
--- NOTE | 2024-09-27 12:41 | MHC.CM.PN ---
IMM delivered. Turkish is patient's first language, but he declines deaf interpreter at this time. Patient comes from home alone. Ambulates w/ a cane. 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 Patient started services with [facility] for SN yesterday. PCP Kayla Friend MD No HCP on file. CM provided education and offered assistance. Patient declined. DP: Medically cleared for dc home, w/ resumption of [facility]. [facility] updated via [facility]. Daughter will transport.
--- NOTE | 2024-09-27 12:43 | PM.DS ---
DS: Providers Provider Date of Service: 09/27/24 Date of admission: 09/26/24 14:26 Date of discharge: 09/27/24 Primary care physician: Kayla Friend MD DS: Diagnosis Discharge Diagnosis (1) MYLA (acute kidney injury): Status: Acute (2) Hypotension: Status: Acute (3) S/P femoral-femoral bypass surgery: Status: Acute DS: Summary Hospital Course Hospital Course: From the history and physical by the admitting hospitalist, DIEGO Duran, 09/26/24: Pt is a 69-year-old male with a PMH significant for?peripheral artery disease, COPD, HTN, HLD, and GERD who presents to the ED for evaluation of low blood pressure and lightheadedness/dizziness. Pt recently underwent fem-fem bypass (left to right) on 09/23 and discharged home yesterday on 09/25/2024 with services. Visiting nurses this morning found pt with low BP at home and sent him to the ED for further evaluation. Pt reports he has been ambulating at home with a cane. Complains of bilateral pelvic pain at surgical sites. Denies nausea, vomiting, diarrhea. Has been eating and drinking normally. Chronic cough at baseline. No increased SOB. Denies chest pain/pressure, palpitations. No numbness or tingling in lower extremities. In the ED pt was initially tachycardic up to 107 and hypotensive at 86/59. Labs were significant for creatinine 1.99 (elevated from 1.00 yesterday), otherwise grossly unremarkable and around baseline for pt. No leukocytosis. Stable H&H. No significant electrolyte abnormalities. Lactic acid WNL. Hepatic function WNL. Troponin 2.8. UA negative for UTI. CXR showed clear lungs without acute process. EKG demonstrated normal sinus rhythm without evidence of significant ST elevations or depressions. Pt was treated with 1 L IVF and placed on maintenance fluids. Pt will be admitted to the hospital for treatment and further evaluation of MYLA. He was admitted to the medical-surgical unit and given IV isotonic fluid hydration with normalization of blood pressure and improvement in creatinine to 1.21. Amlodipine and valsartan-HCTZ were held. No evidence of infection. Likely MYLA and hypotension due to dehydration and postoperative state. Lightheadedness/dizziness resolved as well. He was discharged with resumption of VNA services and should HOLD amlodipine and valsrtan-HCTZ for now until he sees his primary care doctor in 1 week. Repeat BMP in 1 week was ordered. He should follow up with Vascular Surgery as previously scheduled within 2 weeks. Time Attestation Discharge Coordination Time (in mins): 35 Quality: Safe Use of Opioids Does Pt have an Active Cancer Diagnosis on the Problem List?: No Quality: Stroke Does the patient have a stroke diagnosis?: No Physical Exam Vital Signs: Vital Signs: Last Vital Signs Temp 98.3 F 09/27/24 07:54 Pulse 85 09/27/24 09:14 Resp 18 09/27/24 07:54 BP 127/62 09/27/24 09:14 Pulse Ox 96 09/27/24 09:14 O2 Del Method Room Air 09/27/24 07:54 BMI result Body Mass Index 22.7 Gen: in no acute distress HEENT: sclera anicteric, moist mucus membranes Neck: supple Lungs: clear to auscultation bilaterally Heart: regular rate and rhythm, no murmurs Abd: soft, non-tender, non-distended Ext: no edema, bilateral femoral incisions with intact luis a, no hematoma Skin: warm/well-perfused Neuro: alert and oriented x3, no focal findings Psych: appropriate affect DS: Data Data Completed and Pending Completed studies during hospitalization [Text1]: Laboratory Results WBC 7.2 X10*3/uL (4.8-10.8) 09/27/24 05:49 RBC 3.36 X10*6/uL (4.60-5.80) L 09/27/24 05:49 Hgb 10.6 g/dl (14.0-18.0) L 09/27/24 05:49 Hct 30.8 % (42.0-52.0) L 09/27/24 05:49 MCV 91.7 fL (80.0-98.0) 09/27/24 05:49 MCH 31.5 pg (27.0-33.0) 09/27/24 05:49 MCHC 34.4 g/dl (31.0-36.0) 09/27/24 05:49 RDW 13.2 % (11.0-16.0) 09/27/24 05:49 Plt Count 257 X10*3/uL (160-400) 09/27/24 05:49 MPV 9.0 fL (9.4-12.4) L 09/27/24 05:49 Immature Gran % (Auto) 0.5 % (0.0-0.4) H 09/26/24 12:22 Neut % (Auto) 72.3 % (45-73) 09/26/24 12:22 Lymph % (Auto) 15.4 % (20-40) L 09/26/24 12:22 Elk % (Auto) 9.4 % (2-11) 09/26/24 12:22 Eos % (Auto) 2.0 % (0-4) 09/26/24 12:22 Baso % (Auto) 0.4 % (0-2) 09/26/24 12:22 Lymph # (Auto) 1.6 X10*3/uL (1.2-4.9) 09/26/24 12:22 Elk # (Auto) 1.0 X10*3/uL (0.1-1.2) 09/26/24 12:22 Eos # (Auto) 0.2 X10*3/uL (0.0-0.4) 09/26/24 12:22 Baso # (Auto) 0.0 X10*3/uL (0.0-0.2) 09/26/24 12:22 Abs Immat Gran (auto) 0.05 X10*3/uL (0.00-0.03) H 09/26/24 12:22 Absolute Neuts (auto) 7.7 x10*3/uL (2.0-8.3) 09/26/24 12:22 Absolute Nucleated RBC 0.000 X10*3/uL (0.0-0.012) 09/27/24 05:49 Nucleated RBC % (auto) 0.0 /100WBC (0.0-0.2) 09/27/24 05:49 PT 12.6 SEC (10.9-12.4) H 09/26/24 12:22 INR 1.1 (0.9-1.1) 09/26/24 12:22 Sodium 137 mmol/L (135-145) 09/27/24 11:45 Potassium 3.8 mmol/L (3.3-5.1) 09/27/24 11:45 Chloride 103 mmol/L (96-108) 09/27/24 11:45 Carbon Dioxide 28 mmol/L (22-29) 09/27/24 11:45 Anion Gap 10 (12-20) L 09/27/24 11:45 BUN 26 mg/dL (9-16) H 09/27/24 11:45 Creatinine 1.21 mg/dL (0.5-1.4) 09/27/24 11:45 Estim Creat Clear Calc 42.0 09/27/24 11:45 Estimated GFR 59 09/27/24 11:45 Random Glucose 106 mg/dL (60-115) 09/27/24 11:45 Lactic Acid 1.5 mmol/L (0.5-2.0) 09/26/24 13:08 Calcium 8.6 mg/dL (8.4-10.2) 09/27/24 11:45 Total Bilirubin 0.5 mg/dL (0.0-1.0) 09/26/24 12:22 AST 18 U/L (5-37) 09/26/24 12:22 ALT 11 U/L (0-40) 09/26/24 12:22 Alkaline Phosphatase 84 U/L (39-117) 09/26/24 12:22 Troponin I High Sens 2.8 ng/L (<3.5-35.0) 09/26/24 12:22 Total Protein 7.2 g/dL (6.5-8.0) 09/26/24 12:22 Albumin 3.9 g/dL (3.5-5.0) 09/26/24 12:22 Urine Color Yellow 09/26/24 13:35 Urine Appearance Clear 09/26/24 13:35 Urine pH 5.5 (5.0-9.0) 09/26/24 13:35 Ur Specific [place] 1.010 (1.005-1.025) 09/26/24 13:35 Urine Protein Negative mg/dL (Neg-Trace) 09/26/24 13:35 Urine Glucose (UA) Negative mg/dL (Negative) 09/26/24 13:35 Urine Ketones Negative mg/dL (Negative) 09/26/24 13:35 Urine Blood Negative (Negative) 09/26/24 13:35 Urine Nitrite Negative (Negative) 09/26/24 13:35 Ur Leukocyte Esterase Negative (Negative) 09/26/24 13:35 Blood Type O Negative 09/26/24 12:23 Antibody Screen NEGATIVE 09/26/24 12:23 Impressions Chest X-Ray 09/26/24 12:25 IMPRESSION: Clear lungs. Electronically signed by: Alhaji Gandhi MD 09/26/2024 12:55 PM EDT RP Discharge Plan Discharge Anticipated Discharge Date/Time: 09/27/24 12:28 Patient Disposition: Home Health Service Discharge Diagnosis: hypotension acute kidney injury Referrals: [facility] [Outside] - 1 Day (resume nursing services) Abhishek Pino MD [Physician] - 1 Week Kayla Friend MD [Primary Care Provider] - 1 Week Discharge Medications: Continued omeprazole 40 mg capsule,delayed release(DR/EC) 40 mg PO DAILY Qty: 90 2RF Stiolto Respimat 2.5-2.5 mcg/actuation mist 1 inh INHALATION DAILY clopidogrel 75 mg tablet 75 mg PO DAILY montelukast 10 mg Tablet 10 mg PO DAILY aspirin 81 mg Capsule 81 mg PO DAILY oxycodone-acetaminophen 5-325 mg tablet 1 tab PO TID PRN (Reason: pain) Qty: 14 0RF Rx Instructions: Partial Fill upon patient request. ezetimibe 10 mg tablet 10 mg PO DAILY Qty: 90 3RF albuterol sulfate 90 mcg/actuation HFA aerosol inhaler 2 puff inhalation Q4H PRN (Reason: Shortness Of Breath Or Wheezing) atorvastatin 80 mg tablet 80 mg PO DAILY zolpidem 10 mg tablet 10 mg PO BEDTIME PRN (Reason: Insomnia) Held amlodipine 10 mg tablet 10 mg PO DAILY Hold Instructions: Resume on 10/04/24. hold until seen by primary care doctor valsartan-hydrochlorothiazide 320-25 mg tablet 1 tab PO DAILY Hold Instructions: Resume on 10/04/24. hold until seen by primary care doctor Discharge Orders: Discharge Order (Routine); Ordered 09/27/24 Ordered By: Pb Hayden Diet: Advance to usual diet Activity on Discharge: As tolerated Stand Alone Forms: Patient Portal Discharge page Print Language: [place] Other Ambulatory Orders: Basic Metabolic Panel (Routine) Timeframe: 1 Week Facility: [facility] - Location: Laboratory Ordered By: Pb Hayden Care Plan Goals: recovery from surgery Health Concerns: hypotension acute kidney injury Plan of Treatment: HOLD blood presure medications amlodipine and valsartan-HCTZ for now due to low blood pressure and acute kidney injury [which have resolved] Check your blood pressure daily. Return to hospital if BP is <90/50. Call your doctor if BP is >150/80. Please follow up with your primary care doctor within 1 week. Return to the hospital if you experience recurrent or worsening symptoms. Blood pressure medications may be resumed by primary care doctor in stepwise fashion if needed. Please recheck labs [basic metablic panel] in [address] week[address] Follow up with Dr Pino from [facility] as previously scheduled. Assessment: See Discharge Summary.
== END 2024-09-27 12:50 | disposition home health service (06) | DRG 641 ==
LOC: HO.ED 13:17 → HO.EDOVER 14:26 → HO.S3 15:43
PROVIDERS: Registered Nurse Emergency; Admitting Provider Student in an Organized Health Care Education/Training Program; Emergency Provider Emergency Medicine; PCP Family Medicine; Visit Provider Family Medicine
DX: E86.0 Dehydration (principal); N17.9 Acute kidney failure, unspecified; E86.1 Hypovolemia; I95.9 Hypotension, unspecified; I73.9 Peripheral vascular disease, unspecified; F17.210 Nicotine dependence, cigarettes, uncomplicated; J44.9 Chronic obstructive pulmonary disease, unspecified; Z71.6 Tobacco abuse counseling; Z79.02 Long term (current) use of antithrombotics/antiplatelets; Z79.82 Long term (current) use of aspirin; Z79.899 Other long term (current) drug therapy
CPT/HCPCS: 36415; 71045; 80048; 80053; 81003; 83605; 84484; 85025; 85027; 85610; 86850; 86900; 86901; 87040; 93005; 97161; 99285; J1650; J7120

== ENCOUNTER → 2024-09-26 11:54 | Outpatient (BNV) | payer OTHER, SELFPAY | PROVIDERS: Admitting Provider Student in an Organized Health Care Education/Training Program; Emergency Provider Emergency Medicine; PCP Family Medicine; Visit Provider Internal Medicine | DX: I95.9 Hypotension, unspecified (principal) | CPT/HCPCS: 93010 ==

== ENCOUNTER → 2024-09-26 12:13 | Outpatient (BNV) | payer OTHER, SELFPAY | PROVIDERS: Emergency Provider Emergency Medicine; PCP Family Medicine; Visit Provider Radiology Diagnostic Radiology | DX: R05.9 Cough, unspecified (principal) | CPT/HCPCS: 71045 ==

== ENCOUNTER → 2024-09-26 14:26 | Outpatient (BNV) | payer OTHER, SELFPAY | PROVIDERS: Admitting Provider Student in an Organized Health Care Education/Training Program; Emergency Provider Emergency Medicine; PCP Family Medicine; Visit Provider Student in an Organized Health Care Education/Training Program | DX: N17.9 Acute kidney failure, unspecified (principal); I95.9 Hypotension, unspecified; Z95.828 Presence of other vascular implants and grafts | CPT/HCPCS: 99223; 99239 ==

== ENCOUNTER 2024-10-08 09:31 | Outpatient (AMB) | payer OTHER, SELFPAY ==
--- NOTE | 2024-10-08 09:34 | MHC.OFFVIS ---
Intake Visit Reasons: 2 week follow up s/p Fem-Fem Bypass Graft 09/23/24 Intake Note: post op fem-fem pop bypass 09/23/24, pt states some irritation where the luis a are in the groin Bagging Machine Operator Required: No Accompanied by: PULP AND PAPER TESTER Allergies No Known Allergies Allergy (Verified 10/08/24 09:39) HPI HPI 2 week follow up s/p Fem-Fem Bypass Graft 09/23/24: Details: The patient is a 69-year-old male presenting for a follow-up visit after a femoral-femoral bypass surgery performed on September 23, 2024. He reports substantial improvement in his ability to walk, noting enhanced ease with movement and a marked reduction in pain of the previously affected right leg. His primary concern during this visit is the presence of surgical luis a from the procedure. The patient does not report any major post-operative complications and is generally recovering well. [facility] Medical History Depression PAD (peripheral artery disease) Asthma Smoker Dyslipidemia Acid reflux HTN (hypertension) Surgical History S/P aortogram History of esophagogastroduodenoscopy (EGD) H/O colonoscopy H/O wrist surgery Family History Father No problems noted. Mother No problems noted. Social History Household Members: None Housing: Apartment Housing Other:: Indep Living Are you a primary clinical care manager to a significant other at home: No Do you presently have visiting nurse or other home services: Yes Alcohol intake: former Patient Tobacco Use Status: Current everyday Tobacco user Tobacco use type: Cigarette Cigarettes Per Day: 5 Years Smoked: 56 e-Cigarette/Vaping Use: Currently Using Second Hand Smoke Exposure: No service: No Current occupational status: unemployed Physical Exam Skin Other: Bilateral groins healing well luis a removed. Assessment & Plan Assessment & Plan (1) PAD (peripheral artery disease): Comment: 12/07/2022-left SFA atherectomy and plasty 01/24/2024 left external iliac plasty with stent, left popliteal plasty 09/23/2024 - femoral to femoral bypass (left to right) Code(s): I73.9 - Peripheral vascular disease, unspecified Category: Medical Plan: During this visit, I discussed the patient's recovery from the femoral-femoral bypass surgery. I reassured him that both groin incisions are healing appropriately and there are no signs of complications. The removal of the surgical luis a was explained as a part of the healing process to alleviate minor discomfort. I informed him that a follow-up ultrasound will be scheduled in three months to ensure proper function of the bypass graft. The importance of monitoring for any new symptoms or complications was emphasized, and the patient agreed to report any concerns promptly. Plan Patient was informed and verbally consented to the use of an ambient scribe for clinic note documentation during this visit. Orders: Orders US arterial duplex LE BI 3 Months I73.9 - Peripheral vascular disease, unspecified Patient Instructions: - It's important that luis a be removed today - Schedule follow-up ultrasound in three months - Watch for signs of infection or any new symptoms - Attend all scheduled follow-ups and report any complications Coding Level of Care Code Est Pt Level 4 (21829) Complex EM visit Add On G2211 Diagnoses PAD (peripheral artery disease) I73.9
--- OUTSIDE RECORDS SUMMARY | 2024-10-08 10:41 | XMS_ITS | Encounter Summary ---
Author Organization [facility] Address [address] [place] [address] Care Team Providers Care Wood Cabinetmaker Name Role Phone Kayla Friend MD Primary Care Provider [phone] Encounter Details Date Type Department Care Team ([facility] st Contact Info) Description 09/26/2024 Telephone [facility] [address] [place] [address] Kayla Friend MD [address] [place] [address] Social History Tobacco Use Types Packs/Day Years [...] as of this encounter Plan of Treatment Upcoming Encounters Date Type Department Care Team ([facility] st Contact Info) Description 10/15/2024 1:00 PM EDT Office Visit [facility] [address] [place] [address] Tyler Stinson MD [address] [place] [address] documented as of this encounter Visit Diagnoses Not on filedocumented in this encounter Additional Health Concerns Assessment Noted Time PHQ-9 Depression Total Score: 2 05/30/20 24 9:43 AM EST documented as of this encounter Care Teams Wood Cabinetmaker Relationship Specialty Start Date End Date Kayla Friend MD [address] [place] [address] PCP - General Family Medicine 04/30/20 Abhishek Pino MD Surgeon Vascular Surgery 05/30/24 [facility] 09/26/24 documented as of this encounter
--- OUTSIDE RECORDS SUMMARY | 2024-10-08 10:41 | XMS_ITS | Clinical Summary ---
Author Organization [employer] Address [address] [facility] [address] [place] [address] Care Team Providers Care Assisted Living Housekeeper Name Role Phone Kayla Friend MD Primary Care Provider [phone] Allergies No known active allergies Medications acetaminophen (Tylenol 8 Hour) 650 MG ER tablet Take 1 tablet by mouth every 8 (eight) hours. 022 Active albuterol 108 (90 Base) MCG/ACT inhaler INHALE 2 PUFFS BY MOUTH EVERY 4 TO 6 HOURS NEEDED 8.5 g 11 023 Active atorvastatin (Lipitor) 80 MG tablet Take 1 tablet (80 mg) by mouth at bedtime. 90 tablet 1 023 Active aspirin 81 MG chewable tablet Chew 1 tablet (81 mg) in the morning. 90 tablet 1 023 Active magnesium 200 MG tablet Take 2 tablets (400 mg) by mouth in the morning. 180 tablet 1 023 Active clopidogrel (Plavix) 75 MG tablet Take 75 mg by mouth in the morning. 023 Active varenicline (Chantix) 1 MG tablet Take 1 mg by mouth 2 times daily. 023 Active nicotine polacrilex (Nicorette) 2 MG gum CHEW 1 PIECE OF GUM EVERY 2 HOURS NEEDED FOR SMOKING CESSATION 023 Active nicotine (Nicoderm, Step 1) 21 MG/24HR patch APPLY ONE PATCH EVERY DAY 023 Active carvedilol (Coreg) 25 MG tabletIndicatio ns:Essential hypertension Take 1 tablet (25 mg) by mouth with breakfast and with evening meal. 180 tablet 1 023 Active Multiple Vitamins-Minera ls (PreserVision AREDS 2) capsule Take 1 capsule by mouth 2 times daily. 60 capsule 11 023 Active loratadine (Claritin) 10 MG tablet TAKE 1 TABLET BY MOUTH EVERY MORNING 180 tablet 1 024 Active albuterol (2.5 MG/3ML) 0.083% nebulizer solutionIndicat ions:Asthma, unspecified asthma severity, unspecified whether complicated, unspecified whether persistent TAKE 3ML BY NEBULIZATION EVERY 4 HOURS NEEDED FOR WHEEZING 180 mL 1 024 Active Stiolto Respimat 2.5-2.5 MCG/ACT aerosol solution inhaler Inhale 2 Inhalation. Once per day. 4 g 11 024 Active olopatadine (Pataday) 0.2 % ophthalmic solution Administer 1 drop into affected eye(s) Once per day. 2.5 mL 2 024 Active fluticasone furoate (Arnuity Ellipta) 100 MCG/ACT inhaler Inhale 1 puff Once per day. Rinse mouth with water after use to reduce aftertaste and incidence of candidiasis. Do not swallow. 1 each 024 2024 Active eszopiclone (Lunesta) 2 MG tablet Take 1 tablet (2 mg) by mouth at bedtime. Take immediately before bedtime 28 tablet 1 024 Active Blood Pressure kitIndications: Essential hypertension 1 Units Once per day. 1 kit 024 Active valsartan-hydro CHLOROthiazide (Diovan-HCT) 320-25 MG tabletIndicatio ns:Essential hypertension Take 1 tablet by mouth in the morning. 90 tablet 1 024 Active Additional Information Patient not taking.Reported on 10/08/2024 omeprazole (PriLOSEC) [address] capsule Take 1 capsule (20 mg) by mouth before breakfast. Do not crush or chew. 180 capsule 1 024 Active amLODIPine (Norvasc) 10 MG tabletIndicatio ns:Essential hypertension TAKE 1 TABLET BY MOUTH EVERY DAY 180 tablet 1 025 Active Additional Information Patient not taking.Reported on 10/08/2024 montelukast (Singulair) 10 MG tablet TAKE 1 TABLET(10 MG) BY MOUTH AT BEDTIME 90 tablet 1 025 Active ezetimibe (Zetia) 10 MG tablet Take 1 tablet by mouth Once per day. 025 Active fluticasone furoate (Arnuity Ellipta) 100 MCG/ACT inhaler Inhale 1 puff Once per day. Rinse mouth with water after use to reduce aftertaste and incidence of candidiasis. Do not swallow. 1 each 024 2024 Discontinued(M ed list cleanup (will not trigger notification to Pharmacy)) montelukast (Singulair) 10 MG tablet Take 1 tablet (10 mg) by mouth at bedtime. 90 tablet 1 024 2024 Discontinued Active Problems Problem Noted Date Diagnosed Date Dry eyes, bilateral 03/08/2024 Assessment & Plan (03/08/2024 4:53 PM EDT): Prescribing Pataday for Sx. Advised to follow up with [facility] for further treatment. Relevant Medications Olopatadine [...] relevant orders, pt will be referred to keno writer. Pt was advised to diminish smoking. F/u [...] Encounters Date Type Department Care Team Description 10/04/2024 Telephone [facility] [address] [place] [address] Tyler Stinson MD Appointment Request 10/02/2024 Telephone [facility] [address] [place] [address] Kayla Friend MD ER Follow-up 09/26/2024 Telephone [facility] [address] [place] [address] Kayla Friend MD 09/26/2024 Orders Only GENERIC EXTERNAL DATA DEPARTMENT Provider, Generic External Data 09/26/2024 Telephone [facility] [address] [place] [address] Kayla Friend MD Call Back Request 09/26/2024 Telephone [facility] [address] [place], [place] [phone] Kayla Friend MD 09/10/2024 Refill [facility] [address] [facility] [place] [address] Kayla Friend MD 08/26/2024 Orders Only [facility] External Provider, [facility] 08/05/2024 Refill [facility] [address] [facility] [place] [address] Kayla Friend MD Essential hypertension 07/24/2024 Orders [...] 03/08/2024 1:36 PM EDT Plan of Treatment Upcoming Encounters Date Type Department Care Team (Late st Contact Info) Description 10/15/2024 1:00 PM EDT Office Visit [facility] [address] [place] [address] Tyler Stinson MD [address] [place] [address] Health Maintenance Due Date Last Done Comments [...] Procedure Name Priority Date/Time Associated Diagnosis Comments URINALYSIS WITH REFLEX MICROSCOPIC Routine 09/26/2024 1:35 PM EDT LACTIC ACID Routine 09/26/2024 1:08 PM EDT XR CHEST 1 VIEW Routine 09/26/2024 12:25 [...] Recently Relevant to Health Maintenance Results * Urinalysis w/reflex microscopic (09/26/2024 1:35 PM EDT) Color Urine Yellow [facility] Appearance Urine Clear [facility] PH 5.5 5.0 - 9.0 [facility] Glucose Urine UA Negative Negative mg/dL [facility] Urine Blood Negative Negative [facility] Specific [place]oper - Urine 1.010 1.005 - 1.025 [facility] Urine Protein Negative Neg-Trace mg/dL [facility] Urine Ketones Negative Negative mg/dL [facility] Nitrite Urine Negative Negative [facility] Leukocyte Esterase Urine Negative Negative [facility] 09/26/2024 1:35 PM EDT 09/26/2024 1:41 PM EDT Narrative [facility] - 09/26/2024 1:46 PM EDT Urine, Clean Catch us Generic External Data Provider LAB URINE ORDERAB LES Final Result Performing Organization Address [facility] de Phone Number [facility] [address] [place] [phone] [phone] * Lactic Acid (09/26/2024 1:08 PM EDT) Lactic Acid 1.5 0.5 - 2.0 mmol/L [facility] 09/26/2024 1:08 PM EDT 09/26/2024 1:09 PM EDT Generic External Data Provider LAB BLOOD ORDERAB LES Final Result Performing Organization Address [facility] de Phone Number [facility] [address] [place] [phone] * XR Chest 1 View (09/26/2024 12:25 PM EDT) Anatomical Region Laterality Modality Chest Radiographic Yoana ging 09/26/2024 12:2 5 PM EDT Narrative 09/26/2024 12:58 PM EDT ? [facility] ?[address] ?[place] [address] ?XRay Report ? Signed ? Patient: Macho Darden,Yosef ?MR#: M ?? [id number] ? : 1955 ?Acct:[id number] ? Age/Sex: 69 / M ?ADM Date: 04/03/25 ? Loc: HO.ED ? Attending Dr: ? Ordering Physician: Bertha Terry DO ?? Date of Service: 09/26/24 ?? Procedure(s): XR chest 1V ?? Accession Number(s): [id number] ? cc: Bertha Terry DO; Kayla Friend [...] ??Alhaji Gandhi MD ??09/26/2024 12:55 PM EDT ?? RP ? Dictated By: ?Alhaji Gandhi MD ? Signed By: ?<Electronically signed by Alhaji Gandhi MD in OV> ?09/26/24 1255 ? DD/ 1225 ? TD/TT: 09/26/24 1231 ? Medical Insurance Coder: ? Procedure Note Edi Fontaine - 09/26/2024 [place] [address] XRay Report Signed Patient: Yosef SoriaMR#: M [id number] : 1955cct:[id number] Age/Sex: 69 / MADM Date: 09/26/24 Loc: .ED Attending Dr: Ordering Physician: Bertha Terry DO Date of Service: 09/26/24 Procedure(s): XR chest 1V Accession Number(s): [id number] cc: Bertha Terry DO; Kayla Friend MD [...] Alhaji Gandhi MD 09/26/2024 12:55 PM EDT Dictated By: Alhaji Gandhi MD Signed By: <Electronically signed by Alhaji Gandhi MD in OV> 09/26/24 1255 DD/ 1225 TD/TT: 09/26/24 1231 Medical Insurance Coder: [facility] External Provider IMG XR PROCEDURES Edited Result - Final * Type and screen (09/26/2024 12:23 PM EDT) Blood Type ON [facility] Antibody Screen NEGATIVE [facility] 09/26/2024 12:2 3 PM EDT 09/26/2024 12:41 PM EDT Generic External Data Provider LAB BLOOD BANK TE ST ORDERABLES Final Result Performing Organization Address [facility] Co de Phone Number [facility] [address] [place] [phone] * High Sensitivity Troponin I (09/26/2024 12:22 PM EDT) Pathologist [facility] TROPONIN I HIGH SENSITIVITY 2.8 <3.5 - 35.0 ng/L [facility] Comment:The Daley high sens itivity Troponin-I results should beused in conjunction with other diagnostic information suchas ECG, clinical observations and information, and patientsymptoms to aid in the diagnosis of IA. 09/26/2024 12:2 2 PM EDT 09/26/2024 12:39 PM EDT Generic External Data Provider LAB BLOOD ORDERAB LES Final Result Performing Organization Address [facility]/ZIP Co de Phone Number [facility] [address] [place] [phone] * (ABNORMAL) CBC auto differential (09/26/2024 12:22 PM EDT) Only the most recent of2 resultswithin the time period is included. White Blood Count 10.6 4.8 - 10.8 X10*3/uL [facility] Red Blood Count 3.89(L) 4.60 - 5.80 X10*6/uL [facility] Hemoglobin 12.3(L) 14.0 - 18.0 g/dl [facility] Hematocrit 34.9(L) 42.0 - 52.0 % [facility] Mean Corpuscular Volume 89.7 80.0 - 98.0 fL [facility] Mean Corpuscular Hemoglobin 31.6 27.0 - 33.0 pg [facility] Mean Corpuscular HGB Conc 35.2 31.0 - 36.0 g/dl [facility] Red Cell Distribution Width 13.4 11.0 - 16.0 % [facility] Platelet Count 267 160 - 400 X10*3/uL [facility] Mean Platelet Volume 9.0(L) 9.4 - 12.4 fL [facility] Neutrophils Percent Auto 72.3 45 - 73 % [facility] Imm Gran Pct Auto 0.5(H) 0.0 - 0.4 % [facility] Lymphocytes Percent Auto 15.4(L) 20 - 40 % [facility] Monocytes Percent Auto 9.4 2 - 11 % [facility] Eosinophils Percent Auto 2.0 0 - 4 % [facility] Basophils Percent Auto 0.4 0 - 2 % [facility] NRBC Pct Auto 0.0 0.0 - 0.2 /100WBC [facility] Neutrophils Absolute Auto 7.7 2.0 - 8.3 x10*3/uL [facility] Imm Gran Abs Auto 0.05(H) 0.00 - 0.03 X10*3/uL [facility] Lymphocytes Absolute Auto 1.6 1.2 - 4.9 X10*3/uL [facility] Monocytes Absolute Auto 1.0 0.1 - 1.2 X10*3/uL [facility] Eosinophils Absolute Auto 0.2 0.0 - 0.4 X10*3/uL [facility] Basophils Absolute Auto 0.0 0.0 - 0.2 X10*3/uL [facility] NRBC Abs Auto 0.000 0.0 - 0.012 X10*3/uL [facility] 09/26/2024 12:2 2 PM EDT 09/26/2024 12:39 PM EDT Generic External Data Provider LAB BLOOD ORDERAB LES Final Result Performing Organization Address [facility] Co de Phone Number [facility] [address] [place] [phone] * (ABNORMAL) Prothrombin Time-INR (09/26/2024 12:22 PM EDT) Prothrombin Time 12.6(H) 10.9 - 12.4 SEC [facility] INTERNATIONAL NORM RATIO 1.1 0.9 - 1.1 [facility] Comment:INTERNATIONAL NORMAL IZED RATIO (INR) REFERENCE [...] 2 PM EDT 09/26/2024 12:39 PM EDT Generic External Data Provider LAB BLOOD ORDERAB LES Final Result Performing Organization Address [facility] Co de Phone Number [facility] [address] [place] [phone] * (ABNORMAL) Comprehensive Metabolic Panel (09/26/2024 12:22 PM EDT) Sodium 135 135 - 145 mmol/L [facility] Potassium 3.5 3.3 - 5.1 mmol/L [facility] Chloride 96 96 - 108 mmol/L [facility] Carbon Dioxide 26 22 - 29 mmol/L [facility] Anion Gap 17 12 - 20 [facility] Urea Nitrogen (BUN) 35(H) 9 - 16 mg/dL [facility] Creatinine, Serum 1.99(H) 0.5 - 1.4 mg/dL [facility] Creatinine Clr Calc Pharmacy 25.5 [facility] Comment:eGFR (calculated fro m the MDRD study equation) and eCrCl(calculated from the Cockcroft-Gault equation) are based ondifferent parameters and may not yield comparable results.If eCrCl result is absurd, please check patient'sheight/weight. Estimated Glomerular Filt Rate 33 [facility] Comment:Chronic Kidney Disea se: Estimated GFR < 60 mL/min/1.93m1Eghjkx Kidney Disease: Estimated GFR < 15 mL/min/1.73m2 Glucose 108 60 - 115 mg/dL [facility] Calcium 9.2 8.4 - 10.2 mg/dL [facility] Bilirubin, Total 0.5 0.0 - 1.0 mg/dL [facility] Aspartate Amino Transferase 18 5 - 37 U/L [facility] Alanine Aminotransferase 11 0 - 40 U/L [facility] Total Protein 7.2 6.5 - 8.0 g/dL [facility] Albumin Level 3.9 3.5 - 5.0 g/dL [facility] Alkaline Phosphatase 84 39 - 117 U/L [facility] 09/26/2024 12:2 2 PM EDT 09/26/2024 12:39 PM EDT us Generic External Data Provider LAB BLOOD ORDERAB LES Final Result [facility] [address] [place] [address] [phone] * Stress test with myocardial perfusion (08/26/2024 9:15 AM EST) 08/26/2024 9:15 AM EST Narrative [facility] - 08/29/2024 6:05 PM EST ? [facility] [facility] ?[address] ?[place] [address] ?Nuclear Medicine Report ? Signed ? Patient: Pritchard Adelso,Yosef ?MR#: M ?? [id number] ? : 1955 ?Acct:[id number] ? Age/Sex: 69 / M ?ADM Date: 08/26/24 ? Loc: HO.CARD ? Attending Dr: Filipe Mercer MOUNTING INSPECTOR ? Ordering Physician: Filipe Mercer NP ?? Date of Service: 08/26/24 ?? Procedure(s): NM cardiolite stress test ?? Accession Number(s): [id number] ? cc: Filipe Mercer NP; Kayla Friend [...] by Mendez Melvin MD in OV> ?08/29/24 180 ? DD/ 0915 ? TD/TT: 08/29/24 1430 ? Medical Insurance Coder: ? Procedure Note Edi Fontaine - 08/29/2024 [place] [address] Nuclear Medicine Report Signed Patient: Julien Soria#: M [id number] : 1955cct:[id number] Age/Sex: 69 / MADM Date: 08/26/24 Loc: AWAIS Attending Dr: Filipe Mercer NP Ordering Physician: Filipe Mercer NP Date of Service: 08/26/24 Procedure(s): NM cardiolite stress test Accession Number(s): [id number] cc: Filipe Mercer NP; Kayla Friend MD [...] MD 08/29/2024 06:02 PM EST Dictated By: eMndez Melvin MD Signed By: <Electronically signed by Mendez Melvin MD in OV> 08/29/24 1802 DD/ 0915 TD/TT: 08/29/24 1430 Medical Insurance Coder: us [facility] External Provider CV STRE SS PROCEDURES Final Result [facility] [address] [place] [phone] * Creatinine, Serum (07/24/2024 6:26 AM EST) Creatinine, Serum 1.13 0.5 - 1.4 mg/dL [facility] Creatinine Clr Calc Pharmacy 44.9 [facility] Comment:eGFR (calculated fro m the MDRD study equation) and eCrCl(calculated from the Cockcroft-Gault equation) are based ondifferent parameters and may not yield comparable results.If eCrCl result is absurd, please check patient'sheight/weight. Estimated Glomerular Filt Rate >60 [facility] Comment:Chronic Kidney Disea se: Estimated GFR < 60 mL/min/1.91s7Dobizd Kidney Disease: Estimated GFR < 15 mL/min/1.73m2 07/24/2024 6:26 AM EST 07/24/2024 6:46 AM EST us Generic External Data Provider LAB BLOOD ORDERAB LES Final Result Performing Organization Address City/[facility]/ZIP Co de Phone Number [facility] [address] [place] [phone] * BUN (Blood Urea Nitrogen) (07/24/2024 6:26 AM EST) Urea Nitrogen (BUN) 16 9 - 16 mg/dL [facility] 07/24/2024 6:26 AM EST 07/24/2024 6:46 AM EST Regroup Therapy External Data Provider LAB BLOOD ORDERAB LES Final Result Performing Organization Address City/[facility]/ZIP Co de Phone Number [facility] [address] [place] [phone] * Hepatitis C Antibody with Reflex to HCV, RNA, Quantitative, Real-Time PCR (02/22/2024 9:11 AM EDT) Hepatitis C Antibody Nonreactive Nonreactive [facility] Comment:Antibodies to HCV no t detected; does not exclude early acuteHCV infection. Blood Venous blood specimen / Unknown 02/22/2024 9:11 AM EDT 02/22/2024 11:11 AM EDT us Kayla Friend MD LAB BLOOD ORDERABLES Final Re sult [facility] [address] [place] [phone] [phone] * (ABNORMAL) Lipid Panel, Standard (02/22/2024 9:11 AM EDT) Triglycerides 222(H) <150 mg/dL [facility] Comment:Desirable Triglyceri de: less than 150 mg/dLBorderline High Triglyceride 150-199 mg/dLHigh Triglyceride: 200-499 mg/dLVery High Triglyceride: greater than or equal to 5OO mg/dL Cholesterol 232(H) <200 mg/dL [facility] Comment:Desirable Cholestero l: less than 200 mg/dLBorderline High Cholesterol: 200-239 mg/dLHigh Cholesterol: greater than 239 mg/dL LDL Cholesterol Calculated 157(H) <100 mg/dL [facility] Comment:Desirable LDL: less than 100 mg/dLNear Optimal/Above Optimal LDL: 110- 129 mg/dLBorderline High LDL: 130-159 mg/dLHigh LDL: 160-189 mg/dLVery High LDL: greater than or equal to 190 mg/dL HDL Cholesterol 31(L) >40 mg/dL [facility] Comment:Desirable HDL: great er than 40 mg/dL Note: This HDL assay may give artificially low results in patients with liver disease. Blood Venous blood specimen / Unknown 02/22/2024 9:11 AM EDT 02/22/2024 11:11 AM EDT us Kayla Friend MD LAB BLOOD ORDERABLES Final Re sult Performing Organization Address City/[facility]/ZIP Co de Phone Number [facility] [address] [place] [phone] from Last 3 Months or Most Recently Relevant to Health Maintenance Insurance - [employer] Care Teams Assisted Living Housekeeper Relationship Specialty Start Date End Date Kayla Friend MD [address] [place] [phone] PCP - General Family Medicine 04/30/20 Abhishek Flores MD Surgeon Vascular Surgery 05/30/24 [facility] 09/26/24
--- OUTSIDE RECORDS SUMMARY | 2024-10-08 10:41 | XMS_ITS | Encounter Summary ---
Author Organization [employer] Address [address] [place] [address] [address] [place] [address] Care Team Providers Care Sheet Metal Contractor Name Role Phone Kayla Friend MD Primary Care Provider [phone] Encounter Details Date Type Department Care Team (Late st Contact Info) Description 08/12/2022 Telephone [facility] [address] [place] [address] Kayla Friend MD [address] [place] [address] Social History Tobacco Use Types Packs/Day Years [...] Encounters Date Type Department Care Team (Late Contact Info) Description 10/15/2024 1:00 PM EDT Office Visit [facility] [address] [place] [address] Tyler Stinson MD [address] [place] [address] documented as of this encounter Visit Diagnoses Not on filedocumented in this encounter Additional Health Concerns Assessment Noted Time PHQ-9 Depression Total Score: 5 07/18/19 23 2:10 PM EST documented as of this encounter Care Teams Sheet Metal Contractor Relationship Specialty Start Date End Date Kayla Friend MD [address] [place] [address] PCP - General Family Medicine 04/30/20 Abhishek Pino MD Surgeon Vascular Surgery 05/30/24 [facility] 09/26/24 documented as of this encounter
--- OUTSIDE RECORDS SUMMARY | 2024-10-08 10:41 | XMS_ITS | Clinical Summary ---
Author Organization [employer] [facility] ity Address [address] [place] [address] Care Team Providers Care Tank Truck Operator Name Role Phone Unavailable Primary Care Provider [...] - 2023-2 5 season) 2024 Influenza Vaccine (Season Ended) 2025 RSV Immunization Adult Patie nts (1 - [...] age to complete this topic Meningococcal B Vaccine Aged Out No l onger eligible based on patient's age to complete this topic RSV Immunization Patients Un coni 20 months Aged Out No longer eligible b ased on patient's age to complete this topic Varicella Vaccines Aged Out No longer eligible based on patient's age to complete this topic
--- OUTSIDE RECORDS SUMMARY | 2024-10-08 10:41 | XMS_ITS | Encounter Summary ---
Author Organization [employer] Address [address] [place] [address] [address] [place] [address] Care Team Providers Care Cableman Name Role Phone Kayla Friend MD Primary Care Provider [phone] Encounter Details Date Type Department Care Team ([facility] st Contact Info) Description 02/10/2023 Telephone [facility] [address] [place] [address] Kayla Friend MD [address] [place] [address] Social History Tobacco Use Types Packs/Day Years [...] 3:17 PM EDT Tc from katelyn with [facility] pulmonology requesting last three OV notes and any breathing test to be faxed to [phone] Any questions, please contact katelyn at [phone] documented in this encounter Plan of Treatment Upcoming Encounters Date Type Department Care Team ([facility] st Contact Info) Description 10/15/2024 1:00 PM EDT Office Visit [facility] [address] [place] [address] Tyler Stinosn MD [address] [place] [address] documented as of this encounter Visit Diagnoses Not on filedocumented in this encounter Additional Health Concerns Assessment Noted Time PHQ-9 Depression Total Score: 5 07/18/19 23 2:10 PM EST documented as of this encounter Care Teams Cableman Relationship Specialty Start Date End Date Kayla Friend MD [address] [place] [phone] PCP - General Family Medicine 04/30/20 Abhishek Pino MD Surgeon Vascular Surgery 05/30/24 [facility] 09/26/24 documented as of this encounter
--- OUTSIDE RECORDS SUMMARY | 2024-10-08 10:41 | XMS_ITS | Encounter Summary ---
Author Organization [employer] Address [address] [place] [address] 7 [place] [address] Care Team Providers Care Quality Assurance Nurse Name Role Phone Kayla Friend MD Primary Care Provider [phone] Reason for Visit * Reason Onset Date Comments Appointment Request 10/04/2024 Encounter Details Date Type Department Care Team ([facility] Contact Info) Description 10/04/2024 Telephone [facility] CHC MED & PEDS [address] [place] [address] Tyler Stinson MD [address] [place] [address] Appointment Request Social History Tobacco Use Types Packs/Day [...] encounter Miscellaneous Notes * Telephone Encounter - Emmanuelle Lorenzo RN - 10/04/2024 2:15 PM EDT TC to pt with application support manager services. Pt ER follow up was changed to HDF and new appointment scheduled for 10/15/24. Pt verbalized understanding and agreement with plan. Pt stated unsure if insurance needs paperwork filled out by PCP for medical necessity of Singulair medication. Author advised will reach out to pt pharmacy to request if a PA is needed. Pt verbalized understanding and agreement with author. TC to pt pharmacy. Pharmacy stated pt does not need prior auth and medication can be filled with script sent 09/10/24. Pharmacy stated once medication is ready for pick up truck driver will notify pt. documented in this encounter Plan of Treatment Upcoming Encounters Date Type Department Care Team (Late st Contact Info) Description 10/15/2024 1:00 PM EDT Office Visit [facility] CHC MED & PEDS [address] [place], [place] [phone] Tyler Stinson MD [address] [place] [address] documented as of this encounter Visit Diagnoses Not on filedocumented in this encounter Additional Health Concerns Assessment Noted Time PHQ-9 Depression Total Score: 2 05/30/20 24 9:43 AM EST documented as of this encounter Care Teams Quality Assurance Nurse Relationship Specialty Start Date End Date Kayla Friend MD [address] [place] [address] PCP - General Family Medicine 04/30/20 Abhishek Pino MD Surgeon Vascular Surgery 05/30/24 [facility] 09/26/24 documented as of this encounter
== END 2024-10-08 10:07 | disposition home or self-care (01) ==
LOC: HO.HVS 09:31
PROVIDERS: PCP Family Medicine; Visit Provider Surgery Vascular Surgery
DX: I73.9 Peripheral vascular disease, unspecified (principal)
CPT/HCPCS: 99024

== ENCOUNTER → 2024-10-08 09:31 | Outpatient (BNVA) | payer OTHER, SELFPAY | PROVIDERS: PCP Family Medicine; Visit Provider Surgery Vascular Surgery | DX: I73.9 Peripheral vascular disease, unspecified (principal) | CPT/HCPCS: 99212 ==

== ENCOUNTER 2024-10-15 13:40 | Outpatient (REF) | payer OTHER, SELFPAY ==
[2024-10-15 14:56] LABS: Anion Gap 11 (12-20); Blood Urea Nitrogen 22 mg/dL (9-16); Carbon Dioxide 29 mmol/L (22-29); Chloride 103 mmol/L (96-108); Estimated Glomerular Filt Rate > 60; Glucose Random 98 mg/dL (60-115); Potassium 3.5 mmol/L (3.3-5.1); Sodium 139 mmol/L (135-145)
--- OUTSIDE RECORDS SUMMARY | 2024-10-15 16:13 | XMS_ITS | Clinical Summary ---
Author Organization [employer] Address [address] [facility] 7t [place] [address] Care Team Providers Care Anodic Operator Name Role Phone Kayla Friend MD Primary Care Provider [phone] Allergies No known active allergies Medications acetaminophen [...] by mouth Once per day. 025 Active Umeclidinium-Vi lanterol (Anoro Ellipta) 62.5-25 MCG/ACT aerosol powderIndicatio ns:Chronic obstructive pulmonary disease, unspecified COPD type (CMS/HCC) Inhale 62.5 mcg Once per day. 60 each 025 Active fluticasone furoate (Arnuity Ellipta) 100 MCG/ACT inhaler Inhale 1 puff Once per day. Rinse mouth with water after use to reduce aftertaste and incidence of candidiasis. Do not swallow. 1 each 024 2024 Discontinued(M ed list cleanup (will not trigger notification to Pharmacy)) Active Problems Problem Noted Date Diagnosed Date Dry eyes, bilateral 03/08/2024 Assessment & Plan (03/08/2024 4:53 PM EDT): Prescribing Pataday for Sx. Advised to follow up with Examiner Rating Clerk for further treatment. Relevant Medications Olopatadine (Pataday) [...] relevant orders, pt will be referred to production inspector. Pt was advised to diminish smoking. F/u [...] (12/23/2022): Left SFA on 12/07/[address] pino On ASA and plavix for 6 mo [...] Encounters Date Type Department Care Team Description 10/15/2024 1:00 PM EDT Office Visit [facility] MED & PEDS [address] [place] [address] Tyler Stinson MD Peripheral vascular disease ([facility]/HCC) (Primary Dx); Essential hypertension; Acute kidney injury ([facility]); Chronic obstructive pulmonary disease, unspecified COPD type ([facility]/HCC) 10/15/2024 Travel 10/11/2024 Telephone [facility] MED & PEDS [address] [place] [address] Kayla Friend MD 10/04/2024 Telephone [facility] MED & PEDS [address] [place] [address] Tyler Stinson MD Appointment Request 10/02/2024 Telephone [facility] MED & PEDS [address] [place] [address] Kayla Friend MD ER Follow-up 09/26/2024 Telephone [facility] CHC MED & PEDS [address] [place] [address] Kayla Friend MD 09/26/2024 Orders Only GENERIC EXTERNAL DATA DEPARTMENT Provider, Generic External Data 09/26/2024 Telephone [facility] MEDICINE [address] [place] [place] [address] Kayla Friend MD Call Back Request 09/26/2024 Telephone [facility] CHC MED & PEDS [address] [place] [address] Kayla Friend MD 09/10/2024 Refill [facility] MED & PEDS [address] [place] [address] Kayla Friend MD 08/26/2024 Orders Only [facility] External Provider, [facility] 08/05/2024 Refill [facility] CHC MED & PEDS [address] [place] [address] Kayla Friend MD Essential hypertension 07/24/2024 Orders [...] Sign Reading Time Taken Comments Blood Pressure 158/78 10/15/2024 1:20 PM EDT Pulse 82 10/15/2024 1:20 PM EDT Temperature 36.6 ??C (97.9 ??F) 10/15/2024 1:20 PM ED T Respiratory Rate 20 10/15/2024 1:20 PM EDT Oxygen Saturation 94% 10/15/2024 1:20 PM EDT Inhaled Oxygen Concentration - - Weight 56.7 kg (125 lb) 10/15/2024 1:20 PM EDT Height 154.9 cm (5' 1 ) 10/15/2024 1:20 PM EDT Body Mass Index 23.62 10/15/2024 1:20 PM EDT Plan of Treatment Health Maintenance [...] Depression Screening 05/30/2025 05/30/2024, 05/30/20 Tobacco Screening 10/15/2025 10/15/2024 Lipid Panel 02/21/2029 02/22/2024, 06/27, 09/15/2020, Additional [...] Procedure Name Priority Date/Time Associated Diagnosis Comments BASIC METABOLIC PANEL Routine 10/15/2024 1:41 PM EDT Peripheral vascular disease (CMS/HCC) Essential hypertension Acute kidney injury (CMS/HCC) URINALYSIS WITH REFLEX MICROSCOPIC Routine 09/26/2024 1:35 [...] Recently Relevant to Health Maintenance Results * (ABNORMAL) Basic Metabolic Panel (10/15/2024 1:41 PM EDT) Sodium 139 135 - 145 mmol/L [facility] Potassium 3.5 3.3 - 5.1 mmol/L [facility] Chloride 103 96 - 108 mmol/L [facility] Carbon Dioxide 29 22 - 29 mmol/L [facility] Anion Gap 11(L) 12 - 20 [facility] Urea Nitrogen (BUN) 22(H) 9 - 16 mg/dL [facility] Creatinine, Serum 1.01 0.5 - 1.4 mg/dL [facility] Estimated Glomerular Filt Rate >60 [facility] Comment:Chronic Kidney Disea se: Estimated GFR < 60 mL/min/[id number] Kidney Disease: Estimated GFR < 15 mL/min/1.73m2 Glucose 98 60 - 115 mg/dL [facility] Calcium 9.0 8.4 - 10.2 mg/dL [facility] Blood Venous blood specimen / Unknown 10/15/2024 1:41 PM EDT 10/15/2024 2:04 PM EDT Tyler Stinson MD LAB BLOOD ORDERABLES Final Result [facility] [address] [place], [place] [phone] * Urinalysis w/reflex microscopic (09/26/2024 1:35 PM EDT) Color Urine Yellow [facility] Appearance Urine Clear [facility] PH 5.5 5.0 - 9.0 [facility] Glucose Urine UA Negative Negative mg/dL [facility] Urine Blood Negative Negative [facility] Specific [place] - Urine 1.010 1.005 - 1.025 [facility] Urine Protein Negative Neg-Trace mg/dL [facility] Urine Ketones Negative Negative mg/dL [facility] Nitrite Urine Negative Negative [facility] Leukocyte Esterase Urine Negative Negative [facility] 09/26/2024 1:35 PM EDT 09/26/2024 1:41 PM EDT Narrative [facility] - 09/26/2024 1:46 PM EDT Urine, Clean Catch us Generic External Data Provider LAB URINE ORDERAB LES Final Result Performing Organization Address [facility] Co de Phone Number [facility] [address] [place] [address] [phone] * Lactic Acid (09/26/2024 1:08 PM EDT) Lactic Acid 1.5 0.5 - 2.0 mmol/L [facility] 09/26/2024 1:08 PM EDT 09/26/2024 1:09 PM EDT Generic External Data Provider LAB BLOOD ORDERAB LES Final Result Performing Organization Address [facility] Co de Phone Number [facility] [address] [place] [address] [phone] * XR Chest 1 View (09/26/2024 12:25 PM EDT) Anatomical Region Laterality Modality Chest Radiographic Yoana ging 09/26/2024 12:2 5 PM EDT Narrative 09/26/2024 12:58 PM EDT ? [facility] ?[address] ?[place] [address] ?XRay Report ? Signed ? Patient: Yosef Soria ?MR#: M ?? [id number] ? : 1955 ?Acct:[id number] ? Age/Sex: 69 / M ?ADM Date: 09/26/24 ? Loc: HO.ED ? Attending Dr: ? Ordering Physician: Bertha Terry DO ?? Date of Service: 09/26/24 ?? Procedure(s): XR chest 1V ?? Accession Number(s): [id number] ? cc: Bertha Terry DO; Kayla Friend [...] signed by Alhaji Gandhi MD in OV> ?09/26/245 ? DD/ 1225 ? TD/TT: 09/26/24 1231 ? Decommissioning Well Site Manager: ? Procedure Note DonEdi florez - 09/26/[address] [address] XRay Report Signed Patient: Yosef SoriaMR#: M [id number] : 1955cct:[id number] Age/Sex: 69 / MADM Date: 09/26/24 Loc: .ED Attending Dr: Ordering Physician: Bertha Terry DO Date of Service: 09/26/24 Procedure(s): XR chest 1V Accession Number(s): [id number] cc: Bertha Terry DO; Kayla Friend MD [...] 09/26/24 1255 DD/ 1225 TD/TT: 09/26/24 1231 Decommissioning Well Site Manager: [facility] External Provider IMG XR PROCEDURES Edited Result - Final * Type and screen (09/26/2024 12:23 PM EDT) [facility] Blood Type ON [facility] Antibody Screen NEGATIVE [facility] 09/26/2024 12:2 3 PM EDT 09/26/2024 12:41 PM EDT Generic External Data Provider LAB BLOOD BANK TE ST ORDERABLES Final Result Performing Organization Address [facility] Co de Phone Number [facility] [address] [place] [phone] * High Sensitivity Troponin I (09/26/2024 12:22 PM EDT) [facility] TROPONIN I HIGH SENSITIVITY 2.8 <3.5 - 35.0 ng/L [facility] Comment:The Daley high sens itivity Troponin-I results should beused in conjunction with other diagnostic information suchas ECG, clinical observations and information, and patientsymptoms to aid in the diagnosis of SC. 09/26/2024 12:2 2 PM EDT 09/26/2024 12:39 PM EDT Generic External Data Provider LAB BLOOD ORDERAB LES Final Result Performing Organization Address [facility] Co de Phone Number [facility] [address] [place] [phone] * (ABNORMAL) CBC auto differential (09/26/2024 12:22 PM EDT) Only the most recent of2 resultswithin the time period is included. [facility] White Blood Count 10.6 4.8 - 10.8 X10*3/uL [facility] Red Blood Count 3.89(L) 4.60 - 5.80 X10*6/uL [facility] Hemoglobin 12.3(L) 14.0 - 18.0 g/dl [facility] Hematocrit 34.9(L) 42.0 - 52.0 % [facility] Mean Corpuscular Volume 89.7 80.0 - 98.0 fL [facility] Mean Corpuscular Hemoglobin 31.6 27.0 - 33.0 pg [facility] Mean Corpuscular HGB Conc 35.2 31.0 - 36.0 g/dl [facility] Red Cell Distribution Width 13.4 11.0 - 16.0 % [facility] Platelet Count 267 160 - 400 X10*3/uL [facility] Mean Platelet Volume 9.0(L) 9.4 - 12.4 fL [facility] Neutrophils Percent Auto 72.3 45 - 73 % [facility] Imm Gran Pct Auto 0.5(H) 0.0 - 0.4 % [facility] Lymphocytes Percent Auto 15.4(L) 20 - 40 % [facility] Monocytes Percent Auto 9.4 2 - 11 % [facility] Eosinophils Percent Auto 2.0 0 - 4 % [facility] Basophils Percent Auto 0.4 0 - 2 % [facility] NRBC Pct Auto 0.0 0.0 - 0.2 /100WBC [facility] Neutrophils Absolute Auto 7.7 2.0 - 8.3 x10*3/uL [facility] Imm Gran Abs Auto 0.05(H) 0.00 - 0.03 X10*3/uL [facility] Lymphocytes Absolute Auto 1.6 1.2 - 4.9 X10*3/uL [facility] Monocytes Absolute Auto 1.0 0.1 - 1.2 X10*3/uL [facility] Eosinophils Absolute Auto 0.2 0.0 - 0.4 X10*3/uL [facility] Basophils Absolute Auto 0.0 0.0 - 0.2 X10*3/uL [facility] NRBC Abs Auto 0.000 0.0 - 0.012 X10*3/uL [facility] 09/26/2024 12:2 2 PM EDT 09/26/2024 12:39 PM EDT Generic External Data Provider LAB BLOOD ORDERAB LES Final Result Performing Organization Address [facility]/ZIP Co de Phone Number [facility] [address] [place] [phone] * (ABNORMAL) Prothrombin Time-INR (09/26/2024 12:22 PM EDT) Prothrombin Time 12.6(H) 10.9 - 12.4 SEC [facility] INTERNATIONAL NORM RATIO 1.1 0.9 - 1.1 [facility] Comment:INTERNATIONAL NORMAL IZED RATIO (INR) [...] ORDERAB LES Final Result Performing Organization Address [facility] Co de Phone Number [facility] [address] [place] [phone] * (ABNORMAL) Comprehensive Metabolic Panel (09/26/2024 12:22 PM EDT) Pathologist [facility] Sodium 135 135 - 145 mmol/L [facility] Potassium 3.5 3.3 - 5.1 mmol/L [facility] Chloride 96 96 - 108 mmol/L [facility] Carbon Dioxide 26 22 - 29 mmol/L [facility] Anion Gap 17 12 - 20 [facility] Urea Nitrogen (BUN) 35(H) 9 - 16 mg/dL [facility] Creatinine, Serum 1.99(H) 0.5 - 1.4 mg/dL [facility] Creatinine Clr Calc Pharmacy 25.5 [facility] Comment:eGFR (calculated fro m the MDRD study equation) and eCrCl(calculated from the Cockcroft-Gault equation) are based ondifferent parameters and may not yield comparable results.If eCrCl result is absurd, please check patient'sheight/weight. Estimated Glomerular Filt Rate 33 [facility] Comment:Chronic Kidney Disea se: Estimated GFR < 60 mL/min/[id number] Kidney Disease: Estimated GFR < 15 mL/min/1.73m2 Glucose 108 60 - 115 mg/dL [facility] Calcium 9.2 8.4 - 10.2 mg/dL [facility] Bilirubin, Total 0.5 0.0 - 1.0 mg/dL [facility] Aspartate Amino Transferase 18 5 - 37 U/L [facility] Alanine Aminotransferase 11 0 - 40 U/L [facility] Total Protein 7.2 6.5 - 8.0 g/dL [facility] Albumin Level 3.9 3.5 - 5.0 g/dL [facility] Alkaline Phosphatase 84 39 - 117 U/L [facility] 09/26/2024 12:2 2 PM EDT 09/26/2024 12:39 PM EDT us Generic External Data Provider LAB BLOOD ORDERAB LES Final Result Performing Organization Address City/State/[facility] Co de Phone Number [facility] [address] [place] [phone] * Stress test with myocardial perfusion (08/26/2024 9:15 AM EST) 08/26/2024 9:15 AM EST Narrative [facility] - 08/29/2024 6:05 PM EST ? [facility] ?[address] ?[place] [address] ?Nuclear Medicine Report ? Signed ? Patient: Pritcharddavid Darden,Yosef ?MR#: M ?? [id number] ? : 1955 ?Acct:[id number] ? Age/Sex: 69 / M ?ADM Date: 03/03/25 ? Loc: HO.CARD ? Attending Dr: Filipe Mercer NURSING FACULTY ? Ordering Physician: Filipe Mercer NP ?? Date of Service: 08/26/24 ?? Procedure(s): [place] cardiolite stress test ?? Accession Number(s): [id number] ? cc: Filipe Mercer NP; Kayla Friend [...] DD/ 0915 ? TD/TT: 08/29/24 1430 ? Decommissioning Well Site Manager: ? Procedure Note [place], Image - 08/29/2024 [place] [address] Nuclear Medicine Report Signed Patient: Yosef Soria#: M [id number] : 1955cct:[id number] Age/Sex: 69 / MADM Date: 08/26/24 Loc: AWAIS Attending Dr: Filipe Mercer NP Ordering Physician: Filipe Mercer NP Date of Service: 08/26/24 Procedure(s): [place] cardiolite stress test Accession Number(s): [id number] cc: Filipe Mercer NP; Kayla Friend MD [...] 08/29/24 1802 DD/ 0915 TD/TT: 08/29/24 1430 Decommissioning Well Site Manager: [facility] External Provider CV STRE SS PROCEDURES Final Result [facility] [address] [place] [phone] * Creatinine, Serum (07/24/2024 6:26 AM EST) Creatinine, Serum 1.13 0.5 - 1.4 mg/dL [facility] Creatinine Clr Calc Pharmacy 44.9 [facility] Comment:eGFR (calculated fro m the MDRD study equation) and eCrCl(calculated from the Cockcroft-Gault equation) are based ondifferent parameters and may not yield comparable results.If eCrCl result is absurd, please check patient'sheight/weight. Estimated Glomerular Filt Rate >60 [facility] Comment:Chronic Kidney Disea se: Estimated GFR < 60 mL/min/[id number] Kidney Disease: Estimated GFR < 15 mL/min/1.73m2 07/24/2024 6:26 AM EST 07/24/2024 6:46 AM EST us Generic External Data Provider LAB BLOOD ORDERAB LES Final Result Performing Organization Address [facility] Co de Phone Number [facility] [address] [place] [phone] * BUN (Blood Urea Nitrogen) (07/24/2024 6:26 AM EST) Urea Nitrogen (BUN) 16 9 - 16 mg/dL [facility] 07/24/2024 6:26 AM EST 07/24/2024 6:46 AM EST [employer] External Data Provider LAB BLOOD ORDERAB LES Final Result Performing Organization Address [facility] Phone Number [facility] [address] [place] [phone] * Hepatitis C Antibody with Reflex to HCV, RNA, Quantitative, Real-Time PCR (02/22/2024 9:11 AM EDT) Hepatitis C Antibody Nonreactive Nonreactive [facility] Comment:Antibodies to HCV no t detected; does not exclude early acuteHCV infection. Blood Venous blood specimen / Unknown 02/22/2024 9:11 AM EDT 02/22/2024 11:11 AM EDT us Kayla Friend MD LAB BLOOD ORDERABLES Final Re sult Performing Organization Address [facility] Co de Phone Number [facility] [address] [place] [phone] * (ABNORMAL) Lipid Panel, Standard (02/22/2024 9:11 AM EDT) Triglycerides 222(H) <150 mg/dL [facility] Comment:Desirable Triglyceri de: less than 150 mg/dLBorderline High Triglyceride 150-199 mg/dLHigh Triglyceride: 200-499 mg/dLVery High Triglyceride: greater than or equal to 5OO mg/dL Cholesterol 232(H) <200 mg/dL [facility] Comment:Desirable Cholestero l: less than 200 mg/dLBorderline High Cholesterol: 200-239 mg/dLHigh Cholesterol: greater than 239 mg/dL LDL Cholesterol Calculated 157(H) <100 mg/dL [facility] Comment:Desirable LDL: less than 100 mg/dLNear Optimal/Above Optimal LDL: 110- 129 mg/dLBorderline High LDL: 130-159 mg/dLHigh LDL: 160-189 mg/dLVery High LDL: greater than or equal to 190 mg/dL HDL Cholesterol 31(L) >40 mg/dL [facility] Comment:Desirable HDL: great er than 40 mg/dL Note: This HDL assay may give artificially low results in patients with liver disease. Blood Venous blood specimen / Unknown 02/22/2024 9:11 AM EDT 02/22/2024 11:11 AM EDT us Kayla Friend MD LAB BLOOD ORDERABLES Final Re sult [facility] [address] [place] [phone] from Last 3 Months or Most Recently Relevant to Health Maintenance Insurance - [facility] [employer] (HMO D-SNP) Care Teams Anodic Operator Relationship Specialty Start Date End Date Kayla Friend MD [address] [place] [phone] PCP - General Family Medicine 04/30/20 Abhishek Pino MD Surgeon Vascular Surgery 05/30/24 [facility] 09/26/24
--- OUTSIDE RECORDS SUMMARY | 2024-10-15 16:13 | XMS_ITS | Encounter Summary ---
Author Organization [employer] Address [address] [facility] 7t [place] [address] Care Team Providers Care Manager Rn Case Name Role Phone Kayla Friend MD Primary Care Provider [phone] Encounter Details Date Type Department Care Team ([facility] st Contact Info) Description 09/26/2024 Telephone [facility] MED & PEDS [address] [place] [address] Kayla Friend MD [address] [place] [address] Social History Tobacco Use Types Packs/Day Years [...] documented as of this encounter Care Teams Manager Rn Case Relationship Specialty Start Date End Date Kayla Friend MD [address] [place] [phone] PCP - General Family Medicine 04/30/20 Abhishek Pino MD Surgeon Vascular Surgery 05/30/24 [facility] 09/26/24 documented as of this encounter
--- OUTSIDE RECORDS SUMMARY | 2024-10-15 16:13 | XMS_ITS | Clinical Summary ---
Author Organization [facility] Address [address] [place] [address] Care Team Providers Care Foster Care Social Worker Name Role Phone Unavailable Primary Care Provider [...]
--- OUTSIDE RECORDS SUMMARY | 2024-10-15 16:13 | XMS_ITS | Encounter Summary ---
Author Organization [employer] Address [address] [place] [address] 7t [place] [address] Care Team Providers Care Yeast Culture Operator Name Role Phone Kayla Friend MD Primary Care Provider [phone] Encounter Details Date Type Department Care Team ([facility] st Contact Info) Description 02/10/2023 Telephone [facility] MED & PEDS [address] [place] [address] Kayla Friend MD [address] [place] [address] Social History Tobacco Use Types Packs/Day Years [...] 3:17 PM EDT Tc from katelyn with [facility] pulmonology requesting last three OV notes and any breathing test to be faxed to [phone] Any questions, please contact katelyn at [phone] documented in this encounter Plan of Treatment Not on file documented as of this encounter Visit Diagnoses Not on filedocumented in this encounter Additional Health Concerns Assessment Noted Time PHQ-9 Depression Total Score: 5 07/18/19 23 2:10 PM EST documented as of this encounter Care Teams Yeast Culture Operator Relationship Specialty Start Date End Date Kayla Friend MD [address] [place] [address] PCP - General Family Medicine 04/30/20 Abhishek Pino MD Surgeon Vascular Surgery 05/30/24 [facility] 09/26/24 documented as of this encounter
--- OUTSIDE RECORDS SUMMARY | 2024-10-15 16:13 | XMS_ITS | Encounter Summary ---
Author Organization [employer] Address [address] [place] [address] 7 [place] [address] Care Team Providers Care Claim Processor Name Role Phone Kayla Friend MD Primary Care Provider [phone] Reason for Visit * Reason Comments Hospital discharge follow-up Encounter Details Date Type Department Care Team ([facility] Contact Info) Description 10/15/2024 1:00 PM EDT Office Visit [facility] MED & PEDS [address] [place] [address] Tyler Stinson MD [address] [place] [address] Peripheral vascular disease (CMS/HCC) (Primary Dx); Essential hypertension; Acute kidney injury (CMS/HCC); Chronic obstructive pulmonary disease, unspecified COPD type (CMS/HCC) Social History Tobacco Use Types Packs/Day Years [...] the past 12 months, 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 male who presents for Hospital discharge follow-up. HPI To recent hospitalization, 1) hospitalization at [facility] from September 23, 2024 to September 25, 2024 for left femoral wall-femoral bypass. Patient thinks was well-controlled.. Discharged with VNA and oxycodone/acetaminophen for pain control. 2) hospitalization again at [facility] from September 26, 2024 to September 27, 2024 for low blood pressure, lightheadedness, dizziness. Patient was found tachycardic with a pulse of 107 bpm and hypotension at 86/59 mmHg. Also found to have an acute kidney injury with a serum creatinine of 1.99 mg/dL. Started on isotonic fluid IV with improvement of the blood pressure and the sick serum creatinine to 1.25 mg. Deciliter. Both amlodipine and valsartan/hydrochlorothiazide were held. Patient was discharged with VNAand advised to hold amlodipine and valsartan/hydrochlorothiazide until his follow-up appointment [email or web address]. Evaluation by his vascular surgeon on October 08. Patient reported then substantial improvement in his ability to walk, noting enhance ease with movement and a marked reduction in pain of the previously affected right leg. The groin incision was healing appropriately without signs of complication. The surgical luis a removed. He will be scheduled for follow-up ultrasound in 3 months to ensure appropriate function of the bypass graft. Stiolto is not covered by patient's insurance. She was doing well with that medication. We will prescribe an equivalent. Patient Active Problem List Diagnosis Essential hypertension History of alcohol abuse Hypercholesterolemia Cigarette smoker Peripheral vascular disease (CMS/HCC) Primary insomnia Tinea pedis of right foot Cramps of left lower extremity Dyspnea Dyslipidemia Acid reflux Blurry vision, bilateral Arthritis of knee Chronic obstructive pulmonary disease with acute exacerbation (CMS/HCC) Dry eyes, bilateral No Known Allergies Current Outpatient Medications on File Prior to Visit Medication Sig Dispense Refill acetaminophen (Tylenol 8 Hour) 650 MG ER tablet Take 1 tablet by mouth every 8 (eight) hours. albuterol (2.5 MG/3ML) 0.083% nebulizer solution TAKE 3ML BY NEBULIZATION EVERY 4 HOURS NEEDED FOR WHEEZING 180 mL 1 albuterol 108 (90 Base) MCG/ACT inhaler INHALE 2 PUFFS BY MOUTH EVERY 4 TO 6 HOURS NEEDED 8.5 g 11 amLODIPine (Norvasc) 10 MG tablet TAKE 1 TABLET BY MOUTH EVERY DAY (Patient not taking: Reported on10/08/2024) 180 tablet 1 aspirin 81 MG chewable tablet Chew 1 tablet (81 mg) in the morning. 90 tablet 1 atorvastatin (Lipitor) 80 MG tablet Take 1 tablet (80 mg) by mouth at bedtime. 90 tablet 1 Blood Pressure kit 1 Units Once per day. 1 kit 0 carvedilol (Coreg) 25 MG tablet Take 1 tablet (25 mg) by mouth with breakfast and with evening meal. 180 tablet 1 clopidogrel (Plavix) 75 MG tablet Take 75 mg by mouth in the morning. eszopiclone (Lunesta) 2 MG tablet Take 1 tablet (2 mg) by mouth at bedtime. Take immediately beforebedtime 28 tablet 1 ezetimibe (Zetia) 10 MG tablet Take 1 tablet by mouth Once per day. fluticasone furoate (Arnuity Ellipta) 100 MCG/ACT inhaler Inhale 1 puff Once per day. Rinse mouth with water after use to reduce aftertaste and incidence of candidiasis. Do not swallow. 1 each 11 loratadine (Claritin) 10 MG tablet TAKE 1 TABLET BY MOUTH EVERY MORNING 180 tablet 1 magnesium 200 MG tablet Take 2 tablets (400 mg) by mouth in the morning. 180 tablet 1 montelukast (Singulair) 10 MG tablet TAKE 1 TABLET(10 MG) BY MOUTH AT BEDTIME 90 tablet 1 Multiple Vitamins-Minerals (PreserVision AREDS 2) capsule Take 1 capsule by mouth 2 times daily. 60capsule 11 nicotine (Nicoderm, Step 1) 21 MG/24HR patch APPLY ONE PATCH EVERY DAY nicotine polacrilex (Nicorette) 2 MG gum CHEW 1 PIECE OF GUM EVERY 2 HOURS NEEDED FOR SMOKING CESSATION olopatadine (Pataday) 0.2 % ophthalmic solution Administer 1 drop into affected eye(s) Once per day. 2.5 mL 2 omeprazole (PriLOSEC) [address] capsule Take 1 capsule (20 mg) by mouth before breakfast. Do not crush or chew. 180 capsule 1 Stiolto Respimat 2.5-2.5 MCG/ACT aerosol solution inhaler Inhale 2 Inhalation. Once per day. 4 g 11 valsartan-hydroCHLOROthiazide (Diovan-HCT) 320-25 MG tablet Take 1 tablet by mouth in the morning. (Patient not taking: Reported on 10/08/2024) 90 tablet 1 varenicline (Chantix) 1 MG tablet Take 1 mg by mouth 2 times daily. No current facility-administered medications on file prior to visit. Review of Systems Constitutional: Negative for appetite change, chills and diaphoresis. Respiratory: Negative for cough, choking and shortness of breath. Cardiovascular: Negative for leg swelling. Gastrointestinal: Negative for anal bleeding and blood in stool. Musculoskeletal: Negative for gait problem and joint swelling. OBJECTIVE BP (!) 158/78 (BP Location: Left arm, Patient Position: Sitting, BP Cuff Size: Adult) Pulse 82 Temp 97.9 ??F (36.6 ??C) (Oral) Resp 20 Ht 5' 1 (1.549 m) Wt 125 lb (56.7 kg) SpO2 94% BMI 23.62 kg/m?? There were no vitals filed for this visit. Physical Exam Constitutional: General: He is not in acute distress. Appearance: Normal appearance. He is not ill-appearing, toxic-appearing or diaphoretic. Cardiovascular: Rate and Rhythm: Normal rate. Pulmonary: Effort: Pulmonary effort is normal. Skin: Comments: Healing scars of the groins bilaterally. No redness/swelling or tenderness to palpation. Neurological: Mental Status: He is alert. Assessment/Plan Assessment/Plan Diagnoses and all orders for this visit: Peripheral vascular disease (CMS/HCC) Comments: Follows up with vascular surgery No acute intervention from our side. Orders: - Basic Metabolic Panel; Future Essential hypertension Comments: Elevated BP To resume BP meds after the blood test. Patient will be called with results. Orders: - Basic Metabolic Panel; Future Acute kidney injury (CMS/HCC) Comments: Repeat BMP Patient will be contacted with results. Appropriate hydration recommended in the meantime. Orders: - Basic Metabolic Panel; Future Chronic obstructive pulmonary disease, unspecified COPD type (CMS/HCC) Comments: Stioto is not covered by pt's insurance Anoro Ellipta presribed. Orders: - Umeclidinium-Vilanterol (Anoro Ellipta) 62.5-25 MCG/ACT aerosol powder ; Inhale 62.5 mcg Once perday. documented in this encounter Plan of Treatment Not on file documented as of this encounter Procedures Procedure Name Priority Date/Time Associated Diagnosis Comments BASIC METABOLIC PANEL Routine 10/15/2024 1:41 PM EDT Peripheral vascular disease (CMS/HCC) Essential hypertension Acute kidney injury (CMS/HCC) documented in this encounter Results * (ABNORMAL) Basic Metabolic Panel (10/15/2024 1:41 PM EDT) Sodium 139 135 - 145 mmol/L [facility] Potassium 3.5 3.3 - 5.1 mmol/L [facility] Chloride 103 96 - 108 mmol/L [facility] Carbon Dioxide 29 22 - 29 mmol/L [facility] Anion Gap 11(L) 12 - 20 [facility] Urea Nitrogen (BUN) 22(H) 9 - 16 mg/dL [facility] Creatinine, Serum 1.01 0.5 - 1.4 mg/dL [facility] Estimated Glomerular Filt Rate >60 [facility] Comment:Chronic Kidney Disea se: Estimated GFR < 60 mL/min/1.75n1Cimjea Kidney Disease: Estimated GFR < 15 mL/min/1.73m2 Glucose 98 60 - 115 mg/dL [facility] Calcium 9.0 8.4 - 10.2 mg/dL [facility] Blood Venous blood specimen / Unknown 10/15/2024 1:41 PM EDT 10/15/2024 2:04 PM EDT us Tyler Stinson MD LAB BLOOD ORDERABLES Final Result [facility] [address] [place] [phone] documented in this encounter Visit Diagnoses Diagnosis Peripheral vascular disease (CMS/HCC)- Primary Unspecified peripheral vascular disease Essential hypertension Unspecified essential hypertension Acute kidney injury (CMS/HCC) Chronic obstructive pulmonary disease, unspecified COPD type (CMS/HCC) documented in this encounter Additional Health Concerns Assessment Noted Time PHQ-9 Depression Total Score: 2 05/30/20 24 9:43 AM EST documented as of this encounter Care Teams Claim Processor Relationship Specialty Start Date End Date Kayla Friend MD [address] [place] [address] PCP - General Family Medicine 04/30/20 Abhishek Pino MD Surgeon Vascular Surgery 05/30/24 [facility] 09/26/24 documented as of this encounter
--- OUTSIDE RECORDS SUMMARY | 2024-10-15 16:13 | XMS_ITS | Encounter Summary ---
Author Organization [employer] Address [address] [place] [address] [address] [place] [address] Care Team Providers Care Director Of Science Name Role Phone Kayla Friend MD Primary Care Provider [phone] Encounter Details Date Type Department Care Team ([facility] st Contact Info) Description 08/12/2022 Telephone [facility] MED & PEDS [address] [place] [address] Kayla Friend MD [address] [place] [address] Social History Tobacco Use Types Packs/Day Years [...] as of this encounter Care Teams Director Of Science Relationship Specialty Start Date End Date Kayla Friend MD [address] [place] [address] PCP - General Family Medicine 04/30/20 Abhishek Pino MD Surgeon Vascular Surgery 05/30/24 [facility] 09/26/24 documented as of this encounter
--- OUTSIDE RECORDS SUMMARY | 2024-10-15 16:13 | XMS_ITS | Encounter Summary ---
Author Organization [employer] Address [address] [facility] 7t [place] [address] Care Team Providers Care Tabber Name Role Phone Kayla Friend MD Primary Care Provider [phone] Encounter Details Date Type Department Care Team (Latest Contact Info) Description 10/15/2024 Travel Social History Tobacco Use Types Packs/Day Years [...] documented as of this encounter Care Teams Tabber Relationship Specialty Start Date End Date Kayla Friend MD [address] [place] [address] PCP - General Family Medicine 04/30/20 Abhishek Pino MD Surgeon Vascular Surgery 05/30/24 [facility] 09/26/24 documented as of this encounter
--- OUTSIDE RECORDS SUMMARY | 2024-10-15 16:13 | XMS_ITS | Encounter Summary ---
Author Organization [employer] Address [address] [facility] 7t [place] [address] Care Team Providers Care Chargeback Specialist Name Role Phone Kayla Friend MD Primary Care Provider [phone] Encounter Details Date Type Department Care Team ([facility] Contact Info) Description 10/11/2024 Telephone [facility] CHC MED & PEDS [address] [place] [address] Kayla Friend MD [address] [place] [address] Social History Tobacco Use Types Packs/Day Years [...] encounter Miscellaneous Notes * Telephone Encounter - Wing Akin RN - 10/11/2024 3:22 PM EDT Heads up to provider seeing pt. Donald, visiting nurse reported pt's blood pressure in trending upward over the past few weeks. Was in the 120/80 range and this morning was 150/80. No symptoms of chestpain, shortness of breath or dizziness. Pt was off his BP medication pf amplodine and valsartan/hydr ochlorothiazide until seeing PCP. You see the pt on 10/15. Advised Donald of symptoms to look for in pt for out of control BP, also to advise pt to bring in BP log to appt. Messaged provider seeing pt to let him know of this information. Donald verbalized understanding and agreement with plan. * Telephone Encounter - Jen Soliz - 10/11/2024 9:49 AM EDT Tc from Donald visiting nurse with [facility] regarding pt blood pressure. Visiting nurse stated blood pressure medication was put on hold due to pt having surgery. Donald requesting a call back at [phone] documented in this encounter Plan of Treatment Not on file documented as of this encounter Visit Diagnoses Not on filedocumented in this encounter Additional Health Concerns Assessment Noted Time PHQ-9 Depression Total Score: 2 05/30/20 24 9:43 AM EST documented as of this encounter Care Teams Chargeback Specialist Relationship Specialty Start Date End Date Kayla Friend MD [address] [place] [address] PCP - General Family Medicine 04/30/20 Abhishek Pino MD Surgeon Vascular Surgery 05/30/24 [facility] 09/26/24 documented as of this encounter
== END 2024-10-15 13:41 | disposition home or self-care (01) ==
LOC: HO.CHCLDS 13:40
PROVIDERS: Visit Provider Internal Medicine
DX: N17.9 Acute kidney failure, unspecified (principal); I10 Essential (primary) hypertension; I73.9 Peripheral vascular disease, unspecified
CPT/HCPCS: 36415; 80048

== ENCOUNTER 2024-11-12 13:54 | Outpatient (AMB) | payer OTHER, SELFPAY ==
[2024-11-12 13:58] VITALS: BP 122/80; PULSE 78; BMI 23.5
--- NOTE | 2024-11-12 13:58 | A.OFFVIS_ITS ---
Vital Signs 11/12/24 13:58 Height 5 ft 1 in Weight 124 lb 5.451 oz BMI 23.5 BP 122/80 Blood Pressure Location Lt brachial Position Sitting Pulse 78 Pulse Source Pulse Oximeter Intake Visit Reasons: 3M FOLLOW UP/MIBI/ECHO Underwriting Operations Manager Required: No Restorer [employer]: [employer] Present Allergies No Known Allergies Allergy (Verified 11/12/24 14:02) Medication List - Last Reconciled 11/12/24 by Filipe Mercer NP albuterol sulfate 90 mcg/actuation 2 puffs inhalation Q4H PRN amlodipine 10 mg PO DAILY atorvastatin 80 mg PO DAILY clopidogrel 75 mg PO DAILY ezetimibe 10 mg PO DAILY fluticasone furoate 100 mcg/actuation (Arnuity Ellipta) 1 inh inhalation DAILY montelukast 10 mg PO DAILY omeprazole 40 mg PO DAILY omeprazole 20 mg PO DAILY oxycodone-acetaminophen 5-325 mg 1 tab PO TID PRN tiotropium-olodaterol 2.5-2.5 mcg/actuation (Stiolto Respimat) 1 inh inhalation DAILY umeclidinium-vilanterol 62.5-25 mcg/actuation (Anoro Ellipta) 1 ea inhalation DAILY valsartan-hydrochlorothiazide 320-25 mg 1 tab PO DAILY zolpidem 10 mg PO BEDTIME PRN HPI Comments Details: This is a 69-year-old male presenting for a follow-up visit. Patient is accompanied by his INDIAN TRADER who served as the bond underwriter throughout the visit. Patient with medical history including hypertension, dyslipidemia, per our femoral arterial disease, and is a current smoker. His vascular disease is significant as he is status post left SFA atherectomy, angioplasty with left external iliac artery plasty and stenting, and left popliteal artery plasty. Most recently, he underwent a zlntskw-xe-itshorl bypass graft performed by Dr. Hdez. Patient is reporting feeling well overall and denies any cardiac symptoms including exertional chest pain, shortness of breath, palpitations, dizziness, orthopnea, PND, leg edema, presyncope, or syncope. Patient states that he is compliant with all his prescribed medications. Unfortunately, patient continues to smoke still. [facility] Medical History Depression PAD (peripheral artery disease) Asthma Smoker Dyslipidemia Acid reflux HTN (hypertension) Surgical History S/P aortogram History of esophagogastroduodenoscopy (EGD) H/O colonoscopy H/O wrist surgery Family History Father No problems noted. Mother No problems noted. Social History Household Members: None Housing: Apartment Housing Other:: Indep Living Are you a primary residential care officer to a significant other at home: No Do you presently have visiting nurse or other home services: Yes Alcohol intake: former Patient Tobacco Use Status: Current everyday Tobacco user Tobacco use type: Cigarette Cigarettes Per Day: 5 Years Smoked: 56 e-Cigarette/Vaping Use: Currently Using Second Hand Smoke Exposure: No service: No Current occupational status: unemployed Review of Systems ENT Reports dizziness Card Denies chest pain, Denies chest pain at rest, Denies chest pain with activity, Denies rapid heart rate, Denies pedal edema, Denies edema, Denies leg edema, Denies lightheadedness, Denies palpitations, Denies dyspnea, Denies dyspnea on exertion and Denies orthopnea Resp Denies cough, Denies dyspnea and Denies dyspnea on exertion GI Denies hematochezia and Denies change in stool character Musc Denies abnormal gait, Reports limited range of motion, Reports muscle cramps, Denies muscle weakness, Denies numbness, Denies radiating pain into limb, Denies stiffness and Denies tingling Neuro Denies abnormal gait, Reports dizziness, Denies numbness and Denies tingling Endo Denies palpitations Physical Exam Vital Signs: Last Vital Signs Pulse 78 11/12/24 13:58 BP 122/80 11/12/24 13:58 BMI result Body Mass Index 23.5 Const General: cooperative, healthy appearing, comfortable and no acute distress Orientation/consciousness: patient oriented x3 HEENT Head: Yes normal to inspection Neck Neck: Yes normal visual inspection, Yes trachea midline and Yes supple Chest Chest palpation & inspection: normal inspection of the chest Resp Effort & Inspection: normal respiratory effort Auscultation: clear to auscultation bilaterally, no crackles, no rales, no rhonchi and no wheezes Cardio Jugular venous distension: no JVD Palpation: normal PMI Rate: regular rate Rhythm: regular rhythm Heart sounds: S1 normal heart sound present, S2 normal heart sound present, no click, no gallops, no murmurs and no rubs Peripheral pulses: Peripheral pulses 2+ throughout GI Inspection: Yes normal to inspection Palpation (GI): Soft to palpation Auscultation: normal bowel sounds Skin General skin exam: no rashes or lesions noted Neuro General: patient oriented x3 Extrem General: Yes normal to inspection, No no pedal edema and No calf tenderness Psych Appearance: grossly normal Mental Status: mental status grossly normal Speech and movement: Normal speech and movement present Assessment & Plan Assessment & Plan (1) Dyslipidemia: Code(s): E78.5 - Hyperlipidemia, unspecified Category: Medical Plan: Last LDL 157 (02/16). Continue high-dose statin and Zetia therapy. Patient has not gotten his lipid profile updated. Understands to get them done in the next few few days. Patient understands that he may need PCSK9 inhibitor if his LDL continues to be elevated. Goal for him less than 70. (2) PAD (peripheral artery disease): Comment: 12/07/2022-left SFA atherectomy and plasty 01/24/2024 left external iliac plasty with stent, left popliteal plasty 09/23/2024 - femoral to femoral bypass (left to right) Code(s): I73.9 - Peripheral vascular disease, unspecified Category: Medical Plan: Patient had a ofjcnnd-dd-lludkon bypass graft on 09/23/[address] Pino. Followed by him. (3) HTN (hypertension): Code(s): I10 - Essential (primary) hypertension Category: Medical Plan: Blood pressure today is well-controlled. Patient states his blood pressure is well-controlled at home as well. Continue monitoring it at home and keeping a log of it. Continue amlodipine, carvedilol, and Diovan. Blood pressure goal less than 130/84. (4) Smoker: Code(s): F17.200 - Nicotine dependence, unspecified, uncomplicated Category: Social Hx Plan: Emphasized cardiovascular risk of smoking. Patient states he has come down to 5 cigarettes a day. Discussed smoking cessation thoroughly, patient states not ready yet but we will try. Advised heart healthy diet, regular exercise, smoking cessation, and compliance with medical regimen. Follow-up in 1 year, sooner if needed. In the interim, patient will call the office with any concerns or change in symptoms. This note was generated using voice recognition software. While every effort has been made to ensure accuracy and proper line maintenance, there may be occasional errors that could affect the content or meaning of the described symptoms. Coding Level of Care Code Est Pt Level 4 (80258) Complex EM visit Add On G2211 Diagnoses Dyslipidemia E78.5 PAD (peripheral artery disease) I73.9 HTN (hypertension) I10 Smoker F17.200 Time Spent (min) 32 Comment Time spent in reviewing the chart, test results, assessment, counseling and documentation.
--- OUTSIDE RECORDS SUMMARY | 2024-11-12 15:13 | XMS_ITS | Encounter Summary ---
Author Organization [employer] Address [address] [place] [address] Care Team Providers Care Hopper Attendant Name Role Phone Kayla Friend MD Primary Care Provider [phone] Encounter Details Date Type Department Care Team ([facility] st Contact Info) Description 09/26/2024 Telephone [facility] CHC MED & PEDS [address] [place], [place] [phone] Kayla Friend MD [address] [place] [address] Social History Tobacco Use Types Packs/Day Years [...] Care Team (Late st Contact Info) Description 12/05/2024 1:45 PM EDT [facility] Visit [facility] [address] [place] [address] Kayla Friend MD [address] [place] [address] 12/19/2024 3:30 PM EDT Office Visit [facility] [address] [place] [address] Kayla Friend MD [address] [place] [address] documented as of this encounter Visit Diagnoses Not on filedocumented in this encounter Additional Health Concerns Assessment Noted Time PHQ-9 Depression Total Score: 2 05/30/20 24 9:43 AM EST documented as of this encounter Care Teams Hopper Attendant Relationship Specialty Start Date End Date Kayla Friend MD [address] [place] [address] PCP - General Family Medicine 04/30/20 Abhishek Pino MD Surgeon Vascular Surgery 05/30/24 [facility] 09/26/24 documented as of this encounter
--- OUTSIDE RECORDS SUMMARY | 2024-11-12 15:13 | XMS_ITS | Encounter Summary ---
Author Organization [employer] Address [address] [place] [address] 7t [place] [address] Care Team Providers Care Calcine Furnace Loader Name Role Phone Kayla Friend MD Primary Care Provider [phone] Encounter Details Date Type Department Care Team ([facility] st Contact Info) Description 02/10/2023 Telephone [facility] CHC MED & PEDS [address] [place], [place] [phone] Kayla Friend MD [address] [place] [address] Social History Tobacco Use Types Packs/Day Years [...] 3:17 PM EDT Tc from katelyn with [facility] pulmonology requesting last three OV notes and any breathing test to be faxed to [phone] Any questions, please contact katelyn at [phone] documented in this encounter Plan of Treatment Upcoming Encounters Date Type Department Care Team (Late st Contact Info) Description 12/05/2024 1:45 PM EDT Office Visit [facility] MED & PEDS [address] [place] [address] Kayla Friend MD [address] [place] [address] 12/19/2024 3:30 PM EDT Office Visit [facility] MED & PEDS [address] [place] [address] Kayla Friend MD [address] [place] [address] documented as of this encounter Visit Diagnoses Not on filedocumented in this encounter Additional Health Concerns Assessment Noted Time PHQ-9 Depression Total Score: 5 07/18/19 23 2:10 PM EST documented as of this encounter Care Teams Calcine Furnace Loader Relationship Specialty Start Date End Date Kayla Friend MD [address] [place] [address] PCP - General Family Medicine 04/30/20 Abhishek Pino MD Surgeon Vascular Surgery 05/30/24 [facility] 09/26/24 documented as of this encounter
--- OUTSIDE RECORDS SUMMARY | 2024-11-12 15:13 | XMS_ITS | Encounter Summary ---
Author Organization [employer] Address [address] [place] [address] 7t [place] [address] Care Team Providers Care Rocket Propellant Plant Supervisor Name Role Phone Kayla Friend MD Primary Care Provider [phone] Reason for Visit * Reason Comments Med Refill Encounter Details Date Type Department Care Team ([facility] st Contact Info) Description 10/27/2024 Refill [facility] MED & PEDS [address] [place] [address] Kayla Friend MD [address] [place] [address] Social History Tobacco Use Types Packs/Day Years [...] Description 12/05/2024 1:45 PM EDT Office Visit [facility] MED & PEDS [address] [place] [address] Kayla Friend MD [address] [place] [address] 12/19/2024 3:30 PM EDT Office Visit [facility] MED & PEDS [address] [place] [address] Kayla Friend MD [address] [place] [address] documented as of this encounter Visit Diagnoses Not on filedocumented in this encounter Additional Health Concerns Assessment Noted Time PHQ-9 Depression Total Score: 2 05/30/20 24 9:43 AM EST documented as of this encounter Care Teams Rocket Propellant Plant Supervisor Relationship Specialty Start Date End Date Kayla Friend MD [address] [place] [address] PCP - General Family Medicine 04/30/20 Abhishek Pino MD Surgeon Vascular Surgery 05/30/24 [employer] 09/26/24 documented as of this encounter
--- OUTSIDE RECORDS SUMMARY | 2024-11-12 15:13 | XMS_ITS | Clinical Summary ---
Author Organization [employer] [facility] ity Address [address] [place] [address] Care Team Providers Care Commercial Credit Head Name Role Phone Unavailable Primary Care Provider [...]
--- OUTSIDE RECORDS SUMMARY | 2024-11-12 15:13 | XMS_ITS | Encounter Summary ---
Author Organization [employer] Address [address] [place] [address] 7t [place] [address] Care Team Providers Care Railway Signalling Engineer Name Role Phone Kayla Friend MD Primary Care Provider [phone] Encounter Details Date Type Department Care Team (Late Contact Info) Description 08/12/2022 Telephone [facility] CHC MED & PEDS [address] [place], [place] [phone] Kayla Friend MD [address] [place] [address] Social History Tobacco Use Types Packs/Day Years [...] Department Care Team (Late Contact Info) Description 12/05/2024 1:45 PM EDT [facility]ED[facility] [address] [place] [address] Kayla Friend MD [address] [place] [address] 12/19/2024 3:30 PM EDT Office Visit [facility] MED & PEDS [address] [place] [address] Kayla Friend MD [address] [place] [address] documented as of this encounter Visit Diagnoses Not on filedocumented in this encounter Additional Health Concerns Assessment Noted Time PHQ-9 Depression Total Score: 5 07/18/19 23 2:10 PM EST documented as of this encounter Care Teams Railway Signalling Engineer Relationship Specialty Start Date End Date Kayla Friend MD [address] [place] [phone] PCP - General Family Medicine 04/30/20 Abhishek Pino MD Surgeon Vascular Surgery 05/30/24 [employer] 09/26/24 documented as of this encounter
--- OUTSIDE RECORDS SUMMARY | 2024-11-12 15:13 | XMS_ITS | Encounter Summary ---
Author Organization [employer] Address [address] [facility] 7t [place] [address] Care Team Providers Care Post Anesthesia Nurse Name Role Phone Kayla Friend MD Primary Care Provider [phone] Encounter Details Date Type Department Care Team ([facility] Contact Info) Description 10/11/[address] [facility] CH[facility] MED & PEDS [address] [place], [place] [phone] Kayla Friend MD [address] [place] [address] Social History Tobacco Use Types Packs/Day Years [...] Tc from [place] visiting nurse with [facility] regarding pt blood pressure. Visiting nurse stated blood pressure medication was put on hold due to pt having surgery. Donald requesting a call back at [phone] documented in this encounter Plan of Treatment Upcoming Encounters Date Type Department Care Team (Late st Contact Info) Description 12/05/2024 1:45 PM EDT Office Visit [facility] MED & PEDS [address] [place] [address] Kayla Friend MD [address] [place] [address] 12/19/2024 3:30 PM EDT Office Visit [facility] MED & PEDS [address] [place] [address] Kayla Friend MD [address] [place] [address] documented as of this encounter Visit Diagnoses Not on filedocumented in this encounter Additional Health Concerns Assessment Noted Time PHQ-9 Depression Total Score: 2 05/30/20 24 9:43 AM EST documented as of this encounter Care Teams Post Anesthesia Nurse Relationship Specialty Start Date End Date Kayla Friend MD [address] [place] [phone] PCP - General Family Medicine 04/30/20 Abhishek Pino MD Surgeon Vascular Surgery 05/30/24 [employer] 09/26/24 documented as of this encounter
--- OUTSIDE RECORDS SUMMARY | 2024-11-12 15:13 | XMS_ITS | Clinical Summary ---
Author Organization [employer] Address [address] [facility] 7t [place] [address] Care Team Providers Care Packing Line Operator Name Role Phone Kayla Friend MD Primary Care Provider [phone] Allergies No known active allergies Medications acetaminophen [...] and with evening meal. 180 tablet 1 10/27/202 3 Active Multiple Vitamins-Mineral s (PreserVision AREDS [...] FOR WHEEZING 180 mL 1 4 Active Stiolto Respimat 2.5-2.5 MCG/ACT [...] the morning. 90 tablet 1 4 Active Additional Information Patient not taking.Reported on 10/08/2024 omeprazole (PriLOSEC) [address] capsule Take 1 capsule (20 mg) by mouth before breakfast. Do not crush or chew. 180 capsule 1 4 Active amLODIPine (Norvasc) 10 MG tabletIndication s:Essential hypertension TAKE 1 TABLET BY MOUTH EVERY DAY 180 tablet 1 5 Active Additional Information Patient not taking.Reported on 10/08/2024 montelukast (Singulair) 10 MG tablet TAKE 1 TABLET(10 MG) BY MOUTH AT BEDTIME 90 tablet 1 5 Active ezetimibe (Zetia) 10 MG tablet Take 1 tablet by mouth Once per day. 5 Active Umeclidinium-Bob anterol (Anoro Ellipta) 62.5-25 MCG/ACT aerosol powderIndication s:Chronic obstructive pulmonary disease, unspecified COPD type ([facility]) Inhale 62.5 mcg Once per day. 60 each 11 5 Active Active Problems Problem Noted Date Diagnosed Date Dry eyes, bilateral 03/08/2024 Assessment & Plan (03/08/2024 4:53 PM EDT): Prescribing Pataday for Sx. Advised to follow up with Early Education Teacher for further treatment. Relevant Medications Olopatadine (Pataday) [...] relevant orders, pt will be referred to director of collections and archives. Pt was advised to diminish smoking. F/u [...] Encounters Date Type Department Care Team Description 11/11/2024 Telephone [facility] MEDICINE [address] [place], [place] [phone] Kayla Friend MD Appointment Request 10/27/2024 Refill [facility] MED & PEDS [address] [place] [address] Kayla Friend MD 10/15/2024 1:00 PM EDT Office Visit [facility] MED & PEDS [address] [place] [address] Tyler Stinson MD Peripheral vascular disease ([facility]) (Primary Dx); Essential hypertension; Acute kidney injury ([facility]); Chronic obstructive pulmonary disease, unspecified COPD type ([facility]) 10/15/2024 Travel 10/11/2024 Telephone [facility] MED & PEDS [address] [place] [address] Kayla Friend MD 10/04/2024 Telephone [facility] MED & PEDS [address] [place] [address] Tyler Stinson MD Appointment Request 10/02/2024 Telephone [facility] MED & PEDS [address] [place] [address] Kayla Friend MD ER Follow-up 09/26/2024 Telephone [facility] MED & PEDS [address] [place] [address] Kayla Friend MD 09/26/2024 Orders Only GENERIC EXTERNAL DATA DEPARTMENT Provider, Generic External Data 09/26/2024 Telephone [facility] [address] [facility] [place] [address] Kayla Friend MD Call Back Request 09/26/2024 Telephone [facility] MED & PEDS [address] [place] [address] Kayla Friend MD 09/10/2024 Refill [facility] MED & PEDS [address] [place] [address] Kayla Friend MD 08/26/2024 Orders Only [facility] External Provider, [facility] from Last 3 Months Immunizations Immunization Administration Dates Next Due Pfizer Covid-19 Vaccine [...] 10/15/2024 1:20 PM EDT Plan of Treatment Upcoming Encounters Date Type Department Care Team (Late st Contact Info) Description 12/05/2024 1:45 PM EDT Office Visit [facility] MED & PEDS [address] [place] [address] Kayla Friend MD [address] [place] [address] 12/19/2024 3:30 PM EDT Office Visit [facility] MED & PEDS [address] [place] [address] Kayla Friend MD [address] [place] [address] Health Maintenance Due Date Last Done Comments [...] MYOCARDIAL PERFUSION Routine 08/26/2024 9:15 AM EST HEPATITIS C AB W/REFL TO HCV RNA, QN, PCR Routine 02/22/2024 9:11 AM EDT Encounter for behavioral health screening LIPID PANEL, STANDARD Routine 02/22/2024 9:11 AM EDT Essential hypertension from Last 3 Months or Most Recently Relevant to Health Maintenance Results * (ABNORMAL) Basic Metabolic Panel (10/15/2024 1:41 PM EDT) Sodium 139 135 - 145 mmol/L [facility] Potassium 3.5 3.3 - 5.1 mmol/L [facility] Chloride 103 96 - 108 mmol/L [facility] Carbon Dioxide 29 22 - 29 mmol/L [facility] Anion Gap 11(L) 12 - 20 [facility] Urea Nitrogen (BUN) 22(H) 9 - 16 mg/dL [facility] Creatinine, Serum 1.01 0.5 - 1.4 mg/dL [facility] Estimated Glomerular Filt Rate >60 [facility] Comment:Chronic Kidney Disea se: Estimated GFR < 60 mL/min/1.49p6Bmwkht Kidney Disease: Estimated GFR < 15 mL/min/1.73m2 Glucose 98 60 - 115 mg/dL [facility] Calcium 9.0 8.4 - 10.2 mg/dL [facility] Blood Venous blood specimen / Unknown 10/15/2024 1:41 PM EDT 10/15/2024 2:04 PM EDT us Tyler Stinson MD LAB BLOOD ORDERABLES Final Result [facility] [address] [place] [phone] * Urinalysis w/reflex microscopic (09/26/2024 1:35 PM EDT) Color Urine Yellow [facility] Appearance Urine Clear [facility] PH 5.5 5.0 - 9.0 [facility] Glucose Urine UA Negative Negative mg/dL [facility] Urine Blood Negative Negative [facility] Specific [place] - Urine 1.010 1.005 - 1.025 [facility] Urine Protein Negative Neg-Trace mg/dL [facility] Urine Ketones Negative Negative mg/dL [facility] Nitrite Urine Negative Negative [facility] Leukocyte Esterase Urine Negative Negative [facility] 09/26/2024 1:35 PM EDT 09/26/2024 1:41 PM EDT Narrative [facility] - 09/26/2024 1:46 PM EDT Urine, Clean Catch us Generic External Data Provider LAB URINE ORDERAB LES Final Result Performing Organization Address [facility] de Phone Number [facility] [address] [place] [address] [phone] * Lactic Acid (09/26/2024 1:08 PM EDT) Lactic Acid 1.5 0.5 - 2.0 mmol/L [facility] 09/26/2024 1:08 PM EDT 09/26/2024 1:09 PM EDT us Generic External Data Provider LAB BLOOD ORDERAB LES Final Result Performing Organization Address [facility] de Phone Number [facility] [address] [place] [address] [phone] * XR Chest 1 View (09/26/2024 12:25 PM EDT) Anatomical Region Laterality Modality Chest Radiographic Yoana ging 09/26/2024 12:2 5 PM EDT Narrative 09/26/2024 12:58 PM EDT ? [facility] ?[address] ?[place] [address] ?XRay Report ? Signed ? Patient: Yosef Soria ?MR#: M ?? [id number] ? : 1955 ?Acct:[id number] ? Age/Sex: 69 / M ?ADM Date: 04/03/25 ? Loc: HO.ED ? Attending Dr: ? Ordering Physician: Harrison,Bertha DO ?? Date of Service: 09/26/24 ?? Procedure(s): XR chest 1V ?? Accession Number(s): [id number] ? cc: Bertha Terry DO; Kayla Friend [...] DD/ 1225 ? TD/TT: 09/26/24 1231 ? Oyster Planter: ? Procedure Note Dondeonteter, Image - 09/26/2024 [place] [address] XRay Report Signed Patient: Yosef SoriaMR#: M [id number] : 1955cct:[id number] Age/Sex: 69 / MADM Date: 09/26/24 Loc: .ED Attending Dr: Ordering Physician: Bertha Terry DO Date of Service: 09/26/24 Procedure(s): XR chest 1V Accession Number(s): [id number] cc: Bertha Terry DO; Kayla Friend MD [...] 09/26/24 1255 DD/ 1225 TD/TT: 09/26/24 1231 Oyster Planter: [facility] External Provider IMG XR PROCEDURES Edited Result - Final * Type and screen (09/26/2024 12:23 PM EDT) [facility] Blood Type ON [facility] Antibody Screen NEGATIVE [facility] 09/26/2024 12:2 3 PM EDT 09/26/2024 12:41 PM EDT Generic External Data Provider LAB BLOOD BANK TE ST ORDERABLES Final Result Performing Organization Address [facility] Co de Phone Number [facility] [address] [place] [phone] * High Sensitivity Troponin I (09/26/2024 12:22 PM EDT) [facility] TROPONIN I HIGH SENSITIVITY 2.8 <3.5 - 35.0 ng/L [facility] Comment:The Daley high sens itivity Troponin-I results should beused in conjunction with other diagnostic information suchas ECG, clinical observations and information, and patientsymptoms to aid in the diagnosis of [place]. 09/26/2024 12:2 2 PM EDT 09/26/2024 12:39 PM EDT Generic External Data Provider LAB BLOOD ORDERAB LES Final Result Performing Organization Address [facility] Co de Phone Number [facility] [address] [place] [phone] * (ABNORMAL) CBC auto differential (09/26/2024 12:22 PM EDT) [facility] White Blood Count 10.6 4.8 - 10.8 X10*3/uL [facility] Red Blood Count 3.89(L) 4.60 - 5.80 X10*6/uL [facility] Hemoglobin 12.3(L) 14.0 - 18.0 g/dl [facility] Hematocrit 34.9(L) 42.0 - 52.0 % [facility] Mean Corpuscular Volume 89.7 80.0 - 98.0 fL [facility] Mean Corpuscular Hemoglobin 31.6 27.0 - 33.0 pg [facility] Mean Corpuscular HGB Conc 35.2 31.0 - 36.0 g/dl [facility] Red Cell Distribution Width 13.4 11.0 - 16.0 % [facility] Platelet Count 267 160 - 400 X10*3/uL [facility] Mean Platelet Volume 9.0(L) 9.4 - 12.4 fL [facility] Neutrophils Percent Auto 72.3 45 - 73 % [facility] Imm Gran Pct Auto 0.5(H) 0.0 - 0.4 % [facility] Lymphocytes Percent Auto 15.4(L) 20 - 40 % [facility] Monocytes Percent Auto 9.4 2 - 11 % [facility] Eosinophils Percent Auto 2.0 0 - 4 % [facility] Basophils Percent Auto 0.4 0 - 2 % [facility] NRBC Pct Auto 0.0 0.0 - 0.2 /100WBC [facility] Neutrophils Absolute Auto 7.7 2.0 - 8.3 x10*3/uL [facility] Imm Gran Abs Auto 0.05(H) 0.00 - 0.03 X10*3/uL [facility] Lymphocytes Absolute Auto 1.6 1.2 - 4.9 X10*3/uL [facility] Monocytes Absolute Auto 1.0 0.1 - 1.2 X10*3/uL [facility] Eosinophils Absolute Auto 0.2 0.0 - 0.4 X10*3/uL [facility] Basophils Absolute Auto 0.0 0.0 - 0.2 X10*3/uL [facility] NRBC Abs Auto 0.000 0.0 - 0.012 X10*3/uL [facility] 09/26/2024 12:2 2 PM EDT 09/26/2024 12:39 PM EDT Generic External Data Provider LAB BLOOD ORDERAB LES Final Result Performing Organization Address [facility] Co de Phone Number [facility] [address] [place] [phone] * (ABNORMAL) Prothrombin Time-INR (09/26/2024 12:22 PM EDT) Pathologist [facility] Prothrombin Time 12.6(H) 10.9 - 12.4 SEC [facility] INTERNATIONAL NORM RATIO 1.1 0.9 - 1.1 [facility] Comment:INTERNATIONAL NORMAL IZED RATIO [...] LES Final Result Performing Organization Address [facility] Co de Phone Number [facility] [address] [place] [phone] * (ABNORMAL) Comprehensive Metabolic Panel (09/26/2024 12:22 PM EDT) [facility] Sodium 135 135 - 145 mmol/L [facility] Potassium 3.5 3.3 - 5.1 mmol/L [facility] Chloride 96 96 - 108 mmol/L [facility] Carbon Dioxide 26 22 - 29 mmol/L [facility] Anion Gap 17 12 - 20 [facility] Urea Nitrogen (BUN) 35(H) 9 - 16 mg/dL [facility] Creatinine, Serum 1.99(H) 0.5 - 1.4 mg/dL [facility] Creatinine Clr Calc Pharmacy 25.5 [facility] Comment:eGFR (calculated fro m the MDRD study equation) and eCrCl(calculated from the Cockcroft-Gault equation) are based ondifferent parameters and may not yield comparable results.If eCrCl result is absurd, please check patient'sheight/weight. Estimated Glomerular Filt Rate 33 [facility] Comment:Chronic Kidney Disea se: Estimated GFR < 60 mL/min/1.15l4Lnomjr Kidney Disease: Estimated GFR < 15 mL/min/1.73m2 Glucose 108 60 - 115 mg/dL [facility] Calcium 9.2 8.4 - 10.2 mg/dL [facility] Bilirubin, Total 0.5 0.0 - 1.0 mg/dL [facility] Aspartate Amino Transferase 18 5 - 37 U/L [facility] Alanine Aminotransferase 11 0 - 40 U/L [facility] Total Protein 7.2 6.5 - 8.0 g/dL [facility] Albumin Level 3.9 3.5 - 5.0 g/dL [facility] Alkaline Phosphatase 84 39 - 117 U/L [facility] 09/26/2024 12:2 2 PM EDT 09/26/2024 12:39 PM EDT us Generic External Data Provider LAB BLOOD ORDERAB LES Final Result Performing Organization Address City/State/[facility] Co de Phone Number [facility] [address] [place] [phone] * Stress test with myocardial perfusion (08/26/2024 9:15 AM EST) 08/26/2024 9:15 AM EST Narrative [facility] - 08/29/2024 6:05 PM EST ? [facility] ?[address] ?[place] [address] ?Nuclear Medicine Report ? Signed ? Patient: Pritchard Adelso,Yosef ?MR#: M ?? [id number] ? : 1955 ?Acct:[id number] ? Age/Sex: 69 / M ?ADM Date: 03/03/25 ? Loc: HO.CARD ? Attending Dr: Filipe Mercer PAYMENT SPECIALIST ? Ordering Physician: Filipe Mercer NP ?? Date of Service: 08/26/24 ?? Procedure(s): NM cardiolite stress test ?? Accession Number(s): [id number] ? cc: Filipe Mercer NP; Kayla Friend [...] DD/ 0915 ? TD/TT: 08/29/24 1430 ? Oyster Planter: ? Procedure Note Donotuseinterpreter, Image - 08/29/2024 [place] [address] Nuclear Medicine Report Signed Patient: Julien Soria#: M [id number] : 1955cct:[id number] Age/Sex: 69 / MADM Date: 08/26/24 Loc: AWA[facility] Attending Dr: Filipe Mercer NP Ordering Physician: Filipe Mercer NP Date of Service: 08/26/24 Procedure(s): NM cardiolite stress test Accession Number(s): [id number] cc: Filipe Mercer NP; Kayla Friend MD [...] by: Mendez Melvin MD 08/29/2024 06:02 PM [facility] Dictated By: Mendez Melvin MD Signed By: <Electronically signed by Mendez Melvin MD in OV> 08/29/24 1802 DD/ 0915 TD/TT: 08/29/24 1430 Oyster Planter: us [facility] External Provider CV STRE SS PROCEDURES Final Result [facility] [address] [place] [address] * Hepatitis C Antibody with Reflex to HCV, RNA, Quantitative, Real-Time PCR (02/22/2024 9:11 AM EDT) Hepatitis C Antibody Nonreactive Nonreactive [facility] Comment:Antibodies to HCV no t detected; does not exclude early acuteHCV infection. Blood Venous blood specimen / Unknown 02/22/2024 9:11 AM EDT 02/22/2024 11:11 AM EDT us Kayla Friend MD LAB BLOOD ORDERABLES Final Re sult Performing Organization Address [facility]/ZIP Co de Phone Number [facility] [address] [place] [address] [phone] * (ABNORMAL) Lipid Panel, Standard (02/22/2024 9:11 AM EDT) Triglycerides 222(H) <150 mg/dL [facility] Comment:Desirable Triglyceri de: less than 150 mg/dLBorderline High Triglyceride 150-199 mg/dLHigh Triglyceride: 200-499 mg/dLVery High Triglyceride: greater than or equal to 5OO mg/dL Cholesterol 232(H) <200 mg/dL [facility] Comment:Desirable Cholestero l: less than 200 mg/dLBorderline High Cholesterol: 200-239 mg/dLHigh Cholesterol: greater than 239 mg/dL LDL Cholesterol Calculated 157(H) <100 mg/dL [facility] Comment:Desirable LDL: less than 100 mg/dLNear Optimal/Above Optimal LDL: 110- 129 mg/dLBorderline High LDL: 130-159 mg/dLHigh LDL: 160-189 mg/dLVery High LDL: greater than or equal to 190 mg/dL HDL Cholesterol 31(L) >40 mg/dL [facility] Comment:Desirable HDL: great er than 40 mg/dL Note: This HDL assay may give artificially low results in patients with liver disease. Blood Venous blood specimen / Unknown 02/22/2024 9:11 AM EDT 02/22/2024 11:11 AM EDT us Kayla Friend MD LAB BLOOD ORDERABLES Final Re sult Performing Organization Address City/[facility]/ZIP Co de Phone Number [facility] [address] [place] [address] [phone] from Last 3 Months or Most Recently Relevant to Health Maintenance Insurance [employer]IREMENT [employer] [place] [facility] RETIREMENT OPT[employer] [place] Care Teams Packing Line Operator Relationship Specialty Start Date End Date Kayla Friend MD [address] [place] [phone] PCP - General Family Medicine 04/30/20 Abhishek Flores MD Surgeon Vascular Surgery 05/30/24 [employer] 09/26/24
--- OUTSIDE RECORDS SUMMARY | 2024-11-12 15:13 | XMS_ITS | Encounter Summary ---
Author Organization [employer] Address [address] [facility] [address] [place] [address] Care Team Providers Care Event Sales Manager Name Role Phone Kayla Friend MD Primary Care Provider [phone] Reason for Visit * Reason Onset Date Comments Appointment Request 11/11/2024 Encounter Details Date Type Department Care Team ([facility] Contact Info) Description 11/11/2024 Telephone [facility] [address] [place] [address] Kayla Friend MD [address] [place] [address] Appointment Request Social History Tobacco Use Types [...] encounter Miscellaneous Notes * Telephone Encounter - Margaret Esquivel - 11/11/2024 3:43 PM EDT Tc from Kayla requesting r/s 12/05 OV appointment. States pt has an appointment the same day andneeds to r/s. Pt availability: Monday and after 12 PM. documented in this encounter Plan of Treatment Upcoming Encounters Date Type Department Care Team (Late st Contact Info) Description 12/05/2024 1:45 PM EDT Office Visit [facility] [address] [place] [address] Kayla Friend MD [address] [place] [address] 12/19/2024 3:30 PM EDT Office Visit [facility] [address] [place] [address] Kayla Friend MD [address] [place] [address] documented as of this encounter Visit Diagnoses Not on filedocumented in this encounter Additional Health Concerns Assessment Noted Time PHQ-9 Depression Total Score: 2 05/30/20 9:43 AM EST documented as of this encounter Care Teams Event Sales Manager Relationship Specialty Start Date End Date Kayla Friend MD [address] [place] [address] PCP - General Family Medicine 04/30/20 Abhishek Pino MD Surgeon Vascular Surgery 05/30/24 [facility] 09/26/24 documented as of this encounter
== END 2024-11-12 14:19 | disposition home or self-care (01) ==
LOC: HO.HCS 13:55
PROVIDERS: PCP Family Medicine
DX: E78.5 Hyperlipidemia, unspecified (principal); I73.9 Peripheral vascular disease, unspecified; I10 Essential (primary) hypertension; F17.200 Nicotine dependence, unspecified, uncomplicated
CPT/HCPCS: 99214; G2211

== ENCOUNTER → 2024-11-12 13:54 | Outpatient (BNVA) | payer OTHER, SELFPAY | PROVIDERS: PCP Family Medicine | DX: I10 Essential (primary) hypertension (principal); I73.9 Peripheral vascular disease, unspecified; E78.5 Hyperlipidemia, unspecified; F17.210 Nicotine dependence, cigarettes, uncomplicated | CPT/HCPCS: 99212 ==

== ENCOUNTER 2024-11-21 11:47 | Outpatient (REF) | payer OTHER, SELFPAY ==
--- OUTSIDE RECORDS SUMMARY | 2024-11-21 12:02 | XMS_ITS | Encounter Summary ---
Author Organization [employer] Address [address] [facility] [address] [place] [address] Care Team Providers Care Shorer Name Role Phone Kayla Friend MD Primary Care Provider [phone] Encounter Details Date Type Department Care Team ([facility] st Contact Info) Description 09/26/2024 Telephone [facility] [address] [place], [place] [phone] Kayla Friend MD [address] [place] [address] Social History Tobacco Use Types Packs/Day Years [...] Description 12/05/2024 1:45 PM EDT Office Visit [facility] [address] [place] [address] Kayla Friend MD [address] [place] [address] 12/19/2024 3:30 PM EDT Office Visit [facility] [address] [place] [address] Kayla Friend MD [address] [place] [address] documented as of this encounter Visit Diagnoses Not on filedocumented in this encounter Additional Health Concerns Assessment Noted Time PHQ-9 Depression Total Score: 2 05/30/20 24 9:43 AM EST documented as of this encounter Care Teams Shorer Relationship Specialty Start Date End Date Kayla Friend MD [address] [place] [address] PCP - General Family Medicine 04/30/20 Abhishek Pino MD Surgeon Vascular Surgery 05/30/24 [facility] 09/26/24 documented as of this encounter
[2024-11-21 13:15] LABS: Anion Gap 11 (12-20); Blood Urea Nitrogen 23 mg/dL (9-16); Calcium 9.7 mg/dL (8.4-10.2); Carbon Dioxide 31 mmol/L (22-29); Chloride 98 mmol/L (96-108); Cholesterol 198 mg/dL (<200); Estimated Glomerular Filt Rate 57; Glucose Random 101 mg/dL (60-115); HDL Cholesterol 37 mg/dL (>40); LDL Cholesterol Calculated 125 mg/dL (<100); Potassium 3.4 mmol/L (3.3-5.1); Sodium 137 mmol/L (135-145); Triglycerides 180 mg/dL (<150)
== END 2024-11-21 11:48 | disposition home or self-care (01) ==
LOC: HO.LAB 11:47
PROVIDERS: Family Medicine; PCP Family Medicine
DX: N17.9 Acute kidney failure, unspecified (principal); E78.5 Hyperlipidemia, unspecified
CPT/HCPCS: 36415; 80048; 80061

== ENCOUNTER 2025-01-07 12:59 | Outpatient (REF) | payer OTHER, SELFPAY ==
--- NOTE | ~2025-01-07 | US_ITS ---
EXAMINATION: Noninvasive assessment of the bilateral lower extremities with ARTERIAL DUPLEX, ANKLE BRACHIAL INDICES (ABIs), and PULSE VOLUME RECORDINGS (PVRs). CLINICAL INFORMATION: Left femoral femoral bypass graft. TECHNIQUE: Duplex Doppler techniques with waveform analysis and measurement of velocities in the bilateral common femoral, profunda femoris, superficial femoral, popliteal and tibial arteries were performed. Additionally, ankle pulse volume recordings, ankle pressure measurements and ankle brachial indices were obtained of the lower extremity arterial system bilaterally. The study was performed only at rest. COMPARISON: May 20, 2024. FINDINGS: DIRECT DUPLEX DOPPLER FINDINGS: RIGHT LEG: Common femoral artery: 42 cm/s, phasicity: Monophasic. Profunda femoris artery: 85 cm/s, phasicity: Monophasic Superficial femoral artery (proximal): 46 cm/s, phasicity: Monophasic. Superficial femoral artery (mid): 42 cm/s, phasicity: Monophasic. Superficial femoral artery (distal): 36 cm/s, phasicity: Monophasic. Popliteal artery: 38 cm/s, phasicity: Monophasic. Posterior tibial artery: 20 cm/s, phasicity: Monophasic. Peroneal artery: 15 cm/s, phasicity: Monophasic. Anterior tibial artery: 10 cm/s, phasicity: Monophasic. Dorsalis pedis artery: 25 cm/s, phasicity:Monophasic. LEFT LEG: Common femoral artery: No color Doppler flow. Profunda femoris artery: 47 cm/s, phasicity: Monophasic. Superficial femoral artery (proximal): 31 cm/s, phasicity: Monophasic. Superficial femoral artery (mid): 39 cm/s, phasicity: Monophasic. Superficial femoral artery (distal): 35 cm/s, phasicity: Monophasic. Popliteal artery: 22 cm/s, phasicity: Monophasic. Posterior tibial artery: No color Doppler flow. Peroneal artery: 6 cm/s, phasicity: Reversal flow. Anterior tibial artery: 7 cm/s, phasicity: Reversal flow. Dorsalis pedis artery: 8 cm/s, phasicity: Monophasic. Left femorofemoral bypass graft: Inflow artery, left femoral artery: 188 cm/s. Monophasic waveform. Proximal anastomosis: 200 cm/s. Triphasic waveform. Proximal bypass graft: 57 cm/s. Biphasic waveform. Mid bypass graft: 86 cm/s. Monophasic. Distal bypass graft: 55 cm/s. Biphasic. Distal anastomosis: 117 cm/s. Biphasic. Outflow artery to the right femoral: 42 cm/s. Monophasic. BRACHIAL PRESSURES: Right: 127 Left: 127 ANKLE PRESSURES: Right: PT 78, DP not documented. Left: PT not documented., DP 63 ANKLE-BRACHIAL INDEX: Right: 0.61 Left: 0.50 ANKLE PVR WAVEFORMS: Right: Abnormal Left: Abnormal US/US arterial duplex BI w/ LARON IMPRESSION: Right leg: Severe inflow disease throughout the interrogated arteries. Left leg: Severe inflow disease throughout the interrogated arteries. Probable high degree stenosis/occlusion, left posterior tibialis to the dorsalis pedis arteries. Patency of the bifemoral bypass graft LARON Reference: - >1.4 = calcified vessels - 0.9 - 1.4 = normal - no significant arterial disease - 0.7 - 0.89 = mild peripheral arterial disease - 0.51 - 0.69 = moderate peripheral arterial disease - 0.50 = severe peripheral arterial disease - < .30 = critical arterial disease Electronically signed by: Kristian Puente MD 01/07/2025 03:43 PM EDT
--- NOTE | ~2025-01-07 | US_ITS ---
EXAMINATION: US RETROPERITONEAL LIMITED (AORTA) CLINICAL INFORMATION: Bilateral femorofemoral bypass graft. Peripheral vascular disease.. COMPARISON: Correlated to CT angiogram dated August 21, 2023. TECHNIQUE: Huizar-scale, color Doppler and spectral Doppler evaluation of the abdominal aorta. FINDINGS: Limited evaluation of the abdominal aorta. The measurements and peak systolic velocities of the aorta in maximum AP dimensions respectively are as follows: Proximal: 2.8 cm. Peak systolic velocity: 55 cm/s. Mid: 1.4 cm. Peak systolic velocity: 70 cm/s. Distal: 1.7 cm. Peak systolic velocity: 85 cm/s. The Peak systolic velocities the common iliac arteries in maximum dimensions are as follows: Right: Common iliac artery: 90 cm/s. External iliac artery: 75 cm/s. Left: Common iliac artery: 360 cm/s. External iliac artery is not identified. US/US abdominal aortic aneurysm IMPRESSION: No aneurysm, abdominal aorta.. Electronically signed by: Kristian Puente MD 01/07/2025 03:46 PM EDT
--- OUTSIDE RECORDS SUMMARY | 2025-01-07 14:15 | XMS_ITS | Encounter Summary ---
Author Organization [employer] Address [address] [place] [address] 7[address] [place] [address] Care Team Providers Care Trick Rodeo Rider Name Role Phone Kayla Friend MD Primary Care Provider [phone] Encounter Details Date Type Department Care Team (Late Contact Info) Description 08/12/2022 Telephone [facility] [address] [place], [place] [phone] Kayla Friend MD [address] [place] [address] Social History Tobacco Use Types Packs/Day Years [...] Department Care Team (Late Contact Info) Description 04/08/2025 3:30 PM EDT Office Visit [facility] [address] [place] [address] Selena Cabrera, OD [address] [place] [address] documented as of this encounter Visit Diagnoses Not on filedocumented in this encounter Additional Health Concerns Assessment Noted Time PHQ-9 Depression Total Score: 5 07/18/19 23 2:10 PM EST documented as of this encounter Care Teams Trick Rodeo Rider Relationship Specialty Start Date End Date Kayla Friend MD [address] [place] [address] PCP - General Family Medicine 04/30/20 Abhishek Pino MD Surgeon Vascular Surgery 05/30/24 [facility] 09/26/24 documented as of this encounter
--- OUTSIDE RECORDS SUMMARY | 2025-01-07 14:15 | XMS_ITS | Clinical Summary ---
Author Organization [email or web address] [facility] it[facility] Address [address] [place] [address] Care Team Providers Care Air Operations Manager Name Role Phone Unavailable Primary Care [...] 2023-2 5 season) 2024 Influenza Vaccine (#1) 2025 RSV Immunization Adult Patie nts (1 [...]
== END 2025-01-07 13:00 | disposition home or self-care (01) ==
LOC: HO.US 12:59
PROVIDERS: PCP Family Medicine; Visit Provider Surgery Vascular Surgery
DX: I73.9 Peripheral vascular disease, unspecified (principal); Z98.62 Peripheral vascular angioplasty status; R94.39 Abnormal result of other cardiovascular function study
CPT/HCPCS: 76706; 93922; 93925

== ENCOUNTER → 2025-01-07 13:01 | Outpatient (BNV) | payer OTHER, SELFPAY | PROVIDERS: PCP Family Medicine; Visit Provider Radiology Diagnostic Radiology | DX: I73.9 Peripheral vascular disease, unspecified (principal); Z95.820 Peripheral vascular angioplasty status with implants and grafts | CPT/HCPCS: 76706; 93925 ==

== ENCOUNTER 2025-03-04 10:57 | Outpatient (AMB) | payer OTHER, SELFPAY ==
[2025-03-04 11:03] VITALS: BMI 23.4
--- NOTE | 2025-03-04 11:03 | A.OFFVIS_ITS ---
Vital Signs 03/04/25 11:03 Height 5 ft 1 in Weight 124 lb BMI 23.4 Intake Visit Reasons: 3m follow up s/p Arterial US 01/07/25 Intake Note: 3 mo follow up Arterial US 01/07/25 s/p Fem-fem (left to right) bypass 09/23/24. Also hx of Left LE Angio 12/07/22 & 01/24/24. Pt states Left LE pain and can only walk 5 mins before sitting down Accompanied by: Self / Same As Patient Allergies No Known Allergies Allergy (Verified 03/04/25 11:05) HPI HPI 3m follow up s/p Arterial US 01/07/25: Details: Pleasant 69-year-old gentleman presents for routine arterial surveillance follow-up. He had originally undergone femoral to femoral bypass on 09/23/2024. It has substantially improved his ability to walk but he is now experiencing right leg discomfort. He reports he can walk about a half a block a proximally 5 minutes and he starts to feel fatigue in the left leg. It is more so down towards the calf area. He now presents for follow-up with noninvasive testing. [facility] Medical History Depression PAD (peripheral artery disease) Asthma Smoker Dyslipidemia Acid reflux HTN (hypertension) Surgical History S/P aortogram History of esophagogastroduodenoscopy (EGD) H/O colonoscopy H/O wrist surgery Family History Father No problems noted. Mother No problems noted. Social History Household Members: None Housing: Apartment Housing Other:: Indep Living Are you a primary caretaker resort to a significant other at home: No Do you presently have visiting nurse or other home services: Yes Alcohol intake: former Patient Tobacco Use Status: Current everyday Tobacco user Tobacco use type: Cigarette Cigarettes Per Day: 5 Years Smoked: 56 e-Cigarette/Vaping Use: Currently Using Second Hand Smoke Exposure: No service: No Current occupational status: unemployed Review of Systems Const All systems reviewed & are unremarkable except as noted in HPI and below Reports no additional complaints ENT Reports Normal hearing present Card Denies chest pain, Denies chest pain at rest, Denies chest pain with activity and Denies pedal edema Resp Denies cough GI Denies abdominal pain Musc Denies abnormal gait, Denies muscle cramps and Denies radiating pain into limb Skin/Breast Denies skin ulcer and Denies wounds Neuro Reports Normal hearing present and Denies abnormal gait Psych Reports no additional complaints Physical Exam Vital Signs: BMI result Body Mass Index 23.4 Const General: cooperative, healthy appearing and comfortable Orientation/consciousness: oriented to person, oriented to place and oriented to time HEENT Head: Yes normal to inspection Neck Neck: Yes normal visual inspection Carotids: no bruits Chest Chest palpation & inspection: normal inspection of the chest Resp Effort & Inspection: normal respiratory effort and able to speak in complete sentences Auscultation: clear to auscultation bilaterally, no crackles, no rales, no rhonchi and no wheezes Cardio Other: Bilateral DP signals Rate: regular rate Rhythm: regular rhythm Heart sounds: S1 normal heart sound present and S2 normal heart sound present Bruits: no carotid bruits Peripheral pulses: Peripheral pulses 2+ throughout GI Inspection: Yes normal to inspection Skin Wounds: no wounds Hair: normal Neuro General: oriented to person, oriented to place and oriented to time Cranial nerves: Yes CN's II-XII intact bilaterally and Yes Normal hearing present Cognition (Neuro): normal cognition Motor exam (neuro): 5/5 motor strength present throughout Extrem Other: venous exam: No significant superficial varicosities or spider telangiectasias, minimal edema General: No clubbing, No cyanosis and No edema Psych Appearance: grossly normal Mental Status: mental status grossly normal Speech and movement: Normal speech and movement present Results Reviewed Results Reviewed: Noninvasive arterial testing dated 01/07/2025 demonstrates LARON on the right of 0.61 and on the left of 0.50 Assessment & Plan Assessment & Plan (1) PAD (peripheral artery disease): Comment: 12/07/2022-left SFA atherectomy and plasty 01/24/2024 left external iliac plasty with stent, left popliteal plasty 09/23/2024 - femoral to femoral bypass (left to right) Code(s): I73.9 - Peripheral vascular disease, unspecified Category: Medical Plan: In short patient is doing stable from his fem-fem bypass. Right lower extremity appears to be doing significantly better. The concern here is the left lower extremity he is starting to experience claudication type symptoms and his LARON appears to be diminished. I have taken the liberty of ordering CT angiogram with runoff to better elucidate where the exact degree amount of disease is. He will follow up with us after CT angio with runoff. Thank you for allowing us to assist in his care. Orders: Orders CT angio abd aorta runoff Today I73.9 - Peripheral vascular disease, unspecified Blood Urea Nitrogen Today I73.9 - Peripheral vascular disease, unspecified Creatinine Today I73.9 - Peripheral vascular disease, unspecified Coding Level of Care Code Est Pt Level 4 (28865) Complex EM visit Add On G2211 Diagnoses PAD (peripheral artery disease) I73.9
--- OUTSIDE RECORDS SUMMARY | 2025-03-04 13:16 | XMS_ITS | Clinical Summary ---
Author Organization [employer] Address [address] [facility] [address] [place] [address] Care Team Providers Care Cone Runner Name Role Phone Kayla Friend MD Primary Care Provider [phone] Allergies No known active allergies Medications atorvastatin (Lipitor) 80 MG tablet Take 1 tablet (80 mg) by mouth at bedtime. 90 tablet 1 023 Active clopidogrel (Plavix) 75 [...] APPLY ONE PATCH EVERY DAY 023 Active fluticasone furoate (Arnuity Ellipta) 100 MCG/ACT inhaler Inhale 1 puff Once per day. Rinse mouth with water after use to reduce aftertaste and incidence of candidiasis. Do not swallow. 1 each 11 024 2024 Active Blood Pressure kitIndications:Es sential hypertension 1 Units Once per day. 1 kit 024 Active omeprazole (PriLOSEC) [address] capsule Take 1 capsule (20 mg) by mouth before breakfast. Do not crush or chew. 180 capsule 1 024 Active amLODIPine (Norvasc) 10 MG tabletIndications :Essential hypertension TAKE 1 TABLET BY MOUTH EVERY DAY 180 tablet 1 2 025 Active Additional Information Patient not taking.Reported on 10/08/2024 ezetimibe (Zetia) 10 MG tablet Take 1 tablet by mouth Once per day. Active Ketotifen Fumarate 0.035 % solutionIndicatio ns:Allergic conjunctivitis of both eyes Administer 1 drop into affected eye(s) 2 times daily. 10 mL 2 Active Stiolto Respimat 2.5-2.5 MCG/ACT aerosol solution inhaler Inhale 2 Inhalation. Once per day. 4 g Active acetaminophen (Tylenol 8 Hour) 650 MG ER tablet TAKE 1 TABLET BY MOUTH EVERY 8 HOURS 30 tablet Active albuterol (2.5 MG/3ML) 0.083% nebulizer solutionIndicatio ns:Asthma, unspecified asthma severity, unspecified whether complicated, unspecified whether persistent TAKE 3ML BY NEBULIZATION EVERY 4 HOURS NEEDED FOR WHEEZING 180 mL Active albuterol 108 (90 Base) MCG/ACT inhaler INHALE 2 PUFFS BY MOUTH EVERY 4 TO 6 HOURS NEEDED 8.5 g Active aspirin 81 MG chewable tablet CHEW 1 TABLET BY MOUTH EVERY MORNING 30 tablet Active carvedilol (Coreg) 25 MG tabletIndications :Essential hypertension TAKE 1 TABLET BY MOUTH WITH BREAKFAST AND EVENING MEAL 60 tablet Active eszopiclone (Lunesta) 2 MG tablet TAKE 1 TABLET BY MOUTH AT BEDTIME. TAKE IMMEDIATELY BEFORE BEDTIME 28 tablet Active loratadine (Claritin) 10 MG tablet TAKE 1 TABLET BY MOUTH EVERY MORNING 30 tablet Active Multiple Vitamins-Minerals (PreserVision AREDS 2) capsule TAKE 1 CAPSULE BY MOUTH TWICE A DAY 60 capsule Active montelukast (Singulair) 10 MG tablet TAKE 1 TABLET(10 MG) BY MOUTH AT BEDTIME 30 tablet Active magnesium 200 MG tablet TAKE 2 TABLETS BY MOUTH EVERY MORNING 60 tablet Active valsartan-hydroCH LOROthiazide (Diovan-HCT) 320-25 MG tabletIndications :Essential hypertension TAKE 1 TABLET BY MOUTH EVERY MORNING 30 tablet 1 025 Active olopatadine (Pataday) 0.2 % ophthalmic solution ADMINISTER 1 DROP INTO THE AFFECTED EYE(S) ONCE A DAY 2.5 mL 2 025 Active acetaminophen (Tylenol 8 Hour) 650 MG ER tablet Take 1 tablet by mouth every 8 (eight) hours. 022 2024 Discontinued(R eorder (will not trigger notification to Pharmacy)) albuterol 108 (90 Base) MCG/ACT inhaler INHALE 2 PUFFS BY MOUTH EVERY 4 TO 6 HOURS NEEDED 8.5 g 11 023 2024 Discontinued(R eorder (will not trigger notification to Pharmacy)) aspirin 81 MG chewable tablet Chew 1 tablet (81 mg) in the morning. 90 tablet 1 023 2024 Discontinued(R eorder (will not trigger notification to Pharmacy)) magnesium 200 MG tablet Take 2 tablets (400 mg) by mouth in the morning. 180 tablet 1 023 2024 Discontinued(R eorder (will not trigger notification to Pharmacy)) carvedilol (Coreg) 25 MG tabletIndications :Essential hypertension Take 1 tablet (25 mg) by mouth with breakfast and with evening meal. 180 tablet 1 023 2024 Discontinued(R eorder (will not trigger notification to Pharmacy)) Multiple Vitamins-Minerals (PreserVision AREDS 2) capsule Take 1 capsule by mouth 2 times daily. 60 capsule 11 023 2024 Discontinued(R eorder (will not trigger notification to Pharmacy)) loratadine (Claritin) 10 MG tablet TAKE 1 TABLET BY MOUTH EVERY MORNING 180 tablet 1 024 2024 Discontinued(R eorder (will not trigger notification to Pharmacy)) albuterol (2.5 MG/3ML) 0.083% nebulizer solutionIndicatio ns:Asthma, unspecified asthma severity, unspecified whether complicated, unspecified whether persistent TAKE 3ML BY NEBULIZATION EVERY 4 HOURS NEEDED FOR WHEEZING 180 mL 1 024 2024 Discontinued(R eorder (will not trigger notification to Pharmacy)) olopatadine (Pataday) 0.2 % ophthalmic solution Administer 1 drop into affected eye(s) Once per day. 2.5 mL 2 024 2024 Discontinued(R eorder (will not trigger notification to Pharmacy)) eszopiclone (Lunesta) 2 MG tablet Take 1 tablet (2 mg) by mouth at bedtime. Take immediately before bedtime 28 tablet 1 024 2024 Discontinued(R eorder (will not trigger notification to Pharmacy)) valsartan-hydroCH LOROthiazide (Diovan-HCT) 320-25 MG tabletIndications :Essential hypertension Take 1 tablet by mouth in the morning. 90 tablet 1 024 2024 Discontinued(R eorder (will not trigger notification to Pharmacy)) montelukast (Singulair) 10 MG tablet TAKE 1 TABLET(10 MG) BY MOUTH AT BEDTIME 90 tablet 1 025 2024 Discontinued(R eorder (will not trigger notification to Pharmacy)) Active Problems Problem Noted Date Diagnosed Date Dry eyes, bilateral 03/08/2024 Assessment & Plan (03/08/2024 4:53 PM EDT): Prescribing Pataday for Sx. Advised to follow up with Manager Float for further treatment. Relevant Medications Olopatadine (Pataday) 0.2% ophthalmic solution Chronic obstructive pulmonar y disease with acute exacerbation 02/02/2024 Assessment & Plan (12/23/2024 9:05 AM EDT): Patient has a history of COPD with recent exacerbations. He reports that his previous inhaler (Stiolto Respimat) was effective for his asthma and COPD symptoms, but his insurance no longer covers it. He was switched to Anoro Ellipta, which he feels is not as effective. The patient continues to smoke despite the risks to his lung health. On examination, there is no audible wheezing, but air movement is noted to be poor. Plan: - Attempted to obtain coverage for tiotropium and formoterol separately, as insurance won't cover the combination, but they don't cover HFA's or other device, will need to proceed with PA for Stiolto - If separate medications are not covered, explore alternative inhaler options - Refer to pulmonology for management of COPD with frequent exacerbations - Strongly advise smoking cessation - Educate on proper inhaler technique Assessment & Plan (03/08/2024 4:51 PM EDT): [...] relevant orders, pt will be referred to plastic straightening roll operator. Pt was advised to diminish smoking. F/u [...] B12. Essential hypertension 07/18/2022 Assessment & Plan (12/23/2024 7:58 AM EDT): Patient's blood pressure was initially elevated but improved on repeat measurement. The final reading was 136/78 mmHg, which is considered borderline. Plan: - Continue current antihypertensive regimen without changes at this time - Monitor blood pressure at future visits Assessment & Plan (05/30/2024 10:49 AM EST): [...] Encounters Date Type Department Care Team Description 02/21/2025 Refill [facility] [address] [place] [address] Kayla Friend MD Asthma, unspecified asthma severity, unspecified whether complicated, unspecified whether persistent; Essential hypertension 02/20/2025 Telephone [facility] [address] [place] [address] Kayla Friend MD med list 01/15/2025 Telephone [facility] [address] [place] [address] Kayla Friend MD requesting call back 01/07/2025 Orders Only [facility] External Provider, [facility] 12/26/2024 Telephone [facility] [address] [place] [address] Kayla Friend MD Durable Medical Equipment 12/23/2024 Telephone [facility] [address] [place] [address] Kayla Friend MD 12/20/2024 Telephone [facility] [address] [place] [address] Kayla Friend MD 12/19/2024 3:30 PM EDT Office Visit [facility] [address] [place] [address] Kayla Friend MD Allergic conjunctivitis of both eyes (Primary Dx); Screening for colon cancer; Essential hypertension; Chronic obstructive pulmonary disease with acute exacerbation ([facility]/HCC) 12/19/2024 Travel 12/17/2024 Telephone [facility] [address] [place] [address] Kayla Friend MD chart prep 12/17/2024 Telephone [facility] [address] [place] [address] Kayla Friend MD chart prep 12/17/2024 Telephone [facility] [address] [place], [place] [phone] Kayla Friend MD CHART PREP 12/13/2024 Patient Outreach [address] [address] Kayla Friend MD Pre-visit Planning ([facility] screening completed on 11/26/24 ) from Last 3 Months Immunizations Immunization Administration [...] housing situation today? I have aldair zepeda 11/26/[address] you li ve. Do you have problems with any of the following? None of the above 11/26/2024 Food Insecurity Answer Date Recorded Within the past 12 months, y ou worried that your food would run out before you got money to buy more: Never True 11/26/2024 Within the past 12 months,th e food you bought just didn't last and you didn't have enough money to get more: Never True 08/2024 Transportation Answer Date Recorded In the past 12 months, has l ack of transportation kept you from medical appts, meetings, work or from getting things needed for daily living? No 11/26/2024 Utilities Answer Date Recorded In the past 12 months, has t he electric, gas, oil or water company threatened to shut off services in your home? No 11/26/2024 Depression Answer Date Recorded Patient Health Questionnaire-2 Score 1 05/30/2024 Internet Access Answer Date Recorded Internet Access Q1 Yes 11/26/2024 Internet Access Q2 Not on file 11/26/2024 Sex and Gender Information Value Date Recorded Sex Assigned at Male 04/25/2022 10:36 AM EDT Legal Sex Male 10:36 AM EDT Gender Identity Male 04/25/2022 10:36 AM EDT Sexual Orientation Straight 04/24/2023 2: 59 PM EDT Last Filed Vital Signs Vital Sign Reading Time Taken Comments Blood Pressure 140/76 12/19/2024 3:09 PM EDT Pulse 78 12/19/2024 2:28 PM EDT Temperature 36.7 C (98 F) 12/19/2024 2:28 PM EDT Respiratory Rate 20 12/19/2024 2:28 PM EDT Oxygen Saturation 97% 12/19/2024 2:28 PM EDT Inhaled Oxygen Concentration - - Weight 56.3 kg (124 lb 3.2 oz) 12/19/2024 2:28 P M EDT Height 153 cm (5' 0.24 ) 12/19/2024 2:28 PM EDT Body Mass Index 24.07 12/19/2024 2:28 PM EDT Plan of Treatment Upcoming Encounters Date Type Department Care Team (Late st Contact Info) Description 04/08/2025 3:30 PM EDT Office Visit [facility] [address] [place] [address] Rick, Selena, OD [address] [place] [address] Health Maintenance Due Date Last Done Comments CT Colonography 1955 Colonoscopy 1955 Colorectal Cancer Screening 1955 FIT DNA/Cologuard 1955 FIT 1955 FOBT 1955 Sigmoidoscopy 1955 COVID-19 Vaccine ( season) 2025 12/24/2021, 12/24/2021, 12/15/2020, Additional history exists Influenza Vaccine (#1) 2025 Pneumococcal Vaccine: 50+ Years (1 of 2 - PCV) 03/08/2025 Postponed from 1973 (Patient Refused) RSV Patients and Patients Aged 60 years or older (1 - Risk 60-74 years 1-dose series) 03/08/2025 Postponed from 2014 (Patient Refused) Depression Screening 05/30/2025 05/30/2024, 05/30/20 SDOH Screening 11/26/2025 11/26/2024 Alcohol/Substance Use Screening 12/19/2025 12/19/2024 Tobacco Screening 12/19/2025 12/19/2024 Zoster Vaccines (2 of 2) 12/19/2025 02/03/2024 Pos tponed from 03/30/2024 (Patient Refused) Lipid Panel 02/21/2029 02/22/2024, 06/27, 09/15/2020, Additional [...] EXTREMITY ARTERIAL DUPLEX BILATERAL WITH FELISA Routine 01/07/2025 1:20 PM EDT US ABDOMINAL AORTIC ANEURYSM Routine 01/07/2025 1:20 PM EDT HEPATITIS C AB W/REFL TO HCV RNA, QN, PCR Routine 02/22/2024 9:11 AM EDT Encounter for behavioral health screening LIPID PANEL, STANDARD Routine 02/22/2024 9:11 AM EDT Essential hypertension from Last 3 Months or Most Recently Relevant to Health Maintenance Results * US ABDOMINAL AORTIC ANEURYSM (01/07/2025 1:20 PM EDT) Anatomical Region Laterality Modality Abdomen Ultrasound 01/07/2025 1:20 PM EDT Narrative 01/07/2025 3:49 PM EDT [place] [address] Ultrasound Report Signed Patient: Yosef Soria MR#: [id number] : 1955 Acct:[id number] Age/Sex: 69 / M ADM Date: 01/07/25 Loc: HO.US Attending Dr: Abhishek Flores MD Ordering Physician: Abhishek Flores MD Date of Service: 01/07/25 Procedure(s): US abdominal aortic aneurysm Accession Number(s): [id number] cc: Abhishek Flores MD; Kayla Friend MD EXAMINATION: US RETROPERITONEAL LIMITED (AORTA) CLINICAL INFORMATION: Bilateral femorofemoral bypass graft. Peripheral vascular disease.. COMPARISON: Correlated to CT angiogram dated August 21, 2023. TECHNIQUE: Huizar-scale, color Doppler and spectral Doppler evaluation of the abdominal aorta. FINDINGS: Limited evaluation of the abdominal aorta. The measurements and peak systolic velocities of the aorta in maximum AP dimensions respectively are as follows: Proximal: 2.8 cm. Peak systolic velocity: 55 cm/s. Mid: 1.4 cm. Peak systolic velocity: 70 cm/s. Distal: 1.7 cm. Peak systolic velocity: 85 cm/s. The Peak systolic velocities the common iliac arteries in maximum dimensions are as follows: Right: Common iliac artery: 90 cm/s. External iliac artery: 75 cm/s. Left: Common iliac artery: 360 cm/s. External iliac artery is not identified. US/US abdominal aortic aneurysm IMPRESSION: No aneurysm, abdominal aorta.. Electronically signed by: Kristian Puente MD 01/07/2025 03:46 PM EDT RP Dictated By: Kristian Razo MD Signed By: <Electronically signed by Kristian Kelly MD in OV> 01/07/25 1546 DD/ 1320 TD/TT: 01/07/25 1418 Photographic Restorer: Procedure Note Donotuseinterpreter, Image - 01/07/[address] [address] Ultrasound Report Signed Patient: Julien Soria#: M [id number] : 4Acct:[id number] Age/Sex: 69 / MADM Date: 01/07/25 Loc: HO.US Attending Dr: Abhishek Flores MD Ordering Physician: Abhishek Flores MD Date of Service: 01/07/25 Procedure(s): US abdominal aortic aneurysm Accession Number(s): [id number] cc: Abhishek Flores MD; Kayla Friend MD EXAMINATION: US RETROPERITONEAL LIMITED (AORTA) CLINICAL INFORMATION: Bilateral femorofemoral bypass graft. Peripheral vascular disease.. COMPARISON: Correlated to CT angiogram dated August 21, 2023. TECHNIQUE: Huizar-scale, color Doppler and spectral Doppler evaluation of the abdominal aorta. FINDINGS: Limited evaluation of the abdominal aorta. The measurements and peak systolic velocities of the aorta in maximum AP dimensions respectively are as follows: Proximal: 2.8 cm. Peak systolic velocity: 55 cm/s. Mid: 1.4 cm. Peak systolic velocity: 70 cm/s. Distal: 1.7 cm. Peak systolic velocity: 85 cm/s. The Peak systolic velocities the common iliac arteries in maximum dimensions are as follows: Right: Common iliac artery: 90 cm/s. External iliac artery: 75 cm/s. Left: Common iliac artery: 360 cm/s. External iliac artery is not identified. US/US abdominal aortic aneurysm IMPRESSION: No aneurysm, abdominal aorta.. Electronically signed by: Kristian Puente MD 01/07/2025 03:46 PM EDT RP Dictated By: Kristian Razo MD Signed By: <Electronically signed by Kristian Kelly MDin OV> 01/07/25 1546 DD/ 1320 TD/TT: 01/07/25 1418 Photographic Restorer: us [facility] External Provider IMG US PROCEDURES Final Result * VASC US Lower Extremity Arterial Duplex Bilateral With Felisa (01/07/2025 1:20 PM EDT) 01/07/2025 1:20 PM EDT Narrative [facility] - 01/07/2025 3:45 PM EDT [place] [address] Ultrasound Report Signed Patient: Yosef Soria MR#: M [id number] : 1955 Acct:[id number] Age/Sex: 69 / M ADM Date: 01/07/25 Loc: . Attending Dr: Abhishek Flores MD Ordering Physician: Abhishek Flores MD Date of Service: 01/07/25 Procedure(s): US arterial duplex BI w/ FELISA Accession Number(s): [id number] cc: Abhishek Flores MD; Kayla Friend MD EXAMINATION: Noninvasive assessment of the bilateral lower extremities with ARTERIAL DUPLEX, ANKLE BRACHIAL INDICES (ABIs), and PULSE VOLUME RECORDINGS (PVRs). CLINICAL INFORMATION: Left femoral femoral bypass graft. TECHNIQUE: Duplex Doppler techniques with waveform analysis and measurement of velocities in the bilateral common femoral, profunda femoris, superficial femoral, popliteal and tibial arteries were performed. Additionally, ankle pulse volume recordings, ankle pressure measurements and ankle brachial indices were obtained of the lower extremity arterial system bilaterally. The study was performed only at rest. COMPARISON: May 20, 2024. FINDINGS: DIRECT DUPLEX DOPPLER FINDINGS: RIGHT LEG: Common femoral artery: 42 cm/s, phasicity: Monophasic. Profunda femoris artery: 85 cm/s, phasicity: Monophasic Superficial femoral artery (proximal): 46 cm/s, phasicity: Monophasic. Superficial femoral artery (mid): 42 cm/s, phasicity: Monophasic. Superficial femoral artery (distal): 36 cm/s, phasicity: Monophasic. Popliteal artery: 38 cm/s, phasicity: Monophasic. Posterior tibial artery: 20 cm/s, phasicity: Monophasic. Peroneal artery: 15 cm/s, phasicity: Monophasic. Anterior tibial artery: 10 cm/s, phasicity: Monophasic. Dorsalis pedis artery: 25 cm/s, phasicity:Monophasic. LEFT LEG: Common femoral artery: No color Doppler flow. Profunda femoris artery: 47 cm/s, phasicity: Monophasic. Superficial femoral artery (proximal): 31 cm/s, phasicity: Monophasic. Superficial femoral artery (mid): 39 cm/s, phasicity: Monophasic. Superficial femoral artery (distal): 35 cm/s, phasicity: Monophasic. Popliteal artery: 22 cm/s, phasicity: Monophasic. Posterior tibial artery: No color Doppler flow. Peroneal artery: 6 cm/s, phasicity: Reversal flow. Anterior tibial artery: 7 cm/s, phasicity: Reversal flow. Dorsalis pedis artery: 8 cm/s, phasicity: Monophasic. Left femorofemoral bypass graft: Inflow artery, left femoral artery: 188 cm/s. Monophasic waveform. Proximal anastomosis: 200 cm/s. Triphasic waveform. Proximal bypass graft: 57 cm/s. Biphasic waveform. Mid bypass graft: 86 cm/s. Monophasic. Distal bypass graft: 55 cm/s. Biphasic. Distal anastomosis: 117 cm/s. Biphasic. Outflow artery to the right femoral: 42 cm/s. Monophasic. BRACHIAL PRESSURES: Right: 127 Left: 127 ANKLE PRESSURES: Right: PT 78, DP not documented. Left: PT not documented., DP 63 ANKLE-BRACHIAL INDEX: Right: 0.61 Left: 0.50 ANKLE PVR WAVEFORMS: Right: Abnormal Left: Abnormal US/US arterial duplex BI w/ FELISA IMPRESSION: Right leg: Severe inflow disease throughout the interrogated arteries. Left leg: Severe inflow disease throughout the interrogated arteries. Probable high degree stenosis/occlusion, left posterior tibialis to the dorsalis pedis arteries. Patency of the bifemoral bypass graft FELISA Reference: - >1.4 = calcified vessels - 0.9 - 1.4 = normal - no significant arterial disease - 0.7 - 0.89 = mild peripheral arterial disease - 0.51 - 0.69 = moderate peripheral arterial disease - 0.50 = severe peripheral arterial disease - < .30 = critical arterial disease Electronically signed by: Kristian Puente MD 01/07/2025 03:43 PM EDT RP Dictated By: Kristian Razo MD Signed By: <Electronically signed by Kristian Kelly MD in OV> 01/07/25 1543 DD/ 1320 TD/TT: 01/07/25 1418 Photographic Restorer: Procedure Note Donotuseinterpreter, Image - 01/07/2025 [place] [address] Ultrasound Report Signed Patient: Julien Soria#: M [id number] : 4Acct:[id number] Age/Sex: 69 / MADM Date: 01/07/25 Loc: HO. Attending Dr: Abhishek Flores MD Ordering Physician: Abhishek Flores MD Date of Service: 01/07/25 Procedure(s): US arterial duplex BI w/ FELISA Accession Number(s): [id number] cc: Abhishek Flores MD; Kayla Friend MD EXAMINATION: Noninvasive assessment of the bilateral lower extremities with ARTERIAL DUPLEX, ANKLE BRACHIAL INDICES (ABIs), and PULSE VOLUME RECORDINGS (PVRs). CLINICAL INFORMATION: Left femoral femoral bypass graft. TECHNIQUE: Duplex Doppler techniques with waveform analysis and measurement of velocities in the bilateral common femoral, profunda femoris, superficial femoral, popliteal and tibial arteries were performed. Additionally, ankle pulse volume recordings, ankle pressure measurements and ankle brachial indices were obtained of the lower extremity arterial system bilaterally. The study was performed only at rest. COMPARISON: May 20, 2024. FINDINGS: DIRECT DUPLEX DOPPLER FINDINGS: RIGHT LEG: Common femoral artery: 42 cm/s, phasicity: Monophasic. Profunda femoris artery: 85 cm/s, phasicity: Monophasic Superficial femoral artery (proximal): 46 cm/s, phasicity: Monophasic. Superficial femoral artery (mid): 42 cm/s, phasicity: Monophasic. Superficial femoral artery (distal): 36 cm/s, phasicity: Monophasic. Popliteal artery: 38 cm/s, phasicity: Monophasic. Posterior tibial artery: 20 cm/s, phasicity: Monophasic. Peroneal artery: 15 cm/s, phasicity: Monophasic. Anterior tibial artery: 10 cm/s, phasicity: Monophasic. Dorsalis pedis artery: 25 cm/s, phasicity:Monophasic. LEFT LEG: Common femoral artery: No color Doppler flow. Profunda femoris artery: 47 cm/s, phasicity: Monophasic. Superficial femoral artery (proximal): 31 cm/s, phasicity: Monophasic. Superficial femoral artery (mid): 39 cm/s, phasicity: Monophasic. Superficial femoral artery (distal): 35 cm/s, phasicity: Monophasic. Popliteal artery: 22 cm/s, phasicity: Monophasic. Posterior tibial artery: No color Doppler flow. Peroneal artery: 6 cm/s, phasicity: Reversal flow. Anterior tibial artery: 7 cm/s, phasicity: Reversal flow. Dorsalis pedis artery: 8 cm/s, phasicity: Monophasic. Left femorofemoral bypass graft: Inflow artery, left femoral artery: 188 cm/s. Monophasic waveform. Proximal anastomosis: 200 cm/s. Triphasic waveform. Proximal bypass graft: 57 cm/s. Biphasic waveform. Mid bypass graft: 86 cm/s. Monophasic. Distal bypass graft: 55 cm/s. Biphasic. Distal anastomosis: 117 cm/s. Biphasic. Outflow artery to the right femoral: 42 cm/s. Monophasic. BRACHIAL PRESSURES: Right: 127 Left: 127 ANKLE PRESSURES: Right: PT 78, DP not documented. Left: PT not documented., DP 63 ANKLE-BRACHIAL INDEX: Right: 0.61 Left: 0.50 ANKLE PVR WAVEFORMS: Right: Abnormal Left: Abnormal US/US arterial duplex BI w/ FELISA IMPRESSION: Right leg: Severe inflow disease throughout the interrogated arteries. Left leg: Severe inflow disease throughout the interrogated arteries. Probable high degree stenosis/occlusion, left posterior tibialis to the dorsalis pedis arteries. Patency of the bifemoral bypass graft FELISA Reference: - >1.4 = calcified vessels - 0.9 - 1.4 = normal - no significant arterial disease - 0.7 - 0.89 = mild peripheral arterial disease - 0.51 - 0.69 = moderate peripheral arterial disease - 0.50 = severe peripheral arterial disease - < .30 = critical arterial disease Electronically signed by: Kristian Puente MD 01/07/2025 03:43 PM EDT RP Dictated By: Kristian Razo MD Signed By: <Electronically signed by Kristian Kelly MDin OV> 01/07/25 1543 DD/ 1320 TD/TT: 01/07/25 1418 Photographic Restorer: [facility] External Provider CV VASC ULAR PROCEDURES Final Result Performing Organization Address [facility]/ZIP Co de Phone Number [facility] [address] [place] [phone] * Hepatitis C Antibody with Reflex to HCV, RNA, Quantitative, Real-Time PCR (02/22/2024 9:11 AM EDT) Pathologist [facility] Hepatitis C Antibody Nonreactive Nonreactive [facility] Comment:Antibodies to HCV no t detected; does not exclude early acuteHCV infection. Blood Venous blood specimen / Unknown 02/22/2024 9:11 AM EDT 02/22/2024 11:11 AM EDT Kayla Friend MD LAB BLOOD ORDERABLES Final Re sult Performing Organization Address [facility]/ZIP Co de Phone Number [facility] [address] [place] [place] [phone] * (ABNORMAL) Lipid Panel, Standard (02/22/2024 9:11 AM EDT) Triglycerides 222(H) <150 mg/dL [facility] Comment:Desirable Triglyceri de: less than 150 mg/dLBorderline High Triglyceride 150-199 mg/dLHigh Triglyceride: 200-499 mg/dLVery High Triglyceride: greater than or equal to 5OO mg/dL Cholesterol 232(H) <200 mg/dL [facility] Comment:Desirable Cholestero l: less than 200 mg/dLBorderline High Cholesterol: 200-239 mg/dLHigh Cholesterol: greater than 239 mg/dL LDL Cholesterol Calculated 157(H) <100 mg/dL [facility] Comment:Desirable LDL: less than 100 mg/dLNear Optimal/Above Optimal LDL: 110- 129 mg/dLBorderline High LDL: 130-159 mg/dLHigh LDL: 160-189 mg/dLVery High LDL: greater than or equal to 190 mg/dL HDL Cholesterol 31(L) >40 mg/dL [facility] Comment:Desirable HDL: great er than 40 mg/dL Note: This HDL assay may give artificially low results in patients with liver disease. Blood Venous blood specimen / Unknown 02/22/2024 9:11 AM EDT 02/22/2024 11:11 AM EDT us Kayla Friend MD LAB BLOOD ORDERABLES Final Re sult [facility] [address] [place] [phone] from Last 3 Months or Most Recently Relevant to Health Maintenance Insurance [employer] (HMO D-SNP) [place] [id number] [facility] STAND[facility] Care Teams Cone Runner Relationship Specialty Start Date End Date Kayla Friend MD [address] [place] [address] PCP - General Family Medicine 04/30/20 Abhishek Flores MD Surgeon Vascular Surgery 05/30/24 [facility] 09/26/24
--- OUTSIDE RECORDS SUMMARY | 2025-03-04 13:16 | XMS_ITS | Encounter Summary ---
Author Organization [employer] Address [address] [place] [address] 7t [place] [address] Care Team Providers Care Trench Digging Machine Operator Name Role Phone Kayla Friend MD Primary Care Provider [phone] Reason for Visit * Reason Onset Date Comments Med Refill 02/21/2025 Encounter Details Date Type Department Care Team ([facility] st Contact Info) Description 02/21/[address] [facility] CHC MED & PEDS [address] [place] [address] Kayla Friend MD 505 [place] [address] Asthma, unspecified asthma severity, unspecified whether complicated, unspecified whether persistent; Essential hypertension Social History Tobacco Use Types [...] encounter Miscellaneous Notes * Telephone Encounter - Samira Almeida LPN - 03/03/2025 10:01 AM EDT Last seen 12/19/24. * Telephone Encounter - Arya Chacko - 02/21/2025 9:57 AM EDT TC from pt requesting medication refill. Medications needing refill : acetaminophen (Tylenol 8 Hour) 650 MG ER tablet albuterol (2.5 MG/3ML) 0.083% nebulizer solution albuterol 108 (90 Base) MCG/ACT inhaler aspirin 81 MG chewable tablet carvedilol (Coreg) 25 MG tablet eszopiclone (Lunesta) 2 MG tablet loratadine (Claritin) 10 MG tablet magnesium 200 MG tablet montelukast (Singulair) 10 MG tablet Multiple Vitamins-Minerals (PreserVision AREDS 2) capsule olopatadine (Pataday) 0.2 % ophthalmic solution valsartan-hydroCHLOROthiazide (Diovan-HCT) 320-25 MG tablet To be sent to: [facility] - [place], [place] - [address] [facility] documented in this encounter Plan of Treatment Upcoming Encounters Date Type Department Care Team (Late st Contact Info) Description 04/08/2025 3:30 PM EDT Office Visit [facility] OPT[facility] [address] [place] [address] Rick, Selena, OD [address] [place] [address] documented as of this encounter Visit Diagnoses Diagnosis Asthma, unspecified asthma severity, unspecified whether complicated, unspecified whether persistent Essential hypertension Unspecified essential hypertension documented in this encounter Additional Health Concerns Assessment Noted Time PHQ-9 Depression Total Score: 2 05/30/20 24 9:43 AM EST documented as of this encounter Care Teams Trench Digging Machine Operator Relationship Specialty Start Date End Date Kayla Friend MD [address] [place] [address] PCP - General Family Medicine 04/30/20 Abhishek Pino MD Surgeon Vascular Surgery 05/30/24 [facility] 09/26/24 documented as of this encounter
--- OUTSIDE RECORDS SUMMARY | 2025-03-04 13:16 | XMS_ITS | Encounter Summary ---
Author Organization [employer] Address [address] [place] [address] [address]t [place] [address] Care Team Providers Care Brand Marketing Manager Name Role Phone Kayla Friend MD Primary Care Provider [phone] Encounter Details Date Type Department Care Team (Late Contact Info) Description 08/12/2022 Telephone [facility] CHC MED & PEDS [address] [place], [place] [phone] Kayla Friend MD 505 [place] [address] Social History Tobacco Use Types Packs/Day Years [...] Description 04/08/2025 3:30 PM EDT Office Visit [facility] OPTOMETRY [address] [place] [address] Selena Cabrera, OD [address] [place] [address] documented as of this encounter Visit Diagnoses Not on filedocumented in this encounter Additional Health Concerns Assessment Noted Time PHQ-9 Depression Total Score: 5 07/18/19 23 2:10 PM EST documented as of this encounter Care Teams Brand Marketing Manager Relationship Specialty Start Date End Date Kayla Friend MD [address] [place] [address] PCP - General Family Medicine 04/30/20 Abhishek Pino MD Surgeon Vascular Surgery 05/30/24 [facility] 09/26/24 documented as of this encounter
--- OUTSIDE RECORDS SUMMARY | 2025-03-04 13:17 | XMS_ITS | Encounter Summary ---
Author Organization [employer] Address [address] [facility] 7t [place] [address] Care Team Providers Care Gericare Aide Teacher Name Role Phone Kayla Friend MD Primary Care Provider [phone] Reason for Visit * Reason Onset Date Comments Appointment Request 11/11/2024 Encounter Details Date Type Department Care Team ([facility] Contact Info) Description 11/11/2024 Telephone [facility] [address] [place] [address] Kayla Friend MD 505 [place] [address] Appointment Request Social History Tobacco Use Types [...] Description 04/08/2025 3:30 PM EDT Office Visit [facility] OPTOMETRY [address] [place] [address] Rick, Selena, OD [address] [place] [address] documented as of this encounter Visit Diagnoses Not on filedocumented in this encounter Additional Health Concerns Assessment Noted Time PHQ-9 Depression Total Score: 2 05/30/20 9:43 AM EST documented as of this encounter Care Teams Gericare Aide Teacher Relationship Specialty Start Date End Date Kayla Friend MD [address] [place] [address] PCP - General Family Medicine 04/30/20 Abhishek Pino MD Surgeon Vascular Surgery 05/30/24 [facility] 09/26/24 documented as of this encounter
--- OUTSIDE RECORDS SUMMARY | 2025-03-04 13:17 | XMS_ITS | Clinical Summary ---
Author Organization [employer] [facility] ity Address [address] [place] [address] Care Team Providers Care Police Radio Dispatcher Name Role Phone Unavailable Primary Care Provider [...] 2004 Zoster Vaccines (1 of 2) 2004 Depression Screening 06/26/2024 COVID-19 Vaccine (1 - 2023-2 5 season) 2025 Influenza Vaccine (#1) 2025 RSV Immunization Adult [...]
--- OUTSIDE RECORDS SUMMARY | 2025-03-04 13:17 | XMS_ITS | Encounter Summary ---
Author Organization [employer] Address [address] [facility] 7t [place] [address] Care Team Providers Care Service Transformer Repair Supervisor Name Role Phone Kayla Friend MD Primary Care Provider [phone] Encounter Details Date Type Department Care Team ([facility] Contact Info) Description 10/11/2024 Telephone [facility] CHC MED & PEDS 505 [place], [place] [phone] Kayla Friend MD 505 [place] [address] Social History Tobacco Use Types Packs/Day Years [...] EDT Tc from Donald visiting nurse with [facility] regarding pt blood pressure. Visiting nurse stated blood pressure medication was put on hold due to pt having surgery. Donald requesting a call back at [phone] documented in this encounter Plan of Treatment Upcoming Encounters Date Type Department Care Team (Late st Contact Info) Description 04/08/2025 3:30 PM EDT Office Visit [facility] OPTOMETRY [address] [place] [address] Rick, Selena, OD [address] [place] [address] documented as of this encounter Visit Diagnoses Not on filedocumented in this encounter Additional Health Concerns Assessment Noted Time PHQ-9 Depression Total Score: 2 05/30/20 24 9:43 AM EST documented as of this encounter Care Teams Service Transformer Repair Supervisor Relationship Specialty Start Date End Date Kayla Friend MD [address] [place] [address] PCP - General Family Medicine 04/30/20 Abhishek Pino MD Surgeon Vascular Surgery 05/30/24 [facility] 09/26/24 documented as of this encounter
--- OUTSIDE RECORDS SUMMARY | 2025-03-04 13:17 | XMS_ITS | Encounter Summary ---
Author Organization [employer] Address [address] [facility] 7t [place] [address] Care Team Providers Care Collar Separator Name Role Phone Kayla Friend MD Primary Care Provider [phone] Encounter Details Date Type Department Care Team ([facility] st Contact Info) Description 09/26/[address] [facility] CHC MED & PEDS [address] [place], [place] [phone] Kayla Friend MD 505 [place] [address] Social History Tobacco Use Types Packs/Day Years [...] Description 04/08/2025 3:30 PM EDT Office Visit [facility] OPTOMETRY [address] [place] [address] Rick, Selena, OD [address] [place] [address] documented as of this encounter Visit Diagnoses Not on filedocumented in this encounter Additional Health Concerns Assessment Noted Time PHQ-9 Depression Total Score: 2 05/30/20 24 9:43 AM EST documented as of this encounter Care Teams Collar Separator Relationship Specialty Start Date End Date Kayla Friend MD [address] [place] [address] PCP - General Family Medicine 04/30/20 Abhishek Pino MD Surgeon Vascular Surgery 05/30/24 [facility] 09/26/24 documented as of this encounter
--- OUTSIDE RECORDS SUMMARY | 2025-03-04 13:17 | XMS_ITS | Encounter Summary ---
Author Organization [employer] Address [address] [place] [address] 7t [place] [address] Care Team Providers Care Semiconductor Engineer Name Role Phone Kayla Friend MD Primary Care Provider [phone] Encounter Details Date Type Department Care Team ([facility] st Contact Info) Description 02/10/2023 Telephone [facility] CHC MED & PEDS 505 [place], [place] [phone] Kayla Friend MD [address] [place] [address] Social History Tobacco Use Types Packs/Day Years [...] 3:17 PM EDT Tc from katelyn with [facility] pulmonology requesting last three OV notes and any breathing test to be faxed to [phone] Any questions, please contact katelyn at [phone] documented in this encounter Plan of Treatment Upcoming Encounters Date Type Department Care Team (Late st Contact Info) Description 04/08/2025 3:30 PM EDT Office Visit [facility] OPTOMETRY [address] [place] [address] RickSelena pendleton, OD [address] [place] [address] documented as of this encounter Visit Diagnoses Not on filedocumented in this encounter Additional Health Concerns Assessment Noted Time PHQ-9 Depression Total Score: 5 07/18/19 23 2:10 PM EST documented as of this encounter Care Teams Semiconductor Engineer Relationship Specialty Start Date End Date Kayla Friend MD [address] [place] [address] PCP - General Family Medicine 04/30/20 Abhishek Pino MD Surgeon Vascular Surgery 05/30/24 [facility] 09/26/24 documented as of this encounter
--- OUTSIDE RECORDS SUMMARY | 2025-03-04 13:17 | XMS_ITS | Encounter Summary ---
Author Organization [employer] Address [address] [place] [address] [address] [place] [address] Care Team Providers Care Skilled Laborer Name Role Phone Kayla Friend MD Primary Care Provider [phone] Reason for Visit * Reason Comments Med Refill Encounter Details Date Type Department Care Team ([facility] st Contact Info) Description 10/27/2024 Refill [facility] CHC MED & PEDS [address] [place] [address] Kayla Friend MD [address] [place] [address] Social History Tobacco Use Types Packs/Day Years [...] Description 04/08/2025 3:30 PM EDT Office Visit [facility] OPTOMETRY [address] [place] [address] Rick, Selena, OD [address] [place] [address] documented as of this encounter Visit Diagnoses Not on filedocumented in this encounter Additional Health Concerns Assessment Noted Time PHQ-9 Depression Total Score: 2 05/30/20 24 9:43 AM EST documented as of this encounter Care Teams Skilled Laborer Relationship Specialty Start Date End Date Kayla Friend MD [address] [place] [address] PCP - General Family Medicine 04/30/20 Abhishek Pino MD Surgeon Vascular Surgery 05/30/24 [facility] 09/26/24 documented as of this encounter
== END 2025-03-04 11:23 | disposition home or self-care (01) ==
LOC: HO.HVS 10:58
PROVIDERS: PCP Family Medicine; Visit Provider Surgery Vascular Surgery
DX: I73.9 Peripheral vascular disease, unspecified (principal)
CPT/HCPCS: 99214; G2211

== ENCOUNTER → 2025-03-04 10:57 | Outpatient (BNVA) | payer OTHER, SELFPAY | PROVIDERS: PCP Family Medicine; Visit Provider Surgery Vascular Surgery | DX: I73.9 Peripheral vascular disease, unspecified (principal); Z98.890 Other specified postprocedural states | CPT/HCPCS: 99212 ==

== ENCOUNTER 2025-03-24 14:20 | Outpatient (AMB) | payer OTHER, SELFPAY ==
[2025-03-24 14:25] VITALS: BP 138/62; PULSE 71; O2SAT 96; BMI 24.2
--- NOTE | 2025-03-24 14:25 | MHC.OFFVIS ---
Vital Signs 03/24/25 14:25 Height 5 ft 1 in Weight 127 lb 13.89 oz BMI 24.2 BP 138/62 Blood Pressure Location Rt brachial Position Sitting Pulse 71 Pulse Source Pulse Oximeter Pulse Oximetry (%) 96 Oxygen Delivery Method Room Air Intake Visit Reasons: COPD Office Nurse Practitioner Required: Yes Office Nurse Practitioner Language: Victorian Literature Professor Services: Office Nurse Practitioner Present Office Nurse Practitioner Name: Emmanuelle Ga LM Allergies No Known Allergies Allergy (Verified 03/24/25 14:28) HPI HPI COPD: Details: Yosef is a pleasant 70 year old male, current 50+ pack year history, with underlying childhood asthma, COPD, HTN and PAD. He was referred by PCP for pulmonary evaluation. He has been using Arnuity and Stiolto for management, but reports inconsistent use of Arnuity, which is used only when symptoms are not controlled by Stiolto. At this time he reports symptoms are well controlled on current regimen although does report occasional wheezing and dry cough. The patient has a history of asthma from childhood, but has never required hospitalization or intubation for respiratory issues. He denies recurrent respiratory infections and has not needed oxygen at home, although he required it during a past hospitalization. The patient has a significant smoking history, having smoked since age 13, with a past history of smoking one pack per day for over 20 years. Currently, he smokes about five cigarettes a day and has attempted to quit using patches and medications without success. He reportedly underwent PFT a few years ago, through [facility], records not available. Denies prior Chest CT, prior CXR unremarkable. He denies occupational exposures. Denies any pertinent family history. [facility] Medical History Depression PAD (peripheral artery disease) Asthma Smoker Dyslipidemia Acid reflux HTN (hypertension) Surgical History S/P aortogram History of esophagogastroduodenoscopy (EGD) H/O colonoscopy H/O wrist surgery Family History Father No problems noted. Mother No problems noted. Social History Household Members: None Housing: Apartment Housing Other:: Indep Living Are you a primary home visit field care manager to a significant other at home: No Do you presently have visiting nurse or other home services: Yes Alcohol intake: former Patient Tobacco Use Status: Current everyday Tobacco user Tobacco use type: Cigarette Cigarettes Per Day: 5 Years Smoked: 56 e-Cigarette/Vaping Use: Currently Using Second Hand Smoke Exposure: No service: No Current occupational status: unemployed Review of Systems Const Denies chills, Denies excessive sweating, Denies fever(s), Denies headache(s) and Denies night sweats Eyes Denies dry eyes, Denies irritation and Denies itchy eyes ENT Reports Normal hearing present, Denies headache(s), Denies nasal congestion, Denies nasal discharge, Denies post nasal drip and Denies sore throat Card Denies chest pain, Denies chest pain at rest, Denies chest pain with activity, Denies claudication, Denies leg edema, Denies dyspnea, Denies dyspnea on exertion, Denies orthopnea and Denies paroxysmal nocturnal dyspnea Resp Denies chest congestion, Denies excessive phlegm production, Denies pain on inspiration, Denies pain with cough, Denies dyspnea, Denies dyspnea on exertion and Denies stridor Musc Denies myalgias Neuro Reports Normal hearing present and Denies headache(s) Endo Denies excessive sweating Andre/Lymph Denies lymphadenopathy Aller/Immun Denies itchy eyes and Denies seasonal rhinorrhea Physical Exam Vital Signs: Last Vital Signs Pulse 71 03/24/25 14:25 BP 138/62 03/24/25 14:25 Pulse Ox 96 03/24/25 14:25 Oxygen Delivery Method Room Air 03/24/25 14:25 BMI result Body Mass Index 24.2 Const General: cooperative, healthy appearing, comfortable, no acute distress, well developed and alert Orientation/consciousness: patient oriented x3 Limitations: no limitations HEENT Head: Yes normal to inspection, Yes normocephalic and Yes atraumatic Ears: hearing grossly normal bilaterally and external ears normal Eyes General: appearance normal, both eyes and all related structures Eyelids: Yes eyelids normal Sclerae: sclerae normal EOM: EOMs intact bilaterally Neck Neck: Yes normal visual inspection and Yes no lymphadenopathy Lymphatic: no lymphadenopathy noted Chest Chest palpation & inspection: normal inspection of the chest Resp Effort & Inspection: normal respiratory effort, able to speak in complete sentences, no audible wheezes, no cough, no stridor, not tachypneic, no tripod positioning and no use of accessory muscles Auscultation: diminished lung sounds Cardio Jugular venous distension: no JVD Rate: regular rate Rhythm: regular rhythm Skin Other: warm, dry General skin exam: no rashes or lesions noted Neuro General: patient oriented x3 Cranial nerves: Yes Normal hearing present Cognition (Neuro): normal cognition Gait exam (Neuro): Normal gait present Extrem General: Yes normal to inspection, Yes capillary refill normal, Yes no clubbing, cyanosis or edema and Yes no pedal edema Psych Appearance: grossly normal and well kempt Speech and movement: Normal speech and movement present and Clear speech present Affect: normal affect Attitude: cooperative Thought process: Normal thought process present Thought content: Normal thought content present Insight: Good insight present (Psych) Judgement: Good judgement present (Psych) Assessment & Plan Assessment & Plan (1) COPD (chronic obstructive pulmonary disease): Code(s): J44.9 - Chronic obstructive pulmonary disease, unspecified Category: Medical (2) Nicotine dependence, cigarettes, uncomplicated: Code(s): F17.210 - Nicotine dependence, cigarettes, uncomplicated Category: Medical Plan Discussed with the patient the importance of using both inhalers daily to manage COPD symptoms and prevent exacerbations. We discussed the lung cancer screening program and the benefits of early detection through CT scans, especially given his smoking history which he was agreeable to, will enter order. Addressed the patient's smoking habits, suggesting nicotine replacement options and encouraging him to reach out if he decides to quit. Patient states he had PFT within 1-2 years at [facility], will attempt to obtain. If not recent testing, will enter PFT. All questions were answered and patient is in agreement of plan, Will follow up in 3 months or sooner if needed. Orders: Referrals Lung Cancer Screening Referral F17.210 - Nicotine dependence, cigarettes, uncomplicated Coding Level of Care Code New Pt Level 4 (74796) Diagnoses COPD (chronic obstructive pulmonary disease) J44.9 Nicotine dependence, cigarettes, uncomplicated F17.210
--- OUTSIDE RECORDS SUMMARY | 2025-03-24 16:08 | XMS_ITS | Encounter Summary ---
Author Organization [employer] Address [address] [place] [address] 7t [place] [address] Care Team Providers Care Airport Security Screener Name Role Phone Kayla Friend MD Primary Care Provider [phone] Reason for Visit * Reason Comments Med Refill Encounter Details Date Type Department Care Team ([facility] st Contact Info) Description 03/11/2025 Refill [facility] CHC MED & PEDS [address] [place] [address] Kayla Friend MD 505 [place] [address] Social History Tobacco Use Types Packs/Day Years [...] Description 04/08/2025 3:30 PM EDT Office Visit [facility] OPTOMETRY [address] [place] [address] Rick, Selena, OD [address] [place] [address] documented as of this encounter Visit Diagnoses Not on filedocumented in this encounter Additional Health Concerns Assessment Noted Time PHQ-9 Depression Total Score: 2 05/30/20 24 9:43 AM EST documented as of this encounter Care Teams Airport Security Screener Relationship Specialty Start Date End Date Kayla Friend MD [address] [place] [address] PCP - General Family Medicine 04/30/20 Abhishek Pino MD Surgeon Vascular Surgery 05/30/24 [facility] 09/26/24 documented as of this encounter
--- OUTSIDE RECORDS SUMMARY | 2025-03-24 16:08 | XMS_ITS | Encounter Summary ---
Author Organization [employer] Address [address] [facility] [address]t [place] [address] Care Team Providers Care Supervisor Taping Name Role Phone Kayla Friend MD Primary Care Provider [phone] Encounter Details Date Type Department Care Team ([facility] Contact Info) Description 10/11/2024 Telephone [facility] CHC MED & PEDS [address] [place], [place] [phone] Kayla Friend MD [address] [place] [address] Social History Tobacco Use Types Packs/Day Years [...] EDT Tc from Donald visiting nurse with [facility] regarding pt blood pressure. Visiting nurse stated blood pressure medication was put on hold due to pt having surgery. Donald requesting a call back at [phone] documented in this encounter Plan of Treatment Upcoming Encounters Date Type Department Care Team (Late st Contact Info) Description 04/08/2025 3:30 PM EDT Office Visit [facility] OPTOMETRY [address] [place] [address] Rick, Selena, OD [address] [place] [address] documented as of this encounter Visit Diagnoses Not on filedocumented in this encounter Additional Health Concerns Assessment Noted Time PHQ-9 Depression Total Score: 2 05/30/20 24 9:43 AM EST documented as of this encounter Care Teams Supervisor Taping Relationship Specialty Start Date End Date Kayla Friend MD [address] [place] [address] PCP - General Family Medicine 04/30/20 Abhishek Pino MD Surgeon Vascular Surgery 05/30/24 [facility] 09/26/24 documented as of this encounter
--- OUTSIDE RECORDS SUMMARY | 2025-03-24 16:08 | XMS_ITS | Encounter Summary ---
Author Organization [employer] Address [address] [place] [address] [address]t [place] [address] Care Team Providers Care Associate Entertainment Editor Name Role Phone Kayla Friend MD Primary Care Provider [phone] Encounter Details Date Type Department Care Team (Late Contact Info) Description 08/12/2022 Telephone [facility] CHC MED & PEDS [address] [place], [place] [phone] Kayla Friend MD [address] [place] [address] Social History Tobacco Use Types Packs/Day Years [...] Description 04/08/2025 3:30 PM EDT Office Visit [facility] OPTOMETRY [address] [place] [address] Selena Cabrera, OD [address] [place] [address] documented as of this encounter Visit Diagnoses Not on filedocumented in this encounter Additional Health Concerns Assessment Noted Time PHQ-9 Depression Total Score: 5 07/18/19 23 2:10 PM EST documented as of this encounter Care Teams Associate Entertainment Editor Relationship Specialty Start Date End Date Kayla Friend MD [address] [place] [address] PCP - General Family Medicine 04/30/20 Abhishek Pino MD Surgeon Vascular Surgery 05/30/24 [facility] 09/26/24 documented as of this encounter
--- OUTSIDE RECORDS SUMMARY | 2025-03-24 16:08 | XMS_ITS | Encounter Summary ---
Author Organization [id number] Address [address] [facility] 7t [place] [address] Care Team Providers Care Water Hydrant Installer Name Role Phone Kayla Friend MD Primary Care Provider [phone] Reason for Visit * Reason Onset Date Comments Appointment Request 11/11/2024 Encounter Details Date Type Department Care Team ([facility] Contact Info) Description 11/11/2024 Telephone [facility] MEDICINE [address] [place] [address] Kayla Friend MD [address] [place] [address] Appointment Request Social History Tobacco Use Types [...] Description 04/08/2025 3:30 PM EDT Office Visit [facility] OPTOMETRY [address] [place] [address] Rick, Selena, OD [address] [place] [address] documented as of this encounter Visit Diagnoses Not on filedocumented in this encounter Additional Health Concerns Assessment Noted Time PHQ-9 Depression Total Score: 2 05/30/20 9:43 AM EST documented as of this encounter Care Teams Water Hydrant Installer Relationship Specialty Start Date End Date Kayla Friend MD [address] [place] [address] PCP - General Family Medicine 04/30/20 Abhishek Pino MD Surgeon Vascular Surgery 05/30/24 [employer] 09/26/24 documented as of this encounter
--- OUTSIDE RECORDS SUMMARY | 2025-03-24 16:08 | XMS_ITS | Encounter Summary ---
Author Organization [employer] Address [address] [facility] 7t [place] [address] Care Team Providers Care Bounty Hunter Name Role Phone Kayla Friend MD Primary Care Provider [phone] Encounter Details Date Type Department Care Team ([facility] st Contact Info) Description 09/26/2024 Telephone [facility] CHC MED & PEDS [address] [place], [place] [phone] Kayla Friend MD [address] [place] [address] Social History Tobacco Use Types Packs/Day Years [...] 3:30 PM EDT Office Visit [facility] OPTOMETRY [address] [place] [address] Rick, Selena, OD [address] [place] [address] documented as of this encounter Visit Diagnoses Not on filedocumented in this encounter Additional Health Concerns Assessment Noted Time PHQ-9 Depression Total Score: 2 05/30/20 24 9:43 AM EST documented as of this encounter Care Teams Bounty Hunter Relationship Specialty Start Date End Date Kayla Friend MD [address] [place] [address] PCP - General Family Medicine 04/30/20 Abhishek Pino MD Surgeon Vascular Surgery 05/30/24 [employer] 09/26/24 documented as of this encounter
--- OUTSIDE RECORDS SUMMARY | 2025-03-24 16:08 | XMS_ITS | Encounter Summary ---
Author Organization [employer] Address [address] [place] [address] 7t [place] [address] Care Team Providers Care Pump Operator Byproducts Name Role Phone Kayla Friend MD Primary Care Provider Reason for Visit * Reason Comments Med Refill Encounter Details Date Type Department Care Team ([facility] st Contact Info) Description 10/27/2024 Refill [facility] CHC MED & PEDS [address] [place] [address] Kayla Friend MD [address] [place] [address] Social History Tobacco Use Types Packs/Day Years [...] 3:30 PM EDT Office Visit [facility] OPTOMETRY [address] [place] [address] Rick, Selena, OD [address] [place] [address] documented as of this encounter Visit Diagnoses Not on filedocumented in this encounter Additional Health Concerns Assessment Noted Time PHQ-9 Depression Total Score: 2 05/30/20 24 9:43 AM EST documented as of this encounter Care Teams Pump Operator Byproducts Relationship Specialty Start Date End Date Kayla Friend MD [address] [place] [address] PCP - General Family Medicine 04/30/20 Abhishek Pino MD Surgeon Vascular Surgery 05/30/24 [employer] 09/26/24 documented as of this encounter
--- OUTSIDE RECORDS SUMMARY | 2025-03-24 16:08 | XMS_ITS | Clinical Summary ---
Author Organization [employer] Address [address] [facility] 7t [place] [address] Care Team Providers Care Applicator Sprayer Name Role Phone Kayla Friend MD Primary Care Provider [phone] Allergies No known active allergies Medications atorvastatin [...] Do not swallow. 1 each 11 024 Active Blood Pressure kitIndications:Es sential hypertension 1 Units Once per day. 1 kit 024 Active omeprazole (PriLOSEC) [address] capsule Take 1 capsule (20 mg) by mouth before breakfast. Do not crush or chew. 180 capsule 1 024 Active amLODIPine (Norvasc) 10 MG tabletIndications :Essential hypertension TAKE 1 TABLET BY MOUTH EVERY DAY 180 tablet 1 02/11/2 025 Active Additional Information Patient not taking.Reported [...] EYE(S) ONCE A DAY 2.5 mL 2 Active albuterol 108 (90 Base) MCG/ACT [...] for Sx. Advised to follow up with Accounts Payable Associate for further treatment. Relevant Medications Olopatadine (Pataday) 0.2% ophthalmic solution Chronic obstructive pulmonar y disease with acute exacerbation ([facility]) 02/02/2024 Assessment & Plan (12/23/2024 9:05 AM [...] relevant orders, pt will be referred to infectious disease physician. Pt was advised to diminish smoking. F/u [...] Encounters Date Type Department Care Team Description 03/11/2025 Refill [facility] MED & PEDS [address] [place] [address] Kayla Friend MD 02/21/2025 Refill [facility] MED & PEDS [address] [place] [address] Kayla Friend MD Asthma, unspecified asthma severity, unspecified whether complicated, unspecified whether persistent; Essential hypertension 02/20/2025 Telephone [facility] MED & PEDS [address] [place] [address] Kayla Friend MD med list 01/15/2025 Telephone [facility] MED & PEDS [address] [place] [address] Kayla Friend MD requesting call back 01/07/2025 Orders Only [facility] External Provider, [facility] 12/26/2024 Telephone [facility] MED & PEDS [address] [place] [address] Kayla Friend MD Durable Medical Equipment 12/23/2024 Telephone [facility] MED & PEDS [address] [place] [address] Kayla Friend MD from Last 3 Months Immunizations Immunization Administration [...] Description 04/08/2025 3:30 PM EDT Office Visit [facility] OPTOMETRY [address] [place] [address] Rick, Selena, OD [address] [place] [address] Health Maintenance Due Date Last Done Comments CT Colonography 1955 Colonoscopy 1955 FIT 1955 Sigmoidoscopy 1955 Pneumococcal Vaccine: 50+ Years (1 of 2 - PCV) 1973 RSV Patients and Patients Aged 60 years or older (1 - Risk 60-74 years 1-dose series) 2014 COVID-19 Vaccine ( season) 2025 12/24/2021, 12/24/2021, 12/15/2020, Additional history exists Influenza Vaccine (#1) 2025 Depression Screening 05/30/2025 05/30/2024, 05/30/20 SDOH Screening 11/26/2025 11/26/2024 Alcohol/Substance Use Screening 12/19/2025 12/19/2024 Tobacco Screening 12/19/2025 12/19/2024 Zoster Vaccines (2 of 2) 12/19/2025 02/03/2024 Pos tponed from 03/30/2024 (Patient Refused) FOBT 03/07/2026 03/07/2025 Colorectal Cancer Screening 03/07/2028 FIT DNA/Cologuard 03/07/2028 03/07/2025 Lipid Panel 02/21/2029 02/22/2024, 06/27, 09/15/2020, Additional [...] Procedure Name Priority Date/Time Associated Diagnosis Comments LAB COLOGUARD COLON CANCER SCREEN Routine 03/07/2025 5:00 AM EDT Screening for colon cancer VASC US LOWER EXTREMITY ARTERIAL DUPLEX BILATERAL [...] Recently Relevant to Health Maintenance Results * Cologuard?? colon cancer screening (03/07/2025 5:00 AM EDT) Cologuard Result Negative Negative 03/18/20 12:47 PM EDT [facility] (CLIA #:[id number]) Comment: The Cologuard (TM) test was performed on this specimen. NEGATIVE TEST RESULT. A negative Cologuard result indicates a low likelihood that a colorectal cancer (CRC) or advanced adenoma (adenomatous polyps with more advanced pre-malignant features) is present. The chance that a person with a negative Cologuard test has a colorectal cancer is less than 1 in 1500 (negative predictive value >99.9%) or has an advanced adenoma is less than 5.3% (negative predictive value 94.7%). These data are based on a prospective cross-sectional study of 10,000 individuals at average risk for colorectal cancer who were screened with both Cologuard and colonoscopy. (Vincent Amato al, N Engl J Med 2014;370(14):1286- 1297) The normal value (reference range) for this assay is negative. COLOGUARD RE-SCREENING RECOMMENDATION: Periodic colorectal cancer screening is an important part of preventive healthcare for asymptomatic individuals at average risk for colorectal cancer. Following a negative Cologuard result, the [place] Cancer Society and U.S. Multi-Society Task Force screening guidelines recommend a Cologuard re-screening interval of 3 years. References: [place] Cancer Society Guideline for Colorectal Cancer Screening: https://www.cancer.org/cancer/nkoho-bsrwed-zfvhdg/oivpjpjnx-skuntcihc-eaigbly/ac s-rec ommendations.html.; Rogerio MIGUEL, Andrea STEEL, Damien GillespieK, Colorectal Cancer Screening: Recommendations for Physicians and Patients from the U.S. Multi-Society Task Force on Colorectal Cancer Screening , Am J Gastroenterology 2017; 112:6341-0211. TEST DESCRIPTION: Composite algorithmic analysis of stool DNA-biomarkers with hemoglobin immunoassay. Quantitative values of individual biomarkers are not reportable and are not associated with individual biomarker result reference ranges. Cologuard is intended for colorectal cancer screening of adults of either sex, 45 years or older, who are at average-risk for colorectal cancer (CRC). Cologuard has been approved for use by the U.S. FDA. The performance of Cologuard was established in a cross sectional study of average-risk adults aged 50-84. Cologuard performance in patients ages 45 to 49 years was estimated by sub-group analysis of near-age groups. Colonoscopies performed for a positive result may find as the most clinically significant lesion: colorectal cancer [4.0%], advanced adenoma (including sessile serrated polyps greater than or equal to 1cm diameter) [20%] or non- advanced adenoma [31%]; or no colorectal neoplasia [45%]. These estimates are derived from a prospective cross-sectional screening study of 10,000 individuals at average risk for colorectal cancer who were screened with both Cologuard and colonoscopy. (Vincent T. et al, N Engl J Med 2014;370(14):6494-6627.) Cologuard may produce a false negative or false positive result (no colorectal cancer or precancerous polyp present at colonoscopy follow up). A negative Cologuard test result does not guarantee the absence of CRC or advanced adenoma (pre-cancer). The current Cologuard screening interval is every 3 years. ([place] Cancer Society and U.S. Multi-Society Task Force). Cologuard performance data in a 10,000 patient pivotal study using colonoscopy as the reference method can be accessed at the following location: www.[employer]/results. Additional description of the Cologuard test process, warnings and precautions can be found at www.[employer].Free For Kids. Stool specimen (specimen) 03/07/2025 5:00 AM EDT 03/08/2025 4:16 PM EDT us Kayla Friend MD LAB MOLECULAR DIAGNOSTICS ORD ERABLES Final Result [facility] (CLIA #:[id number]) [address] [id number], * US ABDOMINAL AORTIC ANEURYSM (01/07/2025 1:20 PM EDT) Anatomical Region Laterality Modality Abdomen Ultrasound 01/07/2025 1:20 PM EDT Narrative 01/07/2025 3:49 PM EDT [place] [address] Ultrasound Report Signed Patient: Yosef Soria MR#: [id number] : 1955 Acct:[id number] Age/Sex: 69 / M ADM Date: 01/07/25 Loc: .US Attending Dr: Abhishek Flores MD Ordering Physician: Abhishek Flores MD Date of Service: 01/07/25 Procedure(s): US abdominal aortic aneurysm Accession Number(s): [id number] cc: Abhishek Flores MD; Kayla Friend MD [...] Kristian Puente MD 01/07/2025 03:46 PM EDT Dictated By: Kristian Razo MD Signed By: <Electronically signed by Kristian Kelly MD in OV> 01/07/25 1546 DD/ 1320 TD/TT: 01/07/25 1418 Felt Puller: Procedure Note Donotuseinterpreter, Image - 01/07/2025 [place] [address] Ultrasound Report Signed Patient: Julien Soria#: M [id number] : 4Acct:[id number] Age/Sex: 69 / MADM Date: 01/07/25 Loc: HO.US Attending Dr: Abhishek Flores MD Ordering Physician: Abhishek Flores MD Date of Service: 01/07/25 Procedure(s): US abdominal aortic aneurysm Accession Number(s): [id number] cc: Abhishek Flores MD; Kayla Friend MD [...] Kristian Puente MD 01/07/2025 03:46 PM EDT Dictated By: Kristian Razo MD Signed By: <Electronically signed by Kristian Kelly MDin OV> 01/07/25 1546 DD/ 1320 TD/TT: 01/07/25 1418 Felt Puller: us [facility] External Provider IMG US PROCEDURES Final Result * VASC US Lower Extremity Arterial Duplex Bilateral With Felisa (01/07/2025 1:20 PM EDT) 01/07/2025 1:20 PM EDT Narrative [facility] - 01/07/2025 3:45 PM EDT [address] [address] Ultrasound Report Signed Patient: Yosef Soria MR#: [id number] : 1955 Acct:[id number] Age/Sex: 69 / M ADM Date: 01/07/25 Loc: HO.US Attending Dr: Abhishek Flores MD Ordering Physician: Abhishek Flores MD Date of Service: 01/07/25 Procedure(s): US arterial duplex BI w/ FELISA Accession Number(s): [id number] cc: Abhishek Flores MD; Kayla Friend MD [...] Kristian Puente MD 01/07/2025 03:43 PM EDT Dictated By: Kristian Razo MD Signed By: <Electronically signed by Kristian Kelly MD in OV> 01/07/25 1543 DD/ 1320 TD/TT: 01/07/25 1418 Felt Puller: Procedure Note Donotuseinterpreter, Image - 01/07/[address] [address] Ultrasound Report Signed Patient: Julien Soria#: M [id number] : 4Acct:[id number] Age/Sex: 69 / MADM Date: 01/07/25 Loc: HO.US Attending Dr: Abhishek Flores MD Ordering Physician: Abhishek Flores MD Date of Service: 01/07/25 Procedure(s): US arterial duplex BI w/ FELISA Accession Number(s): [id number] cc: Abhishek Flores MD; Kayla Friend MD [...] Kristian Puente MD 01/07/2025 03:43 PM EDT Dictated By: Kristian Razo MD Signed By: <Electronically signed by Kristian Kelly MDin OV> 01/07/25 1543 DD/ 1320 TD/TT: 01/07/25 1418 Felt Puller: us [facility] External Provider CV VASC ULAR PROCEDURES Final Result [facility] [address] [place] [address] * Hepatitis C Antibody with Reflex [...] ORDERABLES Final Re sult Performing Organization Address [facility]/ZIP Co de Phone Number [facility] [address] [place] [address] [phone] * (ABNORMAL) Lipid Panel, Standard (02/22/2024 9:11 AM EDT) Triglycerides 222(H) <150 mg/dL [facility] Comment:Desirable Triglyceri de: less than [...] 190 mg/dL HDL Cholesterol 31(L) >40 mg/dL [facility] Comment:Desirable HDL: great er than 40 mg/dL Note: This HDL assay may give artificially low results in patients with liver disease. Blood Venous blood specimen / Unknown 02/22/2024 9:11 AM EDT 02/22/2024 11:11 AM EDT us Kayla Friend MD LAB BLOOD ORDERABLES Final Re sult Performing Organization Address City/[facility]/ZIP Co de Phone Number [facility] [address] [place] [address] [phone] from Last 3 Months or Most Recently Relevant to Health Maintenance Insurance [employer] (HMO D-SNP) [facility] STAND[facility] Care Teams Applicator Sprayer Relationship Specialty Start Date End Date Kayla Friend MD [address] [place] [address] PCP - General Family Medicine 04/30/20 Abhishek Flores MD Surgeon Vascular Surgery 05/30/24 [employer] 09/26/24
--- OUTSIDE RECORDS SUMMARY | 2025-03-24 16:08 | XMS_ITS | Clinical Summary ---
Author Organization [facility] Address [address] [place] [address] Care Team Providers Care Car Jockey Name Role Phone Unavailable Primary Care Provider [...]
--- OUTSIDE RECORDS SUMMARY | 2025-03-24 16:08 | XMS_ITS | Encounter Summary ---
Author Organization [employer] Address [address] [place] [address] 7t [place] [address] Care Team Providers Care Information Receptionist Name Role Phone Kayla Friend MD Primary Care Provider [phone] Encounter Details Date Type Department Care Team ([facility] st Contact Info) Description 02/10/2023 Telephone [facility] CHC MED & PEDS [address] [place], [place] [phone] Kayla Friend MD [address] [place] [address] Social History Tobacco Use Types Packs/Day Years [...] 3:17 PM EDT Tc from katelyn with [facility] pulmonology requesting last three OV notes and any breathing test to be faxed to [phone] Any questions, please contact katelyn at [phone] documented in this encounter Plan of Treatment Upcoming Encounters Date Type Department Care Team (Late st Contact Info) Description 04/08/2025 3:30 PM EDT Office Visit [facility] OPTOMETRY [address] [place] [address] RickSelena pendleton, OD [address] [place] [address] documented as of this encounter Visit Diagnoses Not on filedocumented in this encounter Additional Health Concerns Assessment Noted Time PHQ-9 Depression Total Score: 5 07/18/19 23 2:10 PM EST documented as of this encounter Care Teams Information Receptionist Relationship Specialty Start Date End Date Kayla Friend MD [address] [place] [address] PCP - General Family Medicine 04/30/20 Abhishek Pino MD Surgeon Vascular Surgery 05/30/24 [employer] [facility] 09/26/24 documented as of this encounter
== END 2025-03-24 14:55 | disposition home or self-care (01) ==
LOC: HO.HPS 14:20
PROVIDERS: PCP Family Medicine; Referring Provider Family Medicine; Visit Provider Nurse Practitioner Family
DX: J44.9 Chronic obstructive pulmonary disease, unspecified (principal); F17.210 Nicotine dependence, cigarettes, uncomplicated
CPT/HCPCS: 99204

== ENCOUNTER → 2025-03-24 14:20 | Outpatient (BNVA) | payer OTHER, SELFPAY | PROVIDERS: PCP Family Medicine; Referring Provider Family Medicine; Visit Provider Nurse Practitioner Family | DX: J44.9 Chronic obstructive pulmonary disease, unspecified (principal); F17.210 Nicotine dependence, cigarettes, uncomplicated | CPT/HCPCS: 99202 ==

== ENCOUNTER 2025-04-10 14:55 | Outpatient (REF) | payer OTHER, SELFPAY ==
--- OUTSIDE RECORDS SUMMARY | 2025-04-08 15:30 | XMS_ITS | Encounter Summary ---
Author Organization [facility] [employer] Address [address] [facility] 7t [place] [address] Care Team Providers Care Telephone Clerk Telegraph Office Name Role Phone Kayla Friend MD Primary Care Provider Reason for Visit * Reason Comments Macular Degeneration Encounter Details Date Type Department Care Team (Late st Contact Info) Description 04/08/2025 3:30 PM EDT Office Visit [facility] OPTOMETRY [address] [place], [place] [phone] Rick, Selena, OD [address] [place] [address] Intermediate stage nonexudative age-related macular degeneration of right eye (Primary Dx); 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; Combined forms of age-related cataract of both eyes; Presbyopia; Meibomian gland disease, unspecified laterality Social History Tobacco Use Types Packs/Day Years [...] Care Team (Late st Contact Info) Description 10/07/2025 3:30 PM EDT Office Visit [facility] OPTOMETRY [address] [place] [address] Rick, Selena, OD [address] [place] [address] Pending Results Name Type Priority Associated Diagnoses Date /Time OCT, Retina - OU - Both Eyes Ophthalmology Routine Intermediate stage nonexudative 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 04/08/2025 4:18 PM EDT documented as of this encounter Visit Diagnoses Diagnosis Intermediate stage nonexudative age-related macular degeneration of right eye- Primary 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
--- NOTE | ~2025-04-10 | CT_ITS ---
EXAMINATION: CT ANGIOGRAPHY LEGS WITH RUNOFF CLINICAL INFORMATION: Peripheral vascular disease COMPARISON: Previous arterial lower extremity ultrasound December 2024 and CTA July 2023 TECHNIQUE: Axial images through the abdomen and pelvis and bilateral lower extremities following IV contrast. Patient received 100 mL Omnipaque [address] examination was performed using dose optimization techniques as appropriate, variously including the following: *Automated exposure control *Adjustment of mA and/or kV according to patient size (this includes techniques or standardized protocols for targeted exams where dose is matched to indication/reason for exam; i.e. extremities or head) *Use of iterative reconstruction technique DLP 5 2 9 mgy/cm FINDINGS: Vascular: Diffuse atherosclerotic disease of the abdominal aorta. Mild luminal narrowing of the juxtarenal abdominal aorta due to noncalcified plaque for example axial image 27 series 5. 3Celiac axis, SMA and SHANKAR are patent. There are single patent renal arteries. Mild to moderate atherosclerotic disease of the right common iliac artery. The right external iliac artery is occluded. There is a moderate to severe stenosis of the origin of the right internal iliac artery. There is atherosclerotic disease of the left common iliac artery and mild to moderate proximal stenosis. There is a left external iliac artery stent that appears patent. The left internal iliac artery is patent. There is a femorofemoral bypass graft appears patent. Right: The right proximal common femoral artery is occluded. The right common femoral artery distal to the femorofemoral bypass graft is patent. The right profunda is patent. There is a severe stenosis at the origin of the right SFA. There are segmental severe stenoses or occlusions of the occipital and mid superficial femoral artery. The distal superficial femoral artery is patent. The above and below-knee popliteal arteries are patent. There is a focal moderate stenosis of the mid right popliteal artery just gryth-vum-tqiv joint. There is three-vessel runoff to the right lower leg. The anterior tibial and posterior tibial arteries cross the ankle joint is patent dorsalis pedis and common plantar arteries in the right foot. Left: The left common femoral artery is patent. There is a mild stenosis of the left profunda origin. There is a mild to moderate stenosis at the superficial femoral artery origin. There are severe segmental stenoses/occlusions of the proximal and mid left SFA. This demonstrates peripheral enhancement are questionable for acute thrombus. There is reconstitution of the distal left superficial femoral artery. The left below-knee popliteal artery is patent. This demonstrates moderate segmental stenoses at the knee joint. Stenoses at the tibioperoneal trunk. Patent anterior tibial artery. This crosses the ankle joint as a patent dorsalis pedis artery and the left foot. There is small caliber attenuated or diseased posterior tibial and peroneal arteries. Nonvascular: The lung bases are clear. Normal liver, gallbladder, spleen, pancreas and adrenal glands. Small low-attenuation lesion in the upper pole of the left kidney probably representing a cyst. Kidneys are otherwise unremarkable. There is diffuse wall thickening of the proximal stomach. There is increased wall enhancement as well. There is a prominent perigastric lymph node measuring 9 mm for example axial image 14 series 5. There is a small esophageal hernia. Diverticulosis of the colon. No evidence of diverticulitis. Small and large bowel otherwise normal. Bilateral inguinal hernias containing fat. Right inguinal hernia also contains the appendix. The appendix is otherwise unremarkable. Small bowel is unremarkable. No ascites or free air. Slightly enlarged prostate gland. Normal bladder. Degenerative changes of the spine. CT/CT angio abd aorta runoff IMPRESSION: Diffuse atherosclerotic disease of the aorta without aneurysm. Mild luminal narrowing of the infrarenal abdominal aorta due to noncalcified plaque. Moderate atherosclerotic disease of the right common iliac artery. Occluded right external iliac artery and proximal common femoral artery. Moderate atherosclerotic disease of the left common iliac artery. Patent left external iliac artery stent. Patent femoropopliteal bypass graft. Right: Pain right common femoral artery distal to the femorofemoral bypass graft. Severe stenosis of the proximal right SFA and segmental severe stenoses/occlusions of the proximal and mid SFA. Reconstituted more normal caliber distal SFA. Patent above and below-knee popliteal arteries with a moderate focal weblike stenosis at the level of the knee joint. Three-vessel runoff to the right lower leg. Left: Patent left common femoral artery. Mild stenosis at the left superficial femoral artery origin. Severe segmental stenoses/occlusions of the proximal and mid left SFA. This demonstrates peripheral filling questionable for a recent thrombus. Patent distal SFA. Patent above and below knee popliteal arteries with moderate stenoses at the knee joint. Stenoses at the tibioperoneal trunk. Patent anterior tibial artery which crosses the ankle joint as a patent dorsalis pedis artery and the left foot. The posterior tibial and peroneal artery runoff. Wall thickening and increased enhancement of the stomach. There is also a prominent perigastric lymph node. Recommend correlation with endoscopy. Diverticulosis of the colon. Electronically signed by: Yenifer Georges MD 04/10/2025 05:24 PM EDT RP
[2025-04-10] MEDS: iohexoL 350 MG/ML 100 ML INFUS..BTL IV (16:04)
[2025-04-10 17:02] LABS: Creatinine POC 1.0 mg/dL (0.5-1.4); GFR POC > 60
--- OUTSIDE RECORDS SUMMARY | 2025-04-10 18:48 | XMS_ITS | Encounter Summary ---
Author Organization [employer] Address [address] [place] [address] 7t [place] [address] Care Team Providers Care Citrus Picker Name Role Phone Kayla Friend MD Primary Care Provider [phone] Encounter Details Date Type Department Care Team (Late Contact Info) Description 08/12/2022 Telephone [facility] CHC MED & PEDS [address] [place], [place] [phone] Kayla Friend MD [address] [place] [address] Social History Tobacco Use Types Packs/Day Years [...] Department Care Team (Late Contact Info) Description 10/07/2025 3:30 PM EDT Office Visit [facility] OPTOMETRY [address] [place] [address] Selena Cabrera, OD [address] [place] [address] documented as of this encounter Visit Diagnoses Not on filedocumented in this encounter Additional Health Concerns Assessment Noted Time PHQ-9 Depression Total Score: 5 07/18/19 23 2:10 PM EST documented as of this encounter Care Teams Citrus Picker Relationship Specialty Start Date End Date Kayla Friend MD [address] [place] [address] PCP - General Family Medicine 04/30/20 Abhishek Pino MD Surgeon Vascular Surgery 05/30/24 [employer] 09/26/24 documented as of this encounter
--- OUTSIDE RECORDS SUMMARY | 2025-04-10 18:48 | XMS_ITS | Clinical Summary ---
Author Organization [employer] Address [address] [facility] [address]t [place] [address] Care Team Providers Care Activity Director Name Role Phone Kayla Friend MD Primary Care Provider Allergies No known active allergies Medications atorvastatin [...] affected eye(s) 2 times daily. 10 mL Active Stiolto Respimat 2.5-2.5 MCG/ACT aerosol solution inhaler Inhale 2 Inhalation. Once per day. 4 g Active acetaminophen (Tylenol 8 Hour) 650 MG ER tablet TAKE 1 TABLET BY MOUTH EVERY 8 HOURS 30 tablet Active albuterol 108 (90 Base) MCG/ACT inhaler [...] BY MOUTH EVERY MORNING 30 tablet Active olopatadine (Pataday) 0.2 % ophthalmic solution ADMINISTER 1 DROP INTO THE AFFECTED EYE(S) ONCE A DAY 2.5 mL Active albuterol (2.5 MG/3ML) 0.083% nebulizer solutionIndicatio ns:Asthma, unspecified asthma severity, unspecified whether complicated, unspecified whether persistent INHALE THREE MLS BY MOUTH EVERY 4 HOURS NEEDED (BULK) 180 mL 1 025 Active albuterol (2.5 MG/3ML) 0.083% nebulizer solutionIndicatio ns:Asthma, unspecified asthma severity, unspecified whether complicated, unspecified whether persistent TAKE 3ML BY NEBULIZATION EVERY 4 HOURS NEEDED FOR WHEEZING 180 mL 1 025 2024 Discontinued Active Problems Problem Noted Date Diagnosed Date Dry eyes, bilateral 03/08/2024 Assessment & Plan (03/08/2024 4:53 PM EDT): Prescribing Pataday for Sx. Advised to follow up with Chief Librarian Music Department for further treatment. Relevant Medications Olopatadine (Pataday) 0.2% ophthalmic solution Chronic obstructive pulmonar y disease with acute exacerbation ([facility]) 02/02/2024 Assessment & Plan (12/23/2024 9:05 AM [...] relevant orders, pt will be referred to icicle machine operator. Pt was advised to diminish smoking. 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; Combined forms of age-related cataract of both eyes; Presbyopia; Meibomian gland disease, unspecified laterality 04/08/2025 Travel 04/08/2025 Refill [facility] [address] [place] [address] Kayla Friend MD Asthma, unspecified asthma severity, unspecified whether complicated, unspecified whether persistent 03/11/2025 Refill [facility] [address] [place] [address] Kayla Friend MD 02/21/2025 Refill [facility] [address] [place] [address] Kayla Friend MD Asthma, unspecified asthma severity, unspecified whether complicated, unspecified whether persistent; Essential hypertension 02/20/2025 Telephone [facility] [address] [place] [address] Kayla Friend MD med [facility] 01/15/2025 Telephone [facility] [address] [place] [address] Kayla Friend MD requesting call back from Last 3 Months Immunizations Immunization Administration [...] Description 10/07/2025 3:30 PM EDT Office Visit [facility] [address] [place] [address] Rick, Selena, OD [address] [place] [address] Health Maintenance Due Date Last Done Comments CT Colonography 1954 Colonoscopy 1954 FIT 1954 Sigmoidoscopy 1954 Pneumococcal Vaccine: 50+ Years (1 of 2 - PCV) 1973 RSV Patients and Patients Aged 60 years or older (1 - Risk 60-74 years 1-dose series) 2014 COVID-19 Vaccine (2024- season) 2025 12/24/2021, 12/24/2021, 12/15/2020, Additional history [...] 5:00 AM EDT Screening for colon cancer HEPATITIS C AB W/REFL TO HCV RNA, QN, PCR Routine 02/22/2024 9:11 AM EDT Encounter for behavioral health screening LIPID PANEL, STANDARD Routine 02/22/2024 9:11 AM EDT Essential hypertension from Last 3 Months or Most Recently Relevant to Health Maintenance Results * Cologuard?? colon cancer screening (03/07/2025 5:00 AM EDT) Cologuard Result Negative Negative 03/18/20 12:47 PM EDT [facility] (CLIA #:[id number]) Comment: The Cologuard (TM) test was performed [...] screened with both Cologuard and colonoscopy. (Vincent Monterroso, N Engl J Med 2014;370(14):1286- 1297) The normal value (reference range) for this assay is negative. COLOGUARD RE-SCREENING RECOMMENDATION: Periodic colorectal cancer screening is an important part of preventive healthcare for asymptomatic individuals at average risk for colorectal cancer. Following a negative Cologuard result, the [place] Cancer Society and U.S. Multi-Society Task Force screening guidelines recommend a Cologuard re-screening interval of 3 years. References: [place] [employer] Guideline for Colorectal Cancer Screening: https://www.cancer.org/cancer/qnvma-jcpegh-amkowo/xanfycixl-imyhsedhy-szhhjdr/ac s-rec ommendations.html.; Rogerio DK, Andrea STEEL, Damien GillespieK, Colorectal Cancer Screening: Recommendations for Physicians and Patients from the U.S. Multi-Society Task Force on Colorectal Cancer Screening , Am J Gastroenterology 2017; 112:3364-5334. TEST DESCRIPTION: Composite algorithmic analysis of stool [...] screened with both Cologuard and colonoscopy. (Vincent Monterroso, N Engl J Med 2014;370(14):0157-7942.) Cologuard may produce a false negative or false positive result (no colorectal cancer or precancerous polyp present at colonoscopy follow up). A negative Cologuard test result does not guarantee the absence of CRC or advanced adenoma (pre-cancer). The current Cologuard screening interval is every 3 years. ([place] Cancer Society and U.S. Multi-Society Task Force). Cologuard performance data in a 10,000 patient pivotal study using colonoscopy as the reference method can be accessed at the following location: www.Signicast.Organically Maid/results. Additional description of the Cologuard test process, warnings and precautions can be found at www.Loco2rd.com. Stool specimen (specimen) 03/07/2025 5:00 AM EDT 03/08/2025 4:16 PM EDT Kayla Friend MD LAB MOLECULAR DIAGNOSTICS ORD ERABLES Final Result Performing Organization Address [facility]/ZIP Co de Phone Number [facility] (CLIA #:[id number]) [address] [place] [address], * Hepatitis C Antibody with Reflex to HCV, RNA, Quantitative, Real-Time PCR (02/22/2024 9:11 AM EDT) Pathologist [facility] Hepatitis C Antibody Nonreactive Nonreactive [facility] Comment:Antibodies to HCV no t detected; does not exclude early acuteHCV infection. Blood Venous blood specimen / Unknown 02/22/2024 9:11 AM EDT 02/22/2024 11:11 AM EDT Kayla Friend MD LAB BLOOD ORDERABLES Final Re sult Performing Organization Address City/[facility]/ZIP Co de Phone Number [facility] [address] [place], [place] [phone] * (ABNORMAL) Lipid Panel, Standard (02/22/2024 9:11 AM EDT) Triglycerides 222(H) <150 mg/dL [facility] Comment:Desirable Triglyceri de: less than 150 mg/dLBorderline High Triglyceride 150-199 mg/dLHigh Triglyceride: 200-499 mg/dLVery High Triglyceride: greater than or equal to 5OO mg/dL Cholesterol 232(H) <200 mg/dL [facility] Comment:Desirable Cholestero l: less than 200 mg/dLBorderline High Cholesterol: 200-239 mg/dLHigh Cholesterol: greater than 239 mg/dL LDL Cholesterol Calculated 157(H) <100 mg/dL [facility] Comment:Desirable LDL: less than 100 mg/dLNear Optimal/Above Optimal LDL: 110- 129 mg/dLBorderline High LDL: 130-159 mg/dLHigh LDL: 160-189 mg/dLVery High LDL: greater than or equal to 190 mg/dL HDL Cholesterol 31(L) >40 mg/dL [facility] Comment:Desirable HDL: great er than 40 mg/dL Note: This HDL assay may give artificially low results in patients with liver disease. Blood Venous blood specimen / Unknown 02/22/2024 9:11 AM EDT 02/22/2024 11:11 AM EDT us Kayla Friend MD LAB BLOOD ORDERABLES Final Re sult [facility] [address] [place], [place] [phone] from Last 3 Months or Most Recently Relevant to Health Maintenance Insurance ASSISTED OPTIONS (HMO D-SNP) [place] [id number] [facility] Care Teams Activity Director Relationship Specialty Start Date End Date Kayla Friend MD [address] [place] [phone] PCP - General Family Medicine 04/30/20 Abhishek Flores MD Surgeon Vascular Surgery 05/30/24 [facility] 09/26/24
--- OUTSIDE RECORDS SUMMARY | 2025-04-10 18:48 | XMS_ITS | Encounter Summary ---
Author Organization [employer] Address [address] [place] [address] [address] [place] [address] Care Team Providers Care Data Report Analyst Name Role Phone Kayla Friend MD Primary Care Provider [phone] Reason for Visit * Reason Comments Med Refill Encounter Details Date Type Department Care Team ([facility] st Contact Info) Description 10/27/2024 Refill [facility] [address] [place] [address] Kayla Friend MD [address] [place] [address] Social History Tobacco Use Types Packs/Day Years [...] Description 10/07/2025 3:30 PM EDT Office Visit [facility] [address] [place] [address] Rick, Selena, OD [address] [place] [address] documented as of this encounter Visit Diagnoses Not on filedocumented in this encounter Additional Health Concerns Assessment Noted Time PHQ-9 Depression Total Score: 2 05/30/20 24 9:43 AM EST documented as of this encounter Care Teams Data Report Analyst Relationship Specialty Start Date End Date Kayla Friend MD [address] [place] [address] PCP - General Family Medicine 04/30/20 Abhishek Pino MD Surgeon Vascular Surgery 05/30/24 [facility] 09/26/24 documented as of this encounter
--- OUTSIDE RECORDS SUMMARY | 2025-04-10 18:48 | XMS_ITS | Encounter Summary ---
Author Organization [employer] Address [address] [place] [address] [address] [place] [address] Care Team Providers Care Wildlife Forensic Geneticist Name Role Phone Kayla Friend MD Primary Care Provider [phone] Reason for Visit * Reason Comments Med Refill Encounter Details Date Type Department Care Team ([facility] st Contact Info) Description 03/11/2025 Refill [facility] [address] [place] [address] Kayla Friend MD [address] [place] [address] Social History Tobacco Use Types Packs/Day Years [...] Description 10/07/2025 3:30 PM EDT Office Visit [facility] [address] [place] [address] Rick, Selena, OD [address] [place] [address] documented as of this encounter Visit Diagnoses Not on filedocumented in this encounter Additional Health Concerns Assessment Noted Time PHQ-9 Depression Total Score: 2 05/30/20 24 9:43 AM EST documented as of this encounter Care Teams Wildlife Forensic Geneticist Relationship Specialty Start Date End Date Kayla Friend MD [address] [place] [address] PCP - General Family Medicine 04/30/20 Abhishek Pino MD Surgeon Vascular Surgery 05/30/24 [facility] 09/26/24 documented as of this encounter
--- OUTSIDE RECORDS SUMMARY | 2025-04-10 18:48 | XMS_ITS | Encounter Summary ---
Author Organization [employer] Address [address] [facility] [address] [place] [address] Care Team Providers Care Lead Worker Of Housekeeping And Laundry Name Role Phone Kayla Friend MD Primary Care Provider [phone] Encounter Details Date Type Department Care Team ([facility] st Contact Info) Description 09/26/2024 Telephone [facility] [address] [place], [place] [phone] Kyala Friend MD [address] [place] [address] Social History Tobacco Use Types Packs/Day Years [...] Description 10/07/2025 3:30 PM EDT Office Visit [facility] [address] [place] [address] Rick, Megan, OD [address] [place] [address] documented as of this encounter Visit Diagnoses Not on filedocumented in this encounter Additional Health Concerns Assessment Noted Time PHQ-9 Depression Total Score: 2 05/30/20 24 9:43 AM EST documented as of this encounter Care Teams Lead Worker Of Housekeeping And Laundry Relationship Specialty Start Date End Date Kayla Friend MD [address] [place] [address] PCP - General Family Medicine 04/30/20 Abhishek Pino MD Surgeon Vascular Surgery 05/30/24 [facility] 09/26/24 documented as of this encounter
--- OUTSIDE RECORDS SUMMARY | 2025-04-10 18:48 | XMS_ITS | Encounter Summary ---
Author Organization [employer] Address [address] [facility] [address] [place] [address] Care Team Providers Care Lubrication Equipment Servicer Name Role Phone Kayla Friend MD Primary Care Provider [phone] Reason for Visit * Reason Onset Date Comments Appointment Request 11/11/2024 Encounter Details Date Type Department Care Team ([facility] Contact Info) Description 11/11/2024 Telephone [facility] [address] [place] [address] Kayla Friend MD [address] [place] [address] Appointment Request Social History Tobacco Use Types [...] Description 10/07/2025 3:30 PM EDT Office Visit [facility] [address] [place] [address] Rick, Selena, OD [address] [place] [address] documented as of this encounter Visit Diagnoses Not on filedocumented in this encounter Additional Health Concerns Assessment Noted Time PHQ-9 Depression Total Score: 2 05/30/20 9:43 AM EST documented as of this encounter Care Teams Lubrication Equipment Servicer Relationship Specialty Start Date End Date Kayla Friend MD [address] [place] [address] PCP - General Family Medicine 04/30/20 Abhishek Pino MD Surgeon Vascular Surgery 05/30/24 [facility] 09/26/24 documented as of this encounter
--- OUTSIDE RECORDS SUMMARY | 2025-04-10 18:48 | XMS_ITS | Encounter Summary ---
Author Organization [employer] Address [address] [place] [address] [address] [place] [address] Care Team Providers Care Marketing Data Specialist Name Role Phone Kayla Friend MD Primary Care Provider [phone] Reason for Visit * Reason Comments Med Refill Encounter Details Date Type Department Care Team ([facility] st Contact Info) Description 04/08/2025 Refill [facility] [address] [place] [address] Kayla Friend MD [address] [place] [address] Asthma, unspecified asthma severity, unspecified whether complicated, unspecified whether persistent Social History Tobacco Use Types Packs/Day Years [...] Description 10/07/2025 3:30 PM EDT Office Visit [facility] [address] [place] [address] Rick, Selena, OD [address] [place] [address] documented as of this encounter Visit Diagnoses Diagnosis Asthma, unspecified asthma severity, unspecified whether complicated, unspecified whether persistent documented in this encounter Additional Health Concerns Assessment Noted Time PHQ-9 Depression Total Score: 2 05/30/20 24 9:43 AM EST documented as of this encounter Care Teams Marketing Data Specialist Relationship Specialty Start Date End Date Kayla Friend MD [address] [place] [address] PCP - General Family Medicine 04/30/20 Abhishek Pino MD Surgeon Vascular Surgery 05/30/24 [facility] 09/26/24 documented as of this encounter
--- OUTSIDE RECORDS SUMMARY | 2025-04-10 18:48 | XMS_ITS | Encounter Summary ---
Author Organization [employer] Address [address] [facility] [address] [place] [address] Care Team Providers Care Social Worker Masters Name Role Phone Kayla Friend MD Primary Care Provider [phone] Encounter Details Date Type Department Care Team (Latest Contact Info) Description 04/08/2025 Travel Social History Tobacco Use Types Packs/Day [...] Description 10/07/2025 3:30 PM EDT Office Visit [facility] [address] [place] [address] RickSelena pendleton, OD [address] [place] [address] documented as of this encounter Visit Diagnoses Not on filedocumented in this encounter Additional Health Concerns Assessment Noted Time PHQ-9 Depression Total Score: 2 05/30/20 24 9:43 AM EST documented as of this encounter Care Teams Social Worker Masters Relationship Specialty Start Date End Date Kayla Friend MD [address] [place] [address] PCP - General Family Medicine 04/30/20 Abhishek Pnio MD Surgeon Vascular Surgery 05/30/24 [facility] 09/26/24 documented as of this encounter
--- OUTSIDE RECORDS SUMMARY | 2025-04-10 18:48 | XMS_ITS | Encounter Summary ---
Author Organization [employer] Address [address] [place] [address] [address] [place] [address] Care Team Providers Care Oil Heater Operator Name Role Phone Kayla Friend MD Primary Care Provider [phone] Encounter Details Date Type Department Care Team ([facility] st Contact Info) Description 02/10/2023 Telephone [facility] [address] [place], [place] [phone] Kayla Friend MD [address] [place] [address] Social History Tobacco Use Types Packs/Day Years [...] 3:17 PM EDT Tc from katelyn with [facility] pulmonology requesting last three OV notes and any breathing test to be faxed to [phone] Any questions, please contact katelyn at [phone] documented in this encounter Plan of Treatment Upcoming Encounters Date Type Department Care Team (Late st Contact Info) Description 10/07/2025 3:30 PM EDT Office Visit [facility] [address] [place] [address] RickSelena pendleton, OD [address] [place] [address] documented as of this encounter Visit Diagnoses Not on filedocumented in this encounter Additional Health Concerns Assessment Noted Time PHQ-9 Depression Total Score: 5 07/18/19 23 2:10 PM EST documented as of this encounter Care Teams Oil Heater Operator Relationship Specialty Start Date End Date Kayla Friend MD [address] [place] [address] PCP - General Family Medicine 04/30/20 Abhishek Pino MD Surgeon Vascular Surgery 05/30/24 [facility] 09/26/24 documented as of this encounter
--- OUTSIDE RECORDS SUMMARY | 2025-04-10 18:48 | XMS_ITS | Encounter Summary ---
Author Organization [employer] Address [address] [facility] [address]t [place] [address] Care Team Providers Care Chemical Worker Name Role Phone Kayla Friend MD Primary Care Provider [phone] Encounter Details Date Type Department Care Team ([facility] Contact Info) Description 10/11/2024 Telephone [facility] [address] [place], [place] [phone] Kayla Friend MD [address] [place] [address] Social History Tobacco Use Types Packs/Day Years [...] EDT Tc from Donald visiting nurse with [facility] regarding pt blood pressure. Visiting nurse stated blood pressure medication was put on hold due to pt having surgery. Donald requesting a call back at [phone] documented in this encounter Plan of Treatment Upcoming Encounters Date Type Department Care Team (Late st Contact Info) Description 10/07/2025 3:30 PM EDT Office Visit [facility] [address] [place] [address] Rick, Selena, OD [address] [place] [address] documented as of this encounter Visit Diagnoses Not on filedocumented in this encounter Additional Health Concerns Assessment Noted Time PHQ-9 Depression Total Score: 2 05/30/20 24 9:43 AM EST documented as of this encounter Care Teams Chemical Worker Relationship Specialty Start Date End Date Kayla Friend MD [address] [place] [address] PCP - General Family Medicine 04/30/20 Abhishek Pino MD Surgeon Vascular Surgery 05/30/24 [facility] 09/26/24 documented as of this encounter
--- OUTSIDE RECORDS SUMMARY | 2025-04-10 18:48 | XMS_ITS | Clinical Summary ---
Author Organization [employer] [facility] ity Address [address] [place] [address] Care Team Providers Care Adjunct Instructor Of Women'S Studies Name Role Phone Unavailable Primary Care Provider [...]
== END 2025-04-10 14:56 | disposition home or self-care (01) ==
LOC: HO.CT 14:55
PROVIDERS: Visit Provider Surgery Vascular Surgery
DX: I73.9 Peripheral vascular disease, unspecified (principal)
CPT/HCPCS: 75635; 82565; Q9967

== ENCOUNTER → 2025-04-10 14:57 | Outpatient (BNV) | payer OTHER, SELFPAY | PROVIDERS: Visit Provider Radiology Diagnostic Radiology | DX: I70.0 Atherosclerosis of aorta (principal); I70.8 Atherosclerosis of other arteries; I70.203 Unspecified atherosclerosis of native arteries of extremities, bilateral legs; R59.0 Localized enlarged lymph nodes; K57.30 Diverticulosis of large intestine without perforation or abscess without bleeding; K31.89 Other diseases of stomach and duodenum | CPT/HCPCS: 75635 ==

== ENCOUNTER 2025-05-15 14:03 | Outpatient (AMB) | payer OTHER, SELFPAY ==
--- NOTE | 2025-05-15 14:23 | MHC.OFFVIS ---
Vital Signs 05/15/25 14:24 Height 5 ft 1 in Weight 124 lb BMI 23.4 Intake Visit Reasons: follow up CTA Abd/Aorta 04/10/25 Intake Note: follow up CTA w/ runoff 04/10/25 w/ hx of FemFem bypass Left to right, 09/23/24. t states Left LE worse than Right LE Chief Design Branch Required: No Accompanied by: SEWING MACHINE OPERATOR ZIPPER Allergies No Known Allergies Allergy (Verified 05/15/25 14:26) HPI HPI follow up CTA Abd/Aorta 04/10/25: Details: The patient is a 70 year old individual presenting for a follow-up of a CT angiogram and increased leg pain. The patient has a history of a prior dtxsinp-zg-knexwyv bypass. The patient reports worsening pain in the left calf that occurs with walking. The patient can ambulate for approximately half a block before the pain begins. The patient is currently on Plavix. [facility] Medical History Nicotine dependence, cigarettes, uncomplicated Depression PAD (peripheral artery disease) Asthma Dyslipidemia Acid reflux HTN (hypertension) Surgical History S/P aortogram S/P femoral-femoral bypass surgery S/P aortogram History of esophagogastroduodenoscopy (EGD) H/O colonoscopy H/O wrist surgery Family History Father No problems noted. Mother No problems noted. Social History Household Members: None Housing: Apartment Housing Other:: Indep Living Are you a primary respiratory care faculty to a significant other at home: No Do you presently have visiting nurse or other home services: Yes Alcohol intake: former Patient Tobacco Use Status: Current everyday Tobacco user Tobacco use type: Cigarette Cigarettes Per Day: 5 Years Smoked: 56 e-Cigarette/Vaping Use: Currently Using Second Hand Smoke Exposure: No service: No Current occupational status: unemployed Review of Systems Const All systems reviewed & are unremarkable except as noted in HPI and below Reports no additional complaints ENT Reports Normal hearing present Card Denies chest pain, Denies chest pain at rest, Denies chest pain with activity and Denies pedal edema Resp Denies cough GI Denies abdominal pain Musc Denies abnormal gait, Denies muscle cramps and Denies radiating pain into limb Skin/Breast Denies skin ulcer and Denies wounds Neuro Reports Normal hearing present and Denies abnormal gait Psych Reports no additional complaints Physical Exam Vital Signs: BMI result Body Mass Index 23.4 Const General: cooperative, healthy appearing and comfortable Orientation/consciousness: oriented to person, oriented to place and oriented to time HEENT Head: Yes normal to inspection Neck Neck: Yes normal visual inspection Carotids: no bruits Chest Chest palpation & inspection: normal inspection of the chest Resp Effort & Inspection: normal respiratory effort and able to speak in complete sentences Auscultation: clear to auscultation bilaterally, no crackles, no rales, no rhonchi and no wheezes Cardio Other: Right side palpable dorsalis pedis pulse. Left side DP signal only. Rate: regular rate Rhythm: regular rhythm Heart sounds: S1 normal heart sound present and S2 normal heart sound present Bruits: no carotid bruits Peripheral pulses: Peripheral pulses 2+ throughout GI Inspection: Yes normal to inspection Skin Wounds: no wounds Hair: normal Neuro General: oriented to person, oriented to place and oriented to time Cranial nerves: Yes CN's II-XII intact bilaterally and Yes Normal hearing present Cognition (Neuro): normal cognition Motor exam (neuro): 5/5 motor strength present throughout Extrem Other: venous exam: No significant superficial varicosities or spider telangiectasias, minimal edema General: No clubbing, No cyanosis and No edema Psych Appearance: grossly normal Mental Status: mental status grossly normal Speech and movement: Normal speech and movement present Results Reviewed Results Reviewed: CT angiogram from 04/10/2025 was reviewed fem-fem bypass is patent. Concern on left side is there is significant disease of the left SFA. Written report and images were reviewed. Assessment & Plan Assessment & Plan (1) PAD (peripheral artery disease): Comment: 12/07/2022-left SFA atherectomy and plasty 01/24/2024 left external iliac plasty with stent, left popliteal plasty 09/23/2024 - femoral to femoral bypass (left to right) Code(s): I73.9 - Peripheral vascular disease, unspecified Category: Medical Plan: I informed the patient that the CT scan confirmed the bypass graft is open, which is good news. I explained that the left calf pain is likely occurring because some blood flow is being diverted from the left leg to the right through the graft, rather than traveling down the left leg. In addition he has left superficial femoral artery disease which may be contributing to the left calf pain. Given the patient is not on any blood thinners, I am starting a trial of low-dose Xarelto to see if it improves the symptoms. We requested that he stop his Plavix. I instructed the patient's teacher aide clerical to provide the new pharmacy information to the front office assistant staff to ensure the prescription is sent correctly. I advised a follow-up visit in three months to reassess the condition. Medications: New rivaroxaban (Xarelto) 2.5 mg PO BID 60 tabs 2RF Coding Level of Care Code Est Pt Level 4 (74218) Diagnoses PAD (peripheral artery disease) I73.9
[2025-05-15 14:24] VITALS: BMI 23.4
--- OUTSIDE RECORDS SUMMARY | 2025-05-15 19:27 | XMS_ITS | Clinical Summary ---
Author Organization [employer] Address [address] [facility] [address] [place] [address] Care Team Providers Care Certified Retinal Angiographer Name Role Phone Kayla Friend MD Primary Care Provider [phone] Allergies No known active allergies Medications atorvastatin [...] APPLY ONE PATCH EVERY DAY 023 Active Blood Pressure kitIndications:Es sential hypertension 1 [...] by mouth Once per day. 025 Active Ketotifen Fumarate 0.035 % solutionIndicatio ns:Allergic conjunctivitis of both eyes Administer 1 drop into affected eye(s) 2 times daily. 10 mL Active Stiolto Respimat 2.5-2.5 MCG/ACT aerosol solution inhaler Inhale 2 Inhalation. Once per day. 4 g Active albuterol 108 (90 Base) MCG/ACT inhaler [...] BY MOUTH AT BEDTIME 30 tablet Active olopatadine (Pataday) 0.2 % ophthalmic solution ADMINISTER 1 DROP INTO THE AFFECTED EYE(S) ONCE A DAY 2.5 mL Active albuterol (2.5 MG/3ML) 0.083% nebulizer solutionIndicatio ns:Asthma, unspecified asthma severity, unspecified whether complicated, unspecified whether persistent INHALE THREE MLS BY MOUTH EVERY 4 HOURS NEEDED (BULK) 180 mL Active fluticasone furoate (Arnuity Ellipta) 100 MCG/ACT inhaler INHALE 1 PUFF BY MOUTH ONCE PER DAY. RINSE MOUTH AFTER USE. 1 each Active valsartan-hydroCH LOROthiazide (Diovan-HCT) 320-25 MG tabletIndications :Essential hypertension TAKE 1 TABLET BY MOUTH EVERY MORNING 30 tablet 1 Active Repatha SureClick 140 MG/ML injection Active acetaminophen (Tylenol 8 Hour) 650 MG ER tablet TAKE ONE TABLET BY MOUTH EVERY 8 HOURS (VIAL) 30 tablet Active magnesium oxide (Mag-Ox) 400 (240 Mg) MG tablet TAKE TWO TABLETS BY MOUTH EVERY MORNING 30 tablet 1 Active fluticasone furoate (Arnuity Ellipta) 100 MCG/ACT inhaler Inhale 1 puff Once per day. Rinse mouth with water after use to reduce aftertaste and incidence of candidiasis. Do not swallow. 1 each 11 024 2024 Discontinued(R eorder (will not trigger notification to Pharmacy)) acetaminophen (Tylenol 8 Hour) 650 MG ER tablet TAKE 1 TABLET BY MOUTH EVERY 8 HOURS 30 tablet 025 2024 Discontinued(R eorder (will not trigger notification to Pharmacy)) magnesium 200 MG tablet TAKE 2 TABLETS BY MOUTH EVERY MORNING 60 tablet 1 025 2024 Discontinued valsartan-hydroCH LOROthiazide (Diovan-HCT) 320-25 MG tabletIndications :Essential hypertension TAKE 1 TABLET BY MOUTH EVERY MORNING 30 tablet 1 025 2024 Discontinued(R eorder (will not trigger notification to Pharmacy)) acetaminophen (Tylenol 8 Hour) 650 MG ER tablet TAKE 1 TABLET BY MOUTH EVERY 8 HOURS 30 tablet 025 2024 Discontinued Active Problems Problem Noted Date Diagnosed Date Dry eyes, bilateral 03/08/2024 Assessment & Plan (03/08/2024 4:53 PM EDT): Prescribing Pataday for Sx. Advised to follow up with Cider Press Operator for further treatment. Relevant Medications Olopatadine (Pataday) 0.2% ophthalmic solution Chronic obstructive pulmonar y disease with acute exacerbation ([facility]) 02/02/2024 Assessment & Plan (12/23/2024 9:05 AM [...] relevant orders, pt will be referred to piano machine operator. 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 (Primary Dx); 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; Combined forms of age-related cataract of both eyes; Retinal drusen of both eyes; Meibomian gland disease, unspecified laterality; Presbyopia 04/08/2025 Travel 04/08/2025 Refill [facility] [address] [place] [address] Kayla Friend MD Asthma, unspecified asthma severity, unspecified whether complicated, unspecified whether persistent 03/11/2025 Refill [facility] [address] [place] [address] Kayla Friend MD 02/21/2025 Refill [facility] [address] [place] [address] Kayla Friend MD Asthma, unspecified asthma severity, unspecified whether complicated, unspecified whether persistent; Essential hypertension 02/20/2025 Telephone [facility] [address] [place] [address] Kayla Friend MD med list from Last 3 Months Immunizations Immunization Administration [...] Description 10/07/2025 3:30 PM EDT Office Visit [facility] [address] [place] [address] Rick, Selena, OD [address] [place] [address] Health Maintenance Due Date Last Done Comments CT Colonography 1955 Colonoscopy 1954 FIT 1954 Sigmoidoscopy 1955 Pneumococcal Vaccine: 50+ Years (1 of 2 - PCV) 1973 RSV Patients and Patients Aged 60 years or older (1 - Risk 50-74 years 1-dose series) 2004 COVID-19 Vaccine ( season) 2025 12/24/2021, 12/24/2021, 12/15/2020, Additional history exists Influenza Vaccine (#1) 2025 Depression Screening 05/30/2025 05/30/2024, 05/30/20 SDOH Screening 11/26/2025 11/26/2024 Alcohol/Substance Use Screening 12/19/2025 12/19/2024 Zoster Vaccines (2 of 2) 12/19/2025 02/03/2024 Pos tponed from 03/30/2024 (Patient Refused) FOBT 03/07/2026 03/07/2025 Tobacco Screening 04/24/2026 04/24/2025 Colorectal Cancer Screening 03/07/2028 FIT DNA/Cologuard 03/07/2028 [...] Procedure Name Priority Date/Time Associated Diagnosis Comments OCT, RETINA - OU - BOTH EYES Routine 04/08/2025 3:30 PM EDT 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 OCT [employer] Optical Coherence Tomography Interpretation Report Measurements: OD OS Macula Thickness 195 microns 220 microns Test findings: OD: Normal foveal contour, no cystoid macular edema, retinal pigment epithelium atrophy centrally, no subretinal fluid OS: Normal foveal contour, no cystoid macular edema, scattered retinal pigment epithelium mottling, no subretinal fluid Impression and Plan: Dry age-related macular degeneration in both eyes, GA noted in right macula only. Findings are grossly stable to 04/2023 scans. No treatment indicated at this time. Will monitor here in 6 months, sooner with vision changes. Selena Cabrera OD OPHTH TOMOGRAPHY Final Result * Cologuard?? colon cancer screening (03/07/2025 5:00 AM EDT) Cologuard Result Negative Negative 03/18/20 12:47 PM EDT [facility] (CLIA #:[id number]) Comment: The Cologuard (TM) test was performed [...] cancer. Following a negative Cologuard result, the [place] [employer] Society and U.S. Multi-Society Task Force screening guidelines recommend a Cologuard re-screening interval of 3 years. References: [place] [employer] Guideline for Colorectal Cancer Screening: https://www.cancer.org/cancer/cusdm-zeauzq-atuxlx/benyzmtco-joqpixkfy-dslwdmz/ac s-rec ommendations.html.; Rogerio DK, Andrea STEEL, Damien GillespieK, Colorectal Cancer Screening: Recommendations for Physicians and Patients from the U.S. Multi-Society Task Force on Colorectal Cancer Screening , Am J Gastroenterology 2017; 112:9768-8248. TEST DESCRIPTION: Composite algorithmic analysis of stool [...] were screened with both Cologuard and colonoscopy. (Imperiale T. et al, N Engl J Med 2014;370(14):0874-6907.) Cologuard may produce a false negative or false positive result (no colorectal cancer or precancerous polyp present at colonoscopy follow up). A negative Cologuard test result does not guarantee the absence of CRC or advanced adenoma (pre-cancer). The current Cologuard screening interval is every 3 years. ([place] [employer] Society and U.S. Multi-Society Task Force). Cologuard performance data in a 10,000 patient pivotal study using colonoscopy as the reference method can be accessed at the following location: www.[employer].Localytics/results. Additional description of the Cologuard test process, warnings and precautions can be found at www.[employer].Localytics. Stool specimen (specimen) 03/07/2025 5:00 AM EDT 03/08/2025 4:16 PM EDT Kayla Friend MD LAB MOLECULAR DIAGNOSTICS ORD ERABLES Final Result Performing Organization Address City/[facility] Hospital/ZIP Co de Phone Number [facility] (CLIA #:[id number]) [address] [place] [address], * Hepatitis C Antibody with Reflex to HCV, RNA, Quantitative, Real-Time PCR (02/22/2024 9:11 AM EDT) Pathologist [facility] Hepatitis C Antibody Nonreactive Nonreactive [facility] Comment:Antibodies to HCV no t detected; does not exclude early acuteHCV infection. Blood Venous blood specimen / Unknown 02/22/2024 9:11 AM EDT 02/22/2024 11:11 AM EDT Kayla Friend MD LAB BLOOD ORDERABLES Final Re sult Performing Organization Address City/[facility] Co de Phone Number [facility] [address] [place] [phone] * (ABNORMAL) Lipid Panel, Standard (02/22/2024 9:11 AM EDT) Pathologist [facility] Triglycerides 222(H) <150 mg/dL [facility] Comment:Desirable Triglyceri de: less than 150 mg/dLBorderline High Triglyceride 150-199 mg/dLHigh Triglyceride: 200-499 mg/dLVery High Triglyceride: greater than or equal to 5OO mg/dL Cholesterol 232(H) <200 mg/dL [facility] Comment:Desirable Cholestero l: less than 200 mg/dLBorderline High Cholesterol: 200-239 mg/dLHigh Cholesterol: greater than 239 mg/dL LDL Cholesterol Calculated 157(H) <100 mg/dL [facility] Comment:Desirable LDL: less than 100 mg/dLNear Optimal/Above Optimal LDL: 110- 129 mg/dLBorderline High LDL: 130-159 mg/dLHigh LDL: 160-189 mg/dLVery High LDL: greater than or equal to 190 mg/dL HDL Cholesterol 31(L) >40 mg/dL [facility] Comment:Desirable HDL: great er than 40 mg/dL Note: This HDL assay may give artificially low results in patients with liver disease. Blood Venous blood specimen / Unknown 02/22/2024 9:11 AM EDT 02/22/2024 11:11 AM EDT us Kayla Friend MD LAB BLOOD ORDERABLES Final Re sult [facility] [address] [place] [phone] [phone] from Last 3 Months or Most Recently Relevant to Health Maintenance Insurance [employer] (HMO D-SNP) [facility] STANDARD Care Teams Certified Retinal Angiographer Relationship Specialty Start Date End Date Kayla Friend MD [address] [place] [phone] PCP - General Family Medicine 04/30/20 Abhsihek Flores MD Surgeon Vascular Surgery 05/30/24 [facility] 09/26/24
--- OUTSIDE RECORDS SUMMARY | 2025-05-15 19:27 | XMS_ITS | Encounter Summary ---
Author Organization [employer] Address [address] [facility] [address] [place] [address] Care Team Providers Care Nuclear Engineering Technician Name Role Phone Kayla Friend MD Primary Care Provider [phone] Encounter Details Date Type Department Care Team ([facility] st Contact Info) Description 09/26/2024 Telephone [facility] [address] [place], [place] [phone] Kayla Friend MD [address] [place] [address] Social History Tobacco Use Types Packs/Day Years [...] Description 10/07/2025 3:30 PM EDT Office Visit [facility] [address] [place] [address] Rick, Megan, OD [address] [place] [address] documented as of this encounter Visit Diagnoses Not on filedocumented in this encounter Additional Health Concerns Assessment Noted Time PHQ-9 Depression Total Score: 2 05/30/20 24 9:43 AM EST documented as of this encounter Care Teams Nuclear Engineering Technician Relationship Specialty Start Date End Date Kayla Friend MD [address] [place] [address] PCP - General Family Medicine 04/30/20 Abhishek Pino MD Surgeon Vascular Surgery 05/30/24 [facility] 09/26/24 documented as of this encounter
--- OUTSIDE RECORDS SUMMARY | 2025-05-15 19:27 | XMS_ITS | Encounter Summary ---
Author Organization [employer] Address [address] [place] [address] [address] [place] [address] Care Team Providers Care Eggs Inspector Name Role Phone Kayla Friend MD Primary Care Provider Reason for Visit * Reason Comments Med Refill Encounter Details Date Type Department Care Team ([facility] st Contact Info) Description 10/27/2024 Refill [facility] MED & PEDS [address] [place] [address] Kayla Friend MD [address] [place] [address] Social History Tobacco Use Types Packs/Day Years [...] Description 10/07/2025 3:30 PM EDT Office Visit [facility] OPT[facility] [address] [place] [address] Rick, Selena, OD [address] [place] [address] documented as of this encounter Visit Diagnoses Not on filedocumented in this encounter Additional Health Concerns Assessment Noted Time PHQ-9 Depression Total Score: 2 05/30/20 24 9:43 AM EST documented as of this encounter Care Teams Eggs Inspector Relationship Specialty Start Date End Date Kayla Friend MD [address] [place] [address] PCP - General Family Medicine 04/30/20 Abhishek Pino MD Surgeon Vascular Surgery 05/30/24 [facility] 09/26/24 documented as of this encounter
--- OUTSIDE RECORDS SUMMARY | 2025-05-15 19:27 | XMS_ITS | Encounter Summary ---
Author Organization [employer] Address [address] [place] [address] [address] [place] [address] Care Team Providers Care Personnel And Payroll Technician Name Role Phone Kayla Friend MD Primary Care Provider [phone] Reason for Visit * Reason Comments Med Refill Encounter Details Date Type Department Care Team ([facility] st Contact Info) Description 04/18/2025 Refill [facility] MED & PEDS [address] [place] [address] Kayla Friend MD [address] [place] [address] Essential hypertension Social History Tobacco Use Types [...] Description 10/07/2025 3:30 PM EDT Office Visit [facility] [address] [place] [address] Rick, Selena, OD [address] [place] [address] documented as of this encounter Visit Diagnoses Diagnosis Essential hypertension Unspecified essential hypertension documented in this encounter Additional Health Concerns Assessment Noted Time PHQ-9 Depression Total Score: 2 05/30/20 24 9:43 AM EST documented as of this encounter Care Teams Personnel And Payroll Technician Relationship Specialty Start Date End Date Kayla Friend MD [address] [place] [address] PCP - General Family Medicine 04/30/20 Abhishek Pino MD Surgeon Vascular Surgery 05/30/24 [facility] 09/26/24 documented as of this encounter
--- OUTSIDE RECORDS SUMMARY | 2025-05-15 19:27 | XMS_ITS | Encounter Summary ---
Author Organization [employer] Address [address] [facility] [address]t [place] [address] Care Team Providers Care Supervisor Name Role Phone Kayla Friend MD Primary Care Provider [phone] Encounter Details Date Type Department Care Team ([facility] Contact Info) Description 10/11/2024 Telephone [facility] CHC MED & PEDS [address] [place], [place] [phone] Kayla Friend MD [address] [place] [address] Social History Tobacco Use Types Packs/Day Years [...] is your housing situation today? I have adlairmichelle zepeda 04/18/[address] you [...] EDT Tc from Donald visiting nurse with [facility] regarding pt blood pressure. Visiting nurse stated blood pressure medication was put on hold due to pt having surgery. Donald requesting a call back at [phone] documented in this encounter Plan of Treatment Upcoming Encounters Date Type Department Care Team (Late st Contact Info) Description 10/07/2025 3:30 PM EDT Office Visit [facility] OPTOMETRY [address] [place] [address] Rick, Selena, OD [address] [place] [address] documented as of this encounter Visit Diagnoses Not on filedocumented in this encounter Additional Health Concerns Assessment Noted Time PHQ-9 Depression Total Score: 2 05/30/20 24 9:43 AM EST documented as of this encounter Care Teams Supervisor Relationship Specialty Start Date End Date Kayla Friend MD [address] [place] [address] PCP - General Family Medicine 04/30/20 Abhishek Pino MD Surgeon Vascular Surgery 05/30/24 [facility] 09/26/24 documented as of this encounter
--- OUTSIDE RECORDS SUMMARY | 2025-05-15 19:27 | XMS_ITS | Encounter Summary ---
Author Organization [employer] Address [address] [place] [address] [address] [place] [address] Care Team Providers Care Investment Director Name Role Phone Kayla Friend MD Primary Care Provider [phone] Reason for Visit * Reason Comments Med Refill Encounter Details Date Type Department Care Team ([facility] st Contact Info) Description 03/11/2025 Refill [facility] CHC MED & PEDS [address] [place] [address] Kayla Friend MD [address] [place] [address] Social History Tobacco Use Types Packs/Day Years [...] Description 10/07/2025 3:30 PM EDT Office Visit [facility] OPTOMETRY [address] [place] [address] Rick, Selena, OD [address] [place] [address] documented as of this encounter Visit Diagnoses Not on filedocumented in this encounter Additional Health Concerns Assessment Noted Time PHQ-9 Depression Total Score: 2 05/30/20 24 9:43 AM EST documented as of this encounter Care Teams Investment Director Relationship Specialty Start Date End Date Kayla Friend MD [address] [place] [address] PCP - General Family Medicine 04/30/20 Abhishek Pino MD Surgeon Vascular Surgery 05/30/24 [facility] 09/26/24 documented as of this encounter
--- OUTSIDE RECORDS SUMMARY | 2025-05-15 19:27 | XMS_ITS | Encounter Summary ---
Author Organization [employer] Address [address] [place] [address] [address] [place] [address] Care Team Providers Care Long Lines Operator Name Role Phone Kayla Friend MD Primary Care Provider [phone] Encounter Details Date Type Department Care Team (Late Contact Info) Description 08/12/2022 Telephone [facility] CHC MED & PEDS [address] [place], [place] [phone] Kayla Friend MD [address] [place] [address] Social History Tobacco Use Types Packs/Day Years [...] Description 10/07/2025 3:30 PM EDT Office Visit [facility] OPTOMETRY [address] [place] [address] Selena Cabrera, OD [address] [place] [address] documented as of this encounter Visit Diagnoses Not on filedocumented in this encounter Additional Health Concerns Assessment Noted Time PHQ-9 Depression Total Score: 5 07/18/19 23 2:10 PM EST documented as of this encounter Care Teams Long Lines Operator Relationship Specialty Start Date End Date Kayla Friend MD [address] [place] [address] PCP - General Family Medicine 04/30/20 Abhishek Pino MD Surgeon Vascular Surgery 05/30/24 [facility] 09/26/24 documented as of this encounter
--- OUTSIDE RECORDS SUMMARY | 2025-05-15 19:27 | XMS_ITS | Encounter Summary ---
Author Organization [employer] Address [address] [place] [address] [address]t [place] [address] Care Team Providers Care Operations Expert Name Role Phone Kayla Friend MD Primary Care Provider [phone] Encounter Details Date Type Department Care Team ([facility] st Contact Info) Description 02/10/2023 Telephone [facility] CHC MED & PEDS [address] [place], [place] [phone] Kayla Friend MD [address] [place] [address] Social History Tobacco Use Types Packs/Day Years [...] 3:17 PM EDT Tc from katelyn with [facility] pulmonology requesting last three OV notes and any breathing test to be faxed to [phone] Any questions, please contact katelyn at [phone] documented in this encounter Plan of Treatment Upcoming Encounters Date Type Department Care Team (Late st Contact Info) Description 10/07/2025 3:30 PM EDT Office Visit [facility] OPTOMETRY [address] [place] [address] RickSelena pendleton, OD [address] [place] [address] documented as of this encounter Visit Diagnoses Not on filedocumented in this encounter Additional Health Concerns Assessment Noted Time PHQ-9 Depression Total Score: 5 07/18/19 23 2:10 PM EST documented as of this encounter Care Teams Operations Expert Relationship Specialty Start Date End Date Kayla Friend MD [address] [place] [address] PCP - General Family Medicine 04/30/20 Abhishek Pino MD Surgeon Vascular Surgery 05/30/24 [facility] 09/26/24 documented as of this encounter
--- OUTSIDE RECORDS SUMMARY | 2025-05-15 19:28 | XMS_ITS | Encounter Summary ---
Author Organization [email or web address] Address [address] [facility] [address]t [place] [address] Care Team Providers Care Special Education Resource Teacher Name Role Phone Kayla Friend MD Primary Care Provider [phone] Reason for Visit * Reason Onset Date Comments Appointment Request 11/11/2024 Encounter Details Date Type Department Care Team ([facility] Contact Info) Description 11/11/2024 Telephone [facility] [address] [place] [address] Kayla Friend MD [address] [place] [address] Appointment Request Social History Tobacco Use Types [...] 10/07/2025 3:30 PM EDT Office Visit [facility] OPTOM[facility] [address] [place] [address] Rick, Selena, OD [address] [place] [address] documented as of this encounter Visit Diagnoses Not on filedocumented in this encounter Additional Health Concerns Assessment Noted Time PHQ-9 Depression Total Score: 2 05/30/20 9:43 AM EST documented as of this encounter Care Teams Special Education Resource Teacher Relationship Specialty Start Date End Date Kayla Friend MD [address] [place] [address] PCP - General Family Medicine 04/30/20 Abhishek Pino MD Surgeon Vascular Surgery 05/30/24 [facility] 09/26/24 documented as of this encounter
== END 2025-05-15 14:44 | disposition home or self-care (01) ==
LOC: HO.HVS 14:04
PROVIDERS: Visit Provider Surgery Vascular Surgery
DX: I73.9 Peripheral vascular disease, unspecified (principal)
CPT/HCPCS: 99214

== ENCOUNTER → 2025-05-15 14:03 | Outpatient (BNVA) | payer OTHER, SELFPAY | PROVIDERS: Visit Provider Surgery Vascular Surgery | DX: Z71.2 Person consulting for explanation of examination or test findings (principal); I73.9 Peripheral vascular disease, unspecified | CPT/HCPCS: 99212 ==

== ENCOUNTER 2025-05-30 10:49 | Outpatient (AMB) | payer OTHER, SELFPAY ==
--- NOTE | 2025-05-30 08:41 | A.OFFVIS_ITS ---
Intake Visit Reasons: LDCT Allergies No Known Allergies Allergy (Verified 05/15/25 14:26) HPI HPI LDCT: Details: Initial visit for this 70yo smoker with a 40+PYH. Patient started smoking at age 13 for 57 years at 1ppd. Now at 1/4ppd. . Denies marijuana use. Denies second hand smoke exposure. Denies exposure to chemicals or substances like asbestos. . Denies known family history of lung cancer. Denies personal history of cancers. Denies chest CT in last year. . Denies recent travel outside the [place]. Denies recent respiratory illness or recent hospitalization for respiratory issues. Denies testing positive for COVID. Admits receiving COVID Vaccine. . Denies fever, chills, new/worsening cough, hemoptysis, hoarseness or dysphagia. Denies significant chest pain, significant dyspnea or unintentional weight loss. Patient Lung Cancer Screening Questionnaire reviewed with patient by provider. . Shared Decision Making Completed. Patient meets criteria. Discussed in detail with patient, the risk vs benefit of LDCT screening. Patient consents to proceed with scan. Discussed smoking cessation. [facility] Medical History Nicotine dependence, cigarettes, uncomplicated Depression PAD (peripheral artery disease) Asthma Dyslipidemia Acid reflux HTN (hypertension) Surgical History S/P aortogram S/P femoral-femoral bypass surgery S/P aortogram History of esophagogastroduodenoscopy (EGD) H/O colonoscopy H/O wrist surgery Family History Father No problems noted. Mother No problems noted. Social History (Updated 05/30/25 @ 11:12 by Merari Almodovar PA-C) Household Members: None Housing: Apartment Housing Other:: Indep Living Are you a primary healthcare representative to a significant other at home: No Do you presently have visiting nurse or other home services: Yes Alcohol intake: former Patient Tobacco Use Status: Current everyday Tobacco user Tobacco use type: Cigarette Cigarettes Per Day: 5 Years Smoked: (onset 13yo, 1ppd x 57yrs, now 1/4ppd - 40pyh) e-Cigarette/Vaping Use: Currently Using Second Hand Smoke Exposure: No service: No Current occupational status: unemployed Assessment & Plan Assessment & Plan (1) Nicotine dependence, cigarettes, uncomplicated: Comment: (onset 13yo, x 57yrs, max 1ppd, now 1/4ppd - 40pyh) Code(s): F17.210 - Nicotine dependence, cigarettes, uncomplicated Category: Medical Plan: - SDM visit completed today in office. - Patient meets criteria for LDCT for lung cancer screening purposes and is asymptomatic. - Smoking cessation counseling offered. Patients can always call [phone]. - Will arrange for a LDCT scan of the chest for screening purposes at [facility]. - Risks, benefits, and alternatives were discussed in detail and the patient agrees to proceed. - Risks discussed include but are not limited to: radiation exposure, anxiety during testing and while awaiting results, false negatives, false positives and possibility of additional intervention such as further imaging or surgical procedures for benign disease. - Benefits are obviously detection of lung cancer at an early stage which can lead to improved outcomes. - Discussed the importance of screening program compliance with adherence to yearly LDCT scan as scheduled - or sooner interval scans for personalized screening regimen. - Discussed follow up plan. Our office will send a letter discussing results and if needed set up phone call and office visit based on CT findings. - Patient educated on results categorization and the management decisions for suspicious findings potentially found on the screening LDCT scan. Any patient with a Lung RADS score of 3 or 4 will be reviewed by a multidisciplinary team at [facility] to form a plan of action in regards to scan findings. - If further work up is warranted for a suspicious lung finding this will be followed by the Lung Cancer Screening program in conjunction with the Thoracic Surgery Department at [facility]. - A copy of the office note and LDCT will be sent to the patient's PCP - as well as documentation on any associated further plans of care. - Incidental findings on LDCT are the PCP's responsibility. These findings are indicated with an S finding on the LDCT Assessment. A note discussing the findings will be sent to the PCP who is then responsible for further management. - All questions answered.? Coding Level of Care Code Lung Cancer Screening G0296 Diagnoses Nicotine dependence, cigarettes, uncomplicated F17.210
== END 2025-05-30 11:28 | disposition home or self-care (01) ==
LOC: HO.HPS 10:50
PROVIDERS: Referring Provider Nurse Practitioner Family; Visit Provider Physician Assistant Medical
DX: F17.210 Nicotine dependence, cigarettes, uncomplicated (principal)
CPT/HCPCS: G0296

== ENCOUNTER 2025-05-30 11:15 | Outpatient (REF) | payer OTHER, SELFPAY ==
--- NOTE | ~2025-05-30 | CT_ITS ---
EXAMINATION: CT LUNG SCREENING HISTORY: F17.210 - Nicotine dependence, cigarettes, uncomplicated TECHNIQUE: Low dose axial images were obtained from the sternal notch to upper abdomen without IV contrast per standard departmental protocol. Sagittal and coronal reformatted images were also obtained and reviewed. One or more of the following techniques was used for dose reduction: Automated exposure control, adjustment of the mA and/or kV according to patient size, use of iterative reconstruction technique. DLP: 40 mGy-cm COMPARISON: Previous chest x-ray September 2024 FINDINGS: Lung nodules: Biapical pleural and parenchymal scarring. Scattered areas of bronchial wall thickening. 2 x 4 mm right upper lobe nodule axial image 29 series 4. 3 x 6 mm right upper lobe nodule axial image 32 series 4. 2 mm right upper lobe nodule axial image 31 series 4. 4 x 6 mm semisolid right upper lobe nodule axial image 66 series 4. There are areas of increased groundglass attenuation and increased peribronchial attenuation in the right upper lobe for example measuring 11 mm axial image 62 series 4 and measuring 5 mm axial image 66 series 4. Clustered 2 to 3 mm left upper lobe nodule axial image 33 series 4. This may represent an infectious or inflammatory process. 3 mm semisolid right lower lobe nodule axial image 116 and 2 mm right lower lobe nodule axial image 129 series 4. 3 mm left lower lobe nodule axial image 79 series 4. 2 mm peripheral or subpleural left lower lobe nodule axial image 87 series 4. 3 mm calcified left lower lobe nodule axial image 128 series 4. Central airways are clear. No pleural effusion pleural thickening or pneumothorax. Prominent mediastinal lymph node in the tracheoesophageal groove measuring 12 mm in short axis axial image 18 series 4. Other smaller mediastinal lymph nodes. Normal heart size. Trace pericardial effusion or thickening. Moderate coronary artery calcification. Heavily calcified upper normal size thoracic aorta. Normal thyroid gland. No chest wall mass. Visualized upper abdomen: The visualized portions of the liver, spleen, and adrenals have an unremarkable unenhanced appearance. Degenerative changes of the spine. CT/CT lung screening IMPRESSION: Mild emphysema. Scattered areas of bronchial wall thickening. Increased peribronchial attenuation, clustered nodules and increased groundglass attenuation right upper lobe measuring up to 11 mm. This may represent an infectious or inflammatory process. Slightly enlarged right tracheoesophageal groove lymph node. Moderate coronary artery calcification. LUNG-RADS ASSESSMENT: Lung-RADS 0: Incomplete MANAGEMENT: 1-3 month LDCT Category S: N/A Electronically signed by: Yenifer Georges MD 06/02/2025 05:03 PM [facility]
== END 2025-05-30 11:16 | disposition home or self-care (01) ==
LOC: HO.CT 11:15
PROVIDERS: Visit Provider Physician Assistant Medical
DX: F17.210 Nicotine dependence, cigarettes, uncomplicated (principal); Z12.2 Encounter for screening for malignant neoplasm of respiratory organs
CPT/HCPCS: 71271; G0296

== ENCOUNTER → 2025-05-30 11:19 | Outpatient (BNV) | payer OTHER, SELFPAY | PROVIDERS: Visit Provider Radiology Diagnostic Radiology | DX: F17.210 Nicotine dependence, cigarettes, uncomplicated (principal) | CPT/HCPCS: 71271 ==